=== PATIENT | female | born 1955 | race Caucasian/White ===

== ENCOUNTER 2021-09-28 10:48 | Outpatient (REF) | payer MEDICARE, MEDICAID, SELFPAY ==
--- NOTE | ~2021-09-28 | XR_ITS ---
EXAMINATION: XR ANKLE, RIGHT CLINICAL INFORMATION: Sprain COMPARISON: None TECHNIQUE: AP, lateral, and mortise views of the right ankle. FINDINGS: There is an acute oblique fracture of the distal fibular shaft. There is a mild 3 mm lateral displacement of the distal fibula with respect to the more proximal shaft. No other fracture is seen. The ankle mortise is normal. There is lateral soft tissue swelling. There are calcaneal spurs. XR/XR ankle RT min 3V IMPRESSION: Acute fracture of the distal fibular shaft
== END 2021-09-28 10:49 | disposition home or self-care (01) ==
LOC: HO.HMGCX 10:48
PROVIDERS: PCP Internal Medicine; Visit Provider Physician Assistant Medical
DX: S96.911A Strain of unspecified muscle and tendon at ankle and foot level, right foot, initial encounter (principal); S93.401A Sprain of unspecified ligament of right ankle, initial encounter
CPT/HCPCS: 73610

== ENCOUNTER → 2021-10-03 12:14 | Outpatient (BNVA) | payer MEDICARE, MEDICAID, SELFPAY | PROVIDERS: PCP Internal Medicine; Visit Provider Physician Assistant | DX: S82.831A Other fracture of upper and lower end of right fibula, initial encounter for closed fracture (principal) | CPT/HCPCS: 99202 ==

== ENCOUNTER 2021-10-16 07:50 | Outpatient (REF) | payer MEDICARE, MEDICAID, SELFPAY ==
--- NOTE | ~2021-10-16 | XR_ITS ---
EXAMINATION: XR TIBIA AND FIBULA, RIGHT CLINICAL INFORMATION: Fractures in upper and lower leg. COMPARISON: Right ankle 09/28/2021. TECHNIQUE: AP and lateral views of the right tibia and fibula were obtained. FINDINGS: There is a slowly healing right distal fibular fracture with mild callus formation. No new fractures seen. The ankle mortise and subtalar joints are normal. There is a small calcaneal heel spur. No additional fracture seen. XR/XR tibia fibula RT 2V IMPRESSION: Slowly healing distal fibular oblique fracture. No new acute fracture seen.
== END 2021-10-16 07:51 | disposition home or self-care (01) ==
LOC: HO.HOSX 07:50
PROVIDERS: Visit Provider Physician Assistant
DX: S82.831D Other fracture of upper and lower end of right fibula, subsequent encounter for closed fracture with routine healing (principal); W18.11XD Fall from or off toilet without subsequent striking against object, subsequent encounter
CPT/HCPCS: 73590; 99212

== ENCOUNTER 2021-11-30 08:00 | Outpatient (REF) | payer MEDICARE, MEDICAID, SELFPAY ==
--- NOTE | ~2021-11-30 | XR_ITS ---
EXAMINATION: XR ANKLE, RIGHT CLINICAL INFORMATION: Fracture COMPARISON: Previous x-ray September and October 2021 TECHNIQUE: AP, lateral, and mortise views of the right ankle. FINDINGS: There is a healing fracture of the distal fibular shaft. Alignment appears unchanged. No other fracture is seen. The ankle mortise is normal. There are calcaneal spurs. XR/XR ankle RT min 3V IMPRESSION: Healing fracture of the distal fibular shaft.
== END 2021-11-30 08:01 | disposition home or self-care (01) ==
LOC: HO.HOSX 08:00
PROVIDERS: Visit Provider Physician Assistant
DX: S82.831D Other fracture of upper and lower end of right fibula, subsequent encounter for closed fracture with routine healing (principal)
CPT/HCPCS: 73610; 99212

== ENCOUNTER 2022-05-07 23:35 | Emergency (ER) | payer MEDICARE, MEDICAID, SELFPAY ==
--- NOTE | ~2022-05-07 | XR_ITS ---
EXAMINATION: XR ANKLE, RIGHT CLINICAL INFORMATION: Ankle injury COMPARISON: Right ankle radiographs 11/30/2021 TECHNIQUE: AP, lateral, and mortise views of the right ankle. FINDINGS: Again seen a healed oblique fracture through the distal fibula. Bilateral soft tissue swelling is present. Marked degenerative changes are present at the ankle joint. There is also widening of the medial clear space to 6 mm which may be indicative of a deltoid ligamentous injury and ankle instability. XR/XR ankle RT min 3V IMPRESSION: 1. Degenerative changes at the ankle joint with widening of the medial clear space which may be indicative of a deltoid ligamentous injury. 2. Healed distal fibular fracture.
[2022-05-07 23:43] VITALS: BP 170/86; PULSE 120; O2SAT 97
[2022-05-07 23:45] VITALS: BP 129/61; PULSE 98; RESP 20; TEMP 36.4; O2SAT 94; BMI 56.7
--- NOTE | 2022-05-08 01:04 | ED.LOWEXIN ---
HPI - Extremity Injury (Lower) General Chief Complaint: Extremity Injury, Lower Stated Complaint: ANKLE PAIN FROM FALL Time Seen by Provider: 05/08/22 00:40 History of Present Illness HPI Narrative: Patient is a 58-year-old female presents today with having twisted her right ankle. Complaining pain to the lateral aspect. There is no systemic complaints. No dizziness no nausea no vomiting prior. Patient is from home. Long history of diabetes. Patient was trying to stand up from her recliner but rolled her ankle. Had a previous history of ankle fractures in the past. Related Data Home Medications Medication Instructions Recorded Confirmed albuterol sulfate 90 mcg/actuation 2 puff PO QID PRN 09/28/21 aerosol inhaler (Ventolin HFA) aripiprazole 20 mg tablet 20 mg PO BEDTIME PRN 09/28/21 furosemide 20 mg tablet See Rx Instructions .Route 09/28/21 DIRECTED gabapentin 300 mg capsule 300 mg PO TID 09/28/21 glipizide 5 mg tablet, extended 5 mg PO DAILY 09/28/21 release 24 hr lamotrigine 100 mg tablet 100 mg PO BID 09/28/21 lamotrigine 25 mg tablet 50 mg PO QPM 09/28/21 metformin 1,000 mg tablet 1,000 mg PO BID 09/28/21 pioglitazone 30 mg tablet 30 mg PO DAILY 09/28/21 potassium chloride 20 mEq 20 meq PO DAILY 09/28/21 tablet,extended release quetiapine 100 mg tablet mg PO 09/28/21 simvastatin 40 mg tablet 40 mg PO DAILY 09/28/21 spironolactone 25 mg tablet 25 mg PO DAILY 09/28/21 budesonide-formoterol HFA 160 inhalation 10/03/21 mcg-4.5 mcg/actuation aerosol inhaler (Symbicort) Previous Rx's Medication Instructions Recorded walker #1 ea 09/28/21 Allergies Allergy/AdvReac Type Severity Reaction Status Date / Time haloperidol [From Haldol] Allergy Mild UNKNOWN Verified 11/30/21 10:54 Review of Systems Review of Systems: No fever no chills no systemic complaints Yes all other systems are reviewed and are negative [facility] Past Medical History Attestation statement: The following information was validated with the patient. 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 Oriented X3. No acute distress. Eyes: Pupils equal, round and reactive to light. ENT: Pharynx normal. Neck: Normal inspection. Neck supple. No lymph nodes noted. No crepitus CVS: Normal heart rate and rhythm. Pulses normal. Normal S1 and S2 Respiratory: No respiratory distress. Breath sounds normal. No Wheezing. No rales Abdomen: Soft and nontender. No rigidity. No distention. good BS x4 Skin: Skin warm and dry. Normal skin color. Normal skin turgor. Extremities: No lower extremity edema. Examination of the right ankle there is no medial or lateral malleolar tenderness. There is no pain on the base of the 5th metatarsal. Neurovascular intact to all extremities. No Lacerations. No Rash Neuro: Oriented X 3. No motor deficit. No sensory deficit. Moving all extermities. No slurred speech Medical Decision Making Medical Decision Making MDM Narrative: Patient's x-ray showed no acute fracture. No dislocation. There is no gross deformities. Audible ankle rule followed. There is minimal tenderness at the lateral malleolus at the posterior aspect. There is no pain at base of the 5th metatarsal. No pain at the medial malleolus. Patient well-appearing there is minimal swelling to the ankle. Will discharge patient home. Bud bandage for comfort. In stable condition. Differential Diagnosis Differential Diagnoses: The differential diagnosis associated with the presentation includes Ankle fracture Discharge Plan Discharge Clinical Impression: Ankle sprain and strain Patient Disposition: Home, Self-Care Instructions: Ankle Sprain (ED), Sprain (ED) Additional Instructions: Tylenol as needed for pain Prescriptions: No Action glipizide 5 mg tablet extended release 24hr 5 mg PO DAILY pioglitazone 30 mg tablet 30 mg PO DAILY quetiapine 100 mg tablet PO metformin 1,000 mg tablet 1,000 mg PO BID potassium chloride 20 mEq tablet extended release 20 meq PO DAILY lamotrigine 100 mg tablet 100 mg PO BID lamotrigine 25 mg tablet 50 mg PO QPM aripiprazole 20 mg tablet 20 mg PO BEDTIME PRN simvastatin 40 mg tablet 40 mg PO DAILY furosemide 20 mg tablet See Rx Instructions .ROUTE DIRECTED Rx Instructions: 40 mg AM 20 mg PM as directed; gabapentin 300 mg capsule 300 mg PO TID spironolactone 25 mg tablet 25 mg PO DAILY albuterol sulfate [Ventolin HFA] 90 mcg/actuation HFA aerosol inhaler 2 puff PO QID PRN (YAQUELIN) petey [facility] See Rx Instructions .Route Qty: 1 0RF Rx Instructions: As directed budesonide-formoterol [Symbicort] 160-4.5 mcg/actuation HFA aerosol inhaler inhalation Referrals: Torey Guevara MD [Physician] - 05/10/22
--- NOTE | 2022-05-08 01:29 | PC.NURSE ---
R ankle wrapped with max bandage
--- NOTE | 2022-05-08 01:30 | PC.NURSE ---
patient provided with walker to take home per providers orders
--- NOTE | 2022-05-08 03:04 | PC.NURSE ---
pt daughter called back to check on her mom. daughter states she will be here at approx 0700 due to she lives far away. pt is comfortable no distress.
== END 2022-05-08 07:20 | disposition home or self-care (01) ==
PROVIDERS: Emergency Provider Emergency Medicine Emergency Medical Services
DX: S93.401A Sprain of unspecified ligament of right ankle, initial encounter (principal); X50.1XXA Overexertion from prolonged static or awkward postures, initial encounter; Y93.9 Activity, unspecified; Y92.9 Unspecified place or not applicable; Y99.9 Unspecified external cause status; Z79.899 Other long term (current) drug therapy
CPT/HCPCS: 73610; 99283

== ENCOUNTER 2022-05-24 14:02 | Outpatient (REF) | payer MEDICARE, MEDICAID, SELFPAY ==
--- NOTE | ~2022-05-24 | XR_ITS ---
EXAMINATION: XR ANKLE, RIGHT CLINICAL INFORMATION: Pain. COMPARISON: None TECHNIQUE: AP, lateral, and mortise views of the right ankle. FINDINGS: Bony alignment and mineralization are normal. The ankle mortise is intact. Previously noted widening of the medial clear space is less well appreciated than was noted previously. A healed oblique fracture is seen of the distal fibula. No acute fracture, dislocation or right ankle joint effusion is seen. 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 Boehler's angle is normal. There are small posterior and plantar calcaneal spurs. There is osteoarthritic change of the first metatarsophalangeal joint. There is generalized soft tissue swelling. XR/XR ankle RT min 3V IMPRESSION: 1. A healed fracture is redemonstrated of the distal right fibula. 2. There are small calcaneal spurs. 3. There are degenerative changes of the ankle and foot, as detailed. 4. There is generalized soft tissue swelling.
== END 2022-05-24 14:03 | disposition home or self-care (01) ==
LOC: HO.HOSX 14:02
PROVIDERS: Visit Provider Physician Assistant
DX: S93.401A Sprain of unspecified ligament of right ankle, initial encounter (principal)
CPT/HCPCS: 73610; 99212

== ENCOUNTER 2023-03-24 09:30 | Emergency (ER) | payer MEDICARE, MEDICAID, SELFPAY ==
--- NOTE | ~2023-03-24 | CT_ITS ---
EXAMINATION: CT HEAD WITHOUT IV CONTRAST CT CERVICAL SPINE WITHOUT IV CONTRAST CT MAXILLOFACIAL WITHOUT IV CONTRAST INDICATION: Fall COMPARISON: None available. TECHNIQUE: Multidetector CT acquisitions of the head and cervical spine were obtained without IV contrast. Multiplanar reformats were acquired and utilized for image interpretation. This CT examination was performed using dose optimization techniques as appropriate, variously including the following: *Automated exposure control *Adjustment of mA and/or kV according to patient size (this includes techniques or standardized protocols for targeted exams where dose is matched to indication/reason for exam; i.e. extremities or head) *Use of iterative reconstruction technique FINDINGS: HEAD: No acute intracranial hemorrhage or infarct. The britton-white matter differentiation is preserved. Diffuse widening of the sulci with associated mild ex vacuo dilation of the ventricles compatible with global cerebral atrophy. No midline shift or hydrocephalus. No acute extra-axial fluid collections. No acute osseous abnormality. Sequelae of bilateral lens replacement. There is suggestion of chronic fracture deformity of the left inferior orbital rim through the infraorbital foramen with herniation of the intraorbital fat. Otherwise, no orbital pathology. The paranasal sinuses and mastoid air cells are clear. Atherosclerotic calcifications of the bilateral carotid siphons and visualized intracranial vertebral arteries. CERVICAL SPINE: No acute fracture or listhesis. The craniocervical and atlantoaxial articulations are normal. Multilevel degenerative changes including disc space narrowing, endplate osteophytosis, uncovertebral hypertrophy, and facet arthrosis. There is no prevertebral soft tissue swelling. No significant soft tissue abnormality within the neck. The visualized lung apices are clear. Ill-defined hypoattenuating focus in the left thyroid lobe lesion of to 1.[address]/CT cervical spine wo IV con IMPRESSION: No acute intracranial abnormality. No acute fracture or listhesis within the cervical spine. Ill-defined 1.6 cm hypoattenuating left thyroid lobe nodule. Recommend further evaluation with dedicated thyroid ultrasound.
--- NOTE | ~2023-03-24 | XR_ITS ---
EXAMINATION: XR CHEST CLINICAL INFORMATION: Hypoxia. COMPARISON: 04/19/2019 TECHNIQUE: 2 views of the chest were obtained. FINDINGS: The lungs are well expanded. Possible airspace disease in the left lower lobe on the lateral projection. No pleural effusion. Cardiac silhouette is unchanged. XR/XR chest 2V IMPRESSION: Possible left lower lobe pneumonia. Advised clinical correlation.
--- NOTE | ~2023-03-24 | XR_ITS ---
EXAMINATION: XR ANKLE, RIGHT CLINICAL INFORMATION: Pain. Fall. COMPARISON: None available. TECHNIQUE: AP, lateral, and mortise views of the right ankle. FINDINGS: Chronic-appearing, predominantly healed oblique fracture through the distal fibular metaphysis. No acute, displaced fracture. No dislocation. Ankle mortise is maintained. Tibiotalar marginal osteophytes. Plantar and dorsal calcaneal spurs. Circumferential soft tissue swelling. XR/XR ankle RT 2V IMPRESSION: 1. Circumferential soft tissue swelling without acute fracture or dislocation. 2. Chronic appearing, predominantly healed distal fibular fracture. 3. Mild tibiotalar osteoarthritis. 4. Plantar and dorsal calcaneal spurs.
[2023-03-24 09:51] VITALS: BP 113/74; PULSE 100; PULSE 91; RESP 16; TEMP 37.2; O2SAT 87; O2SAT 90; BMI 60.1
--- NOTE | 2023-03-24 10:45 | ECG_ITS ---
Test Reason : DYSPNEA Blood Pressure : / mmHG Vent. Rate : 086 BPM Atrial Rate : 086 BPM P-R Int : 170 ms QRS Dur : 070 ms QT Int : 338 ms P-R-T Axes : 042 024 036 degrees QTc Int : 404 ms Normal sinus rhythm Low voltage QRS Septal infarct (cited on or before 04-OCT-2015) Abnormal ECG When compared with ECG of 19-APR-2019 13:01, No significant change was found Referred By: Clarice Palacios Electronically Signed By:ROSA LOPEZ MD
[2023-03-24 10:51] VITALS: BP 114/58; PULSE 88; RESP 22; TEMP 37.2; O2SAT 95
--- NOTE | 2023-03-24 11:17 | ED_ITS ---
HPI - General Adult General Chief complaint: General Medical Stated complaint: UNWIT FALL,R ANKLE PAIN PER EMS Time Seen by Provider: 03/24/23 10:30 Source: patient, EMS and RN notes reviewed Mode of arrival: EMS Limitations: no limitations History of Present Illness HPI narrative: Patient is a 67-year-old female with history of DM, HF presenting to the emergency department after a fall at home this morning. She states that as she got up out of her computer chair she became mildly dizzy and tripped, falling to the floor. Reports difficulty with getting up off the floor, visiting nurse was there at the time and encouraged patient to come to the emergency department for evaluation. Complains of right ankle pain with weight bearing but denies pain at rest. Patient reporting that she believes that she felt dizzy upon standing from computer chair because she had not yet eaten breakfast. Patient denies head strike or loss of consciousness. She states that she is not anticoagulated. Patient found to be hypoxic at 90% on room air upon EMS arrival. Patient states that she has home O2 that she is supposed to wear if her levels drop below 95%, but states that her levels never dropped that low so she rarely uses her oxygen. She denies any chest pain, shortness of breath, cough, fevers. She denies new lower extremity edema and states that her lower extremity edema has recently improved since increasing her Lasix. She denies any headache or vision changes. Denies any current dizziness or lightheadedness. MD complaint: ankle pain Onset (ago): hour(s) Location: right and lower extremity Radiation: non-radiation Severity: mild Quality: aching Pain Consistency: intermittent Relieving factors: rest Exacerbating factors: movement and other (weight bearing) Associated symptoms: denies other symptoms Treatments prior to arrival: none Related Data Home Medications Medication Instructions Recorded Confirmed albuterol sulfate 90 mcg/actuation 2 puff PO QID PRN Shortness Of 09/28/21 03/24/23 aerosol inhaler (Ventolin HFA) Breath aripiprazole 20 mg tablet 20 mg PO DAILY 09/28/21 03/24/23 furosemide 20 mg tablet 40 mg PO DAILY 09/28/21 03/24/23 gabapentin 300 mg capsule 300 mg PO TID 09/28/21 03/24/23 lamotrigine 100 mg tablet 100 mg PO BID 09/28/21 03/24/23 lamotrigine 25 mg tablet 50 mg PO BEDTIME 09/28/21 03/24/23 metformin 1,000 mg tablet 1,000 mg PO BID 09/28/21 03/24/23 pioglitazone 30 mg tablet 30 mg PO DAILY 09/28/21 03/24/23 potassium chloride 20 mEq 20 meq PO DAILY 09/28/21 03/24/23 tablet,extended release quetiapine 100 mg tablet 200 mg PO BEDTIME 09/28/21 03/24/23 simvastatin 40 mg tablet 40 mg PO DAILY 09/28/21 03/24/23 budesonide-formoterol HFA 160 2 puff inhalation BID 10/03/21 03/24/23 mcg-4.5 mcg/actuation aerosol inhaler (Symbicort) empagliflozin 10 mg tablet 10 mg PO DAILY 03/24/23 03/24/23 (Jardiance) furosemide 20 mg tablet 20 mg PO BEDTIME 03/24/23 03/24/23 spironolactone 50 mg tablet 50 mg PO DAILY 03/24/23 03/24/23 Previous Rx's Medication Instructions Recorded walker #1 ea 09/28/21 amoxicillin 875 mg-potassium 1 tab PO BID #14 tabs 03/24/23 clavulanate 125 mg tablet doxycycline hyclate 100 mg capsule 100 mg PO BID 5 days #10 caps 03/24/23 Allergies Allergy/AdvReac Type Severity Reaction Status Date / Time haloperidol [From Haldol] Allergy Mild UNKNOWN Verified 08/30/22 10:12 Review of Systems 2 Review of Systems: As per HPI. Yes all other systems are reviewed and are negative Constitutional: Constitutional: Reports as per HPI [facility] Social History Social History Patient Tobacco Use Status: Never used Tobacco Smoked in Last 30 Days: No Use of substances other than those prescribed or required for medical reasons: No Advance Directives: No Advance Directives Information Provided: No Current occupational status: retired 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 Physical Exam ED Vital Signs: Vital Signs - 24 hr 03/24/23 09:51 03/24/23 10:51 03/24/23 13:58 Temperature 98.9 F 98.9 F 98.4 F Pulse Rate 91 88 86 Respiratory Rate 16 22 H 18 Blood Pressure 114/58 L 108/50 L Pulse Oximetry 87 L 95 96 Oxygen Delivery Method Room Air Nasal Cannula Nasal Cannula Oxygen Flow Rate 2 2 03/24/23 16:08 Temperature Pulse Rate 82 Respiratory Rate 25 H Blood Pressure 109/43 L Pulse Oximetry 96 Oxygen Delivery Method Nasal Cannula Oxygen Flow Rate 2 BMI result Body Mass Index 60.1 Vital signs have been reviewed and appear to be correct. Blood pressure normal. Heart rate normal. Respiratory rate normal. Temperature normal. Oxygen saturation hypoxic on room air. Const General: cooperative and no acute distress Nutritional Appearance: obese Orientation/consciousness: oriented to person, oriented to place, oriented to time and patient oriented x3 Limitations: no limitations HENMT Head: Yes normocephalic and Yes atraumatic Ears: external ears normal General nose exam: Normal external nose present Face and sinus: Yes face symmetric Mouth: oropharynx normal and moist mucous membranes Throat: Yes uvula midline Eyes Pupils: Equal, round and reactive pupils present Neck Neck: Yes normal visual inspection and Yes supple Resp Effort & Inspection: normal respiratory effort and able to speak in complete sentences Auscultation: clear to auscultation bilaterally Cardio Rate: regular rate Rhythm: regular rhythm Heart sounds: S1 normal heart sound present and S2 normal heart sound present GI Palpation (GI): Soft to palpation and nontender Auscultation: normoactive bowel sounds General: Yes no CVA tenderness Back/Spine/Pelvis Back: no CVA tenderness Skin General skin exam: elasticity normal and turgor normal Neuro General: oriented to person, oriented to place, oriented to time, patient oriented x3, moves all extremities, no focal motor deficits and CN's II-XI intact bilaterally Cranial nerves: Yes Equal, round and reactive pupils present Cognition (Neuro): normal cognition Extrem General: Yes full ROM, Yes no calf tenderness and Yes edema (bilateral 2+ pitting edema) Psych Mental Status: mental status grossly normal Affect: normal affect Thought process: Normal thought process present Course Course Course Narrative: 03/24/23 16:26 Patient seen by DANIEL Stanton who feels patient does not meet admission criteria as she has home O2. Discussed with patient discharge home versus PT evaluation. Patient states that she feels comfortable with discharge home, has a visiting nurse that comes every other morning as well as a neighbor across the [place] who can assist her. Also states that her sister typically comes over to help her. Will discharge patient home on Augmentin and doxycycline given report of asthma and COPD history. Return precautions discussed at bedside. Patient verbalized understanding of and agreement with plan. Medications Administered Discontinued Medications Generic Name Dose Route Start Last Admin Trade Name Razia PRN Reason Stop Dose Admin Ceftriaxone Sodium 1 gm/ 50 mls @ 100 mls/hr 03/24/23 13:05 03/24/23 15:56 Sodium Chloride IV 03/24/23 13:34 100 mls/hr ONCE ONE Administration Sodium Chloride 500 mls @ 500 mls/hr 03/24/23 13:15 03/24/23 14:59 Ns IV 03/24/23 14:14 500 mls/hr .Q1H ADOLFO Administration Medical Decision Making Medical Decision Making [facility] Narrative: Patient is a 67-year-old female with history of DM, HF presenting to the emergency department after a fall at home this morning. Patient's family called the ED after patient's arrival and noted that patient recently completed a course of antibiotics for a UTI, but state that often patient's UTIs are resistant to initial treatment. On exam patient is awake, A+Ox3, hypoxic on room air, VS otherwise WNL, afebrile, normal neurological exam without focal deficits, physical exam findings as above. Given reported symptoms and physical exam findings, initial differential includes CHF exacerbation, UTI, pneumonia, cardic dysrhythmia, ankle fracture, ICH, skull or cervical vertebral fracture. Do not suspect sepsis. Labs notable for leukocytosis, no significant electrolyte abnormalities, no evidence of WILLIS, negative troponin, no elevation of BNP. X-ray chest notable for possible left lower lobe pneumonia. No evidence of fracture on ankle x-ray. No evidence of ICH, skull or cervical fracture on CT. My interpretation is in agreement with the radiologist's interpretation. Given leukocytosis and hypoxia, will treat for pneumonia at this time with IV ceftriaxone and azithroymcin. Spoke with Renetta hospitalist [employer] who accepted admisison. Differential Diagnosis Differential Diagnoses: The differential diagnosis associated with the presentation includes As per [facility] Admission/Observation Consideration of admission/observation: Escalation of care including admission/observation considered Consult Healthcare Provider Management of the patient was discussed with: Hospitalist Lab Data [facility] Lab Attestation statement: I reviewed the patient's lab results. As per [facility] 03/24/23 11:29 03/24/23 11:29 Labs: Lab Results 03/24/23 03/24/23 03/24/23 Range/Units 11:29 15:42 15:58 WBC 20.6 H (4.8-10.8) X10*3/uL RBC 5.12 (4.20-5.50) X10*6/uL Hgb 15.8 (12.0-16.0) g/dl Hct 49.1 H (37.0-47.0) % MCV 95.9 (80.0-98.0) fL MCH 30.9 (27.0-33.0) pg MCHC 32.2 (31.0-35.0) g/dl RDW 13.9 (11.0-16.0) % Plt Count 214 (160-400) X10*3/uL MPV Not Reportable Immature Gran % (Auto) 0.7 H (0.0-0.4) % Neut % (Auto) 89.7 H (45-73) % Lymph % (Auto) 3.9 L (20-40) % Emanuel % (Auto) 5.4 (2-11) % Eos % (Auto) 0.1 (0-4) % Baso % (Auto) 0.2 (0-2) % Lymph # (Auto) 0.8 L (1.2-4.9) X10*3/uL Emanuel # (Auto) 1.1 (0.1-1.2) X10*3/uL Eos # (Auto) 0.0 (0.0-0.4) X10*3/uL Baso # (Auto) 0.0 (0.0-0.2) X10*3/uL Abs Immat Gran (auto) 0.15 H (0.00-0.03) X10*3/uL Absolute Neuts (auto) 18.4 H (2.0-8.3) x10*3/uL Absolute Nucleated RBC 0.000 (0.0-0.012) X10*3/uL Nucleated RBC % (auto) 0.0 (0.0-0.2) /100WBC Smear Tech's Comments VERIFIED Sodium 140 (135-145) mmol/L Potassium 4.1 (3.3-5.1) mmol/L Chloride 104 (96-108) mmol/L Carbon Dioxide 22 (22-29) mmol/L Anion Gap 18 (12-20) BUN 10 (9-16) mg/dL Creatinine 0.92 (0.5-1.4) mg/dL Estim Creat Clear Calc 75.7 Estimated GFR > 60 Random Glucose 131 H (60-115) mg/dL Lactic Acid 1.7 (0.5-2.0) mmol/L Calcium 9.8 (8.4-10.2) mg/dL Total Bilirubin 0.8 (0.0-1.0) mg/dL AST 22 (5-31) U/L ALT 14 (0-31) U/L Alkaline Phosphatase 81 (39-117) U/L Troponin I High Sens < 2.7 (<3.5-17.0) ng/L B-Natriuretic Peptide 14 (<100) pg/mL Total Protein 8.0 (6.5-8.0) g/dL Albumin 4.7 (3.5-5.0) g/dL Urine Color Yellow Urine Appearance Clear Urine pH 5.5 (5.0-9.0) Ur Specific [place] 1.020 (1.005-1.025) Urine Protein Negative (Neg-Trace) mg/dL Urine Glucose (UA) >=1000 H (Negative) mg/dL Urine Ketones Trace (Negative) mg/dL Urine Blood Negative (Negative) Urine Nitrite Negative (Negative) Ur Leukocyte Esterase Negative (Negative) Urine RBC 0-2 (0-2) /HPF Urine WBC 0-5 (0-5) /HPF Ur Squamous Epith Cells 0-2 (0-2) /HPF Urine Bacteria None Seen (None Seen) Hyaline Casts 0-2 (0-2) /LPF Influenza Type A (PCR) NEGATIVE (Negative) Influenza Type B (PCR) NEGATIVE (Negative) RSV RNA Qual (PCR) NEGATIVE (Negative) SARS-CoV-2 RNA (RT-PCR) NEGATIVE (Negative) Independent Interpretation I performed an independent interpretation of an: Plain X-Ray Interpretation: Right ankle: no evidence of fracture, soft tissue swelling noted CXR: LLL pneumonia NO evidence of ICH, skull or cervical fx on CT Radiology Impression Discussion of test interpretation with radiology: I have reviewed the radiologist's reading. Radiologist Impression: CT/CT head/brain wo IV con IMPRESSION: No acute intracranial abnormality. No acute fracture or listhesis within the cervical spine. Ill-defined 1.6 cm hypoattenuating left thyroid lobe nodule. Recommend further evaluation with dedicated thyroid ultrasound. XR/XR chest 2V IMPRESSION: Possible left lower lobe pneumonia. Advised clinical correlation. External Record Review External record reviewed: Inpatient record, Office record and Outpatient record Prescription Management I considered prescription management with: Antibiotic Discharge Plan Discharge Clinical Impression: Left lower lobe pneumonia Patient Disposition: Home, Self-Care Instructions: Doxycycline (By mouth), Amoxicillin/Clavulanate Potassium (By mouth), Community Acquired Pneumonia (DC), Pneumonia (ED) Additional Instructions: You were evaluated in the emergency department today after a fall. Your evaluation shows evidence of left lower lobe pneumonia. Please continue to monitor your oxygen levels at home with your pulse oximeter and use your home oxygen as needed. You are being treated with 2 antibiotics, Augmentin and doxycycline. Please complete the full course of both antibiotics as prescribed. Please follow-up with your primary care provider as you will need a repeat chest x-ray to ensure resolution the pneumonia. Return to the emergency department if you develop shortness of breath, difficulty breathing, worsening cough, fever 100.4? F or greater, vomiting, weakness, or any other concerning symptoms. Prescriptions: New doxycycline hyclate 100 mg capsule 100 mg PO BID 5 Days Qty: 10 0RF amoxicillin-pot clavulanate 875-125 mg tablet 1 tab PO BID Qty: 14 0RF No Action furosemide 20 mg tablet 20 mg PO BEDTIME spironolactone 50 mg tablet 50 mg PO DAILY Jardiance 10 mg tablet 10 mg PO DAILY pioglitazone 30 mg tablet 30 mg PO DAILY quetiapine 100 mg tablet 200 mg PO BEDTIME metformin 1,000 mg tablet 1,000 mg PO BID potassium chloride 20 mEq tablet extended release 20 meq PO DAILY lamotrigine 100 mg tablet 100 mg PO BID lamotrigine 25 mg tablet 50 mg PO BEDTIME aripiprazole 20 mg tablet 20 mg PO DAILY simvastatin 40 mg tablet 40 mg PO DAILY furosemide 20 mg tablet 40 mg PO DAILY Rx Instructions: 40 mg AM 20 mg PM as directed; gabapentin 300 mg capsule 300 mg PO TID albuterol sulfate [Ventolin HFA] 90 mcg/actuation HFA aerosol inhaler 2 puff PO QID PRN (Reason: Shortness Of Breath) (HARDIK Mcclain See Rx Instructions .Route Qty: 1 0RF Rx Instructions: As directed budesonide-formoterol [Symbicort] 160-4.5 mcg/actuation HFA aerosol inhaler 2 puff inhalation BID
[2023-03-24 11:43] LABS: Basophils Percent Auto 0.2 % (0-2); Eosinophils Percent Auto 0.1 % (0-4); Hematocrit 49.1 % (37.0-47.0); Hemoglobin 15.8 g/dl (12.0-16.0); Imm Gran Abs Auto 0.15 X10*3/uL (0.00-0.03); Imm Gran Pct Auto 0.7 % (0.0-0.4); Lymphocytes Absolute Auto 0.8 X10*3/uL (1.2-4.9); Lymphocytes Percent Auto 3.9 % (20-40); MANUAL DIFF FLAG SCAN; Mean Corpuscular HGB Conc 32.2 g/dl (31.0-35.0); Mean Corpuscular Hemoglobin 30.9 pg (27.0-33.0); Mean Corpuscular Volume 95.9 fL (80.0-98.0); Monocytes Absolute Auto 1.1 X10*3/uL (0.1-1.2); Monocytes Percent Auto 5.4 % (2-11); Neutrophils Absolute Auto 18.4 x10*3/uL (2.0-8.3); Neutrophils Percent Auto 89.7 % (45-73); PLT CLUMP 1; Red Blood Count 5.12 X10*6/uL (4.20-5.50); Red Cell Distribution Width 13.9 % (11.0-16.0); SCAN SMEAR FLAG 1
[2023-03-24 11:53] LABS: Alanine Aminotransferase 14 U/L (0-31); Albumin Level 4.7 g/dL (3.5-5.0); Alkaline Phosphatase 81 U/L (39-117); Anion Gap 18 (12-20); Aspartate Amino Transferase 22 U/L (5-31); Bilirubin Total 0.8 mg/dL (0.0-1.0); Blood Urea Nitrogen 10 mg/dL (9-16); Calcium 9.8 mg/dL (8.4-10.2); Carbon Dioxide 22 mmol/L (22-29); Chloride 104 mmol/L (96-108); Creatinine Clr Calc Pharmacy 75.7; Estimated Glomerular Filt Rate > 60; Glucose Random 131 mg/dL (60-115); Potassium 4.1 mmol/L (3.3-5.1); Sodium 140 mmol/L (135-145)
[2023-03-24 11:58] LABS: B Type Natriuretic Peptide 14 pg/mL (<100)
[2023-03-24 12:05] LABS: Troponin-I High Sensitivity < 2.7 ng/L (<3.5-17.0)
[2023-03-24 12:22] LABS: Platelet Count 214 X10*3/uL (160-400); White Blood Count 20.6 X10*3/uL (4.8-10.8)
[2023-03-24 12:23] LABS: SLIDE REVIEW VERIFIED
[2023-03-24 12:40] LABS: Influenza A PCR NEGATIVE (Negative); Influenza B PCR NEGATIVE (Negative); Resp Syncy Virus RNA Qual PCR NEGATIVE (Negative); SARS COV2 PCR INHOUSE NEGATIVE (Negative)
--- NOTE | 2023-03-24 13:17 | PC.NURSE ---
LINDA ([facility], ) CALLED AND WAS UPDATED ON PT STATUS. LINDA STATES THAT WHEN PT IS BEING D/C'D TO CALL THIS PHONE AND THEY WILL PROVIDE TRANSPORTATION. [facility] OPENED UNTIL 1700.
[2023-03-24 13:58] VITALS: BP 108/50; PULSE 86; RESP 18; TEMP 36.9; O2SAT 96
[2023-03-24] MEDS: 0.9 % Sodium Chloride 500 ML IV (14:59)
--- NOTE | 2023-03-24 15:24 | PC.NURSE ---
PT'S SISTER STANLEY ([phone]) CALLED AND WAS UPDATED ON PT STATUS. PT STATES THAT ANY/ALL INFO CAN BE RELAYED TO HER SISTER STANLEY.
[2023-03-24] MEDS: cefTRIAXone sodium 1 GM in 0.9 % Sodium Chloride 50 ML IV (15:56)
[2023-03-24 16:00] LABS: Lactic Acid 1.7 mmol/L (0.5-2.0)
[2023-03-24 16:08] VITALS: BP 109/43; PULSE 82; RESP 25; O2SAT 96
[2023-03-24 16:10] LABS: Appearance Urine Clear; Color Urine Yellow; Glucose Urine UA >=1000 mg/dL (Negative); Leukocyte Esterase Urine Negative (Negative); Nitrite Urine Negative (Negative); PH 5.5 (5.0-9.0); UMIC TRIGGER UACC YES; Urine Blood Negative (Negative); Urine Ketones Trace mg/dL (Negative); Urine Protein Negative (Neg-Trace)
[2023-03-24 16:19] LABS: Bacteria Urine None Seen (None Seen); Hyaline Casts Urine 0-2 /LPF (0-2); RBC Urine 0-2 /HPF (0-2); Squamous Epithelial Cell Urine 0-2 /HPF (0-2); WBC Urine 0-5 /HPF (0-5)
--- NOTE | 2023-03-24 16:28 | P.EN_ITS ---
Event Note Date of Service: 03/24/23 Event Note: 67-year-old female with history type 2 diabetes, bipolar disorder, unspecified congestive heart failure, asthma/COPD overlap with chronic hypoxic respiratory failure using 2 L supplemental O2 p.r.n. for oximetry <95%. Pt reports productive cough x5 days. Has chronic yang, but no worsening sob over the last few days. No wheezing, cp, fevers, chills, congestion. No urinary symptoms. No sick contacts. On exam, lungs cta, heart rrr, abd soft, nttp, no guarding/rebo und. No ble edema. She has not needed to use her oxygen at home, but did not check levels today Has leukocytosis 20.8, no other SIRS criteria. She was 89% on RA on arrival, placed on baseline 2L. Now 95% on RA. UA negative. CXR shows possible LLL penumonia. At this time, pt does not require admission for CAP. No sepsis. Can you home O2 prn. Recommend outpt abx per ED provider. Pt feels her fall this morning was purely mechanical and denies any prodrome. Does not feel she needs PT eval. Will defer to ED provider. Time Spent With Patient Time: Total time managing care of this patient today ____ minutes.
[2023-03-24] MEDS: Azithromycin 500 MG in 0.9 % Sodium Chloride 250 ML 125 MG IV (16:43)
--- NOTE | 2023-03-24 17:14 | PHA.MEDREC ---
Pharmacy Consult ? Medication Reconciliation Pharmacy has completed the medication reconciliation. Patient reported medications. Michelle Hill, AnnaD
== END 2023-03-25 05:41 | disposition home or self-care (01) ==
PROVIDERS: Registered Nurse Emergency; Emergency Provider Emergency Medicine; PCP Internal Medicine
DX: S99.911A Unspecified injury of right ankle, initial encounter (principal); J18.9 Pneumonia, unspecified organism; R51.9 Headache, unspecified; R07.89 Other chest pain; R06.02 Shortness of breath; M25.571 Pain in right ankle and joints of right foot; W01.0XXA Fall on same level from slipping, tripping and stumbling without subsequent striking against object, initial encounter; Y93.9 Activity, unspecified; Y92.9 Unspecified place or not applicable; Y99.9 Unspecified external cause status; Z20.822 Contact with and (suspected) exposure to COVID-19; Z20.828 Contact with and (suspected) exposure to other viral communicable diseases; Z79.899 Other long term (current) drug therapy
CPT/HCPCS: 0241U; 36415; 51702; 70450; 71046; 72125; 73600; 80053; 81001; 83605; 83880; 84484; 85025; 87040; 93005; 96374; 96375; 99284; 99285; J0456; J0696

== ENCOUNTER → 2023-03-24 10:45 | Outpatient (BNV) | payer MEDICARE, MEDICAID, SELFPAY | PROVIDERS: Emergency Provider Emergency Medicine; PCP Internal Medicine; Visit Provider Internal Medicine Cardiovascular Disease | DX: R94.31 Abnormal electrocardiogram [ECG] [EKG] (principal) | CPT/HCPCS: 93010 ==

== ENCOUNTER 2023-04-14 22:18 | Emergency (ER) | payer MEDICARE, MEDICAID, SELFPAY ==
--- NOTE | ~2023-04-14 | CT_ITS ---
EXAMINATION: CT HEAD WITHOUT CONTRAST CLINICAL INFORMATION: Fall COMPARISON: CT head from 03/24/2023 TECHNIQUE: Contiguous axial imaging was performed from the skull base to vertex without intravenous administration of contrast. This CT examination was performed using dose optimization techniques as appropriate, variously including the following: *Automated exposure control *Adjustment of mA and/or kV according to patient size (this includes techniques or standardized protocols for targeted exams where dose is matched to indication/reason for exam; i.e. extremities or head) *Use of iterative reconstruction technique DLP: 866 mGy-cm FINDINGS: There is no evidence of acute intracranial hemorrhage or territorial infarction. Chronic white matter small vessel ischemic changes. No abnormal mass effect or midline shift is seen. Faith to white matter differentiation is well preserved. No extra-axial fluid collections are identified. The ventricles are normal in size. There is no abnormal attenuation within the brain parenchyma. Hyperostosis frontalis interna. 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 The osseous structures and soft tissues are normal. The mastoid air cells and visualized portions of the paranasal sinuses are well aerated. CT/CT head/brain wo IV con IMPRESSION: 1. No acute intracranial pathology. 2. Chronic white matter small vessel ischemic changes. 3. 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
[2023-04-14 22:32] VITALS: BP 137/59; BP 140/80; PULSE 84; PULSE 89; RESP 16; O2SAT 99; BMI 52.9
--- NOTE | 2023-04-14 22:41 | ED.FALL ---
HPI - Fall General Chief Complaint: Fall Stated Complaint: Pt tripped over 02 cord, fell and hit head on flr Time Seen by Provider: 04/14/23 22:28 Source: patient and EMS Mode of arrival: EMS Limitations: no limitations History of Present Illness HPI Narrative: Patient on home oxygen walks with cane or walker patient was standing turn around quick without using a cane or walker tripped on oxygen line fell backwards hitting her head to the pack of cans complaining of mild headache no loss of consciousness no seizure no nausea/vomiting patient otherwise in her usual health Related Data Home Medications Medication Instructions Recorded Confirmed albuterol sulfate 90 mcg/actuation 2 puff PO QID PRN Shortness Of 09/28/21 03/24/23 aerosol inhaler (Ventolin HFA) Breath aripiprazole 20 mg tablet 20 mg PO DAILY 09/28/21 03/24/23 furosemide 20 mg tablet 40 mg PO DAILY 09/28/21 03/24/23 gabapentin 300 mg capsule 300 mg PO TID 09/28/21 03/24/23 lamotrigine 100 mg tablet 100 mg PO BID 09/28/21 03/24/23 lamotrigine 25 mg tablet 50 mg PO BEDTIME 09/28/21 03/24/23 metformin 1,000 mg tablet 1,000 mg PO BID 09/28/21 03/24/23 pioglitazone 30 mg tablet 30 mg PO DAILY 09/28/21 03/24/23 potassium chloride 20 mEq 20 meq PO DAILY 09/28/21 03/24/23 tablet,extended release quetiapine 100 mg tablet 200 mg PO BEDTIME 09/28/21 03/24/23 simvastatin 40 mg tablet 40 mg PO DAILY 09/28/21 03/24/23 budesonide-formoterol HFA 160 2 puff inhalation BID 10/03/21 03/24/23 mcg-4.5 mcg/actuation aerosol inhaler (Symbicort) empagliflozin 10 mg tablet 10 mg PO DAILY 03/24/23 03/24/23 (Jardiance) furosemide 20 mg tablet 20 mg PO BEDTIME 03/24/23 03/24/23 spironolactone 50 mg tablet 50 mg PO DAILY 03/24/23 03/24/23 Previous Rx's Medication Instructions Recorded walker #1 ea 09/28/21 amoxicillin 875 mg-potassium 1 tab PO BID #14 tabs 03/24/23 clavulanate 125 mg tablet doxycycline hyclate 100 mg capsule 100 mg PO BID 5 days #10 caps 03/24/23 Allergies Allergy/AdvReac Type Severity Reaction Status Date / Time haloperidol [From Haldol] Allergy Mild UNKNOWN Verified 08/30/22 10:12 Review of Systems Review of Systems: Yes all other systems are reviewed and are negative [facility] Social History Social History Patient Tobacco Use Status: Never used Tobacco Advance Directives: No Advance Directives Information Provided: No Current occupational status: retired 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 Oriented X3. No acute distress. Eyes: PERRLA, No Nystagmus ENT: Pharynx normal. Oral Mucosa moist, AT NC Neck: Normal inspection. Neck supple. No midline tenderness CVS: Normal heart rate and rhythm. Pulses normal. Respiratory: No respiratory distress. Equal air entry bilateral, no wheezing/rales/rhonchi Abdomen: Soft and nontender. Bowel sounds are present, no mass palpable, no CVA tenderness Skin: Skin warm and dry. Normal skin color. Normal skin turgor. Extremities: No lower extremity edema. No calf tenderness Neuro: Oriented X 3. No motor deficit. No sensory deficit.No cerebellar signs , cranial nerves II-XII intact Medical Decision Making Medical Decision Making [facility] Narrative: Patient is status post mechanical fall head CT negative no signs of significant other injury discharge patient back home Differential Diagnosis Differential Diagnoses: The differential diagnosis associated with the presentation includes Closed head injury/subdural hematoma Lab Data [facility] Lab Attestation statement: I reviewed the patient's lab results. Labs: Lab Results 04/14/23 Range/Units 23:10 POC Glucose 106 (60-115) mg/dL Independent Interpretation I performed an independent interpretation of an: CT Scan Radiology Impression Discussion of test interpretation with radiology: I have reviewed the radiologist's reading. Discharge Plan Discharge Clinical Impression: Minor closed head injury, Fall Patient Disposition: Home, Self-Care Instructions: Fall Prevention for Older Adults (ED), Head Injury (ED) Additional Instructions: Care and cautions as advised Prescriptions: No Action furosemide 20 mg tablet 20 mg PO BEDTIME spironolactone 50 mg tablet 50 mg PO DAILY Jardiance 10 mg tablet 10 mg PO DAILY doxycycline hyclate 100 mg capsule 100 mg PO BID 5 Days Qty: 10 0RF amoxicillin-pot clavulanate 875-125 mg tablet 1 tab PO BID Qty: 14 0RF pioglitazone 30 mg tablet 30 mg PO DAILY quetiapine 100 mg tablet 200 mg PO BEDTIME metformin 1,000 mg tablet 1,000 mg PO BID potassium chloride 20 mEq tablet extended release 20 meq PO DAILY lamotrigine 100 mg tablet 100 mg PO BID lamotrigine 25 mg tablet 50 mg PO BEDTIME aripiprazole 20 mg tablet 20 mg PO DAILY simvastatin 40 mg tablet 40 mg PO DAILY furosemide 20 mg tablet 40 mg PO DAILY Rx Instructions: 40 mg AM 20 mg PM as directed; gabapentin 300 mg capsule 300 mg PO TID albuterol sulfate [Ventolin HFA] 90 mcg/actuation HFA aerosol inhaler 2 puff PO QID PRN (Reason: Shortness Of Breath) (YAQUELIN) petey Herrerac See Rx Instructions .Route Qty: 1 0RF Rx Instructions: As directed budesonide-formoterol [Symbicort] 160-4.5 mcg/actuation HFA aerosol inhaler 2 puff inhalation BID
[2023-04-14 23:04] VITALS: BP 154/72; PULSE 91; RESP 17; TEMP 36.2; O2SAT 98
[2023-04-14 23:18] LABS: Glucose, Whole Blood 106 mg/dL (60-115)
[2023-04-15 02:19] VITALS: BP 146/70; PULSE 91; RESP 17; TEMP 36.7; O2SAT 96
== END 2023-04-15 02:52 | disposition home or self-care (01) ==
PROVIDERS: Emergency Provider Internal Medicine
DX: S09.90XA Unspecified injury of head, initial encounter (principal); W01.10XA Fall on same level from slipping, tripping and stumbling with subsequent striking against unspecified object, initial encounter; Y93.9 Activity, unspecified; Y92.9 Unspecified place or not applicable; Y99.9 Unspecified external cause status
CPT/HCPCS: 70450; 82947; 99284

== ENCOUNTER 2023-04-15 03:49 | Inpatient (IN) | payer MEDICARE, MEDICAID, SELFPAY ==
[2023-04-15] VITALS (7 sets, daily range): BP systolic 104–152; BP diastolic 42–88; PULSE 74–94; RESP 14–24; TEMP 36.4–38.5; O2SAT 94–98; BMI 54.0
--- NOTE | ~2023-04-15 | XR_ITS ---
EXAMINATION: XR CHEST CLINICAL INFORMATION: Fever COMPARISON: Chest 03/24/2023 TECHNIQUE: AP upright portable view of the chest was obtained. A 50 9:00 AM FINDINGS: The lungs are well expanded. Question slight patchy opacity in the left lower lobe. The cardiomediastinal silhouette is stable. No right pleural effusion. The left costophrenic angle is not included on this radiograph. XR/XR chest 1V IMPRESSION: Possible left lower lobe pneumonia.
--- NOTE | 2023-04-15 04:20 | PC.NURSE ---
Pt was discharged from [facility] [place] tonight. EMS brought pt home and she was able to get up one flight of stairs. Part way through the second flight, pt could not hold her weight. Pt stated she cannot stand anymore and EMS loaded pt back up with help of Warnre CHOI, and brought pt back to [facility] [place]. Pt is A&Ox4, GCS 15, with warm, dry skin. Pt is on 3 LPM baseline, satting well at this time. Pt was put on the radiation monitor and callbell placed within reach. Dr Velasco aware.
--- NOTE | 2023-04-15 05:17 | ED.GENADULT ---
HPI - General Adult General Chief complaint: General Medical Stated complaint: failure to thrive@home-unable amb stairs-- d/c [facility] [place] Time Seen by Provider: 04/15/23 04:32 History of Present Illness HPI narrative: Patient is a 67-year-old female tripped over her own oxygen tubing earlier. Subsequently came to [facility]. Had a CT scan of the head done. CT head was grossly negative for any acute evidence of bleeding. Patient went home subsequently was unable to get up 4 steps of stairs. EMS was called again. Patient came back to the emergency department. She is chronically on oxygen. Patient denies any new coughing congestion upper respiratory symptoms. Positive generalized malaise. Patient is from home. The weakness is generalized there is no focal weakness. Related Data Home Medications Medication Instructions Recorded Confirmed albuterol sulfate 90 mcg/actuation 2 puff PO QID PRN Shortness Of 09/28/21 03/24/23 aerosol inhaler (Ventolin HFA) Breath aripiprazole 20 mg tablet 20 mg PO DAILY 09/28/21 03/24/23 furosemide 20 mg tablet 40 mg PO DAILY 09/28/21 03/24/23 gabapentin 300 mg capsule 300 mg PO TID 09/28/21 03/24/23 lamotrigine 100 mg tablet 100 mg PO BID 09/28/21 03/24/23 lamotrigine 25 mg tablet 50 mg PO BEDTIME 09/28/21 03/24/23 metformin 1,000 mg tablet 1,000 mg PO BID 09/28/21 03/24/23 pioglitazone 30 mg tablet 30 mg PO DAILY 09/28/21 03/24/23 potassium chloride 20 mEq 20 meq PO DAILY 09/28/21 03/24/23 tablet,extended release quetiapine 100 mg tablet 200 mg PO BEDTIME 09/28/21 03/24/23 simvastatin 40 mg tablet 40 mg PO DAILY 09/28/21 03/24/23 budesonide-formoterol HFA 160 2 puff inhalation BID 10/03/21 03/24/23 mcg-4.5 mcg/actuation aerosol inhaler (Symbicort) empagliflozin 10 mg tablet 10 mg PO DAILY 03/24/23 03/24/23 (Jardiance) furosemide 20 mg tablet 20 mg PO BEDTIME 03/24/23 03/24/23 spironolactone 50 mg tablet 50 mg PO DAILY 03/24/23 03/24/23 Previous Rx's Medication Instructions Recorded walker #1 ea 09/28/21 amoxicillin 875 mg-potassium 1 tab PO BID #14 tabs 03/24/23 clavulanate 125 mg tablet doxycycline hyclate 100 mg capsule 100 mg PO BID 5 days #10 caps 03/24/23 Allergies Allergy/AdvReac Type Severity Reaction Status Date / Time haloperidol [From Haldol] Allergy Mild UNKNOWN Verified 08/30/22 10:12 Review of Systems Review of Systems: No chest pain or diaphoresis PMFSH Past Medical History Attestation statement: The following information was validated with the patient. 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 Oriented X3. No acute distress. Eyes: Pupils equal, round and reactive to light. ENT: Pharynx normal. Neck: Normal inspection. Neck supple. No lymph nodes noted. No crepitus CVS: Normal heart rate and rhythm. Pulses normal. Normal S1 and S2 Respiratory: No respiratory distress diminished breath sounds bilaterally Abdomen: Soft and nontender. No rigidity. No distention. good BS x4 Skin: Skin warm and dry. Normal skin color. Normal skin turgor. Extremities: No lower extremity edema. Neurovascular intact to all extremities. No Lacerations. No Rash Neuro: Oriented X 3. No motor deficit. No sensory deficit. Moving all extermities. No slurred speech Medical Decision Making Medical Decision Making MDM Narrative: Patient feels generalized weakness. Will check baseline labs will check COVID status. Patient's CT was done earlier tonight it was grossly negative. Will get case management involved physical therapy eval for patient. Currently in stable condition. Patient's COVID flu RSV were all negative. Electrolytes are normal. Hemoglobin is baseline. Currently awaiting care team and physical therapy Differential Diagnosis Differential Diagnoses: The differential diagnosis associated with the presentation includes Generalized weakness, COVID, head injury, dehydration Admission/Observation Consideration of admission/observation: Escalation of care including admission/observation considered Nothing to admit patient for Consult Healthcare Provider Physical therapy and case management Lab Data [facility] Lab Attestation statement: I reviewed the patient's lab results. 04/15/23 05:38 04/15/23 05:38 Labs: Lab Results 04/15/23 Range/Units 05:38 WBC 8.3 (4.8-10.8) X10*3/uL RBC 4.37 (4.20-5.50) X10*6/uL Hgb 13.5 (12.0-16.0) g/dl Hct 42.1 (37.0-47.0) % MCV 96.3 (80.0-98.0) fL MCH 30.9 (27.0-33.0) pg MCHC 32.1 (31.0-35.0) g/dl RDW 14.0 (11.0-16.0) % Plt Count 207 (160-400) X10*3/uL MPV 9.5 (9.4-12.3) fL Immature Gran % (Auto) 0.7 H (0.0-0.4) % Neut % (Auto) 83.2 H (45-73) % Lymph % (Auto) 5.3 L (20-40) % [place] % (Auto) 9.7 (2-11) % Eos % (Auto) 0.5 (0-4) % Baso % (Auto) 0.6 (0-2) % Lymph # (Auto) 0.4 L (1.2-4.9) X10*3/uL [place] # (Auto) 0.8 (0.1-1.2) X10*3/uL Eos # (Auto) 0.0 (0.0-0.4) X10*3/uL Baso # (Auto) 0.1 (0.0-0.2) X10*3/uL Abs Immat Gran (auto) 0.06 H (0.00-0.03) X10*3/uL Absolute Neuts (auto) 6.9 (2.0-8.3) x10*3/uL Absolute Nucleated RBC 0.000 (0.0-0.012) X10*3/uL Nucleated RBC % (auto) 0.0 (0.0-0.2) /100WBC Sodium 141 (135-145) mmol/L Potassium 4.2 (3.3-5.1) mmol/L Chloride 102 (96-108) mmol/L Carbon Dioxide 27 (22-29) mmol/L Anion Gap 16 (12-20) BUN 9 (9-16) mg/dL Creatinine 0.85 (0.5-1.4) mg/dL Estim Creat Clear Calc 79.4 Estimated GFR > 60 Random Glucose 130 H (60-115) mg/dL Calcium 9.3 (8.4-10.2) mg/dL Influenza Type A (PCR) NEGATIVE (Negative) Influenza Type B (PCR) NEGATIVE (Negative) RSV RNA Qual (PCR) NEGATIVE (Negative) SARS-CoV-2 RNA (RT-PCR) NEGATIVE (Negative) Discharge Plan Discharge Clinical Impression: Fall Patient Disposition: Still a Patient Prescriptions: No Action furosemide 20 mg tablet 20 mg PO BEDTIME spironolactone 50 mg tablet 50 mg PO DAILY Jardiance 10 mg tablet 10 mg PO DAILY doxycycline hyclate 100 mg capsule 100 mg PO BID 5 Days Qty: 10 0RF amoxicillin-pot clavulanate 875-125 mg tablet 1 tab PO BID Qty: 14 0RF pioglitazone 30 mg tablet 30 mg PO DAILY quetiapine 100 mg tablet 200 mg PO BEDTIME metformin 1,000 mg tablet 1,000 mg PO BID potassium chloride 20 mEq tablet extended release 20 meq PO DAILY lamotrigine 100 mg tablet 100 mg PO BID lamotrigine 25 mg tablet 50 mg PO BEDTIME aripiprazole 20 mg tablet 20 mg PO DAILY simvastatin 40 mg tablet 40 mg PO DAILY furosemide 20 mg tablet 40 mg PO DAILY Rx Instructions: 40 mg AM 20 mg PM as directed; gabapentin 300 mg capsule 300 mg PO TID albuterol sulfate [Ventolin HFA] 90 mcg/actuation HFA aerosol inhaler 2 puff PO QID PRN (Reason: Shortness Of Breath) (YAQUELIN) petey Herrerac See Rx Instructions .Route Qty: 1 0RF Rx Instructions: As directed budesonide-formoterol [Symbicort] 160-4.5 mcg/actuation HFA aerosol inhaler 2 puff inhalation BID
[2023-04-15 05:43] LABS: MANUAL DIFF FLAG NO
[2023-04-15 05:44] LABS: Basophils Absolute Auto 0.1 X10*3/uL (0.0-0.2); Basophils Percent Auto 0.6 % (0-2); Eosinophils Percent Auto 0.5 % (0-4); Hematocrit 42.1 % (37.0-47.0); Hemoglobin 13.5 g/dl (12.0-16.0); Imm Gran Abs Auto 0.06 X10*3/uL (0.00-0.03); Imm Gran Pct Auto 0.7 % (0.0-0.4); Lymphocytes Absolute Auto 0.4 X10*3/uL (1.2-4.9); Lymphocytes Percent Auto 5.3 % (20-40); Mean Corpuscular HGB Conc 32.1 g/dl (31.0-35.0); Mean Corpuscular Hemoglobin 30.9 pg (27.0-33.0); Mean Corpuscular Volume 96.3 fL (80.0-98.0); Mean Platelet Volume 9.5 fL (9.4-12.3); Monocytes Absolute Auto 0.8 X10*3/uL (0.1-1.2); Monocytes Percent Auto 9.7 % (2-11); Neutrophils Absolute Auto 6.9 x10*3/uL (2.0-8.3); Neutrophils Percent Auto 83.2 % (45-73); Platelet Count 207 X10*3/uL (160-400); Red Blood Count 4.37 X10*6/uL (4.20-5.50); White Blood Count 8.3 X10*3/uL (4.8-10.8)
[2023-04-15 05:59] LABS: Anion Gap 16 (12-20); Blood Urea Nitrogen 9 mg/dL (9-16); Calcium 9.3 mg/dL (8.4-10.2); Carbon Dioxide 27 mmol/L (22-29); Chloride 102 mmol/L (96-108); Creatinine Clr Calc Pharmacy 79.4; Estimated Glomerular Filt Rate > 60; Glucose Random 130 mg/dL (60-115); Potassium 4.2 mmol/L (3.3-5.1); Sodium 141 mmol/L (135-145)
[2023-04-15 06:21] LABS: Influenza A PCR NEGATIVE (Negative); Influenza B PCR NEGATIVE (Negative); Resp Syncy Virus RNA Qual PCR NEGATIVE (Negative); SARS COV2 PCR INHOUSE NEGATIVE (Negative)
--- NOTE | 2023-04-15 08:18 | PC.NURSE ---
this RN resumed care of pt at this time. nsr on the manager monitoring. a&ox4. pt changed into hospital attire at this time. when changing pt - pt extremely hot to the touch. rectal temp obtained = 101.3. skin noted to be irritated/erythema on stomach underneath skin fold/in between thighs/in between buttocks. tender to touch. picture taken/sent to dr. fajardo. provider aware of findings at this time. no sob/wob noted. pt able to speak in full/clear sentences w/o difficultly. respirations even and unlabored. call montero placed within reach.
--- NOTE | 2023-04-15 08:59 | PC.NURSE ---
chest xray bedside. ED provider bedside speaking w/ pt.
[2023-04-15 09:25] LABS: Alanine Aminotransferase 11 U/L (0-31); Albumin Level 4.4 g/dL (3.5-5.0); Alkaline Phosphatase 70 U/L (39-117); Aspartate Amino Transferase 16 U/L (5-31); Bilirubin Direct 0.2 mg/dL (0.0-0.5); Bilirubin Total 0.6 mg/dL (0.0-1.0); Lipase 6 U/L (8-78); Total Protein 7.2 g/dL (6.5-8.0)
[2023-04-15 09:28] LABS: Appearance Urine Clear; Color Urine Yellow; Glucose Urine UA >=1000 mg/dL (Negative); Leukocyte Esterase Urine Negative (Negative); Nitrite Urine Negative (Negative); PH 5.5 (5.0-9.0); Specific Gravity - Urine 1.025 (1.005-1.025); UMIC TRIGGER UACC YES; Urine Blood Negative (Negative); Urine Ketones Trace mg/dL (Negative); Urine Protein Negative (Neg-Trace)
[2023-04-15 09:34] LABS: Bacteria Urine None Seen (None Seen); Hyaline Casts Urine 0-2 /LPF (0-2); RBC Urine 0-2 /HPF (0-2); Squamous Epithelial Cell Urine 0-2 /HPF (0-2); WBC Urine 0-5 /HPF (0-5)
[2023-04-15] MEDS: Nystatin Ointment 15 GM TUBE 1 APPL TOPICAL ×2 (09:34→22:51)
[2023-04-15 09:36] LABS: Lactic Acid 0.9 mmol/L (0.5-2.0)
[2023-04-15] MEDS: Lactated Ringers 1,000 ML 999 ML IV (09:38)
--- NOTE | 2023-04-15 09:50 | PC.NURSE ---
straight catherization performed. 900ml of dark jocelyn urine obtained immediately post catheterization. urine obtained/sent to lab. 22gIV placed in the left forearm - labs drawn and sent to lab. IVF administered per provider order. nystatin applied to affected areas. will administer abx when 2nd set of cultures is obtained.
--- NOTE | 2023-04-15 09:56 | PC.NURSE ---
Ellen BECKWITH from [facility] called for status update on pt a this time - ([phone]).
[2023-04-15] MEDS: Piperacillin Sodium/Tazobactam 4.5 GM in 0.9 % Sodium Chloride 100 ML IV (10:27)
--- NOTE | 2023-04-15 10:35 | PC.NURSE ---
abx administered per provider order. family bedside visiting pt at this time.
[2023-04-15 10:36] LABS: Lipase 6 U/L (8-78)
--- NOTE | 2023-04-15 11:50 | P.HPHOSP_ITS ---
History of Present Illness Date of Service: 04/15/23 Chief Complaint: weakness A 67-year-old woman with a history of COPD requiring home oxygen therapy, diabetes, and hyperlipidemia presented to the emergency department on April 14, 2023, following a mechanical fall and weakness. She was evaluated in the ED and found to have no acute issues, leading to her discharge home. However, upon returning home, she was unable to manage the stairs and was sent back to the ED for possible placement in a care facility. She continues to complain of feeling weak. She had a temp of 101 in the ED and CXR show pneumonia and started on Zosyn. Furthermore, she has extensive ntertriginous candidiasis of lower abdomen and perineal area and given Nystatin. She lives alone and has no children to help Review of Systems 2 Review of Systems: Gen: + fever, weakness Resp: no sob, no cough CV: no chest, no DÍAZ, no leg edema GI: No n/v, no abd pain Neuro: No confusion Yes all other systems are reviewed and are negative [facility] Medical History (Updated 04/15/23 @ 12:01 by Ganesh Rosado MD) Unspecified diastolic heart failure Diabetes HTN (hypertension) Social History Patient Tobacco Use Status: Never used Tobacco Smoked in Last 30 Days: No Use of substances other than those prescribed or required for medical reasons: No Advance Directives: No Advance Directives Information Provided: Yes Current occupational status: retired 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 Meds Allergies Allergy/AdvReac Type Severity Reaction Status Date / Time haloperidol [From Haldol] Allergy Mild UNKNOWN Verified 08/30/22 10:12 Active Medications: Current Medications Nystatin (Nystatin Ointment 15 Gm Tube) 1 appl TOPICAL BID ADOLFO; Protocol Stop: 04/29/23 08:59 Last Admin: 04/15/23 09:34 Dose: 1 appl Home Medications Medication Instructions Recorded Confirmed Last Taken Type albuterol sulfate 90 mcg/actuation 2 puff PO QID PRN Shortness Of 09/28/21 03/24/23 Unknown History aerosol inhaler (Ventolin HFA) Breath aripiprazole 20 mg tablet 20 mg PO DAILY 09/28/21 03/24/23 03/24/23 History furosemide 20 mg tablet 40 mg PO DAILY 09/28/21 03/24/23 03/24/23 History gabapentin 300 mg capsule 300 mg PO TID 09/28/21 03/24/23 03/24/23 History lamotrigine 100 mg tablet 100 mg PO BID 09/28/21 03/24/23 03/24/23 History lamotrigine 25 mg tablet 50 mg PO BEDTIME 09/28/21 03/24/23 03/23/23 History metformin 1,000 mg tablet 1,000 mg PO BID 09/28/21 03/24/23 03/24/23 History pioglitazone 30 mg tablet 30 mg PO DAILY@1200 09/28/21 03/24/23 03/24/23 History potassium chloride 20 mEq 20 meq PO DAILY 09/28/21 03/24/23 03/24/23 History tablet,extended release quetiapine 100 mg tablet 200 mg PO BEDTIME 09/28/21 03/24/23 03/23/23 History simvastatin 40 mg tablet 40 mg PO BEDTIME 09/28/21 03/24/23 03/24/23 History budesonide-formoterol HFA 160 2 puff inhalation BID 10/03/21 03/24/23 03/24/23 History mcg-4.5 mcg/actuation aerosol inhaler (Symbicort) empagliflozin 10 mg tablet 10 mg PO DAILY 03/24/23 03/24/23 03/24/23 History (Jardiance) furosemide 20 mg tablet 20 mg PO BEDTIME 03/24/23 03/24/23 03/23/23 History spironolactone 50 mg tablet 50 mg PO DAILY 03/24/23 03/24/23 03/24/23 History lamotrigine 25 mg tablet 25 mg PO DAILY 04/15/23 Unknown History Physical Exam 2 Vital Signs and Narrative: Vital Signs: Last Vital Signs Temp 101.3 F H 04/15/23 08:00 Pulse 92 04/15/23 08:00 Resp 20 04/15/23 08:00 BP 124/61 04/15/23 08:00 Pulse Ox 94 04/15/23 08:00 O2 Del Method Nasal Cannula 04/15/23 08:00 O2 Flow Rate 3 04/15/23 08:00 Oxygen Flow Rate 3 04/15/23 04:17 BMI result Body Mass Index 54.0 Results Labs 04/15/23 05:38 04/15/23 05:38 Labs: Laboratory Results - last 24 hr 04/15/23 04/15/23 04/15/23 05:38 09:21 09:22 MCV 96.3 MCH 30.9 MCHC 32.1 RDW 14.0 Plt Count 207 MPV 9.5 Immature Gran % (Auto) 0.7 H Neut % (Auto) 83.2 H Lymph % (Auto) 5.3 L [place] % (Auto) 9.7 Eos % (Auto) 0.5 Baso % (Auto) 0.6 Lymph # (Auto) 0.4 L [place] # (Auto) 0.8 Eos # (Auto) 0.0 Baso # (Auto) 0.1 Abs Immat Gran (auto) 0.06 H Absolute Neuts (auto) 6.9 Absolute Nucleated RBC 0.000 Nucleated RBC % (auto) 0.0 Anion Gap 16 Estim Creat Clear Calc 79.4 Estimated GFR > 60 Random Glucose 130 H Lactic Acid 0.9 Calcium 9.3 Total Bilirubin 0.6 Direct Bilirubin 0.2 AST 16 ALT 11 Alkaline Phosphatase 70 Total Protein 7.2 Albumin 4.4 Lipase 6 L Urine Color Yellow Urine Appearance Clear Urine pH 5.5 Ur Specific [place] 1.025 Urine Protein Negative Urine Glucose (UA) >=1000 H Urine Ketones Trace Urine Blood Negative Urine Nitrite Negative Ur Leukocyte Esterase Negative Urine RBC 0-2 Urine WBC 0-5 Ur Squamous Epith Cells 0-2 Urine Bacteria None Seen Hyaline Casts 0-2 Influenza Type A (PCR) NEGATIVE Influenza Type B (PCR) NEGATIVE RSV RNA Qual (PCR) NEGATIVE SARS-CoV-2 RNA (RT-PCR) NEGATIVE 04/15/23 10:05 MCV MCH MCHC RDW Plt Count MPV Immature Gran % (Auto) Neut % (Auto) Lymph % (Auto) [place] % (Auto) Eos % (Auto) Baso % (Auto) Lymph # (Auto) [place] # (Auto) Eos # (Auto) Baso # (Auto) Abs Immat Gran (auto) Absolute Neuts (auto) Absolute Nucleated RBC Nucleated RBC % (auto) Anion Gap Estim Creat Clear Calc Estimated GFR Random Glucose Lactic Acid Calcium Total Bilirubin Direct Bilirubin AST ALT Alkaline Phosphatase Total Protein Albumin Lipase 6 L Urine Color Urine Appearance Urine pH Ur Specific [place] Urine Protein Urine Glucose (UA) Urine Ketones Urine Blood Urine Nitrite Ur Leukocyte Esterase Urine RBC Urine WBC Ur Squamous Epith Cells Urine Bacteria Hyaline Casts Influenza Type A (PCR) Influenza Type B (PCR) RSV RNA Qual (PCR) SARS-CoV-2 RNA (RT-PCR) Imaging Radiologist's Impressions: Impressions Chest X-Ray 04/15/23 09:02 IMPRESSION: Possible left lower lobe pneumonia. Assessment and Plan (1) Diabetes: Status: Acute (2) HTN (hypertension): Status: Acute Plan 67-year-old female history of COPD on home O2, diabetes, HLD. She presented to the ED 04/14/23 following a mechanical fall and weakness and was assessed in the ED and had no acute issues and was discharged home but returned due to not been able to use steps. And now found to have penumonia. Pneumonia no sepsis -given Zosyn in the ED -Continue on Ceftriaxone + Azithro Diabetes--resume home meds + SSI and diabetic diet, check A1C HLD--statin Diabetic Peripheral Neuropathy--Gabapentin COPD, no exacerbation continue home inhalers Unspecified Heart failure--continue Lasix, Aldactone, Jardiance intertriginous candidiasis--Nystatin powder Mood disorders --Abilify, Seroquel Fall and weakness, PT eval DVT prophylaxis--lovenox Full code at least 2 minights admit for IV Abx for pneumonia in immunocompromised pt with diabetes at risk for sepsis and not able to manage herself at home Quality Stroke Does the patient have a stroke diagnosis?: No VTE Prior VTE?: No VTE Risk Level:: Medical - moderate - high VTE Device Contraindication: Treatment Not Indicated VTE Drug Contraindication: N/A - Med Ordered
--- NOTE | 2023-04-15 12:27 | PC.NURSE ---
vss and up to date. nsr on the threat monitoring analyst. pt denies pain. has no complaints. pt eating lunch at this time. productive cough noted at this time. slight wheezing noted throughout upon auscultation. slight wob noted. pt seems to get tired quickly after conversating. respirations even but slightly labored. family bedside. call montero placed within reach.
[2023-04-15 12:47] LABS: Estimated Average Glucose 126 mg/dL
[2023-04-15] MEDS: Enoxaparin Sodium 40 MG/0.4 ML SYRINGE SUBCUT (12:59)
--- NOTE | 2023-04-15 13:37 | PHA.MEDREC ---
Pharmacy Consult ? Medication Reconciliation Pharmacy has completed the medication reconciliation. Spoke to patient to confirm meds.
--- NOTE | 2023-04-15 14:00 | PC.NURSE ---
abx administered per provider order. pt repositioned to comfort. respirations even and unlabored at this time. call montero placed within reach.
[2023-04-15] MEDS: cefTRIAXone sodium 1 GM in 0.9 % Sodium Chloride 50 ML IV (14:14)
[2023-04-15] MEDS: 0.9 % Sodium Chloride Flush 3 ML SYRINGE IVFLUSH ×2 (16:18→22:58)
[2023-04-15 18:20] LABS: Glucose, Whole Blood 104 mg/dL (60-115)
[2023-04-15 21:40] LABS: Glucose, Whole Blood 141 mg/dL (60-115)
[2023-04-16 07:06] VITALS: BP 118/55; PULSE 70; RESP 18; TEMP 36.1; O2SAT 95
[2023-04-16 07:16] LABS: Glucose, Whole Blood 121 mg/dL (60-115)
[2023-04-16 08:50] LABS: Hematocrit 39.3 % (37.0-47.0); Mean Corpuscular HGB Conc 33.1 g/dl (31.0-35.0); Mean Corpuscular Hemoglobin 31.6 pg (27.0-33.0); Mean Corpuscular Volume 95.4 fL (80.0-98.0); Mean Platelet Volume 9.7 fL (9.4-12.3); Platelet Count 217 X10*3/uL (160-400); Red Blood Count 4.12 X10*6/uL (4.20-5.50); Red Cell Distribution Width 14.2 % (11.0-16.0); White Blood Count 5.1 X10*3/uL (4.8-10.8)
[2023-04-16 09:11] LABS: Anion Gap 15 (12-20); Blood Urea Nitrogen 8 mg/dL (9-16); Calcium 8.7 mg/dL (8.4-10.2); Carbon Dioxide 27 mmol/L (22-29); Chloride 103 mmol/L (96-108); Creatinine Clr Calc Pharmacy 97.8; Estimated Glomerular Filt Rate > 60; Glucose Random 120 mg/dL (60-115); Potassium 3.1 mmol/L (3.3-5.1); Sodium 142 mmol/L (135-145)
[2023-04-16] MEDS: Spironolactone 25 MG TABLET 50 MG PO (09:42)
[2023-04-16] MEDS: Gabapentin 300 MG CAPSULE PO ×3 (09:43→20:16)
[2023-04-16] MEDS: Potassium Chloride ER 20 MEQ TAB.ER.PRT PO (09:43)
[2023-04-16] MEDS: lamoTRIgine 25 MG TABLET PO (09:44)
[2023-04-16] MEDS: Furosemide 40 MG TABLET PO (09:45)
[2023-04-16] MEDS: Empagliflozin 10 MG TABLET PO (09:45)
[2023-04-16] MEDS: ARIPiprazole 20 MG TABLET PO (09:45)
[2023-04-16] MEDS: Doxycycline Hyclate 100 MG in 0.9 % Sodium Chloride 250 ML 166.67 MG IV (09:46)
[2023-04-16] MEDS: 0.9 % Sodium Chloride Flush 3 ML SYRINGE IVFLUSH (09:47)
--- NOTE | 2023-04-16 10:21 | P.PNIM_ITS ---
Subjective Subjective Date of Service: 04/16/23 Interval History: febrile to 101.3 yesterday @ 0800 cough improved Review of Systems Review of Systems: Yes all other systems are reviewed and are negative Physical Exam 2 Vital Signs: Vital Signs: Last Vital Signs Temp 96.9 F 04/16/23 07:06 Pulse 70 04/16/23 07:06 Resp 18 04/16/23 07:06 BP 118/55 L 04/16/23 07:06 Pulse Ox 95 04/16/23 07:06 O2 Del Method Nasal Cannula 04/16/23 07:06 O2 Flow Rate 2 04/16/23 07:06 Oxygen Flow Rate 3 04/15/23 04:17 BMI result Body Mass Index 54.0 Gen: in no acute distress HEENT: sclera anicteric, moist mucus membranes Neck: supple Lungs: diminished L base Heart: regular rate and rhythm, no murmurs Abd: soft, non-tender, non-distended. obese Ext: no edema Skin: warm/well-perfused Neuro: alert and oriented x3, no focal findings Psych: appropriate affect Objective Data Active Medications Acetaminophen (Acetaminophen 325 Mg Tablet) 650 mg PO Q6H PRN PRN Reason: Pain, Mild (Pain Scale 1-3) Al Hydroxide/Mg Hydroxide (Magnesium Hydrox/Alum Hydrox 30 Ml Oral.Susp) 30 ml PO Q4H PRN PRN Reason: Heartburn/Nausea Albuterol Sulfate (Albuterol Sulfate 90 Mcg 8 Gm Inhaler) 2 puff INHALE QID PRN PRN Reason: Shortness Of Breath Aripiprazole (Aripiprazole 20 Mg Tablet) 20 mg PO DAILY [facility] Last Admin: 04/16/23 09:45 Dose: 20 mg Documented By: JOSE Atorvastatin Calcium (Atorvastatin Calcium 20 Mg Tablet) 20 mg PO BEDTIME [facility] Dextrose (Dextrose 50 % 25 Gm/50 Ml Syringe) 25 gm IVPUSH Q15M PRN; Protocol PRN Reason: per Hypoglycemia Standing Ord. Empagliflozin (Empagliflozin 10 Mg Tablet) 10 mg PO DAILY [facility] Last Admin: 04/16/23 09:45 Dose: 10 mg Documented By: JOSE Enoxaparin Sodium (Enoxaparin Sodium 40 Mg/0.4 Ml Syringe) 40 mg SUBCUT Q24H [facility] Last Admin: 04/15/23 12:59 Dose: 40 mg Documented By: DAR Fluticasone/Vilanterol (Fluticasone/Vilanterol 200/25 Blst.W.Dev) 1 puff INHALE RDAILY [facility] Furosemide (Furosemide 20 Mg Tablet) 20 mg PO DAILY@1400 [facility]; Protocol Furosemide (Furosemide 40 Mg Tablet) 40 mg PO DAILY [facility]; Protocol Last Admin: 04/16/23 09:45 Dose: 40 mg Documented By: JOSE Gabapentin (Gabapentin 300 Mg Capsule) 300 mg PO TID [facility] Last Admin: 04/16/23 09:43 Dose: 300 mg Documented By: JOSE Glucose (Glucose Gel 15 Gm Gel..Gram.) 15 gm PO Q15M PRN; Protocol PRN Reason: per Hypoglycemia Standing Ord. Ceftriaxone Sodium 1 gm/ (Sodium Chloride) 50 mls @ 100 mls/hr IV Q24H [facility] Last Infusion: 04/15/23 14:45 Dose: Infused Documented By: DAR Doxycycline Hyclate 100 mg/ (Sodium Chloride) 250 mls @ 166.67 mls/hr IV BID [facility] Last Admin: 04/16/23 09:46 Dose: 166.67 mls/hr Documented By: JOSE Insulin Human Lispro (Insulin Lispro 100 Unit/Ml 3 Ml Vial) 0 unit SUBCUT QIDACHS [facility]; Protocol Last Admin: 04/16/23 07:49 Dose: Not Given Documented By: JOSE Non-Admin Reason: No Insulin Coverage Lamotrigine (Lamotrigine 25 Mg Tablet) 25 mg PO DAILY [facility] Last Admin: 04/16/23 09:44 Dose: 25 mg Documented By: JOSE Lamotrigine (Lamotrigine 25 Mg Tablet) 50 mg PO BEDTIME [facility] Melatonin (Melatonin 3 Mg Tablet) 3 mg PO BEDTIME PRN PRN Reason: Insomnia Nystatin (Nystatin Ointment 15 Gm Tube) 1 appl TOPICAL BID [facility]; Protocol Stop: 04/29/23 08:59 Last Admin: 04/15/23 22:51 Dose: 1 appl Documented By: ROSEANN Ondansetron HCl (Ondansetron Hcl 4 Mg/2 Ml Vial) 4 mg IVPUSH Q8H PRN PRN Reason: Nausea and Vomiting Potassium Chloride (Potassium Chloride Er 20 Meq Tab.Er.Prt) 20 meq PO DAILY [facility] Last Admin: 04/16/23 09:43 Dose: 20 meq Documented By: JOSE Quetiapine Fumarate (Quetiapine Fumarate 200 Mg Tablet) 200 mg PO BEDTIME [facility] Sodium Chloride (0.9 % Sodium Chloride Flush 3 Ml Syringe) 3 ml IVFLUSH QSHIFT [facility] Last Admin: 04/16/23 09:47 Dose: 3 ml Documented By: JOSE Spironolactone (Spironolactone 25 Mg Tablet) 50 mg PO DAILY [facility]; Protocol Last Admin: 04/16/23 09:42 Dose: 50 mg Documented By: JOSE Labs 04/16/23 08:25 04/16/23 08:25 Labs: Laboratory Results - last 24 hr 04/15/23 04/15/23 04/15/23 05:38 10:05 18:11 MCV MCH MCHC RDW Plt Count MPV Absolute Nucleated RBC Nucleated RBC % (auto) Anion Gap Estim Creat Clear Calc Estimated GFR POC Glucose 104 Random Glucose Estimat Average Glucose 126 Hemoglobin A1c % 6.0 Calcium Lipase 6 L Procalcitonin 04/15/23 04/16/23 04/16/23 21:32 07:11 08:25 MCV 95.4 MCH 31.6 MCHC 33.1 RDW 14.2 Plt Count 217 MPV 9.7 Absolute Nucleated RBC 0.000 Nucleated RBC % (auto) 0.0 Anion Gap 15 Estim Creat Clear Calc 97.8 Estimated GFR > 60 POC Glucose 141 H 121 H Random Glucose 120 H Estimat Average Glucose Hemoglobin A1c % Calcium 8.7 D Lipase Procalcitonin 0.10 Assessment and Plan (1) Pneumonia: Status: Acute Plan d2 67yo F with COPD on home O2, DM2, HLD seen in ED 04/14/23 after mechanical fall; discharged home returned 04/15/23 with weakness, found to be febrile due to pneumonia pneumonia - ceftriaxone 04/15-, doxy 04/16-, follow BCx acute COPD exac - prednisone 04/16-04/20, nebs, continue ICS/LABA chronic hypoxic resp failure - O2 via NC 2L candidal intertrigo - nystatin DM2, A1c 6 - correction dose lispro HLD - statin peripheral neuropathy - gabapentin HF unspecified EF - continue spironolactone, empagliflozin, furosemide mood disorder - continue aripiprazole, quetiapine, lamotrigine morbid obesity - diet/exercise counseling VTE ppx - LMWH dispo - anticipate STR In my clinical judgment, the patient requires continued inpatient hospitalization for the following reasons: IV ABX Total time managing care of this patient today: 35 minutes. Quality Stroke Does the patient have a stroke diagnosis?: No VTE Prior VTE?: No VTE Risk Level:: Medical - moderate - high VTE Device Contraindication: Treatment Not Indicated VTE Drug Contraindication: N/A - Med Ordered
[2023-04-16 11:16] LABS: Glucose, Whole Blood 120 mg/dL (60-115)
[2023-04-16] MEDS: Potassium Chloride ER 20 MEQ TAB.ER.PRT 40 MEQ PO (11:31)
[2023-04-16] MEDS: Fluticasone/Vilanterol 200/25 BLST.W.DEV 1 PUFF INHALE (11:31)
[2023-04-16] MEDS: Nystatin Ointment 15 GM TUBE 1 APPL TOPICAL ×2 (11:31→20:19)
[2023-04-16] MEDS: predniSONE 20 MG TABLET 40 MG PO (11:31)
[2023-04-16] MEDS: Enoxaparin Sodium 40 MG/0.4 ML SYRINGE SUBCUT (11:31)
--- NOTE | 2023-04-16 13:37 | MHC.CM.PN ---
PT REPORTS SHE LIVES ALONE AND HAS PURCHASING CLERK SERVICES TO ASSIST WITH HOUSEWORK, PERSONAL CARE AND SHOPPING PT IS ALSO ACTIVE WITH [facility] AND [facility] FOR OUTREACH SERVICES SHE REPORTS HER [facility]NA COMES EVERY OTHER DAY AND ASSISTS WITH MED MANAGEMENT PT HAS HOME OXYGEN AND A CANE AND WALKER. SHE SAYS SHE WAS NOT USING AN AD LABEL FUSER TENDER BUT PLANS TO USE HER WALKER PT WILL COMPLETE A HCP TODAY NAMING HER SISTER, SEPTEMBER, HER AGENT PCP: TALIA RANDALL [facility] DELIVERED DCP: [facility] OUTREACH, PURCHASING CLERK AND [facility] SERVICES SISTER TO TRANSPORT
[2023-04-16] MEDS: Furosemide 20 MG TABLET PO (14:37)
[2023-04-16 15:20] VITALS: BP 120/58; PULSE 70; RESP 20; TEMP 36.9; O2SAT 95
[2023-04-16 16:06] LABS: Glucose, Whole Blood 147 mg/dL (60-115)
[2023-04-16] MEDS: cefuroxime axetiL 500 MG TABLET PO (18:26)
[2023-04-16 19:17] VITALS: BP 123/58; PULSE 67; RESP 20; TEMP 36.6; O2SAT 96
[2023-04-16 20:04] LABS: Glucose, Whole Blood 155 mg/dL (60-115)
[2023-04-16] MEDS: Atorvastatin Calcium 20 MG TABLET PO (20:16)
[2023-04-16] MEDS: Insulin Lispro 100 UNIT/ML 3 ML VIAL SUBCUT (20:16)
[2023-04-16] MEDS: Doxycycline Monohydrate 100 MG CAPSULE PO (20:16)
[2023-04-16] MEDS: lamoTRIgine 25 MG TABLET 150 MG PO (20:16)
[2023-04-16] MEDS: QUEtiapine Fumarate 200 MG TABLET PO (20:16)
[2023-04-17 03:55] VITALS: BP 109/55; PULSE 60; RESP 17; O2SAT 95
[2023-04-17] MEDS: cefuroxime axetiL 500 MG TABLET PO ×2 (05:50→18:21)
[2023-04-17 07:23] VITALS: BP 109/55; PULSE 60; RESP 18; TEMP 36.4; O2SAT 96
[2023-04-17 07:36] LABS: Anion Gap 16 (12-20); Blood Urea Nitrogen 10 mg/dL (9-16); Calcium 8.9 mg/dL (8.4-10.2); Carbon Dioxide 26 mmol/L (22-29); Chloride 104 mmol/L (96-108); Creatinine Clr Calc Pharmacy 97.8; Estimated Glomerular Filt Rate > 60; Glucose Random 117 mg/dL (60-115); Potassium 3.6 mmol/L (3.3-5.1); Sodium 142 mmol/L (135-145)
[2023-04-17 07:40] LABS: Glucose, Whole Blood 113 mg/dL (60-115)
[2023-04-17] MEDS: Furosemide 40 MG TABLET PO (08:02)
[2023-04-17] MEDS: Spironolactone 25 MG TABLET 50 MG PO (08:02)
[2023-04-17] MEDS: Doxycycline Monohydrate 100 MG CAPSULE PO ×2 (08:02→20:28)
[2023-04-17] MEDS: Gabapentin 300 MG CAPSULE PO ×3 (08:02→20:28)
[2023-04-17] MEDS: predniSONE 20 MG TABLET 40 MG PO (08:02)
[2023-04-17] MEDS: Potassium Chloride ER 20 MEQ TAB.ER.PRT PO (08:02)
[2023-04-17] MEDS: ARIPiprazole 20 MG TABLET PO (08:02)
[2023-04-17] MEDS: Empagliflozin 10 MG TABLET PO (08:03)
[2023-04-17] MEDS: Nystatin Ointment 15 GM TUBE 1 APPL TOPICAL ×2 (08:04→20:31)
[2023-04-17] MEDS: Fluticasone/Vilanterol 200/25 BLST.W.DEV 1 PUFF INHALE (08:08)
[2023-04-17 08:11] VITALS: PULSE 64; RESP 20; O2SAT 95
--- NOTE | 2023-04-17 11:03 | MHC.CM.PN ---
Addendum entered by Ilene Davidson 04/17/23 15:22: CM MET WITH PT AND SISTER, PER DISCUSSION, PT WILL GO TO [facility] [place]. [facility] IS OFFERING A BED FOR TOMORROW PT WILL NEED A LESS THAN 30 DAY ORDER IN [facility] BLS TRANSPORT Original Note: PT IS AWARE STR IS BEING RECOMMENDED SHE REPORTS HER SISTER WILL BE HERE BETWEEN 1130 AND 1200 HOURS AND SHE WOULD LIKE TO DISCUSS POTENTIAL SNFS WITH HER PRESENT CM WILL RETURN
--- NOTE | 2023-04-17 11:08 | P.PNIM_ITS ---
Subjective Subjective Date of Service: 04/17/23 Interval History: cough improving on 3L O2 afebrile since 04/15 Review of Systems Review of Systems: Yes all other systems are reviewed and are negative Physical Exam 2 Vital Signs: Vital Signs: Last Vital Signs Temp 97.6 F 04/17/23 07:23 Pulse 64 04/17/23 08:11 Resp 20 04/17/23 08:11 BP 109/55 L 04/17/23 07:23 Pulse Ox 96 04/17/23 07:23 O2 Del Method Nasal Cannula 04/17/23 07:23 O2 Flow Rate 3.0 04/17/23 07:23 Oxygen Flow Rate 3 04/15/23 04:17 BMI result Body Mass Index 54.0 Gen: in no acute distress HEENT: sclera anicteric, moist mucus membranes Neck: supple Lungs: diminished L base Heart: regular rate and rhythm, no murmurs Abd: soft, non-tender, non-distended. obese Ext: no edema Skin: warm/well-perfused Neuro: alert and oriented x3, no focal findings Psych: appropriate affect Objective Data Active Medications Acetaminophen (Acetaminophen 325 Mg Tablet) 650 mg PO Q6H PRN PRN Reason: Pain, Mild (Pain Scale 1-3) Al Hydroxide/Mg Hydroxide (Magnesium Hydrox/Alum Hydrox 30 Ml Oral.Susp) 30 ml PO Q4H PRN PRN Reason: Heartburn/Nausea Albuterol Sulfate (Albuterol Sulfate 90 Mcg 8 Gm Inhaler) 2 puff INHALE QID PRN PRN Reason: Shortness Of Breath Albuterol/Ipratropium (Albuterol/Iprat 2.5/0.5mg 3 Ml Ampul.Neb) 3 ml INHALE RQ4H WHILE AWAKE PRN PRN Reason: shortness of breath or wheeze Aripiprazole (Aripiprazole 20 Mg Tablet) 20 mg PO DAILY [facility] Last Admin: 04/17/23 08:02 Dose: 20 mg Documented By: JALYN Atorvastatin Calcium (Atorvastatin Calcium 20 Mg Tablet) 20 mg PO BEDTIME [facility] Last Admin: 04/16/23 20:16 Dose: 20 mg Documented By: EFREM Cefuroxime Axetil (Cefuroxime Axetil 500 Mg Tablet) 500 mg PO Q12H [facility] Last Admin: 04/17/23 05:50 Dose: 500 mg Documented By: EFREM Dextrose (Dextrose 50 % 25 Gm/50 Ml Syringe) 25 gm IVPUSH Q15M PRN; Protocol PRN Reason: per Hypoglycemia Standing Ord. Doxycycline Monohydrate (Doxycycline Monohydrate 100 Mg Capsule) 100 mg PO Q12H [facility] Last Admin: 04/17/23 08:02 Dose: 100 mg Documented By: JALYN Empagliflozin (Empagliflozin 10 Mg Tablet) 10 mg PO DAILY [facility] Last Admin: 04/17/23 08:03 Dose: 10 mg Documented By: JALYN Enoxaparin Sodium (Enoxaparin Sodium 40 Mg/0.4 Ml Syringe) 40 mg SUBCUT Q24H [facility] Last Admin: 04/16/23 11:31 Dose: 40 mg Documented By: JOSE Fluticasone/Vilanterol (Fluticasone/Vilanterol 200/25 Blst.W.Dev) 1 puff INHALE RDAILY [facility] Last Admin: 04/17/23 08:08 Dose: 1 puff Documented By: DARIA Furosemide (Furosemide 20 Mg Tablet) 20 mg PO DAILY@1400 [facility]; Protocol Last Admin: 04/16/23 14:37 Dose: 20 mg Documented By: KRISTINE Furosemide (Furosemide 40 Mg Tablet) 40 mg PO DAILY [facility]; Protocol Last Admin: 04/17/23 08:02 Dose: 40 mg Documented By: JALYN Gabapentin (Gabapentin 300 Mg Capsule) 300 mg PO TID [facility] Last Admin: 04/17/23 08:02 Dose: 300 mg Documented By: JALYN Glucose (Glucose Gel 15 Gm Gel..Gram.) 15 gm PO Q15M PRN; Protocol PRN Reason: per Hypoglycemia Standing Ord. Insulin Human Lispro (Insulin Lispro 100 Unit/Ml 3 Ml Vial) 0 unit SUBCUT QIDACHS [facility]; Protocol Last Admin: 04/17/23 07:44 Dose: Not Given Documented By: JALYN Non-Admin Reason: No Insulin Coverage Lamotrigine (Lamotrigine 25 Mg Tablet) 150 mg PO BEDTIME [facility] Last Admin: 04/16/23 20:16 Dose: 150 mg Documented By: EFREM Lamotrigine 100 mg/ (Lamotrigine 25 mg) 125 mg PO DAILY [facility] Last Admin: 04/17/23 08:02 Dose: 125 mg Documented By: JALYN Melatonin (Melatonin 3 Mg Tablet) 3 mg PO BEDTIME PRN PRN Reason: Insomnia Nystatin (Nystatin Ointment 15 Gm Tube) 1 appl TOPICAL BID [facility]; Protocol Stop: 04/29/23 08:59 Last Admin: 04/17/23 08:04 Dose: 1 appl Documented By: JALYN Ondansetron HCl (Ondansetron Hcl 4 Mg/2 Ml Vial) 4 mg IVPUSH Q8H PRN PRN Reason: Nausea and Vomiting Potassium Chloride (Potassium Chloride Er 20 Meq Tab.Er.Prt) 20 meq PO DAILY [facility] Last Admin: 04/17/23 08:02 Dose: 20 meq Documented By: JALYN Prednisone (Prednisone 20 Mg Tablet) 40 mg PO DAILY [facility] Stop: 04/20/23 09:01 Last Admin: 04/17/23 08:02 Dose: 40 mg Documented By: JALYN Quetiapine Fumarate (Quetiapine Fumarate 200 Mg Tablet) 200 mg PO BEDTIME [facility] Last Admin: 04/16/23 20:16 Dose: 200 mg Documented By: EFREM Sodium Chloride (0.9 % Sodium Chloride Flush 3 Ml Syringe) 3 ml IVFLUSH QSHIFT [facility] Last Admin: 04/17/23 08:06 Dose: Not Given Documented By: JALYN Non-Admin Reason: No Access Spironolactone (Spironolactone 25 Mg Tablet) 50 mg PO DAILY [facility]; Protocol Last Admin: 04/17/23 08:02 Dose: 50 mg Documented By: JALYN Labs 04/16/23 08:25 04/17/23 06:01 Labs: Laboratory Results - last 24 hr 04/16/23 04/16/23 04/16/23 11:12 16:01 20:00 Hold Purple Top Anion Gap Estim Creat Clear Calc Estimated GFR POC Glucose 120 H 147 H 155 H Random Glucose Calcium 04/17/23 04/17/23 06:01 07:26 Hold Purple Top SEE NOTE Anion Gap 16 Estim Creat Clear Calc 97.8 Estimated GFR > 60 POC Glucose 113 Random Glucose 117 H Calcium 8.9 Microbiology Microbiology Results: Microbiology 04/15/23 10:05 Blood Culture - Preliminary Blood - Venous No growth after 24 hours. 04/15/23 09:21 Blood Culture - Preliminary Blood - Venous No growth after 24 hours. Assessment and Plan (1) Pneumonia: Status: Acute Plan d3 67yo F with COPD on home O2, DM2, HLD seen in ED 04/14/23 after mechanical fall; discharged home returned 04/15/23 with weakness, found to be febrile due to pneumonia pneumonia - ceftriaxone 04/15-, doxy 04/16-, follow BCx acute COPD exac - prednisone 04/16-04/20, nebs, continue ICS/LABA acute-chronic chronic hypoxic resp failure - wean O2 to 2L as toolerated candidal intertrigo - nystatin DM2, A1c 6 - correction dose lispro HLD - statin peripheral neuropathy - gabapentin HF unspecified EF - continue spironolactone, empagliflozin, furosemide mood disorder - continue aripiprazole, quetiapine, lamotrigine morbid obesity - diet/exercise counseling VTE ppx - LMWH dispo - anticipate STR In my clinical judgment, the patient requires continued inpatient hospitalization for the following reasons: IV ABX, hypoxia Total time managing care of this patient today: 35 minutes. Quality Stroke Does the patient have a stroke diagnosis?: No VTE Prior VTE?: No VTE Risk Level:: Medical - moderate - high VTE Device Contraindication: Treatment Not Indicated VTE Drug Contraindication: N/A - Med Ordered
[2023-04-17 11:38] LABS: Glucose, Whole Blood 169 mg/dL (60-115)
[2023-04-17] MEDS: Insulin Lispro 100 UNIT/ML 3 ML VIAL SUBCUT ×3 (11:44→20:28)
[2023-04-17] MEDS: Enoxaparin Sodium 40 MG/0.4 ML SYRINGE SUBCUT (11:44)
[2023-04-17] MEDS: Furosemide 20 MG TABLET PO (14:26)
[2023-04-17 15:17] VITALS: BP 106/59; PULSE 66; RESP 21; TEMP 36; O2SAT 95
[2023-04-17 16:20] LABS: Glucose, Whole Blood 223 mg/dL (60-115)
[2023-04-17 19:18] VITALS: BP 135/64; PULSE 67; RESP 14; TEMP 36.5; O2SAT 94
[2023-04-17 20:03] LABS: Glucose, Whole Blood 207 mg/dL (60-115)
[2023-04-17] MEDS: QUEtiapine Fumarate 200 MG TABLET PO (20:28)
[2023-04-17] MEDS: 0.9 % Sodium Chloride Flush 3 ML SYRINGE IVFLUSH (20:28)
[2023-04-17] MEDS: lamoTRIgine 25 MG TABLET 150 MG PO (20:28)
[2023-04-17] MEDS: Atorvastatin Calcium 20 MG TABLET PO (20:28)
[2023-04-18 02:32] VITALS: BP 108/54; PULSE 64; RESP 16; TEMP 36.4; O2SAT 97
[2023-04-18] MEDS: cefuroxime axetiL 500 MG TABLET PO (06:01)
[2023-04-18 07:27] VITALS: BP 117/60; PULSE 57; RESP 17; TEMP 36.4; O2SAT 96
[2023-04-18 07:28] LABS: Glucose, Whole Blood 123 mg/dL (60-115)
[2023-04-18 07:54] LABS: Hematocrit 39.6 % (37.0-47.0); Hemoglobin 12.8 g/dl (12.0-16.0); Mean Corpuscular HGB Conc 32.3 g/dl (31.0-35.0); Mean Corpuscular Hemoglobin 30.5 pg (27.0-33.0); Mean Corpuscular Volume 94.5 fL (80.0-98.0); Mean Platelet Volume 9.9 fL (9.4-12.3); Platelet Count 231 X10*3/uL (160-400); Red Blood Count 4.19 X10*6/uL (4.20-5.50); Red Cell Distribution Width 13.9 % (11.0-16.0); White Blood Count 5.3 X10*3/uL (4.8-10.8)
[2023-04-18 08:33] LABS: Anion Gap 12 (12-20); Blood Urea Nitrogen 13 mg/dL (9-16); Calcium 8.7 mg/dL (8.4-10.2); Carbon Dioxide 29 mmol/L (22-29); Chloride 105 mmol/L (96-108); Creatinine Clr Calc Pharmacy 107.1; Estimated Glomerular Filt Rate > 60; Glucose Random 136 mg/dL (60-115); Sodium 143 mmol/L (135-145)
[2023-04-18 08:38] LABS: Potassium 2.9 mmol/L (3.3-5.1)
[2023-04-18 08:41] LABS: Procalcitonin 0.05 ng/mL
[2023-04-18] MEDS: Furosemide 40 MG TABLET PO (08:41)
[2023-04-18] MEDS: predniSONE 20 MG TABLET 40 MG PO (08:41)
[2023-04-18] MEDS: Doxycycline Monohydrate 100 MG CAPSULE PO (08:41)
[2023-04-18] MEDS: Spironolactone 25 MG TABLET 50 MG PO (08:41)
[2023-04-18] MEDS: Empagliflozin 10 MG TABLET PO (08:42)
[2023-04-18] MEDS: Fluticasone/Vilanterol 200/25 BLST.W.DEV 1 PUFF INHALE (08:42)
[2023-04-18] MEDS: Gabapentin 300 MG CAPSULE PO ×2 (08:42→13:55)
[2023-04-18] MEDS: ARIPiprazole 20 MG TABLET PO (08:42)
[2023-04-18] MEDS: Potassium Chloride ER 20 MEQ TAB.ER.PRT PO (08:42)
[2023-04-18 08:46] VITALS: PULSE 71; RESP 18; O2SAT 96
[2023-04-18] MEDS: Nystatin Ointment 15 GM TUBE 1 APPL TOPICAL (08:47)
[2023-04-18] MEDS: Potassium Chloride ER 20 MEQ TAB.ER.PRT 40 MEQ PO (08:55)
[2023-04-18 09:17] LABS: Magnesium 2.3 mg/dL (1.6-2.6)
[2023-04-18 09:22] VITALS: PULSE 71
[2023-04-18 11:27] LABS: Glucose, Whole Blood 171 mg/dL (60-115)
--- NOTE | 2023-04-18 11:31 | PM.DS ---
DS: Providers Provider Date of Service: 04/18/23 Date of admission: 04/15/23 12:31 Date of discharge: 04/18/23 Primary care physician: Taryn Parker MD DS: Diagnosis Discharge Diagnosis (1) Pneumonia: Status: Acute (2) COPD exacerbation: Status: Acute (3) Hypokalemia: Status: Acute (4) Acute and chronic respiratory failure with hypoxia: Status: Acute DS: Summary Hospital Course Hospital Course: From the history and physical by the admitting hospitalist, [facility], 04/15/23: A 67-year-old woman with a history of COPD requiring home oxygen therapy, diabetes, and hyperlipidemia presented to the emergency department on April 14, 2023, following a mechanical fall and weakness. She was evaluated in the ED and found to have no acute issues, leading to her discharge home. However, upon returning home, she was unable to manage the stairs and was sent back to the ED for possible placement in a care facility. She continues to complain of feeling weak. She had a temp of 101 in the ED and CXR show pneumonia and started on Zosyn. Furthermore, she has extensive ntertriginous candidiasis of lower abdomen and perineal area and given Nystatin. She lives alone and has no children to help 67yo F with COPD on home O2, DM2, and HLD who was seen in ED 04/14/23 after mechanical fall; discharged home. She returned 04/15/23 with weakness and was found to be febrile due to pneumonia. She was admitted to the medical-surgical floor. Hospital course by problem: pneumonia - Testing for influenza/Covid-19/RSV negative. Treated with ceftriaxone/cefuroxime and doxycycline for 3 days. Blood cultures negative. Procalcitonin low. Discharged on 4 days of cefuroxime and doxycycline. Fever resolved and symptoms improved. acute COPD exac - Treated with prednisone and nebs; home inhalers continued. acute-chronic chronic hypoxic resp failure - On 3L O2. Wean O2 to 2L as tolerated. hypokalemia - Repleted orally. Maintenance dose increase from 20 to 40 mEq daily. Recheck BMP 04/19/23. She was discharged to [facility] for short-term rehabilitation. Time Attestation Discharge coordination time: Greater than 30 minutes Quality: Safe Use of Opioids Does Pt have an Active Cancer Diagnosis on the Problem List?: No Quality: Stroke Does the patient have a stroke diagnosis?: No Physical Exam Vital Signs: Vital Signs: Last Vital Signs Temp 97.5 F 04/18/23 07:27 Pulse 71 04/18/23 09:22 Resp 18 04/18/23 08:46 BP 117/60 04/18/23 07:27 Pulse Ox 96 04/18/23 07:27 O2 Del Method Nasal Cannula 04/18/23 07:27 O2 Flow Rate 3.0 04/18/23 07:27 Oxygen Flow Rate 3 04/15/23 04:17 BMI result Body Mass Index 54.0 Gen: in no acute distress HEENT: sclera anicteric, moist mucus membranes Neck: supple Lungs: clear to auscultation bilaterally Heart: regular rate and rhythm, no murmurs Abd: soft, non-tender, non-distended, obese Ext: no edema Skin: warm/well-perfused Neuro: alert and oriented x3, no focal findings Psych: appropriate affect DS: Data Data Completed and Pending Completed studies during hospitalization [Text1]: Laboratory Results WBC 5.3 X10*3/uL (4.8-10.8) 04/18/23 05:45 RBC 4.19 X10*6/uL (4.20-5.50) L 04/18/23 05:45 Hgb 12.8 g/dl (12.0-16.0) 04/18/23 05:45 Hct 39.6 % (37.0-47.0) 04/18/23 05:45 MCV 94.5 fL (80.0-98.0) 04/18/23 05:45 MCH 30.5 pg (27.0-33.0) 04/18/23 05:45 MCHC 32.3 g/dl (31.0-35.0) 04/18/23 05:45 RDW 13.9 % (11.0-16.0) 04/18/23 05:45 Plt Count 231 X10*3/uL (160-400) 04/18/23 05:45 MPV 9.9 fL (9.4-12.3) 04/18/23 05:45 Immature Gran % (Auto) 0.7 % (0.0-0.4) H 04/15/23 05:38 Neut % (Auto) 83.2 % (45-73) H 04/15/23 05:38 Lymph % (Auto) 5.3 % (20-40) L 04/15/23 05:38 [place] % (Auto) 9.7 % (2-11) 04/15/23 05:38 Eos % (Auto) 0.5 % (0-4) 04/15/23 05:38 Baso % (Auto) 0.6 % (0-2) 04/15/23 05:38 Lymph # (Auto) 0.4 X10*3/uL (1.2-4.9) L 04/15/23 05:38 [place]urry # (Auto) 0.8 X10*3/uL (0.1-1.2) 04/15/23 05:38 Eos # (Auto) 0.0 X10*3/uL (0.0-0.4) 04/15/23 05:38 Baso # (Auto) 0.1 X10*3/uL (0.0-0.2) 04/15/23 05:38 Abs Immat Gran (auto) 0.06 X10*3/uL (0.00-0.03) H 04/15/23 05:38 Absolute Neuts (auto) 6.9 x10*3/uL (2.0-8.3) 04/15/23 05:38 Absolute Nucleated RBC 0.000 X10*3/uL (0.0-0.012) 04/18/23 05:45 Nucleated RBC % (auto) 0.0 /100WBC (0.0-0.2) 04/18/23 05:45 Hold Purple Top SEE NOTE 04/17/23 06:01 Sodium 143 mmol/L (135-145) 04/18/23 05:45 Potassium 2.9 mmol/L (3.3-5.1) L* 04/18/23 05:45 Chloride 105 mmol/L (96-108) 04/18/23 05:45 Carbon Dioxide 29 mmol/L (22-29) 04/18/23 05:45 Anion Gap 12 (12-20) 04/18/23 05:45 BUN 13 mg/dL (9-16) 04/18/23 05:45 Creatinine 0.63 mg/dL (0.5-1.4) 04/18/23 05:45 Estim Creat Clear Calc 107.1 04/18/23 05:45 Estimated GFR > 60 04/18/23 05:45 POC Glucose 171 mg/dL (60-115) H 04/18/23 11:22 Random Glucose 136 mg/dL (60-115) H 04/18/23 05:45 Estimat Average Glucose 126 mg/dL 04/15/23 05:38 Hemoglobin A1c % 6.0 % (<6.0) 04/15/23 05:38 Lactic Acid 0.9 mmol/L (0.5-2.0) 04/15/23 09:22 Calcium 8.7 mg/dL (8.4-10.2) 04/18/23 05:45 Magnesium 2.3 mg/dL (1.6-2.6) 04/18/23 05:45 Total Bilirubin 0.6 mg/dL (0.0-1.0) 04/15/23 05:38 Direct Bilirubin 0.2 mg/dL (0.0-0.5) 04/15/23 05:38 AST 16 U/L (5-31) 04/15/23 05:38 ALT 11 U/L (0-31) 04/15/23 05:38 Alkaline Phosphatase 70 U/L (39-117) 04/15/23 05:38 Total Protein 7.2 g/dL (6.5-8.0) 04/15/23 05:38 Albumin 4.4 g/dL (3.5-5.0) 04/15/23 05:38 Lipase 6 U/L (8-78) L 04/15/23 10:05 Procalcitonin 0.05 ng/mL 04/18/23 05:45 Urine Color Yellow 04/15/23 09:21 Urine Appearance Clear 04/15/23 09:21 Urine pH 5.5 (5.0-9.0) 04/15/23 09:21 Ur Specific [place] 1.025 (1.005-1.025) 04/15/23 09:21 Urine Protein Negative mg/dL (Neg-Trace) 04/15/23 09:21 Urine Glucose (UA) >=1000 mg/dL (Negative) H 04/15/23 09:21 Urine Ketones Trace mg/dL (Negative) 04/15/23 09:21 Urine Blood Negative (Negative) 04/15/23 09:21 Urine Nitrite Negative (Negative) 04/15/23 09:21 Ur Leukocyte Esterase Negative (Negative) 04/15/23 09:21 Urine RBC 0-2 /HPF (0-2) 04/15/23 09:21 Urine WBC 0-5 /HPF (0-5) 04/15/23 09:21 Ur Squamous Epith Cells 0-2 /HPF (0-2) 04/15/23 09:21 Urine Bacteria None Seen (None Seen) 04/15/23 09:21 Hyaline Casts 0-2 /LPF (0-2) 04/15/23 09:21 Influenza Type A (PCR) NEGATIVE (Negative) 04/15/23 05:38 Influenza Type B (PCR) NEGATIVE (Negative) 04/15/23 05:38 RSV RNA Qual (PCR) NEGATIVE (Negative) 04/15/23 05:38 SARS-CoV-2 RNA (RT-PCR) NEGATIVE (Negative) 04/15/23 05:38 Impressions Chest X-Ray 04/15/23 09:02 IMPRESSION: Possible left lower lobe pneumonia. Discharge Plan Discharge Anticipated Discharge Date/Time: 04/18/23 14:27 Patient Disposition: er [facility] Discharge Diagnosis: pneumonia COPD exacerbation hypokalemia Referrals: Taryn Parker MD [Primary Care Provider] - 1 Week Discharge Medications: New prednisone 20 mg Tablet 40 mg PO DAILY Qty: 2 0RF potassium chloride 20 mEq Tablet,Er Particles/Crystals 40 meq PO DAILY Qty: 30 0RF doxycycline monohydrate 100 mg Capsule 100 mg PO Q12H Qty: 8 0RF cefuroxime axetil 500 mg Tablet 500 mg PO Q12H Qty: 8 0RF Continued furosemide 20 mg tablet 20 mg PO DAILY@1400 spironolactone 50 mg tablet 50 mg PO DAILY Jardiance 10 mg tablet 10 mg PO DAILY lamotrigine 25 mg tablet 25 mg PO DAILY pioglitazone 30 mg tablet 30 mg PO DAILY@1200 quetiapine 100 mg tablet 200 mg PO BEDTIME metformin 1,000 mg tablet 1,000 mg PO BID lamotrigine 100 mg tablet 100 mg PO BID lamotrigine 25 mg tablet 50 mg PO BEDTIME aripiprazole 20 mg tablet 20 mg PO DAILY simvastatin 40 mg tablet 40 mg PO BEDTIME furosemide 20 mg tablet 40 mg PO DAILY Rx Instructions: 40 mg AM 20 mg PM as directed; gabapentin 300 mg capsule 300 mg PO TID albuterol sulfate [Ventolin HFA] 90 mcg/actuation HFA aerosol inhaler 2 puff PO QID PRN (Reason: Shortness Of Breath) (YAQUELIN) [facility]ey [facility] [place] See Rx Instructions .Route Qty: 1 0RF Rx Instructions: As directed budesonide-formoterol [Symbicort] 160-4.5 mcg/actuation HFA aerosol inhaler 2 puff inhalation BID Discontinued potassium chloride 20 mEq tablet extended release 20 meq PO DAILY Discharge Orders: Discharge Order (Routine); Ordered 04/18/23 Ordered By: Samantha Clarke Diet: Diabetic diet Activity on Discharge: As tolerated Stand Alone Forms: Patient Portal Discharge page Other Ambulatory Orders: Basic Metabolic Panel (Routine) Timeframe: 1 Day Facility: [facility] - Location: Laboratory Ordered By: Samantha Clarke Care Plan Goals: recovery from pneumonia Health Concerns: pneumonia COPD exacerbation hypokalemia Plan of Treatment: take cefuroxime 500 mg twice daily PLUS doxycycline 100 mg twice daily for 4 days take prednisone 40 mg once daily for 2 days continue inhalers increase potassium chloride to 40 mEq daily; recheck BMP on 04/19/23 Please follow up with your primary care doctor within 1 week of discharge from rehab. Return to the hospital if you experience recurrent or worsening symptoms. Anticipated length of stay at short-term rehabilitation <30 days Assessment: See Discharge Summary.
[2023-04-18] MEDS: Insulin Lispro 100 UNIT/ML 3 ML VIAL SUBCUT (12:01)
[2023-04-18] MEDS: Enoxaparin Sodium 40 MG/0.4 ML SYRINGE SUBCUT (12:01)
[2023-04-18 13:47] LABS: Anion Gap 13 (12-20); Blood Urea Nitrogen 16 mg/dL (9-16); Carbon Dioxide 31 mmol/L (22-29); Chloride 102 mmol/L (96-108); Creatinine Clr Calc Pharmacy 93.7; Estimated Glomerular Filt Rate > 60; Glucose Random 210 mg/dL (60-115); Potassium 3.1 mmol/L (3.3-5.1); Sodium 143 mmol/L (135-145)
[2023-04-18] MEDS: Furosemide 20 MG TABLET PO (13:56)
--- NOTE | 2023-04-18 14:15 | MHC.CM.PN ---
PT WILL DC TO [facility] TODAY AT 1600 HOURS VIA [facility]CHINS
[2023-04-18 15:23] VITALS: BP 121/58; PULSE 64; RESP 20; TEMP 36; O2SAT 94
[2023-04-18 17:18] LABS: Glucose, Whole Blood 203 mg/dL (60-115)
== END 2023-04-18 16:35 | disposition skilled nursing facility (03) | DRG 193 ==
LOC: HO.ED 11:14 → HO.EDOVER 12:35 → HO.S3 19:12
PROVIDERS: Emergency Medicine Emergency Medical Services; Admitting Provider Internal Medicine; Emergency Provider Emergency Medicine Emergency Medical Services; PCP Internal Medicine; Visit Provider Family Medicine
DX: J18.9 Pneumonia, unspecified organism (principal); J96.21 Acute and chronic respiratory failure with hypoxia; J44.0 Chronic obstructive pulmonary disease with (acute) lower respiratory infection; J44.1 Chronic obstructive pulmonary disease with (acute) exacerbation; Z68.43 Body mass index [BMI] 50.0-59.9, adult; I11.0 Hypertensive heart disease with heart failure; E78.5 Hyperlipidemia, unspecified; E87.6 Hypokalemia; F39 Unspecified mood [affective] disorder; I50.9 Heart failure, unspecified; B37.2 Candidiasis of skin and nail; E11.42 Type 2 diabetes mellitus with diabetic polyneuropathy; E66.01 Morbid (severe) obesity due to excess calories; Z23 Encounter for immunization; Z20.822 Contact with and (suspected) exposure to COVID-19; Z99.81 Dependence on supplemental oxygen; Z79.84 Long term (current) use of oral hypoglycemic drugs; Z79.899 Other long term (current) drug therapy
CPT/HCPCS: 0241U; 36415; 70450; 71045; 80048; 80076; 81001; 82947; 83036; 83605; 83690; 83735; 84145; 85025; 85027; 87040; 90686; 97116; 97162; 99284; 99285; J0696; J1650; J2543; J7120

== ENCOUNTER → 2023-04-15 12:31 | Outpatient (BNV) | payer MEDICARE, MEDICAID, SELFPAY | PROVIDERS: Admitting Provider Internal Medicine; Emergency Provider Emergency Medicine Emergency Medical Services; Visit Provider Internal Medicine | DX: J44.1 Chronic obstructive pulmonary disease with (acute) exacerbation (principal); J96.21 Acute and chronic respiratory failure with hypoxia; J18.9 Pneumonia, unspecified organism; E87.6 Hypokalemia | CPT/HCPCS: 99223; 99232; 99239 ==

== ENCOUNTER 2023-09-17 13:18 | Emergency (ER) | payer MEDICARE, MEDICAID, SELFPAY ==
--- NOTE | ~2023-09-17 | XR_ITS ---
EXAMINATION: XR FOOT, RIGHT CLINICAL INFORMATION: Evaluate for fracture of the fourth and fifth digits, fall. COMPARISON: None available. TECHNIQUE: AP, lateral, and oblique views of the right foot. FINDINGS: Subtle age indeterminate focal cortical irregularity and lucency at the base of the fifth metacarpal. Chronic deformity of the distal fibula. No subluxation. Background of osteopenia and multifocal moderate to severe degenerative osteoarthritis. Diffuse soft tissue swelling. XR/XR foot RT min 3V IMPRESSION: 1. Subtle age-indeterminate cortical irregularity and lucency at the base of the fifth metacarpal that could potentially represent a fracture. Correlate for point tenderness. 2. Chronic deformity of the distal fibula. 3. Diffuse soft tissue swelling.
[2023-09-17 13:42] VITALS: BP 138/78; PULSE 80; O2SAT 93
[2023-09-17 13:45] VITALS: BP 137/56; PULSE 86; RESP 18; TEMP 36.6; O2SAT 93; BMI 53.6
[2023-09-17 14:33] VITALS: BP 120/59; PULSE 79; RESP 16; TEMP 36.3; O2SAT 94
--- NOTE | 2023-09-17 14:46 | ED.GENADULT ---
HPI - General Adult General Chief complaint: Fall Stated complaint: FALL,LACS ON FOOT PER EMS Time Seen by Provider: 09/17/23 14:46 History of Present Illness ED Provider: Dr. Briones HPI narrative: 67 y/o F patient; PMH COPD on home O2, T2DM, HLD; presents ia EMS with reported fall down approx 4 - 5 steps at home prior to arrival. Patient noted positive head trauma but denied LOC. She states she walks down the stairs sidewise holding the railing and her right hand slipped. She declined to attend the emergency room but was convinced by EMS due to significant trauma to her right 4th and 5th toes. Denies: headache, nausea/vomiting, diarrhea, SOB, cough/congestion. She states she was in a usual state of health prior to her fall. Denies anti-coagulation. Tetanus is not up to date. Related Data Home Medications ?Medication ?Instructions ?Recorded ?Confirmed albuterol sulfate 90 mcg/actuation 2 puff PO QID PRN Shortness Of 09/28/21 04/15/23 aerosol inhaler (Ventolin HFA) Breath aripiprazole 20 mg tablet 20 mg PO DAILY 09/28/21 04/15/23 furosemide 20 mg tablet 40 mg PO DAILY 09/28/21 04/15/23 gabapentin 300 mg capsule 300 mg PO TID 09/28/21 04/15/23 lamotrigine 100 mg tablet 100 mg PO BID 09/28/21 04/15/23 lamotrigine 25 mg tablet 50 mg PO BEDTIME 09/28/21 04/15/23 metformin 1,000 mg tablet 1,000 mg PO BID 09/28/21 04/15/23 pioglitazone 30 mg tablet 30 mg PO DAILY@1200 09/28/21 04/15/23 quetiapine 100 mg tablet 200 mg PO BEDTIME 09/28/21 04/15/23 simvastatin 40 mg tablet 40 mg PO BEDTIME 09/28/21 04/15/23 budesonide-formoterol HFA 160 2 puff inhalation BID 10/03/21 04/15/23 mcg-4.5 mcg/actuation aerosol inhaler (Symbicort) empagliflozin 10 mg tablet 10 mg PO DAILY 03/24/23 04/15/23 (Jardiance) furosemide 20 mg tablet 20 mg PO DAILY@1400 03/24/23 04/15/23 spironolactone 50 mg tablet 50 mg PO DAILY 03/24/23 04/15/23 lamotrigine 25 mg tablet 25 mg PO DAILY 04/15/23 04/15/23 Previous Rx's ?Medication ?Instructions ?Recorded walker #1 ea 09/28/21 cefuroxime axetil 500 mg tablet 500 mg PO Q12H #8 tabs 04/18/23 doxycycline monohydrate 100 mg 100 mg PO Q12H #8 caps 04/18/23 capsule potassium chloride 20 mEq 40 meq (2 x 20 mEq) PO DAILY #30 04/18/23 tablet,extended release(part/cryst) tabs prednisone 20 mg tablet 40 mg (2 x 20 mg) PO DAILY #2 tabs 04/18/23 Allergies Allergy/AdvReac Type Severity Reaction Status Date / Time haloperidol [From Haldol] Allergy Mild UNKNOWN Verified 09/17/23 13:58 Review of Systems Review of Systems: Yes all other systems are reviewed and are negative Neurologic: Denies Abnormal speech present and Denies Sensory deficit (Neuro) [facility] Past Medical History Attestation statement: The following information was validated with the patient. 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 Const General: cooperative Orientation/consciousness: patient oriented x3 HENMT Head: Yes normal to inspection and Yes atraumatic Eyes General: appearance normal, both eyes and all related structures Pupils: Equal, round and reactive pupils present EOM: EOMs intact bilaterally Neck Neck: Yes normal visual inspection, Yes full ROM, Yes supple and No tender Chest Chest palpation & inspection: normal inspection of the chest and normal palpation of entire chest wall Resp Effort & Inspection: normal respiratory effort, able to speak in complete sentences, no cough and no respiratory distress Auscultation: clear to auscultation bilaterally Cardio Rate: regular rate Rhythm: regular rhythm Peripheral pulses: Peripheral pulses 2+ throughout GI Inspection: Yes normal to inspection and Yes obesity Palpation (GI): Soft to palpation, not firm, nontender, no guarding and not rigid Auscultation: normal bowel sounds Back/Spine/Pelvis Back: No back tenderness Neuro General: patient oriented x3 and gait normal Cranial nerves: Yes Equal, round and reactive pupils present Cognition (Neuro): normal cognition Speech: No Abnormal speech present Gait exam (Neuro): Normal gait present Motor exam (neuro): 5/5 motor strength present throughout and no pronator drift noted Sensory Exam: No Sensory deficit (Neuro) Coordination: [id number] test normal and [id number] test normal Extrem Other: Small skin tear to posterior aspect of right hand Significant laceration to planar aspect of 4th and 5th toes. NVI. FROM. Course Course Course Narrative: Patient is afebrile and hemodynamically stable. Neurologically intact with atraumatic head exam. Discussed with patient in shared decision making benefits and risks of CT imaging - patient requests to defer CT imaging at this time. She verbally expresses understanding that she should return to the emergency department for headache, neck pain, passing out, numbness/weakness/tingling of her arms or legs. Please see procedure note for laceration repair of 4th and 5th toes. Toes cleaned and denise taped together to support laceration healing. XR right foot ordered. Tetanus updated. Patient will call PCP for wound re-check on Friday09/19/2023. She has home nursing which she hopes her PCP can establish to come assist with bandage changes. Plan: Discharge to home with PCP follow up in 48 hours Condition: Stable Medications Administered Discontinued Medications Generic Name Dose Route Start Last Admin Trade Name Freq PRN Reason Stop Dose Admin Diphtheria/Tetanus/Acell Pertussis 0.5 ml 09/17/23 14:54 09/17/23 15:33 Diphth,Pertus(Acell),Tet Adult 0.5 Ml Syringe IM 09/17/23 14:55 0.5 ml .ONCE ONE Administration Lidocaine/Epinephrine 20 ml 09/17/23 15:15 09/17/23 15:59 Lidocaine Hcl 1%/Epi 1:100,000 10 Ml Vial INFILTRATI 09/17/23 15:16 20 ml ONCE ONE Administration Procedures Laceration Laceration 1: Site: lower extremity (Right 5th toe plantar aspect ) Side (If applicable): right Size (cm): 5 Description: linear Depth: simple, single layer Local Anesthetic: lidocaine 2% and with epi Amount of anesthesia used (mL): 3 Pre-repair: irrigated extensively Skin layer closed with: nylon Size (cm): 5-0 Number of sutures: 5 Technique: simple, interrupted Laceration 2: Site: lower extremity (Right 4th toe plantar aspect) Side (If applicable): right Size (cm): 3 Description: linear Depth: simple, single layer Local Anesthetic: lidocaine 2% and with epi Amount of anesthesia used (mL): 3 Pre-repair: irrigated extensively Skin layer closed with: nylon Size (cm): 5-0 Number of sutures: 2 Discharge Plan Discharge Clinical Impression: Fall, Laceration of toe of right foot Patient Disposition: Home, Self-Care Instructions: Laceration (DC) Additional Instructions: As we discussed, you were seen after a fall with cuts to your right 4th and 5th toes along the bottom. You received 7 stitches that will need to be removed in 7 days. The strei-strips will fall off of your right hand on their own over the next 7 days. Follow up with your PCP on Friday (09/19/2023) for a wound check due to the risk of infection. Return to the emergency department for: Headache Further falls Fever Worsening foot pain Prescriptions: No Action furosemide 20 mg tablet 20 mg PO DAILY@1400 spironolactone 50 mg tablet 50 mg PO DAILY Jardiance 10 mg tablet 10 mg PO DAILY lamotrigine 25 mg tablet 25 mg PO DAILY prednisone 20 mg Tablet 40 mg PO DAILY Qty: 2 0RF potassium chloride 20 mEq Tablet,Er Particles/Crystals 40 meq PO DAILY Qty: 30 0RF doxycycline monohydrate 100 mg Capsule 100 mg PO Q12H Qty: 8 0RF cefuroxime axetil 500 mg Tablet 500 mg PO Q12H Qty: 8 0RF pioglitazone 30 mg tablet 30 mg PO DAILY@1200 quetiapine 100 mg tablet 200 mg PO BEDTIME metformin 1,000 mg tablet 1,000 mg PO BID lamotrigine 100 mg tablet 100 mg PO BID lamotrigine 25 mg tablet 50 mg PO BEDTIME aripiprazole 20 mg tablet 20 mg PO DAILY simvastatin 40 mg tablet 40 mg PO BEDTIME furosemide 20 mg tablet 40 mg PO DAILY Rx Instructions: 40 mg AM 20 mg PM as directed; gabapentin 300 mg capsule 300 mg PO TID albuterol sulfate [Ventolin HFA] 90 mcg/actuation HFA aerosol inhaler 2 puff PO QID PRN (Reason: Shortness Of Breath) (HARDIK Mcclain See Rx Instructions .Route Qty: 1 0RF Rx Instructions: As directed budesonide-formoterol [Symbicort] 160-4.5 mcg/actuation HFA aerosol inhaler 2 puff inhalation BID Print Language: [place]ijani
[2023-09-17] MEDS: Diphth,Pertus(ACell),Tet Adult 0.5 ML SYRINGE IM (15:33)
[2023-09-17] MEDS: Lidocaine HCl 1%/Epi 1:100,000 10 ML VIAL 20 ML INFILTRATI (15:59)
== END 2023-09-17 19:37 | disposition home or self-care (01) ==
PROVIDERS: Emergency Provider Emergency Medicine; PCP Internal Medicine
DX: S09.90XA Unspecified injury of head, initial encounter (principal); S91.114A Laceration without foreign body of right lesser toe(s) without damage to nail, initial encounter; W10.9XXA Fall (on) (from) unspecified stairs and steps, initial encounter; Y93.9 Activity, unspecified; Y92.9 Unspecified place or not applicable; Y99.9 Unspecified external cause status; Z23 Encounter for immunization
CPT/HCPCS: 12004; 73630; 90471; 90715; 99282; 99284

== ENCOUNTER 2024-07-18 06:45 | Emergency (ER) | payer MEDICARE, MEDICAID, SELFPAY ==
--- NOTE | 2024-07-18 | ECG_ITS ---
Test Reason : SOB Blood Pressure : */* mmHG Vent. Rate : 75 BPM Atrial Rate : 75 BPM P-R Int : 166 ms QRS Dur : 70 ms QT Int : 394 ms P-R-T Axes : 52 1 -16 degrees QTcB Int : 439 ms Normal sinus rhythm Low voltage QRS Septal infarct (cited on or before 04-Oct-2015) Abnormal ECG When compared with ECG of 24-Mar-2023 11:18, Inverted T waves have replaced nonspecific T wave abnormality in Inferior leads Referred By: Generic ED Physician Electronically Signed By: Vin Hugo
--- NOTE | ~2024-07-18 | XR_ITS ---
CLINICAL HISTORY: [id number] ; PT states shortness of breath. 1 view chest x-ray Comparison: CR/SR - XR CHEST 1V - 04/15/23 08:46 EST Findings: The lungs are clear. Heart size is normal. No acute fracture. IMPRESSION: 1. No acute findings. This document has been electronically signed by: Slick Sorensen MD on 07/18/2024 07:34:24
[2024-07-18 06:52] VITALS: BP 122/68; BP 95/31; PULSE 73; PULSE 76; RESP 18; TEMP 36.6; O2SAT 94; O2SAT 97; BMI 38.4
[2024-07-18 07:07] VITALS: O2SAT 95
--- NOTE | 2024-07-18 07:09 | ED_ITS ---
HPI - General Adult General Chief complaint: Dyspnea Stated complaint: SOB X3 DAYS/ COPD PT Time Seen by Provider: 07/18/24 07:09 History of Present Illness ED Provider: May PATTEN narrative: The patient is a 68-year-old woman with a history of COPD who lives on her own in her own apartment. She says that she normally is able to walk with a walker. She says that she has home oxygen but she only uses it on an as-needed basis. She says that she used her medical alert bracelet to summon an ambulance today because she got nervous. She says she was afraid she was going to . She is very vague about her symptoms. She says that she has a history of chronic psychiatric problems. She says that she sleeps in her recliner. She says this morning she had woken up early at around 03:30. She says that her cat was sitting on her lap and she started to feel very nervous. She may have had some chest discomfort. She is very vague about whether she had chest discomfort. She also says that she might has been more short of breath over the last week. She is also very vague about her symptoms of shortness of breath. She says that she experiences the sensation of shortness of breath mostly with exertion. She does not think she has had a fever. No significant coughing. The moment she is not having any chest pain or feeling short of breath at rest while on the hospital stretcher. She has chronic lower extremity edema that she says is typical of her usual edema. The patient is not on any anticoagulation. She does not believe she has ever had a stroke or heart attack. She was last hospitalized at this hospital over a year ago for COPD. Related Data Home Medications ?Medication ?Instructions ?Recorded ?Confirmed albuterol sulfate 90 mcg/actuation 2 puff PO DAILY Shortness Of Breath 09/28/21 07/18/24 aerosol inhaler (Ventolin HFA) aripiprazole 20 mg tablet 20 mg PO DAILY 09/28/21 07/18/24 furosemide 20 mg tablet 40 mg PO DAILY@0800 09/28/21 07/18/24 gabapentin 300 mg capsule 300 mg PO TID 09/28/21 07/18/24 lamotrigine 100 mg tablet 100 mg PO BID 09/28/21 07/18/24 lamotrigine 25 mg tablet 50 mg PO BEDTIME 09/28/21 07/18/24 metformin 1,000 mg tablet 1,000 mg PO BID 09/28/21 07/18/24 quetiapine 100 mg tablet 200 mg PO BEDTIME 09/28/21 07/18/24 simvastatin 40 mg tablet 40 mg PO BEDTIME 09/28/21 07/18/24 empagliflozin 10 mg tablet 10 mg PO DAILY 03/24/23 07/18/24 (Jardiance) furosemide 20 mg tablet 20 mg PO DAILY@1200 03/24/23 07/18/24 lamotrigine 25 mg tablet 25 mg PO DAILY 04/15/23 07/18/24 fluticasone propionate 230 2 puff inhalation DAILY 07/18/24 07/18/24 mcg-salmeterol 21 mcg/actuation HFA inhaler (Advair HFA) loperamide 2 mg capsule 2 mg PO QID PRN Loose Stool 07/18/24 07/18/24 potassium chloride 20 mEq 20 meq PO DAILY 07/18/24 07/18/24 tablet,extended release semaglutide 0.25 mg or 0.5 mg (2 0.5 mg subcut FR 07/18/24 07/18/24 mg/3 mL) subcutaneous pen injector (Ozempic) spironolactone 25 mg tablet 25 mg PO DAILY 07/18/24 07/18/24 Previous Rx's ?Medication ?Instructions ?Recorded walker #1 ea 09/28/21 azithromycin 250 mg tablet 250 mg PO DAILY 4 days #4 tabs 07/18/24 prednisone 20 mg tablet 40 mg (2 x 20 mg) PO DAILY 3 days 07/18/24 #6 tabs Allergies Allergy/AdvReac Type Severity Reaction Status Date / Time haloperidol [From Haldol] Allergy Mild UNKNOWN Verified 07/18/24 06:54 Review of Systems 2 Review of Systems: Yes all other systems are reviewed and are negative [facility] Past Medical History Medical History Weakness Fever Fall Unspecified diastolic heart failure Diabetes HTN (hypertension) Social History Social History Household Members: None Housing: Apartment Do you presently have visiting nurse or other home services: Yes (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[employer]) Patient Tobacco Use Status: Never used Tobacco Advance Directives Date on File: 04/21/23 service: No Current occupational status: retired 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 Physical Exam ED Vital Signs: Vital Signs - 24 hr 07/19/24 06:26 07/19/24 08:19 07/19/24 08:30 Temperature 97.8 F Pulse Rate 79 86 Respiratory Rate 15 18 Blood Pressure 119/60 119/60 Pulse Oximetry 98 Oxygen Delivery Method Room Air Oxygen Flow Rate 07/19/24 08:31 07/19/24 09:44 07/19/24 12:36 Temperature Pulse Rate 113 H 88 Respiratory Rate 20 Blood Pressure 119/60 124/60 Pulse Oximetry 86 L 89 L Oxygen Delivery Method Room Air Oxygen Flow Rate 07/19/24 14:23 07/19/24 14:28 Temperature Pulse Rate 90 Respiratory Rate 20 Blood Pressure 124/60 132/61 Pulse Oximetry 94 Oxygen Delivery Method Nasal Cannula Oxygen Flow Rate 2 BMI result Body Mass Index 38.4 Const Other: The patient is a morbidly obese 68-year-old woman who was awake and alert. She does not seem in obvious distress. She does not appear obviously ill. She looks quite chronically ill however. HENMT Other: Face is symmetrical. Mucous membranes moist. Eyes General: appearance normal, both eyes and all related structures Neck Other: The patient is neck is fairly thick and I can not appreciate the presence or absence of JVD. Neck: Yes full ROM Resp Other: Possibly some very slight wheezes bilaterally. No michael adventitious sounds. No increased work of breathing. Cardio Rate: regular rate Rhythm: regular rhythm Heart sounds: S1 normal heart sound present and S2 normal heart sound present GI Other: The abdomen is soft and nontender Skin Other: The skin is dry and unremarkable except in the lower legs where there are a lot of chronic venous stasis changes. Neuro Other: The patient is awake and alert. She is oriented and appropriate. She is a poor historian. Cranial nerves 2-12 are grossly intact. She moves her extremities symmetrically. She seems somewhat generally deconditioned. No obvious focal neurological deficit. Extrem Other: The patient has what seems to be chronic edema with venous stasis changes of both lower legs. No definite pitting edema. The feet are well-perfused. Course Course Course Narrative: 07/19/2024 Subha Shankar PA-C [id number] ---> Observation continues. Patient continues to be followed by case management. 07/19/2024 Subha Shankar PA-C [id number] ---> Case management states that the patient will be discharged to [facility] for short term rehab today at 1800. Medications Administered Discontinued Medications Generic Name Dose Route Start Last Admin Trade Name Razia PRN Reason Stop Dose Admin Albuterol Sulfate 2 puff 07/18/24 19:00 07/19/24 08:15 Albuterol Sulfate 90 Mcg 8 Gm Inhaler INHALE 2 puff RDAILY ADOLFO Administration Albuterol/Ipratropium 3 ml 07/18/24 07:58 07/18/24 08:04 Albuterol/Iprat 2.5/0.5mg 3 Ml Ampul.Neb INHALE 07/18/24 07:59 3 ml ONCE ONE Administration Albuterol/Ipratropium 3 ml 07/18/24 10:27 07/18/24 11:18 Albuterol/Iprat 2.5/0.5mg 3 Ml Ampul.Neb INHALE 07/18/24 10:28 3 ml ONCE ONE Administration Aripiprazole 20 mg 07/19/24 09:00 07/19/24 08:29 Aripiprazole 20 Mg Tablet PO 20 mg DAILY ADOLFO Administration Atorvastatin Calcium 20 mg 07/18/24 21:00 07/18/24 20:50 Atorvastatin Calcium 20 Mg Tablet PO 20 mg BEDTIME ADOLFO Administration Azithromycin 500 mg 07/18/24 12:04 07/18/24 12:50 Azithromycin 500 Mg Tablet PO 07/18/24 12:05 500 mg ONCE ONE Administration Azithromycin 250 mg 07/19/24 13:00 07/19/24 14:23 Azithromycin 250 Mg Tablet PO 250 mg DAILY@1300 ADOLFO Administration Empagliflozin 10 mg 07/19/24 09:00 07/19/24 08:31 Empagliflozin 10 Mg Tablet PO 10 mg DAILY ADOLFO Administration Fluticasone/Vilanterol 1 puff 07/19/24 08:00 07/19/24 08:15 Fluticasone/Vilanterol 200/25 Blst.W.Dev INHALE 1 puff RDAILY ADOLFO Administration Furosemide 20 mg 07/19/24 12:00 07/19/24 14:23 Furosemide 20 Mg Tablet PO 20 mg DAILY@1200 ADOLFO Administration Protocol Furosemide 40 mg 07/19/24 08:00 07/19/24 08:31 Furosemide 40 Mg Tablet PO 40 mg DAILY@0800 ADOLFO Administration Protocol Gabapentin 300 mg 07/18/24 21:00 07/19/24 14:23 Gabapentin 300 Mg Capsule PO 300 mg TID ADOLFO Administration Lamotrigine 25 mg 07/19/24 09:00 07/19/24 08:30 Lamotrigine 25 Mg Tablet PO 25 mg DAILY ADOLFO Administration Lamotrigine 50 mg 07/18/24 21:00 07/18/24 20:51 Lamotrigine 25 Mg Tablet PO 50 mg BEDTIME ADOLFO Administration Lamotrigine 100 mg 07/18/24 21:00 07/19/24 08:31 Lamotrigine 100 Mg Tablet PO 100 mg BID ADOLFO Administration Metformin HCl 1,000 mg 07/18/24 21:00 07/19/24 08:31 Metformin Hcl 1,000 Mg Tablet PO 1,000 mg BID ADOLFO Administration Potassium Chloride 20 meq 07/19/24 09:00 07/19/24 08:30 Potassium Chloride Er 20 Meq Tab.Er.Prt PO 20 meq DAILY ADOLFO Administration Prednisone 60 mg 07/18/24 10:27 07/18/24 10:41 Prednisone 20 Mg Tablet PO 07/18/24 10:28 60 mg ONCE ONE Administration Prednisone 40 mg 07/19/24 09:00 07/19/24 08:31 Prednisone 20 Mg Tablet PO 07/21/24 10:00 40 mg DAILY ADOLFO Administration Quetiapine Fumarate 200 mg 07/18/24 21:00 07/18/24 20:50 Quetiapine Fumarate 200 Mg Tablet PO 200 mg BEDTIME ADOLFO Administration Spironolactone 25 mg 07/19/24 09:00 07/19/24 08:30 Spironolactone 25 Mg Tablet PO 25 mg DAILY ADOLFO Administration Protocol Medical Decision Making Medical Decision Making MDM Narrative: The patient is a morbidly obese, chronically ill-appearing 68-year-old woman with a history of COPD who presents to the emergency room after feeling anxious this morning when she awoke early this morning in her recliner. She says that she felt short of breath. She says she has felt more short of breath than usual over the last week. She says that she has home oxygen but she does not normally wear it. Here the patient does not appear obviously acutely ill. She has had workup that is largely negative. She has a an unremarkable chest x-ray she has not had a fever. She has a normal white count and differential.. There is no evidence of heart failure. Her D-dimer is normal which would preclude pulmonary embolism. Her metabolic panel is unremarkable. Ultimately I did not feel that there was any clear infectious process or acute cardiovascular process. Maybe she has some degree of an exacerbation of COPD. She had diminished air entry on exam and may be some scattered wheezes but no gross respiratory distress. Since I thought the patient looked fairly stable I thought we would probably be able to discharge her. She was going to be discharged on a short course of prednisone and azithromycin and to continue albuterol at home. The patient's sister came to the emergency room. The sister was concerned that the patient's overall functional status is poor. The patient did not do very well with a trial of ambulation here in the emergency room and so ultimately we decided to keep the patient in the emergency room for evaluation by case management and physical therapy. Therefore the patient will be placed in physician observation as of 19:07 [facility]. The patient will be signed out to the oncoming team. Lab Data 07/18/24 07:07 07/18/24 07:07 Labs: Lab Results 07/18/24 07/18/24 07/18/24 Range/Units 07:07 07:08 09:35 WBC 6.9 (4.8-10.8) X10*3/uL RBC 5.17 D (4.20-5.50) X10*6/uL Hgb 15.9 D (12.0-16.0) g/dl Hct 47.3 H (37.0-47.0) % MCV 91.5 (80.0-98.0) fL MCH 30.8 (27.0-33.0) pg MCHC 33.6 (31.0-35.0) g/dl RDW 14.3 (11.0-16.0) % Plt Count 246 (160-400) X10*3/uL MPV 9.7 (9.4-12.3) fL Immature Gran % (Auto) 0.4 (0.0-0.4) % Neut % (Auto) 67.6 (45-73) % Lymph % (Auto) 18.8 L (20-40) % [place] % (Auto) 10.0 (2-11) % Eos % (Auto) 2.5 (0-4) % Baso % (Auto) 0.7 (0-2) % Lymph # (Auto) 1.3 (1.2-4.9) X10*3/uL [place] # (Auto) 0.7 (0.1-1.2) X10*3/uL Eos # (Auto) 0.2 (0.0-0.4) X10*3/uL Baso # (Auto) 0.1 (0.0-0.2) X10*3/uL Abs Immat Gran (auto) 0.03 (0.00-0.03) X10*3/uL Absolute Neuts (auto) 4.7 (2.0-8.3) x10*3/uL Absolute Nucleated RBC 0.000 (0.0-0.012) X10*3/uL Nucleated RBC % (auto) 0.0 (0.0-0.2) /100WBC D-Dimer High Sensitivty < 150 NG/ML Hold Blue Top SEE NOTE Sodium 141 (135-145) mmol/L Potassium 3.9 D (3.3-5.1) mmol/L Chloride 103 (96-108) mmol/L Carbon Dioxide 24 (22-29) mmol/L Anion Gap 18 (12-20) BUN 12 (9-16) mg/dL Creatinine 0.86 (0.5-1.4) mg/dL Estim Creat Clear Calc 80.8 Estimated GFR > 60 Random Glucose 126 H (60-115) mg/dL Calcium 9.4 (8.4-10.2) mg/dL Magnesium 2.0 (1.6-2.6) mg/dL Total Bilirubin 0.8 (0.0-1.0) mg/dL AST 37 H (5-31) U/L ALT 11 (0-31) U/L Alkaline Phosphatase 86 (39-117) U/L Troponin I High Sens < 2.7 < 2.7 (<3.5-17.0) ng/L C-Reactive Protein 1.45 H (< or = 0.50) mg/dL B-Natriuretic Peptide < 10 (<100) pg/mL Total Protein 7.9 (6.5-8.0) g/dL Albumin 4.6 (3.5-5.0) g/dL Respiratory Panel Ramos Adenovirus (Rapid PCR) (Not Detect.) B.pert (TEM-PCR) (Not Detect.) B.parapertussis DNA PCR (Not Detect.) C. pneumoniae DNA (PCR) (Not Detect.) Coronavirus OC43 (PCR) (Not Detect.) Coronavirus HKU1 (PCR) (Not Detect.) Coronavirus 229E (PCR) (Not Detect.) Coronavirus NL63 (PCR) (Not Detect.) Human Metapneumovir PCR (Not Detect.) Influenza A (RT-PCR) (Not Detect.) Influenza A (H1) PCR (Not Detect.) Influ A (H1/09) PCR (Not Detect.) Influenza A (H3) PCR (Not Detect.) Influenza Type A (PCR) NEGATIVE (Negative) Influenza B (RT-PCR) (Not Detect.) Influenza Type B (PCR) NEGATIVE (Negative) M. pneumoniae (PCR) (Not Detect.) Parainfluenza 1 (PCR) (Not Detect.) Parainfluenza 2 (PCR) (Not Detect.) Parainfluenza 3 (PCR) (Not Detect.) Parainfluenza 4 (PCR) (Not Detect.) RSV (PCR) (Not Detect.) RSV RNA Qual (PCR) NEGATIVE (Negative) Entero/Rhino (PCR) (Not Detect.) SARS-CoV-2 RNA (RT-PCR) NEGATIVE (Negative) 07/18/24 Range/Units 10:44 WBC (4.8-10.8) X10*3/uL RBC (4.20-5.50) X10*6/uL Hgb (12.0-16.0) g/dl Hct (37.0-47.0) % MCV (80.0-98.0) fL MCH (27.0-33.0) pg MCHC (31.0-35.0) g/dl RDW (11.0-16.0) % Plt Count (160-400) X10*3/uL MPV (9.4-12.3) fL Immature Gran % (Auto) (0.0-0.4) % Neut % (Auto) (45-73) % Lymph % (Auto) (20-40) % [place] % (Auto) (2-11) % Eos % (Auto) (0-4) % Baso % (Auto) (0-2) % Lymph # (Auto) (1.2-4.9) X10*3/uL [place] # (Auto) (0.1-1.2) X10*3/uL Eos # (Auto) (0.0-0.4) X10*3/uL Baso # (Auto) (0.0-0.2) X10*3/uL Abs Immat Gran (auto) (0.00-0.03) X10*3/uL Absolute Neuts (auto) (2.0-8.3) x10*3/uL Absolute Nucleated RBC (0.0-0.012) X10*3/uL Nucleated RBC % (auto) (0.0-0.2) /100WBC D-Dimer High Sensitivty NG/ML Hold Blue Top Sodium (135-145) mmol/L Potassium (3.3-5.1) mmol/L Chloride (96-108) mmol/L Carbon Dioxide (22-29) mmol/L Anion Gap (12-20) BUN (9-16) mg/dL Creatinine (0.5-1.4) mg/dL Estim Creat Clear Calc Estimated GFR Random Glucose (60-115) mg/dL Calcium (8.4-10.2) mg/dL Magnesium (1.6-2.6) mg/dL Total Bilirubin (0.0-1.0) mg/dL AST (5-31) U/L ALT (0-31) U/L Alkaline Phosphatase (39-117) U/L Troponin I High Sens (<3.5-17.0) ng/L C-Reactive Protein (< or = 0.50) mg/dL B-Natriuretic Peptide (<100) pg/mL Total Protein (6.5-8.0) g/dL Albumin (3.5-5.0) g/dL Respiratory Panel Ramos See Note Adenovirus (Rapid PCR) Not Detected (Not Detect.) B.pert (TEM-PCR) Not Detected (Not Detect.) B.parapertussis DNA PCR Not Detected (Not Detect.) C. pneumoniae DNA (PCR) Not Detected (Not Detect.) Coronavirus OC43 (PCR) Not Detected (Not Detect.) Coronavirus HKU1 (PCR) Not Detected (Not Detect.) Coronavirus 229E (PCR) Not Detected (Not Detect.) Coronavirus NL63 (PCR) Not Detected (Not Detect.) Human Metapneumovir PCR Not Detected (Not Detect.) Influenza A (RT-PCR) Not Detected (Not Detect.) Influenza A (H1) PCR Not Detected (Not Detect.) Influ A (H1/09) PCR Not Detected (Not Detect.) Influenza A (H3) PCR Not Detected (Not Detect.) Influenza Type A (PCR) (Negative) Influenza B (RT-PCR) Not Detected (Not Detect.) Influenza Type B (PCR) (Negative) M. pneumoniae (PCR) Not Detected (Not Detect.) Parainfluenza 1 (PCR) Not Detected (Not Detect.) Parainfluenza 2 (PCR) Not Detected (Not Detect.) Parainfluenza 3 (PCR) Not Detected (Not Detect.) Parainfluenza 4 (PCR) Not Detected (Not Detect.) RSV (PCR) Not Detected (Not Detect.) RSV RNA Qual (PCR) (Negative) Entero/Rhino (PCR) Not Detected (Not Detect.) SARS-CoV-2 RNA (RT-PCR) Not Detected (Negative) Independent Interpretation I performed an independent interpretation of an: EKG Interpretation: EKG at 07:20 shows normal sinus rhythm at 75 beats per minute. No definite acute ischemic changes. Discharge Plan Discharge Clinical Impression: Acute exacerbation of chronic bronchitis Patient Disposition: Xfer Other Transfer Details: [facility] Additional Instructions: Your testing in the emergency room today is very reassuring. There is no sign of a heart attack, no sign of heart failure, no sign of pneumonia, and no sign of a blood clot in your lungs. I think that your sense of shortness of breath is related to your COPD. You has been started on a short course of prednisone, a steroid medication, and azithromycin, an antibiotic. Please take these medications once a day as prescribed. You received doses today already. Take your next doses tomorrow. Please use your albuterol inhaler 2 puffs every 4 hours as needed. Please use your oxygen as needed. Please contact your regular doctor on Friday for a prompt follow up appointment. Return to the emergency room if significantly worse. Prescriptions: New azithromycin 250 mg tablet 250 mg PO DAILY 4 Days Qty: 4 0RF Rx Instructions: start on day 2 of therapy prednisone 20 mg tablet 40 mg PO DAILY 3 Days Qty: 6 0RF No Action furosemide 20 mg tablet 20 mg PO DAILY@1200 Jardiance 10 mg tablet 10 mg PO DAILY lamotrigine 25 mg tablet 25 mg PO DAILY spironolactone 25 mg tablet 25 mg PO DAILY fluticasone propion-salmeterol [Advair HFA] 230-21 mcg/actuation HFA aerosol inhaler 2 puff INHALATION DAILY Ozempic 0.25 mg or 0.5 mg (2 mg/3 mL) pen injector 0.5 mg subcut FR loperamide [Imodium] 2 mg Capsule 2 mg PO QID PRN (Reason: Loose Stool) potassium chloride 20 mEq tablet extended release 20 meq PO DAILY quetiapine 100 mg tablet 200 mg PO BEDTIME metformin 1,000 mg tablet 1,000 mg PO BID lamotrigine 100 mg tablet 100 mg PO BID lamotrigine 25 mg tablet 50 mg PO BEDTIME aripiprazole 20 mg tablet 20 mg PO DAILY simvastatin 40 mg tablet 40 mg PO BEDTIME furosemide 20 mg tablet 40 mg PO DAILY@0800 Rx Instructions: 40 mg AM 20 mg PM as directed; gabapentin 300 mg capsule 300 mg PO TID albuterol sulfate [Ventolin HFA] 90 mcg/actuation HFA aerosol inhaler 2 puff PO DAILY (DME) [place] [facility] [place] Instructions .Route Qty: 1 0RF Rx Instructions: As directed [facility] Taryn Parker MD [Primary Care Provider] - (Shortness of breath, COPD) Interventions: ED Discharge Assessment Last Done: 07/19/24 19:46 Discharge Date/Time: 07/19/24 19:49 Print Language: Vincentian
[2024-07-18 07:12] LABS: MANUAL DIFF FLAG NO
--- OUTSIDE RECORDS SUMMARY | 2024-07-18 07:21 | XMS_ITS | Patient Health Record ---
Author Organization [facility] Address [address] [place] [address] Care Team Providers Care Gunite Nozzle Operator Name Role Phone Keith FLANNERY, Taryn Primary Care Provider Jericho Espinoza Jr Unavailable Reason For Referral No Information Plan Of Treatment No Information Insurance Providers Payer Name Payer Address Payer Phone Subscriber Number Group Number Insured Name Patient Relationship to Insured Coverage Start Date Coverage End Date MEDICARE OF [place] [address] [place] [address] [phone] [id number] JOHN CASAS Self - patient is the insured MEDICAID OF [facility] [employer] [facility] [address] [place] [address] [id number] JOHN CASAS Self - patient is the insured
--- OUTSIDE RECORDS SUMMARY | 2024-07-18 07:21 | XMS_ITS | Continuity of Care Document ---
Author Organization [facility] Address [address] [place] [address] Phone Care Team Providers Care Angle Shear Operator Name Role Phone No Information Unavailable Unavailable Allergies, Adverse Reactions, Alerts Substance Reaction Status Criticality CEPHALEXIN MONOHYDRATE hives Active No In formation Medications Medication Instructions Dosage Effective Dates (start - stop) Status Comments Flaxseed Oil 1,000 mg Cap - Acti ve [place]-3 Fatty Acids-Fish Oil 300 mg-1,000 mg Cap - Active Quiikje-Zxsybqelbo-RKL-Ca ffeine 30 mg-50 mg-325 mg-40 mg Cap - Active Lisinopril 10 mg Tab - Active Atenolol 100 mg Tab - Active Advance Directives Directive Yes / No Effective Date File Name No Information Encounters Encounter Description Practice Location Reason(s) For Visit Diagnoses Date Provider Providers Copied on Encounter [facility], [address] [place], [id number], tel:[phone] No Information 0 No Information [facility], [address] [place], [id number], tel:[phone] No Information 0 No Information Family History Family Member Type Diagnosis Age At Onset Father Problem (finding) degenerative disorder o f macula Payers Payer name Insurance type Covered alliance party ID Authoriza tion(s) No Information Social History Type Description Quantity Date Captured Comments Sex Female Smoking Status No Information Chief Complaint And Reason For Visit No Information Reason For Referral Reason For Referral No Information History Of Present Illness Encounter Date Complaint History Of Prese nt Illness No Information Functional Status Date Functional Assessmen t No Information Instructions Date Instruction Additional Infor mation No Information Assessments Type Assessment Date No Information Patient Care Teams Name Effective Dates (start - stop) Status Members No Information
--- OUTSIDE RECORDS SUMMARY | 2024-07-18 07:22 | XMS_ITS | Clinical Summary ---
Author Organization [facility] Address [address] [place] [address] Care Team Providers Care Rn Supplemental Name Role Phone Unavailable Primary Care Provider Unavailabl e Social History Tobacco Use Types Packs/Day Years Used Date Smoking Tobacco: Never Assessed Comments Unknown Sex and Gender Information Value Date Recorded Sex Assigned at Not on file Legal Sex Female 11:55 PM EST Gender Identity Not on file Sexual Orientation Not on file Plan of Treatment Health Maintenance Due Date Last Done Comments DTaP,Tdap,and Td Vaccines (1 - Tdap) 1972 Pneumococcal Vaccine: 50+ Years (1 of 1 - PCV) 10/27/2003 Zoster Vaccines (1 of 2) 10/27/2003 Colorectal Cancer Screening: Colonoscopy 03/10/2022 Depression Screening 03/10/2022 Falls Risk Assessment 03/10/2022 Hepatitis C Screening 03/10/2022 Osteoporosis Screening (Bone Density Screening) 03/10/2022 Social Influencers of Health Screening 03/10/2022 COVID-19 Vaccine ( - 2023-2 5 season) 2023 Breast Cancer Screening 08/21/2024 08/22/19 23, 08/16/2020, 07/08/2018 Influenza Vaccine (Season Ended) 2024 RSV Immunization Adult Patients (1 - 1-dose 75+ series) 2028 HIB Vaccines Aged Out No longer eligi ble based on patient's age to complete this topic HPV Vaccines Aged Out No longer eligi ble based on patient's age to complete this topic Hepatitis A Vaccines Aged Out No long er eligible based on patient's age to complete this topic Hepatitis B Vaccines Aged Out No long er eligible based on patient's age to complete this topic IPV Vaccines Aged Out No longer eligi ble based on patient's age to complete this topic MMR Vaccines Aged Out No longer eligi ble based on patient's age to complete this topic Meningococcal ACWY Vaccine Aged Out N o longer eligible based on patient's age to complete this topic Meningococcal B Vaccine Aged Out No l onger eligible based on patient's age to complete this topic RSV Immunization Patients Under 20 months Aged Out No longer eligible b ased on patient's age to complete this topic Varicella Vaccines Aged Out No longer eligible based on patient's age to complete this topic Procedures Procedure Name Priority Date/Time Associated Diagnosis Comments [facility] SCREENING DIGITAL Routine 08/21/2022 4:49 PM EDT Encounter for screening mammogram for malignant neoplasm of breast from Last 3 Months or Most Recently Relevant to Health Maintenance Results * [facility] SCREENING DIGITAL (08/21/2022 4:49 PM EDT) Anatomical Region Laterality Modality Mammography 08/21/2022 10:2 9 AM EDT Narrative 08/21/2022 4:49 PM EDT [facility] Diagnostic Imaging Department [address] [place], [place] [id number] Patient: ??JOHN CASAS ?/Age/Sex: 1955 - 66 - F Unit#: ??[id number] ? Location/Status: ??SPDIMAM/REG CLI ? Mnemonic/Ordering Site: ??DIGSC/SPMAM Ordering Physician: ??TARYN PARKER MD [facility] Screening Digital - 08/21/221052 EXAM: [facility] Screening Digital EXAM DATE AND TIME: 08/21/2022 10:53 AM HISTORY: ??Screening. COMPARISON: ??08/16/20, 07/08/18, 06/04/17, 05/30/16 TECHNIQUE: CC and MLO views of both breasts were obtained using full field digital mammography. Bilateral digital breast tomosynthesis was performed in the MLO projection. Computer aided detection with [employer] 7.2-H and [employer] [place] 3D 3.1 was employed. TISSUE DENSITY: b. There are scattered areas of fibroglandular density. FINDINGS: No suspicious masses, grouped microcalcifications, or areas of architectural distortion are seen. Several benign calcifications are again seen in the anterior aspects of both breasts, without significant change. Normal vascular calcification is noted. The skin is unremarkable. IMPRESSION: Stable mammographic appearance of the breasts. ??No evidence of malignancy is seen. A negative mammogram in the presence of a clinically suspicious palpable abnormality does not preclude the possibility of malignancy or alter the indications for biopsy. BI-RADS: ??Category 2: Benign RECOMMENDATION(S): 1: Routine screening mammogram BILATERAL in 1 year. 45341, 36631 3342F, 7025F Dictating Physician: ??SHAUNA MAHARAJ MD Electronically Signed by: ??SHAUNA MAHARAJ MD Dic Date/Time: ??08/21/22 1648 Sign date/Time: ??08/21/22 1649 Procedure Note Shauna Maharaj MD - 05/09/2023 [facility] Diagnostic Imaging Department [address] [place] [address] Patient: JOHN CASAS Ana MaoB./Age/Sex: 1955 - 66 - F Unit#: [id number] Location/Status: [facility] CLI Mnemonic/Ordering Site: [facility] Ordering Physician: TARYN PARKER MD [facility] Screening Digital - 08/21/22 - 105 EXAM: [facility] Screening Digital EXAM DATE AND TIME: 08/21/2022 10:53 AM HISTORY: Screening. COMPARISON: 08/16/20, 07/08/18, 06/04/17, 05/30/16 TECHNIQUE: CC and MLO views of both breasts were obtained using fullfield digital mammography. Bilateral digital breast tomosynthesis was performedin the MLO projection. Computer aided detection with [employer] 7.2-H and[employer] [place] 3D 3.1 was employed. TISSUE DENSITY: b. There are scattered areas of fibroglandular density. FINDINGS: No suspicious masses, grouped microcalcifications, or areas ofarchitectural distortion are seen. Several benign calcifications are again seen in the anterior aspects of both breasts, without significant change. Normalvascular calcification is noted. The skin is unremarkable. IMPRESSION: Stable mammographic appearance of the breasts. No evidence of malignancyis seen. A negative mammogram in the presence of a clinically suspicious palpable abnormality does not preclude the possibility of malignancy or alter the indications for biopsy. BI-RADS: Category 2: Benign RECOMMENDATION(S): 1: Routine screening mammogram BILATERAL in 1 year. 53169, 86921 3342F, 7025F Dictating Physician: SHAUNA MAHARAJ MD Electronically Signed by: SHAUNA MAHARAJ MD Dic Date/Time: 08/21/221647 Sign date/Time: 08/21/221648 us Taryn Parker MD IMG BI PROCEDURES Final Result from Last 3 Months or Most Recently Relevant to Health Maintenance
--- OUTSIDE RECORDS SUMMARY | 2024-07-18 07:22 | XMS_ITS | Clinical Summary ---
Author Organization Unknown Care Team Providers Care Metallurgist Process Name Role Phone CAITLYN FLANNERY, FREDO Unavailable Unavailable SHAYNA BECKWITH, SHAHID Unavailable Unavailable RUDY BECKWITH, LAURA Unavailable Unavailable KERWIN BECKWITH, CURT Unavailable Unavailabl e Payers Payer Name Policy Type Policy Number Effective Date Expira tion Date [place] [id number] ON DEMAND MEDICARE - [facility] BILLING - ABN [id number] Problems Condition Name Condition Details Condition Category Status Onset Date Resolution Date Last Treatment Date Treating Clinician Comments OTHER BIPOLAR DISORDER Active - 00:00: 00 CHRONIC OBSTRUCTIVE PULMONARY DISEASE, UNSPECIFIED Active - 00:00: 00 ACUTE AND CHRONIC RESPIRATORY FAILURE WITH HYPOXIA Active 2- 00:00: 00 TYPE 2 DIABETES MELLITUS WITHOUT COMPLICATION S Active 2- 00:00: 00 UNSPECIFIED MOOD [AFFECTIVE] DISORDER Active 2- 00:00: 00 POLYNEUROPAT HY, UNSPECIFIED Active - 00:00: 00 Allergies, Adverse Reactions, Alerts Allergy Name Allergy Type Status Severity Reaction(s) Onset Date Inactive Date Treating Clinician Comments NKA Propensity to adverse reactions Active 2023-05 13:09:2 3 Medications Ordered Medication Name Filled Medication Name Start Date Stop Date Current Medication? Ordering Clinician Indication Dosage Frequency Signature (SIG) Comments Components aripiprazol e 20 mg tablet 06-05 00:00: 00 Yes [id number] 1 tablet QAM 1 tablet QAM (route: oral) Alternate Route: PO. Med Classific ation: Central Nervous System Agents gabapentin 300 mg capsule - 00:00: 00 Yes [id number] 1 capsule TID 1 capsule TID (route: oral) Alternate Route: PO. Med Classific ation: Central Nervous System Agents glimepiride 2 mg tablet 2017-04 00:00: 03-10 23:59 :00 No [id number] 1 tablet QD 1 tablet QD (route: oral) Alternate Route: PO. Med Classific ation: Endocrine lamotrigine 100 mg tablet 1 00:00: 00 Yes [id number] 1 tablet BID UTD 1 tablet BID UTD (route: oral) Alternate Route: PO. Med Classific ation: Central Nervous System Agents lamotrigine 25 mg tablet 05-12 00:00: 00 Yes [id number] 2 tablet DIRECTED 2 tablet DIRECTED (route: oral) Alternate Route: PO. Med Classific ation: Central Nervous System Agents Lasix 20 mg tablet 06-16 00:00: 00 07-09 23:59 :00 No [id number] 2 tablet EVERY AM 2 tablet EVERY AM (route: oral) Med Classific ation: Cardiovas cular Therapy Agents Lasix 20 mg tablet 06-16 00:00: 00 06-15 23:59 :00 No [id number] 1 tablet IN THE AFTERNOON 1 tablet IN THE AFTERNOON (route: oral) Med Classific ation: Cardiovas cular Therapy Agents metformin 1,000 mg tablet 2017-04 00:00: 00 Yes [id number] 1 tablet BID 1 tablet BID (route: oral) Alternate Route: PO. Med Classific ation: Endocrine O2 - OXYGEN 06-02 00:00: 00 Yes [id number] 2 Liter O2 - PRN 2 Liter O 2 - PRN (route: Oxygen) Med Classific ation: Medical Oxygen potassium chloride ER 20 mEq tablet,exte nded release 05-12 00:00: 00 07-16 23:59 :00 No [id number] 2 tablet DAILY 2 tablet DAILY (route: oral) Med Classific ation: Electroly te Balance-N utritiona l Products Seroquel 100 mg tablet 05-12 00:00: 00 02-06 23:59 :00 No [id number] 1 tablet Every day 1 tablet Every day (route: oral) Med Classific ation: Central Nervous System Agents simvastatin 40 mg tablet 1 00:00: 00 Yes [id number] 1 tablet QD 1 tablet QD (route: oral) Alternate Route: PO. Med Classific ation: Cardiovas cular Therapy Agents spironolact one 25 mg tablet 3- 00:00: 00 03-07 23:59 :00 No [id number] 1 tablet QD 1 tablet QD (route: oral) Alternate Route: PO. Med Classific ation: Cardiovas cular Therapy Agents Seroquel 100 mg tablet 2019-04 0-15 00:00: 00 06-01 23:59 :00 No [id number] 1.5 tablet BEDTIME 1.5 tablet BEDTIME (route: oral) Med Classific ation: Central Nervous System Agents glipizide ER 5 mg tablet, extended release 24 hr 2019-04 2-04 00:00: 00 02-25 23:59 :00 No [id number] 1 tablet DAILY 1 tablet DAILY (route: oral) Med Classific ation: Endocrine Seroquel 100 mg tablet 2- 00:00: 00 Yes [id number] 2 tablet BEDTIME 2 tablet BEDTIME (route: oral) Med Classific ation: Central Nervous System Agents pioglitazon e 30 mg tablet 6-17 00:00: 00 03-07 23:59 :00 No [id number] 1 tablet DAILY 1 tablet DAILY (route: oral) Med Classific ation: Endocrine Lasix 20 mg tablet 3-11 00:00: 00 07-09 23:59 :00 No [id number] 2 tablet DIRECTED 2 tablet DIRECTED (route: oral) Med Classific ation: Cardiovas cular Therapy Agents Lasix 20 mg tablet 2-05 00:00: 00 Yes [id number] 2 tablet DAILY 2 tablet DAILY (route: oral) Med Classific ation: Cardiovas cular Therapy Agents Lasix 20 mg tablet 4-04 00:00: 00 05-12 23:59 :00 No [id number] 2 tablet DAILY 2 tablet DAILY (route: oral) Med Classific ation: Cardiovas cular Therapy Agents doxycycline monohydrate 100 mg tablet 5-26 00:00: 00 09-07 23:59 :00 No [id number] 1 tablet 2 TIMES DAILY 1 tablet 2 TIMES DAILY (route: oral) Med Classific ation: Anti-Infe ctive Agents Jardiance 10 mg tablet 2022-04 2- 00:00: 00 02-01 23:59 :00 No 1 tablet DAILY 1 tablet DAILY (route: oral) Med Classific ation: Endocrine spironolact one 50 mg tablet 2022-04 2 00:00: 00 Yes 1 tablet DAILY 1 tablet DAILY (route: oral) Med Classific ation: Cardiovas cular Therapy Agents ciprofloxac in 250 mg tablet 2022-04 2- 00:00: 00 03-16 23:59 :00 No 1 tablet EVERY 12 HOURS 1 tablet EVERY 12 HOURS (route: oral) Med Classific ation: Anti-Infe ctive Agents prednisone 20 mg tablet 2 00:00: 00 05-14 23:59 :00 No 1 tablet DAILY 1 tablet DAILY (route: oral) Med Classific ation: Endocrine Lasix 20 mg tablet 2- 00:00: 00 Yes 1 tablet NOON 1 tablet NOON (route: oral) Med Classific ation: Cardiovas cular Therapy Agents potassium chloride ER 20 mEq tablet,exte nded release 4-11 00:00: 00 Yes 1 tablet DAILY 1 tablet DAILY (route: oral) Med Classific ation: Electroly te Balance-N utritiona l Products Advair HFA 230 mcg-21 mcg/actuati on aerosol inhaler 09-08 00:00: 00 Yes 2 puff 2 TIMES DAILY 2 puff 2 TIMES DAILY (route: inhalation ) Med Classific ation: Respirato ry Therapy Agents Airsupra 90 mcg-80 mcg/actuati on HFA aerosol inhaler 09-08 00:00: 00 Yes 2 puff NEEDED 2 puff NEEDED (route: inhalation ) Med Classific ation: Respirato ry Therapy Agents pioglitazon e 30 mg tablet 8-03 00:00: 00 02-01 23:59 :00 No 1 tablet DAILY 1 tablet DAILY (route: oral) Med Classific ation: Endocrine Jardiance 25 mg tablet 2023-04 028 00:00: 00 06-24 23:59 :00 No 1 tablet DAILY 1 tablet DAILY (route: oral) Med Classific ation: Endocrine Jardiance 10 mg tablet 06-24 00:00: 00 Yes 1 tablet EVERY AM 1 tablet EVERY AM (route: oral) Med Classific ation: Endocrine Vital Signs Vital Name Observation Time Observation Value Commen ts Temperature 2024-07-14 10:50:00.000 98.1 [degF] Temperature 2024-07-12 10:49:00.000 98.5 [degF] Temperature 2024-07-07 11:51:00.000 98.1 [degF] Temperature 2024-07-05 10:13:00.000 97.1 [degF] Pulse 2024-07-14 10:50:00.000 74 /min Pulse 2024-07-12 10:48:00.000 81 /min Pulse 2024-07-07 11:51:00.000 92 /min Pulse 2024-07-05 10:13:00.000 90 /min O2 Saturation (%) 2024-07-14 10:50:00.000 98 % O2 Saturation (%) 2024-07-12 10:29:00.000 92 % O2 Saturation (%) 2024-07-07 11:57:00.000 98 % O2 Saturation (%) 2024-07-05 10:03:00.000 97 % Respirations 2024-07-14 10:50:00.000 18 /min Respirations 2024-07-12 10:48:00.000 20 /min Respirations 2024-07-07 11:51:00.000 18 /min Respirations 2024-07-05 10:13:00.000 20 /min Systolic Blood Pressure 2024-07-14 10:50:00.000 102 mm [Hg] Systolic Blood Pressure 2024-07-12 10:52:00.000 100 mm [Hg] Systolic Blood Pressure 2024-07-07 11:51:00.000 102 mm [Hg] Systolic Blood Pressure 2024-07-05 10:16:00.000 120 mm [Hg] Diastolic Blood Pressure 2024-07-14 10:50:00.000 64 mm [Hg] Diastolic Blood Pressure 2024-07-12 10:52:00.000 64 mm [Hg] Diastolic Blood Pressure 2024-07-07 11:51:00.000 70 mm [Hg] Diastolic Blood Pressure 2024-07-05 10:16:00.000 60 mm [Hg] Plan of Treatment Planned Activity Planned Date Details Comments Future Scheduled Test SKILLED NU RSE TO EVALUATE PATIENT, IDENTIFY PRIMARY AND CO-MORBID CONDITIONS CODED PER CODING GUIDELINES, AND DEVELOP PATIENT SPECIFIC PLAN OF CARE THAT INCLUDES PATIENT GOAL FOR HOME HEALTH. [code = SKILLED NURSE TO EVALUATE PATIENT, IDENTIFY PRIMARY AND CO-MORBID CONDITIONS CODED PER CODING GUIDELINES, AND DEVELOP PATIENT SPECIFIC PLAN OF CARE THAT INCLUDES PATIENT GOAL FOR HOME HEALTH.] Future Scheduled Test SKILLED NU RSE TO PRE-POUR MEDICATION PER MEDICATION LIST 2-3 X WEEKLY [code = SKILLED NURSE TO PRE-POUR MEDICATION PER MEDICATION LIST 2-3 X WEEKLY] Future Scheduled Test SKILLED NU RSE TO O/A OF PATIENTS MENTAL/BEHAVIORAL STATUS, ASSESS VITAL SIGNS WEEKLY AND PRN ALLOW 2 PRNS FOR MEDICATION MANAGEMENT. [code = SKILLED NURSE TO O/A OF PATIENTS MENTAL/BEHAVIORAL STATUS, ASSESS VITAL SIGNS WEEKLY AND PRN ALLOW 2 PRNS FOR MEDICATION MANAGEMENT.] Future Scheduled Test SKILLED NU RSE FOR O/A OF ALTERED MOOD [code = SKILLED NURSE FOR O/A OF ALTERED MOOD] Future Scheduled Test MEDICATION S WILL BE HELD AND STORED IN LOCKBOX [code = MEDICATIONS WILL BE HELD AND STORED IN LOCKBOX] Future Scheduled Test SKILLED NU RSE FOR O/A OF GENERAL HEALTH STATUS OF PAIN, CARDIAC, RESPIRATORY, GASTROINTESTINAL, GENITOURINARY, SKIN, NEUROLOGIC, ENDOCRINE SYSTEMS TO IDENTIFY CHANGES ASSOCIATED WITH EXACERBATION FOR EARLY INTERVENTION OF COMPLICATIONS WEEKLY AND PRN [code = SKILLED NURSE FOR O/A OF GENERAL HEALTH STATUS OF PAIN, CARDIAC, RESPIRATORY, GASTROINTESTINAL, GENITOURINARY, SKIN, NEUROLOGIC, ENDOCRINE SYSTEMS TO IDENTIFY CHANGES ASSOCIATED WITH EXACERBATION FOR EARLY INTERVENTION OF COMPLICATIONS WEEKLY AND PRN ] Future Scheduled Test SKILLED NU RSE FOR O/A AND SKILLED TEACHING RELATED TO MANAGEMENT OF DEPRESSIVE SYMPTOMS AND/OR DEPRESSION. SN TO REPORT SIGNIFICANT CHANGE IN DEPRESSIVE SYMPTOMS TO CLINICAL PROVIDER FOR EARLY INTERVENTION. [code = SKILLED NURSE FOR O/A AND SKILLED TEACHING RELATED TO MANAGEMENT OF DEPRESSIVE SYMPTOMS AND/OR DEPRESSION. SN TO REPORT SIGNIFICANT CHANGE IN DEPRESSIVE SYMPTOMS TO CLINICAL PROVIDER FOR EARLY INTERVENTION.] Future Scheduled Test SKILLED NU RSE FOR O/A AND TEACHING OF DIABETIC MANAGEMENT INCLUDING BLOOD SUGAR MONITORING/USE OF GLUCOMETER, DIABETIC DIET, LOWER EXTREMITY SKIN INSPECTION, PROPER SKIN/FOOT CARE, AND SIGNS AND SYMPTOMS HYPO/HYPERGLYCEMIA TO REPORT. [code = SKILLED NURSE FOR O/A AND TEACHING OF DIABETIC MANAGEMENT INCLUDING BLOOD SUGAR MONITORING/USE OF GLUCOMETER, DIABETIC DIET, LOWER EXTREMITY SKIN INSPECTION, PROPER SKIN/FOOT CARE, AND SIGNS AND SYMPTOMS HYPO/HYPERGLYCEMIA TO REPORT.] Future Scheduled Test SKILLED NU RSE FOR O/A, TEACHING, AND MANAGEMENT OF CHF [code = SKILLED NURSE FOR O/A, TEACHING, AND MANAGEMENT OF CHF] Future Scheduled Test SKILLED NU RSE FOR O/A, TEACHING AND SELF-MANAGEMENT RELATED TO HEART FAILURE. INSTRUCT PATIENT/CAREGIVER ON SIGNS AND SYMPTOMS OF EXACERBATION TO REPORT. WEIGHT TO BE OBTAINED Q VISIT IF SCALE AVAILABLE ,AND WEIGHT GAIN OF 2 LBS OVERNIGHT OR 5 LBS IN 1 WEEK TO BE REPORTED TO PHYSICIAN. [code = SKILLED NURSE FOR O/A, TEACHING AND SELF-MANAGEMENT RELATED TO HEART FAILURE. INSTRUCT PATIENT/CAREGIVER ON SIGNS AND SYMPTOMS OF EXACERBATION TO REPORT. WEIGHT TO BE OBTAINED Q VISIT IF SCALE AVAILABLE ,AND WEIGHT GAIN OF 2 LBS OVERNIGHT OR 5 LBS IN 1 WEEK TO BE REPORTED TO PHYSICIAN. ] Future Scheduled Test SKILLED NU RSE TO INSTRUCT PATIENT/CAREGIVER ON COPD TO INCLUDE TEACHING AND SELF-MANAGEMENT RELATED TO COPD DISEASE PROCESS, SIGNS AND SYMPTOMS, AND COMPLICATIONS. [code = SKILLED NURSE TO INSTRUCT PATIENT/CAREGIVER ON COPD TO INCLUDE TEACHING AND SELF-MANAGEMENT RELATED TO COPD DISEASE PROCESS, SIGNS AND SYMPTOMS, AND COMPLICATIONS.] Future Scheduled Test SKILLED NU RSE TO REVIEW PATIENT MEDICATIONS. INSTRUCT PATIENT/CAREGIVER ON MONITORING OF EFFECTIVENESS, ADVERSE DRUG REACTIONS, SIDE EFFECTS OF ALL MEDICATIONS (PRESCRIPTION/-OTC), AND HOW AND WHEN TO REPORT PROBLEMS. [code = SKILLED NURSE TO REVIEW PATIENT MEDICATIONS. INSTRUCT PATIENT/CAREGIVER ON MONITORING OF EFFECTIVENESS, ADVERSE DRUG REACTIONS, SIDE EFFECTS OF ALL MEDICATIONS (PRESCRIPTION/-OTC), AND HOW AND WHEN TO REPORT PROBLEMS.] Future Scheduled Test SKILLED NU RSE TO ASSESS PATIENTS PSYCHOSOCIAL STATUS TO IDENTIFY POTENTIAL ISSUES THAT MAY COMPLICATE THE PROVISION OF THE PLAN OF CARE INCLUDING THE PATIENTS ABILITY TO ACCESS COMMUNITY RESOURCES AND PSYCHOSOCIAL SUPPORT SERVICES. [code = SKILLED NURSE TO ASSESS PATIENTS PSYCHOSOCIAL STATUS TO IDENTIFY POTENTIAL ISSUES THAT MAY COMPLICATE THE PROVISION OF THE PLAN OF CARE INCLUDING THE PATIENTS ABILITY TO ACCESS COMMUNITY RESOURCES AND PSYCHOSOCIAL SUPPORT SERVICES.] Future Scheduled Test SKILLED NU RSE WILL MAINTAIN SITUATIONAL AWARENESS FOR SAFETY AND WILL NOTIFY CLINICAL EXTRACTOR MACHINE OPERATOR AND PHYSICIAN/PROVIDER WITH ANY CHANGE IN CONDITION. [code = SKILLED NURSE WILL MAINTAIN SITUATIONAL AWARENESS FOR SAFETY AND WILL NOTIFY CLINICAL EXTRACTOR MACHINE OPERATOR AND PHYSICIAN/PROVIDER WITH ANY CHANGE IN CONDITION.] Future Scheduled Test OXYGEN VIA /NASAL CANNULA @ 2 LITERS PRN SKILLED NURSE FOR O/A AND SKILLED TEACHING OF SAFE OXYGEN USE IN THE HOME. [code = OXYGEN VIA /NASAL CANNULA @ 2 LITERS PRN SKILLED NURSE FOR O/A AND SKILLED TEACHING OF SAFE OXYGEN USE IN THE HOME.] Goal 2023-07-07 Patient Goal - GET BACK ON M Y FEET Goal 2023-09-04 Patient Goal - K EEP WALKING UP THE STAIRS, TAKE MY MEDICATIONS Goal 2023-11-05 Patient Goal - L OSE WEIGHT AVOID HOSPITALIZATION, DONT FALL Goal 2024-01-05 Patient Goal - C ONTINUE LOSE WEIGHT, AVOID HOSPITALIZATION, DONT FALL Goal 2024-03-03 Patient Goal - C ONTINUE LOSE WEIGHT, AVOID HOSPITALIZATION, DONT FALL Goal 2024-05-03 Patient Goal - C ONTINUE LOSE WEIGHT, AVOID HOSPITALIZATION, DONT FALL Goal 2024-07-01 Patient Goal - C ONTINUE LOSE WEIGHT, AVOID HOSPITALIZATION, DONT FALL Goal Patient Goal - C ONTINUE LOSE WEIGHT, AVOID HOSPITALIZATION, DONT FALL Goal Provider Goal - A PLAN OF CARE WILL BE ESTABLISHED THAT MEETS PATIENT'S ALF NEEDS AND INCLUDES PATIENT GOAL FOR HOME HEALTH. Goal Provider Goal - PATIENT WILL COMPLY WITH MEDICATION WHEN SKILLED NURSE PRE-POURS MEDICATION THROUGHOUT CERTIFICATION PERIOD. Goal Provider Goal - ALTERED MENTAL/BEHAVIORAL STATUS WILL BE IDENTIFIED PROMPTLY AND INTERVENTION INITIATED QUICKLY TO MINIMIZE ASSOCIATED RISKS THROUGHOUT CERTIFICATION PERIOD. Goal Provider Goal - PATIENT WILL BE ABLE TO PERFORM DAILY FUNCTIONS AND HAVE OPTIMAL IMPROVEMENT IN MOOD STABILITY THROUGHOUT CERTIFICATION PERIOD. Goal Provider Goal - MEDICATION WILL BE STORED IN LOCKBOX FOR SAFETY. Goal Provider Goal - CHANGE IN GENERAL HEALTH STATUS WILL BE IDENTIFIED AND REPORTED TO PHYSICIAN FOR PROMPT INTERVENTION TO MINIMIZE ASSOCIATED RISKS THROUGHOUT CERTIFICATION PERIOD. Goal Provider Goal - PATIENT WILL REMAIN SAFE WITHOUT DECOMPENSATION IN DEPRESSIVE CONDITION, WHILE MAINTAINING OPTIMAL LEVEL OF MENTAL HEALTH AND WELL BEING THROUGHOUT CERTIFICATION PERIOD. Goal Provider Goal - PATIENT/CAREGIVER WILL VERBALIZE/DEMONSTRATE KNOWLEDGE OF DIABETIC MANAGEMENT. CHANGES IN DIABETIC STATUS WILL BE IDENTIFIED AND REPORTED TO PHYSICIAN FOR PROMPT INTERVENTION THROUGHOUT THE CERTIFICATION PERIOD. Goal Provider Goal - PATIENT/CAREGIVER WILL VERBALIZE/DEMONSTRATE MANAGEMENT OF CHF CARDIAC DISEASE PROCESS AND EXACERBATIONS WILL BE IDENTIFIED AND PROMPTLY REPORTED THROUGHOUT THE CERTIFICATION PERIOD. Goal Provider Goal - PATIENT/CAREGIVER WILL VERBALIZE/DEMONSTRATE KNOWLEDGE AND MANAGEMENT OF HEART FAILURE DISEASE PROCESS BY END OF EPISODE. Goal Provider Goal - PATIENT/CAREGIVER WILL VERBALIZE/DEMONSTRATE KNOWLEDGE AND MANAGEMENT OF COPD BY END OF EPISODE. Goal Provider Goal - PATIENT/CAREGIVER WILL VERBALIZE UNDERSTANDING OF EDUCATION PROVIDED ON MEDICATIONS BY THE END OF THE CERTIFICATION PERIOD. Goal Provider Goal - PSYCHOSOCIAL NEEDS WILL BE IDENTIFIED AND PLAN IMPLEMENTED TO MINIMIZE RISK THROUGHOUT CERTIFICATION PERIOD. Goal Provider Goal - PATIENT WILL REMAIN SAFE IN THE COMMUNITY AND WILL BE FREE OF DANGER TO SELF AND OTHERS THROUGHOUT THE CERTIFICATION PERIOD. Goal Provider Goal - PATIENT/CAREGIVER WILL VERBALIZE/DEMONSTRATE UNDERSTANDING OF SAFE OXYGEN USE IN THE HOME THROUGHOUT THE EPISODE. Progress Notes Progress Notes <paragraph>[Visit Date: 2024 by CURT SURES[facility] RN]:</paragraph><paragraph>SNV NOTE 4 9 25: PATIENT STATED TO NURSE HAD FALL IN HOME USING BATHROOM IN THE WEE HOURS OF FRIDAY NIGHT AFTER MIDNIGHT. DID CALL EMS TO GET OFF FLOOR. FELL BACK AFTER LOSING FOOTING AND FELL ON HER BEHIND. AT THAT TIME SHE REFUSED TO GO TO ER. THE NEXT DAY PATIENT WENT TO URGENT CARE DUE TO COMPLAINING OF LEFT FOOT TOE PAIN WAS FOUND TO HAVE HAIRLINE FRACTURE OF LEFT GREAT TOE WAS GIVEN SOFT WALKING SHOE AT URGENT CARE PATIENT REFUSED TO TAKE PATIENT REPORTS NO PAIN AT PRESENT LEFT GREAT TOE IS SLIGHTLY SWOLLEN, DENIES PAIN. ADVISED PATIENT TO ICE AREA AND ELEVATE FREQUENTLY REFUSING TO USE TUBIGRIP COMPRESSION HOSE AT THIS TIME REVIEWED SAFETY IN HOME IMPORTANCE OF REMOVING CLUTTER HAVING ADEQUATE LIGHTING AT NIGHT WHEN TOILETING BEING AWARE OF SURROUNDINGS AND REMOVING ALL BLANKETS OR HANGING SHEETS BEFORE AMBULATING, . USE OF WALKER AND APPROPRIATE FOOTWEAR. PATIENT BELIEVES THAT SHE HAD GOTTEN HER FOOT CAUGHT ON CORNER OF BLANKET HANGING OVER RECLINER SHE STARTED AMBULATING WHICH RESULTED IN HER FALLING. ...</paragraph> Encounters Start Date/Time End Date/Time Encounter Type Admission Type Attending Clinicians Care Facility Care Department Encounter ID Discharge Date Discharge Status Discharge Condition Discharge Reason Percent Goals Met 2023-05-12 00:00:00 2024-09-02 00:00:00 [facility] [id number] [phone]
[2024-07-18 07:34] LABS: Basophils Absolute Auto 0.1 X10*3/uL (0.0-0.2); Basophils Percent Auto 0.7 % (0-2); Eosinophils Absolute Auto 0.2 X10*3/uL (0.0-0.4); Eosinophils Percent Auto 2.5 % (0-4); Hematocrit 47.3 % (37.0-47.0); Hemoglobin 15.9 g/dl (12.0-16.0); Imm Gran Abs Auto 0.03 X10*3/uL (0.00-0.03); Imm Gran Pct Auto 0.4 % (0.0-0.4); Lymphocytes Absolute Auto 1.3 X10*3/uL (1.2-4.9); Lymphocytes Percent Auto 18.8 % (20-40); Mean Corpuscular HGB Conc 33.6 g/dl (31.0-35.0); Mean Corpuscular Hemoglobin 30.8 pg (27.0-33.0); Mean Corpuscular Volume 91.5 fL (80.0-98.0); Mean Platelet Volume 9.7 fL (9.4-12.3); Monocytes Absolute Auto 0.7 X10*3/uL (0.1-1.2); Neutrophils Absolute Auto 4.7 x10*3/uL (2.0-8.3); Neutrophils Percent Auto 67.6 % (45-73); Platelet Count 246 X10*3/uL (160-400); Red Blood Count 5.17 X10*6/uL (4.20-5.50); Red Cell Distribution Width 14.3 % (11.0-16.0); White Blood Count 6.9 X10*3/uL (4.8-10.8)
[2024-07-18 07:43] LABS: Alanine Aminotransferase 11 U/L (0-31); Albumin Level 4.6 g/dL (3.5-5.0); Alkaline Phosphatase 86 U/L (39-117); Anion Gap 18 (12-20); Aspartate Amino Transferase 37 U/L (5-31); B Type Natriuretic Peptide < 10 pg/mL (<100); Bilirubin Total 0.8 mg/dL (0.0-1.0); Blood Urea Nitrogen 12 mg/dL (9-16); Calcium 9.4 mg/dL (8.4-10.2); Carbon Dioxide 24 mmol/L (22-29); Chloride 103 mmol/L (96-108); Creatinine Clr Calc Pharmacy 80.8; Estimated Glomerular Filt Rate > 60; Glucose Random 126 mg/dL (60-115); Potassium 3.9 mmol/L (3.3-5.1); Sodium 141 mmol/L (135-145); Total Protein 7.9 g/dL (6.5-8.0)
[2024-07-18 07:52] LABS: Troponin-I High Sensitivity < 2.7 ng/L (<3.5-17.0)
[2024-07-18 07:56] LABS: Influenza A PCR NEGATIVE (Negative); Influenza B PCR NEGATIVE (Negative); Resp Syncy Virus RNA Qual PCR NEGATIVE (Negative); SARS COV2 PCR INHOUSE NEGATIVE (Negative)
[2024-07-18] MEDS: Albuterol/Iprat 2.5/0.5MG 3 ML AMPUL.NEB INHALE ×2 (08:04→11:18)
--- NOTE | 2024-07-18 08:04 | PC.NURSE ---
pt receiving breathing tx via RT at this time. plan of care ongoing.
[2024-07-18 08:07] VITALS: PULSE 72; RESP 18; O2SAT 92
[2024-07-18 08:13] LABS: D Dimer High Sensitivity < 150 NG/ML
[2024-07-18 10:04] LABS: Troponin-I High Sensitivity < 2.7 ng/L (<3.5-17.0)
[2024-07-18 10:18] VITALS: BP 124/59; PULSE 84; RESP 16; TEMP 36.2; O2SAT 93
[2024-07-18] MEDS: predniSONE 20 MG TABLET 60 MG PO (10:41)
--- NOTE | 2024-07-18 10:42 | PC.NURSE ---
pt medicated per provider order. swabs obtained/sent to lab.
[2024-07-18 10:55] LABS: C Reactive Protein 1.45 mg/dL (< or = 0.50)
[2024-07-18 11:19] VITALS: PULSE 80; RESP 18; O2SAT 93
[2024-07-18 11:42] LABS: Adenovirus PCR Not Detected (Not Detect.); Bordetella parapertussis PCR Not Detected (Not Detect.); Bordetella pertussis PCR Not Detected (Not Detect.); Chlamydia pneumoniae PCR Not Detected (Not Detect.); Coronavirus 229E PCR Not Detected (Not Detect.); Coronavirus HKU1 PCR Not Detected (Not Detect.); Coronavirus NL63 PCR Not Detected (Not Detect.); Coronavirus OC43 PCR Not Detected (Not Detect.); Human metapneumovirus PCR Not Detected (Not Detect.); Influenza A PCR Not Detected (Not Detect.); Influenza B PCR Not Detected (Not Detect.); Mycoplasma pneumoniae PCR Not Detected (Not Detect.); Parainfluenza 1 PCR Not Detected (Not Detect.); Parainfluenza 2 PCR Not Detected (Not Detect.); Parainfluenza 3 PCR Not Detected (Not Detect.); Parainfluenza 4 PCR Not Detected (Not Detect.); RSV PCR Not Detected (Not Detect.); Rhino/Enterovirus PCR Not Detected (Not Detect.)
[2024-07-18 12:20] LABS: Influenza A H1 PCR Not Detected (Not Detect.); Influenza A H1-2009 PCR Not Detected (Not Detect.); Influenza A H3 PCR Not Detected (Not Detect.); SARS-CoV-2 PCR Not Detected (Not Detect.)
[2024-07-18] MEDS: Azithromycin 500 MG TABLET PO (12:50)
--- NOTE | 2024-07-18 12:55 | PC.NURSE ---
attempted to discharge patient when patient and family at bedside states patient has been increasingly weak, has been using a walker at home as of late. also reporting ?fluid retention in patient's abdomen.
[2024-07-18 12:59] VITALS: BP 133/59; PULSE 93; RESP 16; TEMP 36.6; O2SAT 93
--- NOTE | 2024-07-18 13:12 | PC.NURSE ---
attempted to ambulate patient with walker, patient able to get out of bed with assistance and up with walker however patient unable to ambulate d/t feeling dizzy. reports being diabetic and not having eaten today. sandwich and orange juice provided.
--- NOTE | 2024-07-18 14:48 | PC.NURSE ---
re-attempted to ambulate patient with walker, patient continues to state that she does not feel well enough to ambulate. reports that she does not feel safe going home tonight d/t the fact that she continues to feel somewhat dizzy ambulating and lives alone.
--- NOTE | 2024-07-18 18:39 | PHA.MEDREC ---
Addendum entered by Rashida Huerta RPh 07/18/24 18:51: MED REC REVIEWED BY [facility] Original Note: Pharmacy Consult ? Medication Reconciliation Pharmacy has completed the medication reconciliation. Spoke with patient to confirm. She took her first dose of Ozempic 0.5 mg on Friday. She takes 2 puffs of both advair and albuterol inhalers every morning. She takes 2 tabs of furosemide in the morning and 1 tab at noon. She is unsure of the directions for her lamotrigine, says her [facility] fills her pill box, she does not have her contact. She said there have been no chnages to her lamotrigine, used claims to verify. She uses imodium OTC prn. She is no longer taking pioglitazone. She took all of her medications yesterday.
--- NOTE | 2024-07-18 19:45 | PC.NURSE ---
assumed care of pt at 1900.
[2024-07-18] MEDS: metFORMIN HCl 1,000 MG TABLET 1000 MG PO (20:50)
[2024-07-18] MEDS: Albuterol Sulfate 90 MCG 8 GM INHALER 2 PUFF INHALE (20:50)
[2024-07-18] MEDS: Gabapentin 300 MG CAPSULE PO (20:50)
[2024-07-18] MEDS: QUEtiapine Fumarate 200 MG TABLET PO (20:50)
[2024-07-18] MEDS: lamoTRIgine 100 MG TABLET PO (20:50)
[2024-07-18] MEDS: Atorvastatin Calcium 20 MG TABLET PO (20:50)
[2024-07-18] MEDS: lamoTRIgine 25 MG TABLET 50 MG PO (20:51)
--- NOTE | 2024-07-18 20:53 | PC.NURSE ---
pt resting comfortably on stretcher in no apparent distress. given bedtime meds per mar. swallowed whole with water no issues. pt denies any current complaints or pain. all needs met. call montero within reach, plan of care continues.
[2024-07-19] VITALS (9 sets, daily range): BP systolic 119–132; BP diastolic 60–61; PULSE 79–113; RESP 15–20; TEMP 36.6–36.7; O2SAT 86–98
--- NOTE | 2024-07-19 07:27 | PC.NURSE ---
called pharmacy for missing meds
[2024-07-19] MEDS: Albuterol Sulfate 90 MCG 8 GM INHALER 2 PUFF INHALE (08:15)
[2024-07-19] MEDS: Fluticasone/Vilanterol 200/25 BLST.W.DEV 1 PUFF INHALE (08:15)
[2024-07-19] MEDS: ARIPiprazole 20 MG TABLET PO (08:29)
[2024-07-19] MEDS: Potassium Chloride ER 20 MEQ TAB.ER.PRT PO (08:30)
[2024-07-19] MEDS: lamoTRIgine 25 MG TABLET PO (08:30)
[2024-07-19] MEDS: Spironolactone 25 MG TABLET PO (08:30)
[2024-07-19] MEDS: Gabapentin 300 MG CAPSULE PO ×2 (08:31→14:23)
[2024-07-19] MEDS: predniSONE 20 MG TABLET 40 MG PO (08:31)
[2024-07-19] MEDS: Furosemide 40 MG TABLET PO (08:31)
[2024-07-19] MEDS: lamoTRIgine 100 MG TABLET PO (08:31)
[2024-07-19] MEDS: metFORMIN HCl 1,000 MG TABLET 1000 MG PO (08:31)
[2024-07-19] MEDS: Empagliflozin 10 MG TABLET PO (08:31)
--- NOTE | 2024-07-19 08:34 | PC.NURSE ---
Addendum entered by Elsie Yoo RN 07/19/24 08:35: nir patient/draining clear dark yellow urine Original Note: patient a&ox3, vss, pt oob ambulated short distance with PT- they are recommending STR. rr equal/non labored lungs diminished, 2+ BLE edema, currently denying pain/discomfort, vss, plan of care ongoing
--- NOTE | 2024-07-19 08:55 | MHC.CM.PN ---
Addendum entered by Clarice Fairchild 07/19/24 13:00: Pt and her sister present at bedside are in agreement with her going to STR, they accept bed offer at [facility]. MDS completed and faxed to [facility], awaiting approval. Addendum entered by Clarice Fairchild 07/19/24 10:29: Pt met with pt to discuss PT recommendations for STR. Pt states her sister will be here soon and she needs to discuss it with her. Original Note: This CM met with pt, she states she lives alone, has SPONSORSHIP COORDINATOR care daily 2 hours daily. Pt states she wants to go home but will go to rehab if she really needs to. PT eval pending.
--- NOTE | 2024-07-19 13:46 | PC.NURSE ---
called pharmacy for missing meds
[2024-07-19] MEDS: Furosemide 20 MG TABLET PO (14:23)
[2024-07-19] MEDS: Azithromycin 250 MG TABLET PO (14:23)
--- NOTE | 2024-07-19 14:26 | PC.NURSE ---
patient lastex operator intact, turned/positioned to comfort, pure wick intact, pt medicated per order, call montero within reach, plan of care ongoing
--- NOTE | 2024-07-19 18:44 | MHC.EDTECH ---
Patient inc therefore patient changed and repositioned
== END 2024-07-19 19:49 | disposition other institution (70) ==
PROVIDERS: Emergency Provider Emergency Medicine; PCP Internal Medicine
DX: J42 Unspecified chronic bronchitis (principal); R06.02 Shortness of breath; E11.9 Type 2 diabetes mellitus without complications; I10 Essential (primary) hypertension; Z03.818 Encounter for observation for suspected exposure to other biological agents ruled out
CPT/HCPCS: 0241U; 36415; 71045; 80053; 83735; 83880; 84484; 85025; 85379; 86140; 87633; 93005; 94640; 97162; 99285

== ENCOUNTER → 2024-07-18 07:08 | Outpatient (BNV) | payer MEDICARE, MEDICAID, SELFPAY | PROVIDERS: Emergency Provider Emergency Medicine; PCP Internal Medicine; Visit Provider Radiology Diagnostic Radiology | DX: R06.02 Shortness of breath (principal) | CPT/HCPCS: 71045 ==

== ENCOUNTER → 2024-07-18 07:20 | Outpatient (BNV) | payer MEDICARE, MEDICAID, SELFPAY | PROVIDERS: Emergency Provider Emergency Medicine; PCP Internal Medicine; Visit Provider Internal Medicine Cardiovascular Disease | DX: I25.2 Old myocardial infarction (principal) | CPT/HCPCS: 93010 ==

== ENCOUNTER 2024-09-15 11:35 | Outpatient (AMB) | payer MEDICARE, MEDICAID, SELFPAY ==
--- NOTE | 2024-09-15 11:41 | MHC.OFFVIS ---
Vital Signs 09/15/24 11:42 Height 5 ft 8 in Weight 260 lb 2.327 oz BMI 39.6 BP 120/62 Blood Pressure Location Lt brachial Position Sitting Pulse 85 Pulse Source Pulse Oximeter Pulse Oximetry (%) 96 Oxygen Delivery Method Room Air Intake Visit Reasons: hypoxemia Intake Note: pt is here as a new patient for low oxygen at night, she has oxygen at home, and prn nightime use Business Continuity Manager Required: No Allergies haloperidol [From Haldol] Allergy (Mild, Verified 09/15/24 11:50) UNKNOWN Medication List - Last Reconciled 09/15/24 by Jean Haider MD albuterol sulfate 90 mcg/actuation (Ventolin HFA) 2 puffs PO DAILY aripiprazole 20 mg PO DAILY empagliflozin (Jardiance) 10 mg PO DAILY fluticasone propion-salmeterol 230-21 mcg/actuation (Advair HFA) 2 puffs inhalation DAILY furosemide 20 mg PO DAILY@1200 furosemide 40 mg PO DAILY@0800 gabapentin 300 mg PO TID lamotrigine 25 mg PO DAILY lamotrigine 100 mg PO BID lamotrigine 50 mg PO BEDTIME loperamide 2 mg PO QID PRN metformin 1,000 mg PO BID potassium chloride ER 20 mEq PO DAILY quetiapine 200 mg PO BEDTIME semaglutide (Ozempic) 0.5 mg subcut FR simvastatin 40 mg PO BEDTIME spironolactone 25 mg PO DAILY walker As directed Do you need a note to return to daycare/school/sports/work: No HPI HPI hypoxemia: Details: This patient is 68 years old grossly obese, who comes for pulmonary evaluation and ongoing treatment. She lives alone. Stays mostly in the house, she gives history of being diagnosed to have COPD about 6 years ago when she was 1st hospitalized. And since then she has been on Symbicort 160-4.52 puffs b.i.d.. And albuterol 2 puffs Q 6 hours p.r.n.. She has also been using oxygen for the locks 6 years, mostly uses at night and only p.r.n. during the daytime. Last admission was in [facility] in April 2023 after a fall and injury, but not for any. Lung problems Prior to that she was treated for pneumonia left lower lobe in 2022. Again she was also noted to have chronic obstructive and restrictive pulmonary disorder. She did have nocturnal hypoxemia and she was advised to use O2 2 L/minute at night and PRN during the daytime. I notice that this patient is grossly obese, current BMI 39.6. And I questioned her about obstructive sleep apnea. She is not aware of this diagnosis, has had no sleep study. But use of O2 2 L/minute for the last 6 years may have helped her To sleep well She claims that she sleeps good and does not have history of frequent awakenings. Her current pulmonary regimen is Advair HFA 230-212 puffs b.i.d., which she uses only once a day most of the times. And albuterol 2 puffs Q 4-6 hours p.r.n., which she uses only rarely. She does have lot of comorbidities which are listed in [facility] . She is a former smoker of 1 pack a day but quit 6 years ago. 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) Patient Tobacco Use Status: Former Tobacco user Advance Directives Date on File: 04/21/23 service: No Current occupational status: retired 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 Review of Systems Const All systems reviewed & are unremarkable except as noted in HPI and below Eyes Reports no additional complaints ENT Reports no additional complaints Card Denies chest pain, Denies irregular heart rhythm, Reports leg edema and Reports dyspnea on exertion Resp Reports as per HPI and Reports dyspnea on exertion GI Reports no additional complaints Reports no additional complaints Musc Reports no additional complaints Skin/Breast Reports system reviewed and no additional complaints, except as documented Neuro Reports no additional complaints Endo Reports other (Diabetes mellitus patient is on Ozempic injections Q 1 week ) Kailash/Lymph Reports no additional complaints Aller/Immun Reports no additional complaints Physical Exam Vital Signs: Last Vital Signs Pulse 85 09/15/24 11:42 BP 120/62 09/15/24 11:42 Pulse Ox 96 09/15/24 11:42 Oxygen Delivery Method Room Air 09/15/24 11:42 BMI result Body Mass Index 39.6 Const Other: She appears grossly obese but is comfortable General: comfortable, no acute distress, alert and awake Orientation/consciousness: patient oriented x3 HEENT Head: Yes normal to inspection General nose exam: No nasal polyps present and No nasal discharge present Face and sinus: Yes sinuses nontender Mouth: oropharynx normal Throat: Yes posterior oropharynx normal Eyes General: appearance normal, both eyes and all related structures Neck Neck: Yes normal visual inspection, Yes no lymphadenopathy, Yes trachea midline and Yes no JVD Thyroid: Thyroid normal Chest Chest palpation & inspection: normal inspection of the chest, normal palpation of entire chest wall and tenderness Resp Other: Percussion note is not perceptible over the lower lobes because of thick chest wall. Breath sounds are distant with slight prolongation. Of the expiratory phase No wheezes crepitations or. Rhonchi are heard Cardio Palpation: PMI not normal (Not palpable) Rate: regular rate Rhythm: regular rhythm Heart sounds: no gallops and no murmurs GI Palpation (GI): Soft to palpation, nontender, No hepatosplenomegaly present and no masses Auscultation: normal bowel sounds Back/Spine/Pelvis Thoracic/Lumbar Spine: thoracic and lumbar spine normal to inspection and thoraco-lumbar ROM limited Skin General skin exam: no rashes or lesions noted Neuro General: patient oriented x3, No gait normal (Has slight gait impairment uses a cane) and no focal motor deficits Cranial nerves: Yes CN's II-XII intact bilaterally Extrem General: Yes normal to inspection, Yes no clubbing, cyanosis or edema, Yes no calf tenderness and Yes venous stasis dermatitis (As chronic stasis dermatitis around the ankles and lower parts of both legs) Psych Appearance: grossly normal and well kempt Speech and movement: Normal speech and movement present (Slightly slow in answering questions) Assessment & Plan Assessment & Plan (1) Obesity (BMI 35.0-39.9 without comorbidity): Comment: Patient is grossly obese. It has been unchanged in the last 5-6 years. She is trying to control her diet, not able to do much exercise Code(s): E66.9 - Obesity, unspecified Category: Medical Plan: Just discuss this issue with her. Questioned about possible sleep apnea but she denies the symptoms. Advised to cut down the calories as much as she can, and even in the apartment she she is encouraged to walk around more. (2) Nocturnal hypoxemia: Comment: She is known to have nocturnal hypoxemia since about 6 years ago. This may actually be part of obstructive sleep apnea. Anyway the use of oxygen 2 L/minute at night has helped her. Code(s): G47.34 - Idiopathic sleep related nonobstructive alveolar hypoventilation Category: Medical Plan: Explained that she may have obstructive sleep apnea apnea. It is beneficial for her to keep on using oxygen 2 L/minute at night when sleeping. (3) COPD (chronic obstructive pulmonary disease): Comment: Patient has been treated for chronic obstructive pulmonary disease for past 6 years. She does have previous history of smoking . Currently on Advair HFA 230-212 puffs b.i.d. and albuterol only p.r.n. Code(s): J44.9 - Chronic obstructive pulmonary disease, unspecified Category: Medical Plan: Advise that she should continue to use the above regimen regularly. (4) Restrictive lung disease: Comment: Because because of gross obesity she is a good candidate for restrictive lung disease. Clinically on auscultation she does have decreased breath sounds over the lower. Lobes No pulmonary function test has been done to confirm that. Code(s): J98.4 - Other disorders of lung Category: Medical Plan: She has advise that she should do deep breathing exercises about 3 times a day Coding Level of Care Code New Pt Level 3 (75603) Diagnoses Obesity (BMI 35.0-39.9 without comorbidity) E66.9 Nocturnal hypoxemia G47.34 COPD (chronic obstructive pulmonary disease) J44.9 Restrictive lung disease J98.4
[2024-09-15 11:42] VITALS: BP 120/62; PULSE 85; O2SAT 96; BMI 39.6
--- OUTSIDE RECORDS SUMMARY | 2024-09-15 13:19 | XMS_ITS | Encounter Summary ---
Author Organization [facility] Address [id number] [place] [id number] Care Team Providers Care Wire Rope Sling Maker Name Role Phone Braeden Hudson MD Primary Care Provider [phone] Encounter Details Date Type Department Care Team (Late st Contact Info) Description 07/22/2024 Lab Requisition [facility] [address] [place] [address] Braeden Hudson MD [address] [place] [address] [address] [facility] [phone] Essential (primary) hypertension; Anemia, unspecified Social History Tobacco Use Types Packs/Day Years Used Date Smoking Tobacco: Never Assessed Comments Unknown Sex and Gender Information Value Date Recorded Sex Assigned at Not on file Legal Sex Female 11:55 PM EST Gender Identity Not on file Sexual Orientation Not on file documented as of this encounter Plan of Treatment Not on file documented as of this encounter Procedures Procedure Name Priority Date/Time Associated Diagnosis Comments BASIC METABOLIC PANEL Routine 07/23/2024 7:04 AM EDT Essential (primary) hypertension Anemia, unspecified documented in this encounter Results * (ABNORMAL) Basic metabolic panel (07/23/2024 7:04 AM EDT) Sodium 141 133 - 145 mmol/L LAB CHEMISTRY METHOD 07/23/2024 10:48 AM EDT [facility] Potassium 3.2(L) 3.5 - 5.5 mmol/L LAB CHEMISTRY METHOD 07/23/2024 10:48 AM EDT [facility] Chloride 101 96 - 110 mmol/L LAB CHEMISTRY METHOD 07/23/2024 10:48 AM [facility] CO2 29 21 - 32 mmol/L LAB CHEMISTRY METHOD 07/23/2024 10:48 AM [facility] Anion Gap 11 3 - 11 LAB CHEMISTRY METHOD 07/23/2024 10:48 AM [facility] Glucose 128(H) 70 - 100 mg/dL LAB CHEMISTRY METHOD 07/23/2024 10:48 AM [facility] BUN 18 5 - 25 mg/dL LAB CHEMISTRY METHOD 07/23/2024 10:48 AM [facility] Creatinine 0.71 0.50 - 1.10 mg/dL LAB CHEMISTRY METHOD 07/23/2024 10:48 AM [facility] eGFR 92 >=60 mL/min/1. 73m2 LAB CHEMISTRY METHOD 07/23/2024 10:48 AM [facility] Comment:Calculation based on the??Chronic Kidney Disease Epidemiology Collaboration (CKD-EPI) equation refit??without adjustment for race. BUN/Creatinine Ratio 25.4 LAB CHEMISTRY METHOD 07/23/2024 10:48 AM [facility] Calcium 9.1 8.5 - 10.5 mg/dL LAB CHEMISTRY METHOD 07/23/2024 10:48 AM [facility] Blood Venous blood specimen / Unknown Venipuncture / Unknown 07/23/2024 7:04 AM EDT 07/23/2024 9:05 AM EDT us Braeden Hudson MD LAB BLOOD ORDERABLES Final Resul t [facility] [address] [place] [address], documented in this encounter Visit Diagnoses Diagnosis Essential (primary) hypertension Unspecified essential hypertension Anemia, unspecified documented in this encounter Care Teams Wire Rope Sling Maker Relationship Specialty Start Date End Date Braeden Hudson MD [address], [phone] PCP - General Family Medicine 07/20/24 documented as of this encounter
== END 2024-09-15 12:01 | disposition home or self-care (01) ==
LOC: HO.HPS 11:36
PROVIDERS: PCP Internal Medicine; Visit Provider Internal Medicine
DX: E66.9 Obesity, unspecified (principal); G47.34 Idiopathic sleep related nonobstructive alveolar hypoventilation; J44.9 Chronic obstructive pulmonary disease, unspecified; J98.4 Other disorders of lung
CPT/HCPCS: 99203

== ENCOUNTER → 2024-09-15 11:35 | Outpatient (BNVA) | payer MEDICARE, MEDICAID, SELFPAY | PROVIDERS: PCP Internal Medicine; Visit Provider Internal Medicine | DX: J44.9 Chronic obstructive pulmonary disease, unspecified (principal); J98.4 Other disorders of lung; G47.34 Idiopathic sleep related nonobstructive alveolar hypoventilation; E66.9 Obesity, unspecified; Z68.39 Body mass index [BMI] 39.0-39.9, adult | CPT/HCPCS: 99202 ==

== ENCOUNTER 2024-10-22 10:57 | Inpatient (IN) | payer MEDICARE, MEDICAID, SELFPAY ==
[2024-10-22] VITALS (14 sets, daily range): BP systolic 91–128; BP diastolic 45–76; PULSE 110–135; RESP 14–20; TEMP 36.1–36.8; O2SAT 90–94; BMI 47.8; BMI 47.5
--- NOTE | ~2024-10-22 | XR_ITS ---
EXAMINATION: XR CHEST CLINICAL INFORMATION: copd, dyspnea COMPARISON: None available. TECHNIQUE: Frontal view of the chest was obtained. FINDINGS: Left hemidiaphragm is slightly less distinct than on the prior examination. The lungs are clear otherwise. Heart size is within normal limits. There are moderate degenerative changes in the shoulder joints. XR/XR chest 1V IMPRESSION: Minimal left basilar atelectasis. Electronically signed by: Giovanny Chatterjee MD 10/22/2024 12:07 PM EDT
--- NOTE | 2024-10-22 11:04 | ECG_ITS ---
Test Reason : ARRRYTHMIA Blood Pressure : */* mmHG Vent. Rate : 130 BPM Atrial Rate : * BPM P-R Int : * ms QRS Dur : 72 ms QT Int : 298 ms P-R-T Axes : * 8 152 degrees QTcB Int : 438 ms Atrial fibrillation with rapid ventricular response Low voltage QRS Septal infarct (cited on or before 04-Oct-2015) Abnormal ECG When compared with ECG of 18-Jul-2024 07:20, Atrial fibrillation has replaced Sinus rhythm Vent. rate has increased by 55 bpm Referred By: Lucas Mcdaniel Electronically Signed By: WARREN GARCIA
--- NOTE | 2024-10-22 11:35 | ED.ARRPALP ---
HPI - Arrhythmia/Palpitations General Chief Complaint: Arrhythmia/Palpitations Stated Complaint: NEW ONSET AFIB Time Seen by Provider: 10/22/24 10:59 History of Present Illness ED Provider: Lucas Mcdaniel MD HPI narrative: 68-year-old female with history of diabetes COPD prescribed continuous O2 baseline 2 L nasal cannula. Comes in from home, visiting nurse found the patient with increased work of breathing and tachycardia this a.m.. Patient herself asymptomatic. EMS gave IV fluid and a DuoNeb for presumed audible wheezing. Related Data Home Medications ?Medication ?Instructions ?Recorded ?Confirmed albuterol sulfate 90 mcg/actuation 2 puff PO DAILY Shortness Of Breath 09/28/21 10/22/24 aerosol inhaler (Ventolin HFA) aripiprazole 20 mg tablet 20 mg PO DAILY 09/28/21 10/22/24 furosemide 20 mg tablet 40 mg PO DAILY@0800 09/28/21 10/22/24 gabapentin 300 mg capsule 300 mg PO TID 09/28/21 10/22/24 lamotrigine 100 mg tablet 100 mg PO BID 09/28/21 10/22/24 lamotrigine 25 mg tablet 50 mg PO BEDTIME 09/28/21 10/22/24 metformin 1,000 mg tablet 1,000 mg PO BID 09/28/21 10/22/24 quetiapine 100 mg tablet 200 mg PO BEDTIME 09/28/21 10/22/24 simvastatin 40 mg tablet 40 mg PO BEDTIME 09/28/21 10/22/24 empagliflozin 10 mg tablet 10 mg PO DAILY 03/24/23 10/22/24 (Jardiance) lamotrigine 25 mg tablet 25 mg PO DAILY 04/15/23 10/22/24 fluticasone propionate 230 2 puff inhalation DAILY 07/18/24 10/22/24 mcg-salmeterol 21 mcg/actuation HFA inhaler (Advair HFA) potassium chloride 20 mEq 20 meq PO DAILY 07/18/24 10/22/24 tablet,extended release spironolactone 25 mg tablet 25 mg PO DAILY 07/18/24 10/22/24 fluticasone propionate 50 2 spray intranasal DAILY PRN 10/22/24 10/22/24 mcg/actuation nasal Allergy Symptoms spray,suspension mirtazapine 7.5 mg tablet 7.5 mg PO BEDTIME 10/22/24 10/22/24 semaglutide 1 mg/dose (4 mg/3 mL) 1 mg subcut TU 10/22/24 10/22/24 subcutaneous pen injector (Ozempic) Previous Rx's ?Medication ?Instructions ?Recorded walker #1 ea 09/28/21 apixaban 5 mg tablet (Eliquis) 5 mg PO BID 30 days #60 tabs 10/23/24 diltiazem HCl 120 mg 120 mg PO DAILY #30 caps 10/23/24 capsule,extended release 24 hr (Cartia XT) prednisone 20 mg tablet 40 mg (2 x 20 mg) PO DAILY 4 days 10/23/24 #8 tabs Allergies Allergy/AdvReac Type Severity Reaction Status Date / Time haloperidol (From Haldol) Allergy Mild UNKNOWN Verified 10/22/24 11:27 [facility] Past Medical History Medical History Restrictive lung disease COPD (chronic obstructive pulmonary disease) Nocturnal hypoxemia Obesity (BMI 35.0-39.9 without comorbidity) Weakness Fever Fall Unspecified diastolic heart failure Diabetes HTN (hypertension) Family History Family History (Updated 10/23/24 @ 09:22 by Vishal Landers MD) Brother Heart disease Social History Social History Household Members: None Housing: Apartment Do you presently have visiting nurse or other home services: Yes Patient Tobacco Use Status: Former Tobacco user Advance Directives Date on File: 04/21/23 service: No Current occupational status: retired 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 Obese, nasal cannula in place at 2 L saturating PD 9%. Head: Atraumatic Eyes: Anicteric, Normal conjunctiva. ENT: Moist mucosa, no pallor. ? Neck: Supple. No JVD Skin: ?No observable rash or bruising on exposed or examined skin Respiratory: Breathing comfortably, No distress.Clear to auscultation bilaterally, symmetric chest expansion, bilateral mild rhonchi versus course wheezing heard posteriorly no rales Cardiovascular: Rapid and irregularly irregular. No murmurs or rub. Well perfused periphery, warm extremities. Chronic appearing nonpitting edema skin , hyper pigmentation consistent with venous insufficiency Abdominal: No focal tenderness. Soft, no objective distension. No palpable masses or obvious organomegaly. ?No guarding, no rebound tenderness or other peritoneal findings. : No flank tenderness. Neuro: Alert. Gross movement of all extremities intact. ? Psych: Calm. Cooperative. MSK: No grossly visible deformity. Vital signs: See flowsheet Vital Signs: Vital Signs: Last Vital Signs Temp 97.4 F 10/23/24 07:49 Pulse 71 10/23/24 11:04 Resp 18 10/23/24 11:04 BP 125/63 10/23/24 07:49 Pulse Ox 96 10/23/24 07:49 O2 Del Method Room Air 10/23/24 07:49 O2 Flow Rate 1 10/23/24 03:05 Oxygen Flow Rate 2 10/22/24 11:24 BMI result Body Mass Index 47.8 Medications Administered Discontinued Medications Generic Name Dose Route Start Last Admin Trade Name Freq PRN Reason Stop Dose Admin Albuterol/Ipratropium 3 ml 10/23/24 10:51 10/23/24 11:04 Albuterol/Iprat 2.5/0.5mg 3 Ml Ampul.Neb INHALE 10/23/24 10:52 3 ml ONCE ONE Administration Apixaban 5 mg 10/22/24 21:00 10/23/24 08:54 Apixaban 5 Mg Tablet PO 5 mg BID ADOLFO Administration Digoxin 0.4 mg 10/22/24 17:11 10/22/24 17:34 Digoxin 0.5 Mg/2 Ml Ampul IVPUSH 10/22/24 17:12 0.4 mg ONCE ONE Administration Protocol Diltiazem HCl 15 mg 10/22/24 11:45 10/22/24 11:56 Diltiazem Hcl 50 Mg/10 Ml Vial IVPUSH 10/22/24 11:46 15 mg ONCE ONE Administration Protocol Diltiazem HCl 30 mg 10/22/24 11:43 10/22/24 11:55 Diltiazem Hcl 30 Mg Tablet PO 10/22/24 11:44 30 mg ONCE ONE Administration Protocol Gabapentin 300 mg 10/23/24 09:00 10/23/24 08:54 Gabapentin 300 Mg Capsule PO 300 mg TID ADOLFO Administration Metoprolol Tartrate 5 mg/ 55 mls @ 230 mls/hr 10/22/24 13:42 10/22/24 14:31 Sodium Chloride IV 10/22/24 13:56 Infused ONCE ONE Infusion Protocol Insulin Human Lispro 0 unit 10/22/24 21:00 10/23/24 12:20 Insulin Lispro 100 Unit/Ml 3 Ml Vial SUBCUT Not Given QIDACHS [facility] Protocol Lamotrigine 25 mg 10/23/24 09:00 10/23/24 08:54 Lamotrigine 25 Mg Tablet PO 25 mg DAILY ADOLFO Administration Lamotrigine 50 mg 10/22/24 22:15 10/22/24 22:42 Lamotrigine 25 Mg Tablet PO 50 mg BEDTIME ADOLFO Administration Methylprednisolone Sodium Succinate 60 mg 10/22/24 11:43 10/22/24 11:55 Methylprednisolone Sod Succ 125 Mg/2 Ml Vial IVPUSH 10/22/24 11:44 60 mg ONCE ONE Administration Metoprolol Tartrate 25 mg 10/22/24 13:42 10/22/24 14:08 Metoprolol Tartrate 25 Mg Tablet PO 10/22/24 13:43 25 mg ONCE ONE Administration Protocol Metoprolol Tartrate 2.5 mg 10/22/24 14:50 10/22/24 15:18 Metoprolol Tartrate 5 Mg/5 Ml Vial IVPUSH 10/22/24 14:51 2.5 mg ONCE ONE Administration Protocol Metoprolol Tartrate 12.5 mg 10/22/24 14:50 10/22/24 15:52 Metoprolol Tartrate 12.5 Mg Halftab PO 10/22/24 14:51 12.5 mg ONCE ONE Administration Protocol Metoprolol Tartrate 5 mg 10/22/24 22:56 10/23/24 04:31 Metoprolol Tartrate 5 Mg/5 Ml Vial IVPUSH 5 mg Q6H PRN Administration Heart Rate >100 Protocol Mirtazapine 7.5 mg 10/22/24 22:15 10/22/24 22:42 Mirtazapine 7.5 Mg Tablet PO 7.5 mg BEDTIME ADOLFO Administration Prednisone 40 mg 10/23/24 11:00 10/23/24 12:21 Prednisone 20 Mg Tablet PO 40 mg DAILY ADOLFO Administration Quetiapine Fumarate 200 mg 10/22/24 22:15 10/22/24 22:42 Quetiapine Fumarate 200 Mg Tablet PO 200 mg BEDTIME ADOLFO Administration Sodium Chloride 3 ml 10/23/24 00:00 10/23/24 08:54 0.9 % Sodium Chloride Flush 3 Ml Syringe IVFLUSH 3 ml QSHIFT ADOLFO Administration Medical Decision Making Medical Decision Making MDM Narrative: Medical Decision Makin-year-old female with tachycardia this morning increased work of breathing per visiting nurse. Brought from home. Underlying COPD with moderate to severe exacerbation new hypoxemia despite baseline O2, 88% lowest Apparently new onset irregular narrow complex tachycardia consistent with AFib. Rate 130 on arrival. Asymptomatic arrhythmia. CHADS-VASc score is 4 we will start anticoagulation. Patient not interested in hospital admission despite the fact that she has comorbid medical conditions, acute on chronic hypoxia in the setting of COPD exacerbation discuss this with her and family member. She after shared decision-making discussion prefers an attempt at rate control and initiation of anticoagulation here in the ED. Preliminary Favored Differential Diagnosis: Exacerbation of COPD with hypoxemia, new onset atrial fibrillation, electrolyte derangement, thyroid disorder among additional considered etiologies Testing Interpreted Independently: ECG irregularly the irregular, narrow complex, no acute ischemic changes, poor R-wave progression. Rate 130 QTC 430. Low voltage. Comparison with all prior documented ECGs in our system this AFib appears new and she has no documented AFib and are history. X-ray cardiomegaly though this is portable. No wide mediastinum. No infiltrate. Radiology or Lab testing Results Reviewed: Normal coags. Consults: Cardiology: Dr. Dent, we have asked for recommendations for rate control given the patient's borderline low blood pressure. He recommends digoxin. Independent Historians/External Chart Reviews: Discussed the case also with with the patient's sister who was at the bedside. Social Determinants of Health Impacting MDM/Planning: Not Applicable __ BETTE?DS?-VASc Score for Atrial Fibrillation Stroke Risk from [email or web address] on 10/22/2024 All calculations should be rechecked by clinician prior to use RESULT SUMMARY: 4 points Stroke risk was 4.8% per year in >90,000 patients (the [place] Atrial Fibrillation Cohort Study) and 6.7% risk of stroke/TIA/systemic embolism. INPUTS: Age ?> 1 = 65-74 Sex ?> 1 = Female CHF history ?> 0 = No Hypertension history ?> 1 = Yes Stroke/TIA/thromboembolism history ?> 0 = No Vascular disease history (prior [place], peripheral artery disease, or aortic plaque) ?> 0 = No Diabetes history ?> 1 = Yes RESULT SUMMARY: 5 Estimated Level of Service Problems: Moderate (4) Risk: High (5) Data: Extensive (5) NARRATIVE MDM: This patient's problem complexity is Moderate as patient: has a new undiagnosed problem with uncertain prognosis but that could be serious. This patient's risk is High due to: overall presentation requiring evaluation for a potentially High-risk process. This patient's data complexity is Extensive due to: -multiple tests ordered/reviewed -independent interpretation of imaging or EKG INPUTS: Number and Complexity ?> 5 = 4: undiagnosed new problem, uncertain outcome (e) Risk level ?> 4 = High Tests ordered ?> 3 = >= Tests results reviewed (excluding labs) ?> 3 = >= Prior external notes reviewed ?> 0 = 0 Assessment requiring and independent historian ?> 0 = No Independent interpretation of tests ?> 1 = Yes Discussed management/test interpretation w/external professional ?> 0 = No Lab Data 10/23/24 07:04 10/23/24 07:04 Labs: Lab Results 10/22/24 Range/Units 12:08 WBC 7.6 (4.8-10.8) X10*3/uL RBC 4.75 (4.20-5.50) X10*6/uL Hgb 14.8 (12.0-16.0) g/dl Hct 43.6 (37.0-47.0) % MCV 91.8 (80.0-98.0) fL MCH 31.2 (27.0-33.0) pg MCHC 33.9 (31.0-35.0) g/dl RDW 14.1 (11.0-16.0) % Plt Count 241 (160-400) X10*3/uL MPV 9.3 L (9.4-12.3) fL Immature Gran % (Auto) 0.4 (0.0-0.4) % Neut % (Auto) 66.6 (45-73) % Lymph % (Auto) 23.3 (20-40) % Hood % (Auto) 7.5 (2-11) % Eos % (Auto) 1.5 (0-4) % Baso % (Auto) 0.7 (0-2) % Lymph # (Auto) 1.8 (1.2-4.9) X10*3/uL [place] # (Auto) 0.6 (0.1-1.2) X10*3/uL Eos # (Auto) 0.1 (0.0-0.4) X10*3/uL Baso # (Auto) 0.1 (0.0-0.2) X10*3/uL Abs Immat Gran (auto) 0.03 (0.00-0.03) X10*3/uL Absolute Neuts (auto) 5.0 (2.0-8.3) x10*3/uL Absolute Nucleated RBC 0.000 (0.0-0.012) X10*3/uL Nucleated RBC % (auto) 0.0 (0.0-0.2) /100WBC PT 11.5 (10.9-12.4) SEC INR 1.0 (0.9-1.1) APTT 29.2 (26.0-36.8) SEC Sodium 142 (135-145) mmol/L Potassium 3.6 (3.3-5.1) mmol/L Chloride 104 (96-108) mmol/L Carbon Dioxide 26 (22-29) mmol/L Anion Gap 16 (12-20) BUN 12 (9-16) mg/dL Creatinine 0.82 (0.5-1.4) mg/dL Estim Creat Clear Calc 75.1 Estimated GFR > 60 Random Glucose 109 (60-115) mg/dL Calcium 9.3 (8.4-10.2) mg/dL Troponin I High Sens < 2.7 (<3.5-17.0) ng/L B-Natriuretic Peptide 134 H (<100) pg/mL TSH 0.81 (0.32-4.0) uIU/mL Critical Care Time Critical Care Time Critical Care Time: Yes Total Critical Care Time: 60 Attestation: ED Critical Care: Authorized and Performed by: Lucas Mcdaniel MD Total critical care time: Approximately 60 Due to a high probability of clinically significant, life threatening deterioration, the patient required my highest level of preparedness to intervene emergently and I personally spent this critical care time directly and personally managing the patient. This critical care time included obtaining a history; examining the patient; pulse oximetry; ordering and review of studies; arranging urgent treatment with development of a management plan; evaluation of patient's response to treatment; frequent reassessment; and, discussions with other providers. This critical care time was performed to assess and manage the high probability of imminent, life-threatening deterioration that could result in multi-organ failure. It was exclusive of separately billable procedures and treating other patients and teaching time. Discharge Plan Discharge Clinical Impression: COPD exacerbation Atrial fibrillation Qualifiers: Atrial fibrillation type: unspecified Qualified Code(s): I48.91 - Unspecified atrial fibrillation Patient Disposition: Home, Self-Care Interventions: Admission Worksheet (ED) Last Done: 10/22/24 19:39 Discharge Date/Time: 10/22/24 20:49
--- OUTSIDE RECORDS SUMMARY | 2024-10-22 11:52 | XMS_ITS | Patient Health Record ---
Author Organization [facility] Address [address] [place] [address] Care Team Providers Care Road Train Driver Name Role Phone Keith FLANNERY, Taryn Primary Care Provider Jericho Espinoza Jr Unavailable [phone] Reason For Referral No Information Plan Of Treatment No Information Insurance Providers Payer Name Payer Address Payer Phone Subscriber Number Group Number Insured Name Patient Relationship to Insured Coverage Start Date Coverage End Date MEDICARE OF [place] [address] [place] [id number] JOHN CASAS Self - patient is the insured MEDICAID OF [facility] [address] [place] [address] [id number] JOHN CASAS Self - patient is the insured
--- OUTSIDE RECORDS SUMMARY | 2024-10-22 11:52 | XMS_ITS | Encounter Summary ---
Author Organization [facility] Address [id number] [place] [id number] Care Team Providers Care Stem Roller Operator Name Role Phone Braeden Hudson MD Primary Care Provider [phone] Encounter Details Date Type Department Care Team (Late st Contact Info) Description 07/22/2024 Lab Requisition [facility] - Main Lab [address] [place] [address] Braeden Hudson MD [address] [place] [address] [address] [facility] [phone] Essential (primary) hypertension; Anemia, unspecified [...] LAB CHEMISTRY METHOD 07/23/2024 10:48 AM EDT [facility] Potassium 3.2(L) 3.5 - 5.5 mmol/L LAB CHEMISTRY METHOD 07/23/2024 10:48 AM EDT [facility] Chloride 101 96 - 110 mmol/L LAB CHEMISTRY METHOD 07/23/2024 10:48 AM [facility] CO2 29 21 - 32 mmol/L LAB CHEMISTRY METHOD 07/23/2024 10:48 AM [facility] Anion Gap 11 3 - 11 LAB CHEMISTRY METHOD 07/23/2024 10:48 AM [facility] Glucose 128(H) 70 - 100 mg/dL LAB CHEMISTRY METHOD 07/23/2024 10:48 AM [facility] BUN 18 5 - 25 mg/dL LAB CHEMISTRY METHOD 07/23/2024 10:48 AM [facility] Creatinine 0.71 0.50 - 1.10 mg/dL LAB CHEMISTRY METHOD 07/23/2024 10:48 AM [facility] eGFR 92 >=60 mL/min/1. 73m2 LAB CHEMISTRY METHOD 07/23/2024 10:48 AM [facility] Comment:Calculation based on the Chronic Kidney Disease Epidemiology Collaboration (CKD-EPI) equation refit without adjustment for race. BUN/Creatinine Ratio 25.4 LAB CHEMISTRY METHOD 07/23/2024 10:48 AM [facility] Calcium 9.1 8.5 - 10.5 mg/dL LAB CHEMISTRY METHOD 07/23/2024 10:48 AM [facility] Blood Venous blood specimen / Unknown Venipuncture / Unknown 07/23/2024 7:04 AM EDT 07/23/2024 9:05 AM EDT us Braeden Hudson MD LAB BLOOD ORDERABLES Final Resul t [facility] [address] [place] [address], documented in this encounter Visit Diagnoses Diagnosis Essential (primary) hypertension Unspecified essential hypertension Anemia, unspecified documented in this encounter Care Teams Stem Roller Operator Relationship Specialty Start Date End Date Braeden Hudson MD [address], [phone] PCP - General Family Medicine 07/20/24 documented as of this encounter
[2024-10-22 12:15] LABS: MANUAL DIFF FLAG NO
[2024-10-22 12:18] LABS: Hematocrit 43.6 % (37.0-47.0); Hemoglobin 14.8 g/dl (12.0-16.0); Imm Gran Abs Auto 0.03 X10*3/uL (0.00-0.03); Imm Gran Pct Auto 0.4 % (0.0-0.4); Lymphocytes Absolute Auto 1.8 X10*3/uL (1.2-4.9); Mean Corpuscular HGB Conc 33.9 g/dl (31.0-35.0); Mean Corpuscular Hemoglobin 31.2 pg (27.0-33.0); Mean Corpuscular Volume 91.8 fL (80.0-98.0); NRBC Abs Auto 0.000 X10*3/uL (0.0-0.012); NRBC Pct Auto 0.0 /100WBC (0.0-0.2); Platelet Count 241 X10*3/uL (160-400); Red Blood Count 4.75 X10*6/uL (4.20-5.50); White Blood Count 7.6 X10*3/uL (4.8-10.8)
[2024-10-22 12:27] LABS: INTERNATIONAL NORM RATIO 1.0 (0.9-1.1); Prothrombin Time 11.5 SEC (10.9-12.4)
[2024-10-22 12:30] LABS: Partial Thromboplastin Time 29.2 SEC (26.0-36.8)
[2024-10-22 12:44] LABS: Anion Gap 16 (12-20); B Type Natriuretic Peptide 134 pg/mL (<100); Blood Urea Nitrogen 12 mg/dL (9-16); Calcium 9.3 mg/dL (8.4-10.2); Carbon Dioxide 26 mmol/L (22-29); Chloride 104 mmol/L (96-108); Creatinine Clr Calc Pharmacy 75.1; Estimated Glomerular Filt Rate > 60; Potassium 3.6 mmol/L (3.3-5.1); Sodium 142 mmol/L (135-145)
[2024-10-22 12:47] LABS: Troponin-I High Sensitivity < 2.7 ng/L (<3.5-17.0)
[2024-10-22 13:00] LABS: Thyroid Stimulating Hormone 0.81 uIU/mL (0.32-4.0)
[2024-10-22] MEDS: Metoprolol Tartrate 5 MG in 0.9 % Sodium Chloride 50 ML 230 MG IV (14:09)
[2024-10-22] MEDS: Metoprolol Tartrate 12.5 MG HALFTAB PO (15:52)
--- NOTE | 2024-10-22 16:55 | PM.IMHP ---
History of Present Illness Date of Service: 10/22/24 Chief Complaint: elevated heart rate This is a 68-year-old female with pertinent history of hypertension, mixed hyperlipidemia, cnk-usopzpr-ltlmibkuz diabetes mellitus, chronic pedal edema, mood disorder, chronic hypoxemic respiratory failure due to COPD on baseline 2 L supplemental oxygen who presents to the emergency department for evaluation of elevated heart rate. Patient states she does not have any symptoms or complaints at this time. Visiting nurse at home found that patient's heart rate was elevated and asked the patient to go to the ER. She denies chest pain or palpitations. No dyspnea. No orthopnea or PND. Does have chronic lower extremity leg swelling. No fever, chills, abdominal pain, changes in urinary or bowel habits. In the emergency department, patient was found to be in AFib with RVR Review of Systems Constitutional: Constitutional: Reports no additional constitutional complaints Cardiovascular: Cardiovascular: Reports irregular heart rhythm Respiratory: Respiratory: Reports no additional respiratory complaints Gastrointestinal: Gastrointestinal: Reports no additional gastrointestinal complaints Genitourinary: Genitourinary: Reports no additional female genitourinary complaints [facility] Medical History Restrictive lung disease COPD (chronic obstructive pulmonary disease) Nocturnal hypoxemia Obesity (BMI 35.0-39.9 without comorbidity) Weakness Fever Fall Unspecified diastolic heart failure Diabetes HTN (hypertension) Social History Household Members: None Housing: Apartment Do you presently have visiting nurse or other home services: 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[employer]) Patient Tobacco Use Status: Former Tobacco user Smoked in Last 30 Days: No Use of substances other than those prescribed or required for medical reasons: No Advance Directives: Yes Advance Directives on File: Yes Advance Directives Date on File: 04/21/23 Do you have a plan to hurt others: No Plan service: No Current occupational status: retired 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 Meds Allergies Allergy/AdvReac Type Severity Reaction Status Date / Time haloperidol (From Haldol) Allergy Mild UNKNOWN Verified 10/22/24 11:27 Home Medications ?Medication ?Instructions ?Recorded ?Confirmed ?Last Taken ?Type albuterol sulfate 90 mcg/actuation 2 puff PO DAILY Shortness Of Breath 09/28/21 09/15/24 Unknown History aerosol inhaler (Ventolin HFA) aripiprazole 20 mg tablet 20 mg PO DAILY 09/28/21 09/15/24 04/14/23 History furosemide 20 mg tablet 40 mg PO DAILY@0800 09/28/21 09/15/24 04/14/23 History gabapentin 300 mg capsule 300 mg PO TID 09/28/21 09/15/24 04/14/23 History lamotrigine 100 mg tablet 100 mg PO BID 09/28/21 09/15/24 04/14/23 History lamotrigine 25 mg tablet 50 mg PO BEDTIME 09/28/21 09/15/24 04/14/23 History metformin 1,000 mg tablet 1,000 mg PO BID 09/28/21 07/18/24 04/14/23 History quetiapine 100 mg tablet 200 mg PO BEDTIME 09/28/21 09/15/24 04/14/23 History simvastatin 40 mg tablet 40 mg PO BEDTIME 09/28/21 09/15/24 04/14/23 History empagliflozin 10 mg tablet 10 mg PO DAILY 03/24/23 09/15/24 04/14/23 History (Jardiance) furosemide 20 mg tablet 20 mg PO DAILY@1200 03/24/23 09/15/24 04/14/23 History lamotrigine 25 mg tablet 25 mg PO DAILY 04/15/23 09/15/24 04/14/23 History fluticasone propionate 230 2 puff inhalation DAILY 07/18/24 09/15/24 Unknown History mcg-salmeterol 21 mcg/actuation HFA inhaler (Advair HFA) loperamide 2 mg capsule 2 mg PO QID PRN Loose Stool 07/18/24 07/18/24 Unknown History potassium chloride 20 mEq 20 meq PO DAILY 07/18/24 09/15/24 Unknown History tablet,extended release spironolactone 25 mg tablet 25 mg PO DAILY 07/18/24 09/15/24 Unknown History fluticasone propionate 50 2 spray intranasal DAILY PRN 10/22/24 10/22/24 Unknown History mcg/actuation nasal Allergy Symptoms spray,suspension mirtazapine 7.5 mg tablet 7.5 mg PO BEDTIME 10/22/24 Unknown History semaglutide 1 mg/dose (4 mg/3 mL) 1 mg subcut QWEEK 10/22/24 Unknown History subcutaneous pen injector (Ozempic) Physical Exam Vital Signs and Narrative: Vital Signs: Last Vital Signs Temp 98.2 F 10/22/24 16:26 Pulse 112 H 10/22/24 16:26 Resp 14 10/22/24 16:26 BP 95/56 L 10/22/24 16:26 Pulse Ox 92 10/22/24 16:26 O2 Del Method Nasal Cannula 10/22/24 16:26 O2 Flow Rate 2 10/22/24 15:52 Oxygen Flow Rate 2 10/22/24 11:24 BMI result Body Mass Index 47.8 Middle-aged female lying in bed in no distress Neck supple, no JVD Irregularly irregular, S1-S2 heard Reduced breath sounds at bases Abdomen soft nontender, no guarding, no rigidity Patient is awake, alert and oriented to self, place, time and person ; no focal motor deficit Psych: Normal mood Pedal edema + Results Labs 10/22/24 12:08 10/22/24 12:08 Labs: Laboratory Results - last 24 hr 10/22/24 12:08 MCV 91.8 MCH 31.2 MCHC 33.9 RDW 14.1 Plt Count 241 MPV 9.3 L Immature Gran % (Auto) 0.4 Neut % (Auto) 66.6 Lymph % (Auto) 23.3 [place] % (Auto) 7.5 Eos % (Auto) 1.5 Baso % (Auto) 0.7 Lymph # (Auto) 1.8 [place] # (Auto) 0.6 Eos # (Auto) 0.1 Baso # (Auto) 0.1 Abs Immat Gran (auto) 0.03 Absolute Neuts (auto) 5.0 Absolute Nucleated RBC 0.000 Nucleated RBC % (auto) 0.0 PT 11.5 INR 1.0 APTT 29.2 Anion Gap 16 Estim Creat Clear Calc 75.1 Estimated GFR > 60 Random Glucose 109 Calcium 9.3 B-Natriuretic Peptide 134 H TSH 0.81 Imaging Radiologist's Impressions: Impressions Chest X-Ray 10/22/24 10:54 IMPRESSION: Minimal left basilar atelectasis. Electronically signed by: Giovanny Chatterjee MD 10/22/2024 12:07 PM EDT Assessment and Plan (1) Atrial fibrillation: Qualifiers: Atrial fibrillation type: unspecified Qualified Code(s): I48.91 - Unspecified atrial fibrillation Status: Acute Plan This is a 68-year-old female with pertinent history of hypertension, mixed hyperlipidemia, wbt-zmgfssa-orlvuvrwf diabetes mellitus, chronic pedal edema, mood disorder, chronic hypoxemic respiratory failure due to COPD on baseline 2 L supplemental oxygen who presents to the emergency department for evaluation of elevated heart rate. #. AFib with RVR, new diagnosis: Will admit patient with cardiac monitoring. Patient given IV and p.o. diltiazem and metoprolol in the ER. Blood pressure soft. Will give IV digoxin. Consulted Cardiology. TSH okay. Obtaining transthoracic echocardiogram. Chads Vasc score 3. Initiating Eliquis #. Hypertension/pedal edema: Continue home antihypertensives and diuretics #. Chronic hypoxemic respiratory failure due to COPD: On 2 L supplemental oxygen at baseline. In no exacerbation during admission. Continue home inhalers #. Cfw-ohuodds-vkbuhgdxx type 2 diabetes mellitus: Initiating Accu-Cheks with sliding scale insulin #. Mood disorder: Continue home mood stabilizers Med rec pending DVT prophylaxis: Eliquis Full code. Discussed with patient at bedside Admit as inpatient and will require two night minimum hospital stay for close monitoring of heart rate (as above), which is not possible in a lesser acute setting. Specialist consult pending Quality Stroke Does the patient have a stroke diagnosis?: No VTE Prior VTE?: No VTE Risk Level:: Medical - moderate - high VTE Device Contraindication: Treatment Not Indicated VTE Drug Contraindication: N/A - Med Ordered
--- NOTE | 2024-10-22 19:09 | PHA.MEDREC ---
Addendum entered by Adriana Moffett RPh 10/22/24 19:30: Reviewed by [facility] Original Note: Pharmacy Consult ? Medication Reconciliation Pharmacy has completed the medication reconciliation. Spoke to patient to confirm med list Patient didn't know what medications she takes, however did have a list with her. Patient states she has a visiting nurse Madiha [phone]. Called madiha and she new all of patient medications. Madiha confirmed Furosemide 40 mg ( 2x 20mg) daily ( *patient doesn't like taking it at bedtime, so she takes daily instead of 20 mg BID*), Lamotrigine 100 mg BID and Lamotragine 25 mg QAM and 50 mg QPM for a total dose = 125 mg QAM and 150 mg QPM, Ozempic 1 mg every Friday, last dose 10/19/24. Patient had all her morning medications today. Eliquis 5 mg, Metoprolol tart 37.5 mg were started to day in the ER.
[2024-10-22 21:05] LABS: Glucose, Whole Blood 143 mg/dL (60-115)
[2024-10-22] MEDS: 0.9 % Sodium Chloride Flush 3 ML SYRINGE IVFLUSH (23:06)
[2024-10-23] VITALS: BP 103/62; PULSE 109; RESP 18; TEMP 36; O2SAT 95
[2024-10-23 03:05] VITALS: BP 125/56; PULSE 104; RESP 18; TEMP 35.9; O2SAT 93
--- NOTE | 2024-10-23 04:35 | PC.NURSE ---
Provider notified that patient heart rate sustaining 120-130's. Patient not due for PRN metoprolol for another 30 minutes. PRN administered early per provider. Patient continues to be asymptomatic.
--- NOTE | 2024-10-23 05:12 | ECG_ITS ---
Test Reason : Y Blood Pressure : */* mmHG Vent. Rate : 80 BPM Atrial Rate : 80 BPM P-R Int : 172 ms QRS Dur : 80 ms QT Int : 364 ms P-R-T Axes : 55 -1 46 degrees QTcB Int : 419 ms Normal sinus rhythm Low voltage QRS Septal infarct (cited on or before 04-Oct-2015) Abnormal ECG When compared with ECG of 22-Oct-2024 11:08, Sinus rhythm has replaced Atrial fibrillation Vent. rate has decreased by 50 bpm Serial changes of Septal infarct Present Referred By: Darci Luu Electronically Signed By: WARREN GARCIA
--- NOTE | 2024-10-23 05:36 | PC.NURSE ---
At approx 0515, patient noted to have converted to sinus rhythm. EKG obtained and placed in patient chart, provider notified.
[2024-10-23 07:27] LABS: Hematocrit 44.6 % (37.0-47.0); Hemoglobin 15.1 g/dl (12.0-16.0); Mean Corpuscular HGB Conc 33.9 g/dl (31.0-35.0); Mean Corpuscular Hemoglobin 31.3 pg (27.0-33.0); Mean Corpuscular Volume 92.3 fL (80.0-98.0); NRBC Abs Auto 0.000 X10*3/uL (0.0-0.012); NRBC Pct Auto 0.0 /100WBC (0.0-0.2); Platelet Count 261 X10*3/uL (160-400); Red Blood Count 4.83 X10*6/uL (4.20-5.50); White Blood Count 8.7 X10*3/uL (4.8-10.8)
[2024-10-23 07:33] LABS: Glucose, Whole Blood 123 mg/dL (60-115)
[2024-10-23 07:43] LABS: Anion Gap 17 (12-20); Blood Urea Nitrogen 15 mg/dL (9-16); Calcium 9.2 mg/dL (8.4-10.2); Carbon Dioxide 23 mmol/L (22-29); Chloride 106 mmol/L (96-108); Creatinine Clr Calc Pharmacy 85.3; Estimated Glomerular Filt Rate > 60; Potassium 3.9 mmol/L (3.3-5.1); Sodium 142 mmol/L (135-145)
[2024-10-23 07:49] VITALS: BP 125/63; PULSE 68; RESP 20; TEMP 36.3; O2SAT 96
[2024-10-23] MEDS: 0.9 % Sodium Chloride Flush 3 ML SYRINGE IVFLUSH (08:54)
--- NOTE | 2024-10-23 09:21 | PM.CNCAR ---
History of Present Illness History of Present Illness Date of Service: 10/23/24 Chief complaint: abd pain Narrative: This is a cardiology consultation regarding atrial fibrillation. Patient has a history of COPD on home oxygen and apparently her visiting nurse told her that her heart rate was high and that is why patient came to the ER. She denies any clear-cut symptoms like palpitations or shortness of breath or chest pains or in fact anything cardiac sounding. She also denies any previous cardiac history. Currently, she states she feels well. Per notes, she has received diltiazem, metoprolol and digoxin in the ER. Earlier this morning, she has converted back to normal sinus rhythm. She states she feels well otherwise. Review of Systems Review of Systems: Yes all other systems are reviewed and are negative Constitutional: Constitutional: Reports as per HPI and Reports no additional constitutional complaints Eyes: Eyes: Reports as per HPI and Denies no additional eye complaints ENT: Denies system reviewed and no additional complaints, except as documented and Reports as per HPI Cardiovascular: Cardiovascular: Reports as per HPI, Reports no additional cardiovascular complaints, Denies acrocyanosis, Denies cool extremities, Denies chest pain, Denies leg edema, Denies lightheadedness, Denies palpitations and Denies dyspnea Respiratory: Respiratory: Reports as per HPI, Denies no additional respiratory complaints and Denies dyspnea Gastrointestinal: Gastrointestinal: Reports as per HPI and Denies no additional gastrointestinal complaints Genitourinary: Genitourinary: Reports as per HPI Musculoskeletal: Musculoskeletal: Reports no additional musculoskeletal complaints and Reports as per HPI Integumentary/Breasts: Skin/Breast: Reports system reviewed and no additional complaints, except as docu Neurologic: Reports system reviewed and no additional complaints, except as documented and Reports as per HPI Psychiatric: Psychiatric: Reports no additional psychiatric complaints and Reports as per HPI Endocrine: Endocrine: Reports no additional endocrine complaints, Reports as per HPI and Denies palpitations Hematologic/Lymphatic: Hematologic/Lymphatic: Reports no additional hematologic/lymphatic complaints and Reports as per HPI Allergic/Immunologic: Allergic/Immunologic: Reports no additional allergic/immunologic complaints and Reports as per HPI [facility] Past Medical History Medical History Restrictive lung disease COPD (chronic obstructive pulmonary disease) Nocturnal hypoxemia Obesity (BMI 35.0-39.9 without comorbidity) Weakness Fever Fall Unspecified diastolic heart failure Diabetes HTN (hypertension) Family History Family History (Updated 10/23/24 @ 09:22 by Vishal Landers MD) Brother Heart disease Social History Social History Household Members: None Housing: Apartment Do you presently have visiting nurse or other home services: Yes Patient Tobacco Use Status: Former Tobacco user Advance Directives Date on File: 04/21/23 service: No Current occupational status: retired 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 Meds Allergies Allergy/AdvReac Type Severity Reaction Status Date / Time haloperidol (From Haldol) Allergy Mild UNKNOWN Verified 10/22/24 11:27 Active Medications: Current Medications Acetaminophen (Acetaminophen 325 Mg Tablet) 650 mg PO Q6H PRN PRN Reason: Pain, Mild 1-3,fever,headache Apixaban (Apixaban 5 Mg Tablet) 5 mg PO BID [facility] Last Admin: 10/23/24 08:54 Dose: 5 mg Calcium Carbonate (Calcium Carbonate 750 Mg Tab.Chew) 750 mg PO Q4H PRN PRN Reason: Heartburn Dextrose (Dextrose 50 % 25 Gm/50 Ml Syringe) 25 gm IVPUSH Q15M PRN; Protocol PRN Reason: per Hypoglycemia Standing Ord. Gabapentin (Gabapentin 300 Mg Capsule) 300 mg PO TID [facility] Last Admin: 10/23/24 08:54 Dose: 300 mg Glucose (Glucose Gel 15 Gm Gel..Gram.) 15 gm PO Q15M PRN; Protocol PRN Reason: per Hypoglycemia Standing Ord. Insulin Human Lispro (Insulin Lispro 100 Unit/Ml 3 Ml Vial) 0 unit SUBCUT QIDACHS [facility]; Protocol Last Admin: 10/23/24 07:36 Dose: Not Given Lamotrigine (Lamotrigine 25 Mg Tablet) 25 mg PO DAILY [facility] Last Admin: 10/23/24 08:54 Dose: 25 mg Lamotrigine (Lamotrigine 25 Mg Tablet) 50 mg PO BEDTIME [facility] Last Admin: 10/22/24 22:42 Dose: 50 mg Magnesium Hydroxide (Milk Of Magnesia 30 Ml Oral.Susp) 30 ml PO DAILY PRN PRN Reason: Constipation Melatonin (Melatonin 3 Mg Tablet) 6 mg PO BEDTIME PRN PRN Reason: Insomnia Metoprolol Tartrate (Metoprolol Tartrate 5 Mg/5 Ml Vial) 5 mg IVPUSH Q6H PRN; Protocol PRN Reason: Heart Rate >100 Last Admin: 10/23/24 04:31 Dose: 5 mg Mirtazapine (Mirtazapine 7.5 Mg Tablet) 7.5 mg PO BEDTIME [facility] Last Admin: 10/22/24 22:42 Dose: 7.5 mg Ondansetron HCl (Ondansetron Hcl 4 Mg/2 Ml Vial) 4 mg IVPUSH Q8H PRN PRN Reason: Nausea and Vomiting Quetiapine Fumarate (Quetiapine Fumarate 200 Mg Tablet) 200 mg PO BEDTIME [facility] Last Admin: 10/22/24 22:42 Dose: 200 mg Sodium Chloride (0.9 % Sodium Chloride Flush 3 Ml Syringe) 3 ml IVFLUSH QSHIFT [facility] Last Admin: 10/23/24 08:54 Dose: 3 ml Home Medications ?Medication ?Instructions ?Recorded ?Confirmed ?Last Taken ?Type albuterol sulfate 90 mcg/actuation 2 puff PO DAILY Shortness Of Breath 09/28/21 10/22/24 10/22/24 History aerosol inhaler (Ventolin HFA) aripiprazole 20 mg tablet 20 mg PO DAILY 09/28/21 10/22/24 10/22/24 History furosemide 20 mg tablet 40 mg PO DAILY@0800 09/28/21 10/22/24 10/22/24 History gabapentin 300 mg capsule 300 mg PO TID 09/28/21 10/22/24 10/22/24 History lamotrigine 100 mg tablet 100 mg PO BID 09/28/21 10/22/24 10/22/24 History lamotrigine 25 mg tablet 50 mg PO BEDTIME 09/28/21 10/22/24 10/21/24 History metformin 1,000 mg tablet 1,000 mg PO BID 09/28/21 10/22/24 10/22/24 History quetiapine 100 mg tablet 200 mg PO BEDTIME 09/28/21 10/22/24 10/21/24 History simvastatin 40 mg tablet 40 mg PO BEDTIME 09/28/21 10/22/24 10/21/24 History empagliflozin 10 mg tablet 10 mg PO DAILY 03/24/23 10/22/24 10/22/24 History (Jardiance) lamotrigine 25 mg tablet 25 mg PO DAILY 04/15/23 10/22/24 10/22/24 History fluticasone propionate 230 2 puff inhalation DAILY 07/18/24 10/22/24 10/22/24 History mcg-salmeterol 21 mcg/actuation HFA inhaler (Advair HFA) potassium chloride 20 mEq 20 meq PO DAILY 07/18/24 10/22/24 10/22/24 History tablet,extended release spironolactone 25 mg tablet 25 mg PO DAILY 07/18/24 10/22/24 10/22/24 History fluticasone propionate 50 2 spray intranasal DAILY PRN 10/22/24 10/22/24 Unknown History mcg/actuation nasal Allergy Symptoms spray,suspension mirtazapine 7.5 mg tablet 7.5 mg PO BEDTIME 10/22/24 10/22/24 10/21/24 History semaglutide 1 mg/dose (4 mg/3 mL) 1 mg subcut TU 10/22/24 10/22/24 10/19/24 History subcutaneous pen injector (Ozempic) Physical Exam Vital Signs: Vital Signs: Last Vital Signs Temp 97.4 F 10/23/24 07:49 Pulse 68 10/23/24 07:49 Resp 20 10/23/24 07:49 BP 125/63 10/23/24 07:49 Pulse Ox 96 10/23/24 07:49 O2 Del Method Room Air 10/23/24 07:49 O2 Flow Rate 1 10/23/24 03:05 Oxygen Flow Rate 2 10/22/24 11:24 BMI result Body Mass Index 47.5 Const: General: comfortable and no acute distress Orientation/consciousness: patient oriented x3 HEENT: Other: Unremarkable Head: Yes normal to inspection Neck: Neck: Yes normal visual inspection Chest: Chest palpation & inspection: normal inspection of the chest Resp: Auscultation: wheezes and diminished lung sounds Cardio: Palpation: normal PMI Heart sounds: S1 normal heart sound present, S2 normal heart sound present, no gallops, no murmurs and no rubs GI: Palpation (GI): Soft to palpation Back/Spine/Pelvis: Other: unremarkable Skin: General skin exam: no rashes or lesions noted Neuro: General: patient oriented x3 Extrem: General: Yes normal to inspection Psych: Mental Status: mental status grossly normal Objective Labs and Meds 10/23/24 07:04 10/23/24 07:04 Lab results: Laboratory Results - last 24 hr 10/22/24 10/22/24 10/23/24 12:08 20:57 07:04 WBC 7.6 8.7 RBC 4.75 4.83 Hgb 14.8 15.1 Hct 43.6 44.6 MCV 91.8 92.3 MCH 31.2 31.3 MCHC 33.9 33.9 RDW 14.1 13.9 Plt Count 241 261 MPV 9.3 L 9.6 Immature Gran % (Auto) 0.4 Neut % (Auto) 66.6 Lymph % (Auto) 23.3 [place] % (Auto) 7.5 Eos % (Auto) 1.5 Baso % (Auto) 0.7 Lymph # (Auto) 1.8 [place] # (Auto) 0.6 Eos # (Auto) 0.1 Baso # (Auto) 0.1 Abs Immat Gran (auto) 0.03 Absolute Neuts (auto) 5.0 Absolute Nucleated RBC 0.000 0.000 Nucleated RBC % (auto) 0.0 0.0 PT 11.5 INR 1.0 APTT 29.2 Sodium 142 142 Potassium 3.6 3.9 Chloride 104 106 Carbon Dioxide 26 23 Anion Gap 16 17 BUN 12 15 Creatinine 0.82 0.72 Estim Creat Clear Calc 75.1 85.3 Estimated GFR > 60 > 60 POC Glucose 143 H Random Glucose 109 116 H Calcium 9.3 9.2 Troponin I High Sens < 2.7 B-Natriuretic Peptide 134 H TSH 0.81 10/23/24 07:27 WBC RBC Hgb Hct MCV MCH MCHC RDW Plt Count MPV Immature Gran % (Auto) Neut % (Auto) Lymph % (Auto) [place] % (Auto) Eos % (Auto) Baso % (Auto) Lymph # (Auto) [place] # (Auto) Eos # (Auto) Baso # (Auto) Abs Immat Gran (auto) Absolute Neuts (auto) Absolute Nucleated RBC Nucleated RBC % (auto) PT INR APTT Sodium Potassium Chloride Carbon Dioxide Anion Gap BUN Creatinine Estim Creat Clear Calc Estimated GFR POC Glucose 123 H Random Glucose Calcium Troponin I High Sens B-Natriuretic Peptide TSH ECG Interpretation: Initial EKG showed atrial fibrillation with rapid ventricular response at 130/Min. Cannot exclude old septal infarct but more likely from body habitus and COPD. Repeat EKGs shows sinus rhythm. Imaging Radiologist's impression: Impressions Chest X-Ray 10/22/24 10:54 IMPRESSION: Minimal left basilar atelectasis. Electronically signed by: Giovanny Chatterjee MD 10/22/2024 12:07 PM EDT RP Assessment and Plan (1) Atrial fibrillation with rapid ventricular response: Status: Acute Plan Atrial fibrillation with rapid ventricular response. Unclear if she has any concurrent COPD exacerbation as she does sound wheezy. Any case, currently she is back to normal sinus rhythm. We can do diltiazem CD 120 mg daily. Eliquis for anticoagulation. She can be discharged from cardiac standpoint and outpatient echocardiogram can be completed. Follow-up will be arranged. Procedures Date of Service Date of Service: 10/23/24
[2024-10-23 11:04] VITALS: PULSE 71; RESP 18; O2SAT 95
[2024-10-23] MEDS: Albuterol/Iprat 2.5/0.5MG 3 ML AMPUL.NEB INHALE (11:04)
[2024-10-23 11:12] LABS: Glucose, Whole Blood 183 mg/dL (60-115)
--- NOTE | 2024-10-23 11:15 | PM.DS ---
DS: Providers Provider Date of Service: 10/23/24 Date of admission: 10/22/24 16:53 Date of discharge: 10/23/24 Primary care physician: Taryn Parker MD Consults: 10/22/24 16:55 Consult to Cardiology Routine Consulting Provider: [facility] Reason for consultation: afib with rvr DS: Diagnosis Discharge Diagnosis (1) Atrial fibrillation with rapid ventricular response: Status: Acute DS: Summary Hospital Course Hospital Course: HPI: This is a 68-year-old female with pertinent history of hypertension, mixed hyperlipidemia, [id number] diabetes mellitus, chronic pedal edema, mood disorder, chronic hypoxemic respiratory failure due to COPD on baseline 2 L supplemental oxygen who presents to the emergency department for evaluation of elevated heart rate. Patient states she does not have any symptoms or complaints at this time. Visiting nurse at home found that patient's heart rate was elevated and asked the patient to go to the ER. She denies chest pain or palpitations. No dyspnea. No orthopnea or PND. Does have chronic lower extremity leg swelling. No fever, chills, abdominal pain, changes in urinary or bowel habits. In the emergency department, patient was found to be in AFib with RVR Hospital course: Patient was admitted with cardiac monitoring. Given IV and p.o. SA bryan blocking agents. Was also given IV digoxin during hospitalization. TSH normal. Chads Vasc score 3 and patient initiated on Eliquis. Patient back to normal sinus rhythm on the day of discharge. Cardiology was consulted. Patient hemodynamically stable to be discharged on diltiazem 120 mg daily and Eliquis. Outpatient follow-up for echocardiogram. Initially on the day of admit, patient without dyspnea or wheezing. On the day of discharge, patient reported mild dyspnea and was wheezing. Will discharge patient with 5 day course of oral prednisone for mild exacerbation of COPD. She is at baseline oxygen requirement prior to discharge. Status at Discharge Functional status at discharge: uses cane/walker Overall status at discharge: patient is back to baseline Time Attestation Discharge Coordination Time (in mins): 35min Quality: Safe Use of Opioids Does Pt have an Active Cancer Diagnosis on the Problem List?: No Quality: Stroke Does the patient have a stroke diagnosis?: No Physical Exam Exam: Exam: Middle-aged female lying in bed in no distress Neck supple, no JVD Regular rate and rhythm, S1-S2 heard Bilateral wheezing present Abdomen soft nontender, no guarding, no rigidity Patient is awake, alert and oriented to self, place, time and person ; no focal motor deficit Psych: Normal mood Pedal edema + Vital Signs: Vital Signs: Last Vital Signs Temp 97.4 F 10/23/24 07:49 Pulse 71 10/23/24 11:04 Resp 18 10/23/24 11:04 BP 125/63 10/23/24 07:49 Pulse Ox 96 10/23/24 07:49 O2 Del Method Room Air 10/23/24 07:49 O2 Flow Rate 1 10/23/24 03:05 Oxygen Flow Rate 2 10/22/24 11:24 BMI result Body Mass Index 47.5 DS: Data Data Completed and Pending Labs on day of discharge: Laboratory Results - last 24 hr 10/22/24 10/22/24 10/23/24 12:08 20:57 07:04 WBC 7.6 8.7 RBC 4.75 4.83 Hgb 14.8 15.1 Hct 43.6 44.6 MCV 91.8 92.3 MCH 31.2 31.3 MCHC 33.9 33.9 RDW 14.1 13.9 Plt Count 241 261 MPV 9.3 L 9.6 Immature Gran % (Auto) 0.4 Neut % (Auto) 66.6 Lymph % (Auto) 23.3 [place] % (Auto) 7.5 Eos % (Auto) 1.5 Baso % (Auto) 0.7 Lymph # (Auto) 1.8 [place] # (Auto) 0.6 Eos # (Auto) 0.1 Baso # (Auto) 0.1 Abs Immat Gran (auto) 0.03 Absolute Neuts (auto) 5.0 Absolute Nucleated RBC 0.000 0.000 Nucleated RBC % (auto) 0.0 0.0 PT 11.5 INR 1.0 APTT 29.2 Sodium 142 142 Potassium 3.6 3.9 Chloride 104 106 Carbon Dioxide 26 23 Anion Gap 16 17 BUN 12 15 Creatinine 0.82 0.72 Estim Creat Clear Calc 75.1 85.3 Estimated GFR > 60 > 60 POC Glucose 143 H Random Glucose 109 116 H Calcium 9.3 9.2 Troponin I High Sens < 2.7 B-Natriuretic Peptide 134 H TSH 0.81 10/23/24 10/23/24 07:27 10:56 WBC RBC Hgb Hct MCV MCH MCHC RDW Plt Count MPV Immature Gran % (Auto) Neut % (Auto) Lymph % (Auto) [place] % (Auto) Eos % (Auto) Baso % (Auto) Lymph # (Auto) [place] # (Auto) Eos # (Auto) Baso # (Auto) Abs Immat Gran (auto) Absolute Neuts (auto) Absolute Nucleated RBC Nucleated RBC % (auto) PT INR APTT Sodium Potassium Chloride Carbon Dioxide Anion Gap BUN Creatinine Estim Creat Clear Calc Estimated GFR POC Glucose 123 H 183 H Random Glucose Calcium Troponin I High Sens B-Natriuretic Peptide TSH Imaging Chest x-ray: Radiologist's impression: ITS Impressions Chest X-Ray 10/22/24 10:54 IMPRESSION: Minimal left basilar atelectasis. Electronically signed by: Giovanny Chtaterjee MD 10/22/2024 12:07 PM EDT RP Discharge Plan Discharge Anticipated Discharge Date/Time: 10/23/24 11:18 Patient Disposition: Home, Self-Care Discharge Diagnosis: AFib with RVR Mild exacerbation of COPD Referrals: Taryn Parker MD [Primary Care Provider, Internal Medicine] - 1 Week Vishal Landers MD [Physician, Cardiology] - 2 Weeks Discharge Medications: New Eliquis 5 mg Tablet 5 mg PO BID 30 Days Qty: 60 0RF prednisone 20 mg Tablet 40 mg PO DAILY 4 Days Qty: 8 0RF diltiazem HCl [Cartia XT] 120 mg capsule,extended release 24hr 120 mg PO DAILY Qty: 30 0RF Continued Jardiance 10 mg tablet 10 mg PO DAILY lamotrigine 25 mg tablet 25 mg PO DAILY spironolactone 25 mg tablet 25 mg PO DAILY fluticasone propion-salmeterol [Advair HFA] 230-21 mcg/actuation HFA aerosol inhaler 2 puff INHALATION DAILY potassium chloride 20 mEq tablet extended release 20 meq PO DAILY fluticasone propionate 50 mcg/actuation spray,suspension 2 spray intranasal DAILY PRN (Reason: Allergy Symptoms) mirtazapine 7.5 mg tablet 7.5 mg PO BEDTIME Ozempic 1 mg/dose (4 mg/3 mL) pen injector 1 mg subcut TU quetiapine 100 mg tablet 200 mg PO BEDTIME metformin 1,000 mg tablet 1,000 mg PO BID lamotrigine 100 mg tablet 100 mg PO BID lamotrigine 25 mg tablet 50 mg PO BEDTIME aripiprazole 20 mg tablet 20 mg PO DAILY simvastatin 40 mg tablet 40 mg PO BEDTIME furosemide 20 mg tablet 40 mg PO DAILY@0800 Rx Instructions: 40 mg AM 20 mg PM as directed; gabapentin 300 mg capsule 300 mg PO TID albuterol sulfate [Ventolin HFA] 90 mcg/actuation HFA aerosol inhaler 2 puff PO DAILY (DME) walker Misc See Rx Instructions .Route Qty: 1 0RF Rx Instructions: As directed Discharge Orders: Discharge Order (Routine); Ordered 10/23/24 Ordered By: Darci Luu Diet: Low salt diet Activity on Discharge: As tolerated Stand Alone Forms: Patient Portal Discharge page Print Language: Monegasque Activity Restrictions/Additional Instructions: DISCHARGE DIAGNOSES: Exacerbation of COPD possible wheezing New onset of atrial fibrillation and irregular rapid arrhythmia. HISTORY OF PRESENTATION: ?Asymptomatic rapid irregular heart rate found to be atrial fibrillation. No other symptoms EMERGENCY DEPARTMENT COURSE,TESTS, TREATMENTS: While in the ED today you were evaluated you were kept on 2 L nasal cannula and your oxygen fluctuated from 80% to 95% you were able to ambulate without difficulty. Your x-ray was clear of any pneumonia or fluid in the lungs. You were treated with diltiazem which is a medication that lowers the heart rate in the setting of atrial fibrillation and effectively got your rate down. We have prescribed an initiated blood thinner as we discussed this prevents stroke in the setting of atrial fibrillation. DISCHARGE MEDICATIONS: ?[We have made no changes to your regular medication regimen] we have however added on metoprolol and apixaban FOLLOW-UP: ?Call your primary or general physician soon as possible to discuss your symptoms, your ED visit and to discuss follow up plans Continue with your follow up on Friday with your PCP INSTRUCTIONS ?& RETURN PRECAUTIONS: If any symptoms change first call your primary physician, if it is after-hours your primary doctors office should have a provider [address] you can speak with. If the symptoms are severe or very concerning to you then call 911 or return to the ED. Return for severe shortness of breath, chest pain, rapid heart rate persistently over 110 for more than 3 or 4 hours associated with symptoms Lucas Mcdaniel MD Emergency Physician [facility] Care Plan Goals: Follow-up with PCP within 1 week Follow-up with Cardiology for outpatient echocardiogram Health Concerns: Chronic hypoxemic respiratory failure due to COPD AFib, new diagnosis Plan of Treatment: Eliquis 5 mg b.i.d. Diltiazem CD 120 mg daily Prednisone 40 mg daily x4 days Assessment: As above Patient Instructions: A-fib (Atrial Fibrillation) (ED), COPD (Chronic Obstructive Pulmonary Disease) (DC)
--- NOTE | 2024-10-23 11:59 | MHC.CM.PN ---
IMM given 10/23. Pt lives at home alone, she receives daily [employer] services, and has VNA services through [facility]. Pts has home O2 through [facility], and uses a cane and a walker. Pts sister/HCP will transport her home at discharge. PCP: Dr. Taryn Parker Pt is medically cleared for discharge home with resumption of previous [employer] and [facility] services, her sister will transport her home today.
== END 2024-10-23 13:30 | disposition home or self-care (01) | DRG 309 ==
LOC: HO.ED 13:12 → HO.EDOVER 17:01 → HO.IMC 19:19
PROVIDERS: Admitting Provider Student in an Organized Health Care Education/Training Program; Emergency Provider Emergency Medicine; PCP Internal Medicine; Visit Provider Student in an Organized Health Care Education/Training Program
DX: I48.91 Unspecified atrial fibrillation (principal); J44.1 Chronic obstructive pulmonary disease with (acute) exacerbation; J96.11 Chronic respiratory failure with hypoxia; E78.2 Mixed hyperlipidemia; E11.9 Type 2 diabetes mellitus without complications; F39 Unspecified mood [affective] disorder; Z99.81 Dependence on supplemental oxygen; Z87.891 Personal history of nicotine dependence; Z79.84 Long term (current) use of oral hypoglycemic drugs; Z79.899 Other long term (current) drug therapy
CPT/HCPCS: 36415; 71045; 80048; 82947; 83880; 84443; 84484; 85025; 85027; 85610; 85730; 93005; 94640; 99285; J0616; J1160; J1163; J2919

== ENCOUNTER → 2024-10-22 11:43 | Outpatient (BNV) | payer MEDICARE, MEDICAID, SELFPAY | PROVIDERS: Emergency Provider Emergency Medicine; PCP Internal Medicine; Visit Provider Radiology Diagnostic Radiology | DX: J44.9 Chronic obstructive pulmonary disease, unspecified (principal); R06.00 Dyspnea, unspecified | CPT/HCPCS: 71045 ==

== ENCOUNTER 2024-10-22 16:53 | Outpatient (BNV) | payer MEDICARE, MEDICAID, SELFPAY | END 2024-10-23 05:12 | PROVIDERS: Admitting Provider Student in an Organized Health Care Education/Training Program; Emergency Provider Emergency Medicine; PCP Internal Medicine; Visit Provider Internal Medicine | DX: I25.2 Old myocardial infarction (principal) | CPT/HCPCS: 93010 ==

== ENCOUNTER → 2024-10-22 16:53 | Outpatient (BNV) | payer MEDICARE, MEDICAID, SELFPAY | PROVIDERS: Admitting Provider Student in an Organized Health Care Education/Training Program; Emergency Provider Emergency Medicine; PCP Internal Medicine; Visit Provider Student in an Organized Health Care Education/Training Program | DX: I48.91 Unspecified atrial fibrillation (principal) | CPT/HCPCS: 99222; 99239 ==

== ENCOUNTER → 2024-10-22 16:53 | Outpatient (BNV) | payer MEDICARE, MEDICAID, SELFPAY | PROVIDERS: Admitting Provider Student in an Organized Health Care Education/Training Program; Emergency Provider Emergency Medicine; PCP Internal Medicine; Visit Provider Internal Medicine | DX: I48.91 Unspecified atrial fibrillation (principal) | CPT/HCPCS: 93010; 99223 ==

== ENCOUNTER 2024-11-03 14:18 | Outpatient (AMB) | payer MEDICARE, MEDICAID, SELFPAY ==
[2024-11-03 14:35] VITALS: BP 128/62; PULSE 79; O2SAT 92; BMI 46.0
--- NOTE | 2024-11-03 14:35 | A.OFFVIS_ITS ---
Vital Signs 11/03/24 14:35 Height 5 ft 1 in Weight 243 lb 9.773 oz BMI 46.0 BP 128/62 Blood Pressure Location Lt brachial Position Sitting Pulse 79 Pulse Source Pulse Oximeter Pulse Oximetry (%) 92 Oxygen Delivery Method Room Air Intake Visit Reasons: COPD exacerbation Intake Note: pt is here for follow up from copd ex, and states she is at her baseline, using oxygen at night and prn daytime Analytical Research Program Manager Required: No Allergies haloperidol (From Haldol) Allergy (Mild, Verified 11/03/24 15:16) UNKNOWN Medication List - Last Reconciled 11/03/24 by Jean Haider MD albuterol sulfate 90 mcg/actuation (Ventolin HFA) 2 puffs PO DAILY apixaban (Eliquis) 5 mg PO BID 30 days aripiprazole 20 mg PO DAILY diltiazem HCl CD (Cartia XT) 120 mg PO DAILY empagliflozin (Jardiance) 10 mg PO DAILY fluticasone propion-salmeterol 230-21 mcg/actuation (Advair HFA) 2 puffs inhalation DAILY fluticasone propionate 50 mcg/actuation 2 sprays intranasal DAILY PRN furosemide 40 mg PO DAILY@0800 gabapentin 300 mg PO TID lamotrigine 25 mg PO DAILY lamotrigine 100 mg PO BID lamotrigine 50 mg PO BEDTIME metformin 1,000 mg PO BID mirtazapine 7.5 mg PO BEDTIME potassium chloride ER 20 mEq PO DAILY quetiapine 200 mg PO BEDTIME semaglutide (Ozempic) 1 mg subcut TU simvastatin 40 mg PO BEDTIME spironolactone 25 mg PO DAILY walker As directed Do you need a note to return to daycare/school/sports/work: No HPI HPI COPD exacerbation: Details: THIS 69 YEARS OLD FEMALE WITH MORBID OBESITY , COPD. AND MULTIPLE COMORBIDITIES INCLUDING DIABETES MELLITUS, NOCTURNAL HYPOXEMIA CHRONIC PSYCHOTIC PROBLEM, CARDIAC ARRHYTHMIAS AND ON ANTICOAGULATION. COMES FOR FOLLOW-UP TODAY SHE LIVES AT HOME, SHE IS ATTENDED BY THE VISITING NURSE AND ALSO CAME ALONG WITH THE PROPERTY MAN. SHE IS SUPPOSED TO USE 0 TO 2 L/MINUTE, AND SAY IS THAT SHE USES ONLY ONCE IN A WHILE. SHE IS ALSO SUPPOSED TO USE O2 P.R.N. DURING THE DAYTIME IF SHE FEELS SHORT OF BREATH. DENIES ANY SPECIFIC COMPLAINTS, BUT HAS SOME CONFUSION ABOUT THE INHALERS. SHE TELLS ME THAT SHE IS USING VENTOLIN 2 PUFFS TWICE A DAY AND ADVAIR HFA A RESCUE INHALER. HOWEVER SHE MAY BE CONFUSED ABOUT THIS. LAST WEEK SHE WAS HOSPITALIZED FOR 2 DAYS BUT THIS WAS MAINLY FOR ATRIAL FIBRILLATION. 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 Review of Systems Const All systems reviewed & are unremarkable except as noted in HPI and below Eyes Reports no additional complaints ENT Reports no additional complaints Card Denies chest pain, Denies irregular heart rhythm, Reports leg edema and Reports dyspnea on exertion Resp Reports as per HPI and Reports dyspnea on exertion GI Reports no additional complaints Reports no additional complaints Musc Reports no additional complaints Skin/Breast Reports system reviewed and no additional complaints, except as documented Neuro Reports no additional complaints Endo Reports other (Diabetes mellitus patient is on Ozempic injections Q 1 week ) Kailash/Lymph Reports no additional complaints Aller/Immun Reports no additional complaints Physical Exam Vital Signs: Last Vital Signs Pulse 79 11/03/24 14:35 BP 128/62 11/03/24 14:35 Pulse Ox 92 11/03/24 14:35 Oxygen Delivery Method Room Air 11/03/24 14:35 BMI result Body Mass Index 46.0 Const Other: She appears grossly obese but is comfortable General: comfortable, no acute distress, alert and awake Orientation/consciousness: patient oriented x3 HEENT Head: Yes normal to inspection General nose exam: No nasal polyps present and No nasal discharge present Face and sinus: Yes sinuses nontender Mouth: oropharynx normal Throat: Yes posterior oropharynx normal Eyes General: appearance normal, both eyes and all related structures Neck Neck: Yes normal visual inspection, Yes no lymphadenopathy, Yes trachea midline and Yes no JVD Thyroid: Thyroid normal Chest Chest palpation & inspection: normal inspection of the chest, normal palpation of entire chest wall and tenderness Resp Other: Percussion note is not perceptible over the lower lobes because of thick chest wall. Breath sounds are distant with slight prolongation. Of the expiratory phase No wheezes crepitations or. Rhonchi are heard Cardio Palpation: PMI not normal (Not palpable) Rate: regular rate Rhythm: regular rhythm Heart sounds: no gallops and no murmurs GI Palpation (GI): Soft to palpation, nontender, No hepatosplenomegaly present and no masses Auscultation: normal bowel sounds Back/Spine/Pelvis Thoracic/Lumbar Spine: thoracic and lumbar spine normal to inspection and thoraco-lumbar ROM limited Skin General skin exam: no rashes or lesions noted Neuro General: patient oriented x3, No gait normal (Has slight gait impairment uses a cane) and no focal motor deficits Cranial nerves: Yes CN's II-XII intact bilaterally Extrem General: Yes normal to inspection, Yes no clubbing, cyanosis or edema, Yes no calf tenderness and Yes venous stasis dermatitis (As chronic stasis dermatitis around the ankles and lower parts of both legs) Psych Appearance: grossly normal and well kempt Speech and movement: Normal speech and movement present (Slightly slow in answering questions) Assessment & Plan Assessment & Plan (1) Obesity (BMI 35.0-39.9 without comorbidity): Comment: Patient is grossly obese. It has been unchanged in the last 5-6 years. She is trying to control her diet, not able to do much exercise Code(s): E66.9 - Obesity, unspecified Category: Medical Plan: BECAUSE OF HER MENTAL DISORDER AND COGNITIVE IMPAIRMENT. IT IS NOT EXPECTED THAT SHE WOULD LOSE. MUCH WEIGHT (2) Restrictive lung disease: Comment: Because because of gross obesity she is a good candidate for restrictive lung disease. Clinically on auscultation she does have decreased breath sounds over the lower. Lobes No pulmonary function test has been done to confirm that. Code(s): J98.4 - Other disorders of lung Category: Medical Plan: WEIGHT REDUCTION IS DESIRABLE BUT THAT IS DIFFICULT TO ACHIEVE IN HER CASE. SHE IS ADVISED TO DO DEEP BREATHING EXERCISES 3 TIMES A DAY, AND AGAIN THIS MAY BE DIFFICULT TO IMPLEMENT. (3) COPD (chronic obstructive pulmonary disease): Comment: Patient has been treated for chronic obstructive pulmonary disease for past 6 years. She does have previous history of smoking . Currently on Advair HFA 230-21 2 puffs b.i.d. and albuterol only p.r.n. Code(s): J44.9 - Chronic obstructive pulmonary disease, unspecified Category: Medical Plan: SHE IS ADVISED TO CONTINUE USING THE ADVAIR HFA 230-21 2 PUFFS B.I.D. THE MAINTENANCE REGIMEN. ALSO EXPLAINED THAT ALBUTEROL HFA IS A RESCUE INHALER, AND SHOULD BE USED 2 PUFFS Q 4-6 HOURS ONLY P.R.N.. (4) Chronic hypoxic respiratory failure: Comment: PATIENT IS KNOWN TO HAVE NOCTURNAL HYPOXEMIA, Code(s): J96.11 - Chronic respiratory failure with hypoxia Category: Medical Plan: SHE IS ADVISED TO USE OXYGEN 2 L/MINUTE AT NIGHT.. AND DURING THE DAYTIME SHE CAN USE 2 L/MINUTE P.R.N. IF SHE IS MORE SHORT OF BREATH Coding Level of Care Code Est Pt Level 3 (07475) Diagnoses Obesity (BMI 35.0-39.9 without comorbidity) E66.9 Restrictive lung disease J98.4 COPD (chronic obstructive pulmonary disease) J44.9 Chronic hypoxic respiratory failure J96.11
--- OUTSIDE RECORDS SUMMARY | 2024-11-03 15:01 | XMS_ITS | Encounter Summary ---
Author Organization [facility] Address [address] [place] [phone] Care Team Providers Care Academic Affairs Coordinator Name Role Phone Braeden Hudson MD Primary Care Provider [phone] Encounter Details Date Type Department Care Team (Late st Contact Info) Description 07/22/2024 Lab Requisition [facility] - Main Lab [address] [place] [address] Braeden Hudson MD [address] [place] [address] [address] [facility] [phone] Essential (primary) hypertension; Anemia, unspecified Social [...] LAB CHEMISTRY METHOD 07/23/2024 10:48 AM EDT [facility] Potassium 3.2(L) 3.5 - 5.5 mmol/L LAB CHEMISTRY METHOD 07/23/2024 10:48 AM EDT [facility] Chloride 101 96 - 110 mmol/L LAB CHEMISTRY METHOD 07/23/2024 10:48 AM [facility] CO2 29 21 - 32 mmol/L LAB CHEMISTRY METHOD 07/23/2024 10:48 AM [facility] Anion Gap 11 3 - 11 LAB CHEMISTRY METHOD 07/23/2024 10:48 AM [facility] Glucose 128(H) 70 - 100 mg/dL LAB CHEMISTRY METHOD 07/23/2024 10:48 AM [facility] BUN 18 5 - 25 mg/dL LAB CHEMISTRY METHOD 07/23/2024 10:48 AM [facility] Creatinine 0.71 0.50 - 1.10 mg/dL LAB CHEMISTRY METHOD 07/23/2024 10:48 AM [facility] eGFR 92 >=60 mL/min/1. 73m2 LAB CHEMISTRY METHOD 07/23/2024 10:48 AM [facility] Comment:Calculation based on the Chronic Kidney Disease Epidemiology Collaboration (CKD-EPI) equation refit without adjustment for race. BUN/Creatinine Ratio 25.4 LAB CHEMISTRY METHOD 07/23/2024 10:48 AM [facility] Calcium 9.1 8.5 - 10.5 mg/dL LAB CHEMISTRY METHOD 07/23/2024 10:48 AM [facility] Blood Venous blood specimen / Unknown Venipuncture / Unknown 07/23/2024 7:04 AM EDT 07/23/2024 9:05 AM EDT us Braeden Hudson MD LAB BLOOD ORDERABLES Final Resul t [facility] [address] [place] [address], documented in this encounter Visit Diagnoses Diagnosis Essential (primary) hypertension Unspecified essential hypertension Anemia, unspecified documented in this encounter Care Teams Academic Affairs Coordinator Relationship Specialty Start Date End Date Braeden Hudson MD [address], [phone] PCP - General Family Medicine 07/20/24 documented as of this encounter
--- OUTSIDE RECORDS SUMMARY | 2024-11-03 15:01 | XMS_ITS | Patient Health Record ---
Author Organization [facility] Address [address] [place] [address] Care Team Providers Care Neurosurgical Nurse Practitioner Name Role Phone Keith FLANNERY, Taryn Primary Care Provider Jericho Espinoza Jr Unavailable [phone] Reason For Referral No Information Plan Of Treatment No Information Insurance Providers Payer Name Payer Address Payer Phone Subscriber Number Group Number Insured Name Patient Relationship to Insured Coverage Start Date Coverage End Date MED[place] [address] [place] [address] [id number] JOHN CASAS Self - patient is the insured MEDICAID OF [facility] [address] [place] [address] [id number] JOHN CASAS Self - patient is the insured
== END 2024-11-03 15:18 | disposition home or self-care (01) ==
LOC: HO.HPS 14:18
PROVIDERS: PCP Internal Medicine; Visit Provider Internal Medicine
DX: E66.9 Obesity, unspecified (principal); J98.4 Other disorders of lung; J44.9 Chronic obstructive pulmonary disease, unspecified; J96.11 Chronic respiratory failure with hypoxia
CPT/HCPCS: 99213

== ENCOUNTER → 2024-11-03 14:18 | Outpatient (BNVA) | payer MEDICARE, MEDICAID, SELFPAY | PROVIDERS: PCP Internal Medicine; Visit Provider Internal Medicine | DX: J96.11 Chronic respiratory failure with hypoxia (principal); J44.9 Chronic obstructive pulmonary disease, unspecified; E66.01 Morbid (severe) obesity due to excess calories; Z68.42 Body mass index [BMI] 45.0-49.9, adult; Z79.899 Other long term (current) drug therapy | CPT/HCPCS: 99212 ==

== ENCOUNTER → 2024-11-25 13:11 | Outpatient (REF) | payer MEDICARE, MEDICAID, SELFPAY ==
--- NOTE | 2024-11-25 13:16 | CA_ITS ---
Transthoracic Echocardiogram Patient (Last, First, Middle): Elizabeth Ann A Gender: F Date of : 1955 Age: 69 Procedure Date: 11/25/2024 Procedure Type: Transthoracic Echocardiogram Location: OP Height: 154.94 cm Weight: 107.96 kg BSA: 2.03 m2 Heart Rate: 52 bpm BP: 102 / 60 mmHg Refrigerating Technician: JAYLON/JAGDISH Referring MD: Vishal Landers MD Licensing Specialist: Ran Mccracken MD Symptoms: I48.91 Unspecified atrial fibrillation Study Quality: Technically Difficult w/Contrast ECG Rhythm: Frequent ventricular premature beats Conclusions: - 1. Normal LV ejection fraction 55-60% with impaired relaxation filling pattern 2. Normal cardiac valvular Dopplers 3. Normal calculated RV systolic pressure 4. Mildly dilated ascending aorta at 3.9 cm 5. Small pericardial effusion noted near the left ventricle Findings Procedure Information Contrast agent, definity, is being given per protocol without apparent complications. Left Ventricle Normal left ventricular size, thickness, and systolic function. The visually estimated ejection fraction is between 55-60%. Spectral Doppler is indicative of an impaired relaxation filling pattern. E/E prime ratio is between 8 and 15 consistent with indeterminate filling pressures. Atria The left atrium is normal in size. Interatrial shunt cannot be excluded. The right atrium was not well visualized. Aortic Valve The aortic valve structure and function is likely normal. There is no aortic valve stenosis. There is no aortic valve regurgitation. Mitral Valve Likely normal mitral valve structure and function. There is trace mitral valve regurgitation. There is no mitral valve stenosis. Pulmonic Valve The pulmonic valve was not well visualized. Tricuspid Valve Likely normal tricuspid valve structure and function. There is trace tricuspid valve regurgitation. The right ventricular systolic pressure is normal. The right ventricular systolic pressure is 28 mmHg. Normal right atrial pressure. There is no evidence of pulmonary hypertension. Great Vessels The pulmonary artery was not well visualized. There is mild dilatation of the ascending aorta measuring 3.90 cm. Venous The inferior vena cava is normal in size and collapses greater than 50% with inspiration. Pericardium/Pleural There is a small loculated pericardial effusion overlying the left ventricle. Prior Study Comparison No prior study available for comparison. Measurements 2D Linear Measurements IVSd: 0.58 0.6-0.9/0.6-1.0 cm LVIDd: 5.08 3.9-5.3/4.2-5.9 cm LVIDd Index: 2.50 2.4-3.2/2.2-3.1 cm/m2 LVIDs: 2.76 2.0-3.6 cm LVPWd: 0.83 0.7-1.1 cm LA Diam: 3.60 2.7-3.8/3.0-4.0 cm LAIDs Index: 1.77 1.5-2.3 cm/m2 LV Mass: 148.48 67-162/88-224 g LV Mass Index: 73.14 43-95/49-115 g/m2 LVOT Diam: 1.90 3.0+(-)1.3 cm 2D Systolic Function EF 4C: 56.70 >55% EF 2C: 62.00 >55% EF BiP: 58.10 >55% Mitral Valve MV Pk E: 1.01 MV PK A: 1.07 MV Decel Time: 160.00 E/A: 0.90 E'Lateral: 8.58 E/E' Lat: 11.80 PHT: 47.00 MVA PHT: 4.68 Decel [place]: 6.42 Aortic Valve AoV Pk Tariq: 1.56 AoV Mn Tariq: 1.10 AoV VTI: 0.36 AoV Pk Grad: 10.00 Aov Mn Grad: 6.00 CHASE Cont.VTI: 1.89 LVOT LVOT Pk Tariq: 1.06 LVOT Mn Tariq: 0.68 LVOT VTI: 0.24 LVOT Pk Grad: 4.00 LVOT Mn Grad: 2.00 LVOT Diam: 1.90 LVOT Area: 2.84 Diastolic Function MV Pk E: 1.01 MV Pk A: 1.07 E/A: 0.90 E' Laterial: 8.58 E/E' Lat: 11.80 Right Ventricle TAPSE (mm): 23.10 TVS' Tariq: 15.40 Tricuspid Valve TR Pk Tariq: 2.51 TR Pk Grad: 25.00 RA Press: 3.00 RVSP: 28.00 Great Vessels Aorta Sinus of Valsalva: 3.20 2.0-3.5 cm Ao Asc: 3.90 2.1-3.4 cm Pulmonary Veins Pulm Vein S/D 1.40 Pulmonary Valve PV Pk Tariq: 1.17 Peak PV Grad: 5.00 Updated in Other Vendor System with Status of Final Ran Mccracken MD electronically signed on 11/26/2024 5:04:56 PM with status of Final
--- OUTSIDE RECORDS SUMMARY | 2024-11-25 13:24 | XMS_ITS | Encounter Summary ---
Author Organization [facility] Address [address] [place] [phone] Care Team Providers Care New Client Banking Services Clerk Name Role Phone Braeden Hudson MD Primary Care Provider [phone] Encounter Details Date Type Department Care Team (Late st Contact Info) Description 07/22/2024 Lab Requisition [facility] - Main Lab [address] [place] [address] Braeden Hudson MD [address] [place] [address] [address] [facility] [phone] Essential (primary) hypertension; Anemia, [...] LAB CHEMISTRY METHOD 07/23/2024 10:48 AM EDT [facility] Potassium 3.2(L) 3.5 - 5.5 mmol/L LAB CHEMISTRY METHOD 07/23/2024 10:48 AM EDT [facility] Chloride 101 96 - 110 mmol/L LAB CHEMISTRY METHOD 07/23/2024 10:48 AM [facility] CO2 29 21 - 32 mmol/L LAB CHEMISTRY METHOD 07/23/2024 10:48 AM [facility] Anion Gap 11 3 - 11 LAB CHEMISTRY METHOD 07/23/2024 10:48 AM [facility] Glucose 128(H) 70 - 100 mg/dL LAB CHEMISTRY METHOD 07/23/2024 10:48 AM [facility] BUN 18 5 - 25 mg/dL LAB CHEMISTRY METHOD 07/23/2024 10:48 AM [facility] Creatinine 0.71 0.50 - 1.10 mg/dL LAB CHEMISTRY METHOD 07/23/2024 10:48 AM [facility] eGFR 92 >=60 mL/min/1. 73m2 LAB CHEMISTRY METHOD 07/23/2024 10:48 AM [facility] Comment:Calculation based on the Chronic Kidney Disease Epidemiology Collaboration (CKD-EPI) equation refit without adjustment for race. BUN/Creatinine Ratio 25.4 LAB CHEMISTRY METHOD 07/23/2024 10:48 AM [facility] Calcium 9.1 8.5 - 10.5 mg/dL LAB CHEMISTRY METHOD 07/23/2024 10:48 AM [facility] Blood Venous blood specimen / Unknown Venipuncture / Unknown 07/23/2024 7:04 AM EDT 07/23/2024 9:05 AM EDT us Braeden Hudson MD LAB BLOOD ORDERABLES Final Resul t [facility] [address] [place] [address], documented in this encounter Visit Diagnoses Diagnosis Essential (primary) hypertension Unspecified essential hypertension Anemia, unspecified documented in this encounter Care Teams New Client Banking Services Clerk Relationship Specialty Start Date End Date Braeden Hudson MD [address], [phone] PCP - General Family Medicine 07/20/24 documented as of this encounter
== END ==
LOC: HO.CARD 13:11
PROVIDERS: PCP Internal Medicine; Visit Provider Internal Medicine
DX: I48.91 Unspecified atrial fibrillation (principal)
CPT/HCPCS: 93242; 93306; Q9957

== ENCOUNTER → 2024-11-25 13:16 | Outpatient (BNV) | payer MEDICARE, MEDICAID, SELFPAY | PROVIDERS: PCP Internal Medicine; Visit Provider Internal Medicine Cardiovascular Disease | DX: I31.39 Other pericardial effusion (noninflammatory) (principal); I77.810 Thoracic aortic ectasia | CPT/HCPCS: 93306 ==

== ENCOUNTER → 2024-11-30 10:56 | Outpatient (REF) | payer MEDICARE, MEDICAID, SELFPAY ==
--- NOTE | 2024-11-30 10:59 | HM_ITS ---
* Total monitoring time 3 days. * Underlying rhythm is sinus with an average rate of 79/Min. * Rare supraventricular ectopy. * Ventricular ectopy noted with a burden of 1.4%. Rare couplets. No significant runs. * No significant pauses or high-grade AV blocks. * No patient markers or diary events. MTDD
--- OUTSIDE RECORDS SUMMARY | 2024-11-30 11:49 | XMS_ITS | Encounter Summary ---
Author Organization [facility] Address [address] [place] [phone] Care Team Providers Care Cloth Carrier Name Role Phone Braeden Hudson MD Primary Care Provider [phone] Encounter Details Date Type Department Care Team (Late st Contact Info) Description 07/20/2024 Lab Requisition [facility] - Main Lab [address] [place] [address] Braeden Hudson MD [address] [place] [address] 204 [facility] [phone] Anemia, unspecified Social History Tobacco Use Types [...] Procedure Name Priority Date/Time Associated Diagnosis Comments CBC WITH AUTO DIFFERENTIAL Routine 07/20/2024 6:04 AM EDT Anemia, unspecified CBC AND DIFFERENTIAL Routine 07/20/2024 6:04 AM EDT Anemia, unspecified COMPREHENSIVE METABOLIC PANEL Routine 07/20/2024 6:04 AM EDT Anemia, unspecified documented in this encounter Results * (ABNORMAL) CBC auto differential (07/20/2024 6:04 AM EDT) WBC 11.2(H) 4.8 - 10.8 K/[facility] LAB HEMETOLOGY METHOD 07/20/2024 10:04 AM [facility] RBC 5.20(H) 3.80 - 4.80 M/mcL LAB HEMETOLOGY METHOD 07/20/2024 10:04 AM [facility] Hemoglobin 15.8 11.5 - 16.0 g/dL LAB HEMETOLOGY METHOD 07/20/2024 10:04 AM [facility] Hematocrit 49.2(H) 35.0 - 47.0 % LAB HEMETOLOGY METHOD 07/20/2024 10:04 AM [facility] MCV 95.5 79.0 - 98.0 FL LAB HEMETOLOGY METHOD 07/20/2024 10:04 AM [facility] MCH 30.7 27.0 - 32.0 pcg LAB HEMETOLOGY METHOD 07/20/2024 10:04 AM [facility] MCHC 32.1 32.0 - 37.0 g/dL LAB HEMETOLOGY METHOD 07/20/2024 10:04 AM [facility] RDW 14.3 11.0 - 15.0 % LAB HEMETOLOGY METHOD 07/20/2024 10:04 AM [facility] Platelets 285 130 - 400 K/mcL LAB HEMETOLOGY METHOD 07/20/2024 10:04 AM [facility] MPV 10.4 7.0 - 11.0 FL LAB HEMETOLOGY METHOD 07/20/2024 10:04 AM [facility] NRBC 0.0 <1.0 % LAB HEMETOLOGY METHOD 07/20/2024 10:04 AM [facility] NRBC Absolute 0.00 <0.10 K/mcL LAB HEMETOLOGY METHOD 07/20/2024 10:04 AM [facility] Neutrophils Relative 77.7 % LAB HEMETOLOGY METHOD 07/20/2024 10:04 AM [facility] Lymphocytes Relative 12.0 % LAB HEMETOLOGY METHOD 07/20/2024 10:04 AM [facility] Monocytes Relative 9.4 % LAB HEMETOLOGY METHOD 07/20/2024 10:04 AM [facility] Eosinophils Relative 0.2 % LAB HEMETOLOGY METHOD 07/20/2024 10:04 AM [facility] Basophils Relative 0.4 % LAB HEMETOLOGY METHOD 07/20/2024 10:04 AM [facility] Immature Granulocytes Relative 0.3 % LAB HEMETOLOGY METHOD 07/20/2024 10:04 AM [facility] Neutrophils Absolute 8.73(H) 1.50 - 7.00 K/mcL LAB HEMETOLOGY METHOD 07/20/2024 10:04 AM [facility] Lymphocytes Absolute 1.34 1.00 - 5.00 K/mcL LAB HEMETOLOGY METHOD 07/20/2024 10:04 AM [facility] Monocytes Absolute 1.05(H) 0.20 - 1.00 K/mcL LAB HEMETOLOGY METHOD 07/20/2024 10:04 AM [facility] Eosinophils Absolute 0.02 0.00 - 0.50 K/mcL LAB HEMETOLOGY METHOD 07/20/2024 10:04 AM [facility] Basophils Absolute 0.04 0.00 - 0.20 K/mcL LAB HEMETOLOGY METHOD 07/20/2024 10:04 AM [facility] Immature Granulocytes Absolute 0.03 0.00 - 0.03 K/mcL LAB HEMETOLOGY METHOD 07/20/2024 10:04 AM [facility] Blood Venous blood specimen / Unknown Venipuncture / Unknown 07/20/2024 6:04 AM EDT 07/20/2024 9:29 AM EDT us Braeden Hudson MD LAB BLOOD ORDERABLES Final Resul t [facility] [address] [place] [address], [place] [phone] * (ABNORMAL) Comprehensive metabolic panel (07/20/2024 6:04 AM EDT) Sodium 139 133 - 145 mmol/L LAB CHEMISTRY METHOD 07/20/2024 10:27 AM [facility] Potassium 3.2(L) 3.5 - 5.5 mmol/L LAB CHEMISTRY METHOD 07/20/2024 10:27 AM [facility] Chloride 103 96 - 110 mmol/L LAB CHEMISTRY METHOD 07/20/2024 10:27 AM [facility] CO2 26 21 - 32 mmol/L LAB CHEMISTRY METHOD 07/20/2024 10:27 AM [facility] Anion Gap 10 3 - 11 LAB CHEMISTRY METHOD 07/20/2024 10:27 AM [facility] Glucose 119(H) 70 - 100 mg/dL LAB CHEMISTRY METHOD 07/20/2024 10:27 AM [facility] BUN 23 5 - 25 mg/dL LAB CHEMISTRY METHOD 07/20/2024 10:27 AM [facility] Creatinine 0.87 0.50 - 1.10 mg/dL LAB CHEMISTRY METHOD 07/20/2024 10:27 AM [facility] eGFR 72 >=60 mL/min/1. 73m2 LAB CHEMISTRY METHOD 07/20/2024 10:27 AM [facility] Comment:Calculation based on the Chronic Kidney Disease Epidemiology Collaboration (CKD-EPI) equation refit without adjustment for race. BUN/Creatinine Ratio 26.4 LAB CHEMISTRY METHOD 07/20/2024 10:27 AM [facility] Calcium 9.6 8.5 - 10.5 mg/dL LAB CHEMISTRY METHOD 07/20/2024 10:27 AM [facility] AST (SGOT) 148(H) 10 - 42 unit/L LAB CHEMISTRY METHOD 07/20/2024 10:27 AM [facility] ALT (SGPT) 37 10 - 60 unit/L LAB CHEMISTRY METHOD 07/20/2024 10:27 AM [facility] Alkaline Phosphatase 97 42 - 121 unit/L LAB CHEMISTRY METHOD 07/20/2024 10:27 AM [facility] Total Protein 7.4 6.0 - 8.0 g/dL LAB CHEMISTRY METHOD 07/20/2024 10:27 AM [facility] Albumin 4.3 3.2 - 5.0 g/dL LAB CHEMISTRY METHOD 07/20/2024 10:27 AM [facility] Total Bilirubin 1.0 0.0 - 1.4 mg/dL LAB CHEMISTRY METHOD 07/20/2024 10:27 AM [facility] Blood Venous blood specimen / Unknown Venipuncture / Unknown 07/20/2024 6:04 AM EDT 07/20/2024 9:29 AM EDT us Braeden Hudson MD LAB BLOOD ORDERABLES Final Resul t [facility] [address] [place] [address], documented in this encounter Visit Diagnoses Diagnosis Anemia, unspecified documented in this encounter Care Teams Cloth Carrier Relationship Specialty Start Date End Date Braeden Hudson MD [address] [place] [address] [address] [place], [phone] PCP - General Family Medicine 07/20/24 documented as of this encounter
--- OUTSIDE RECORDS SUMMARY | 2024-11-30 11:49 | XMS_ITS | Encounter Summary ---
Author Organization [facility] Address [address] [place] [phone] Care Team Providers Care Contaminated Land Consultant Name Role Phone Braeden Hudson MD Primary Care Provider [phone] Encounter Details Date Type Department Care Team (Late st Contact Info) Description 07/30/2024 Lab Requisition [facility] - Main Lab [address] [place] [address] Braeden Hudson MD [address] [place] [address] 204 [facility] [phone] Chronic obstructive pulmonary disease, unspecified (CMS/HCC V24, CMS/HCC V28) Social History Tobacco Use Types Packs/Day Years [...] Procedure Name Priority Date/Time Associated Diagnosis Comments COMPREHENSIVE METABOLIC PANEL Routine 07/30/2024 7:20 AM EDT Chronic obstructive pulmonary disease, unspecified (CMS/HCC V24, CMS/HCC V28) documented in this encounter Results * (ABNORMAL) Comprehensive metabolic panel (07/30/2024 7:20 AM EDT) Sodium 141 133 - 145 mmol/L LAB CHEMISTRY METHOD 07/30/2024 10:25 AM EDT [facility] Potassium 3.9 3.5 - 5.5 mmol/L LAB CHEMISTRY METHOD 07/30/2024 10:25 AM [facility] Chloride 104 96 - 110 mmol/L LAB CHEMISTRY METHOD 07/30/2024 10:25 AM [facility] CO2 30 21 - 32 mmol/L LAB CHEMISTRY METHOD 07/30/2024 10:25 AM [facility] Anion Gap 7 3 - 11 LAB CHEMISTRY METHOD 07/30/2024 10:25 AM [facility] Glucose 111(H) 70 - 100 mg/dL LAB CHEMISTRY METHOD 07/30/2024 10:25 AM [facility] BUN 8 5 - 25 mg/dL LAB CHEMISTRY METHOD 07/30/2024 10:25 AM [facility] Creatinine 0.65 0.50 - 1.10 mg/dL LAB CHEMISTRY METHOD 07/30/2024 10:25 AM [facility] LAB eGFR 95 >=60 mL/min/1. 73m2 LAB CHEMISTRY METHOD 07/30/2024 10:25 AM [facility] LAB Comment:Calculation based on the Chronic Kidney Disease Epidemiology Collaboration (CKD-EPI) equation refit without adjustment for race. BUN/Creatinine Ratio 12.3 LAB CHEMISTRY METHOD 07/30/2024 10:25 AM [facility] Calcium 8.8 8.5 - 10.5 mg/dL LAB CHEMISTRY METHOD 07/30/2024 10:25 AM [facility] AST (SGOT) 14 10 - 42 unit/L LAB CHEMISTRY METHOD 07/30/2024 10:25 AM [facility] ALT (SGPT) 16 10 - 60 unit/L LAB CHEMISTRY METHOD 07/30/2024 10:25 AM [facility] Alkaline Phosphatase 77 42 - 121 unit/L LAB CHEMISTRY METHOD 07/30/2024 10:25 AM [facility] Total Protein 6.1 6.0 - 8.0 g/dL LAB CHEMISTRY METHOD 07/30/2024 10:25 AM EDT [facility] Albumin 3.4 3.2 - 5.0 g/dL LAB CHEMISTRY METHOD 07/30/2024 10:25 AM EDT [facility] Total Bilirubin 0.7 0.0 - 1.4 mg/dL LAB CHEMISTRY METHOD 07/30/2024 10:25 AM EDT [facility] Blood Venous blood specimen / Unknown Venipuncture / Unknown 07/30/2024 7:20 AM EDT 07/30/2024 9:06 AM EDT us Braeden Hudson MD LAB BLOOD ORDERABLES Final Resul t [facility] [address] [place] [address], documented in this encounter Visit Diagnoses Diagnosis Chronic obstructive pulmonary disease, unspecified (CMS/HCC V24, CMS/HCC V28) documented in this encounter Care Teams Contaminated Land Consultant Relationship Specialty Start Date End Date Braeden Hudson MD [address] [place] [address], [phone] PCP - General Family Medicine 07/20/24 documented as of this encounter
--- OUTSIDE RECORDS SUMMARY | 2024-11-30 11:49 | XMS_ITS | Encounter Summary ---
Author Organization [facility] Address [address] [place] [phone] Care Team Providers Care Ornamental Metal Worker Helper Name Role Phone Braeden Hudson MD Primary Care Provider [phone] Encounter Details Date Type Department Care Team (Late st Contact Info) Description 08/03/2024 Lab Requisition [facility] - Main Lab 299 [facility] [place] [address] Braeden Hudson MD [address] [facility] [address], [phone] Anemia, unspecified; Essential (primary) hypertension Social History Tobacco Use Types Packs/Day Years Used Date Smoking Tobacco: Never Assessed Comments Unknown Sex and Gender Information Value Date Recorded Sex Assigned at Not on file Legal Sex Female 11:55 PM EST Gender Identity Not on file Sexual Orientation Not on file documented as of this encounter Plan of Treatment Not on file documented as of this encounter Visit Diagnoses Diagnosis Anemia, unspecified Essential (primary) hypertension Unspecified essential hypertension documented in this encounter Care Teams Ornamental Metal Worker Helper Relationship Specialty Start Date End Date Braeden Hudson MD [address] [facility] [address], [phone] PCP - General Family Medicine 07/20/24 documented as of this encounter
--- OUTSIDE RECORDS SUMMARY | 2024-11-30 11:49 | XMS_ITS | Encounter Summary ---
Author Organization [facility] Address [address] [place] [phone] Care Team Providers Care Hard Rock Drill Operator Name Role Phone Braeden Hudson MD Primary Care Provider Encounter Details Date Type Department Care Team (Late st Contact Info) Description 07/22/2024 Lab Requisition [facility] - Main Lab [address] [place] [address] Braeden Hudson MD [address] [place] [address] 204 [facility] [phone] Essential (primary) hypertension; Anemia, unspecified Social [...] LAB CHEMISTRY METHOD 07/23/2024 10:48 AM EDT [facility] Potassium 3.2(L) 3.5 - 5.5 mmol/L LAB CHEMISTRY METHOD 07/23/2024 10:48 AM EDT [facility] Chloride 101 96 - 110 mmol/L LAB CHEMISTRY METHOD 07/23/2024 10:48 AM [facility] CO2 29 21 - 32 mmol/L LAB CHEMISTRY METHOD 07/23/2024 10:48 AM [facility] LAB Anion Gap 11 3 - 11 LAB CHEMISTRY METHOD 07/23/2024 10:48 AM [facility] Glucose 128(H) 70 - 100 mg/dL LAB CHEMISTRY METHOD 07/23/2024 10:48 AM [facility] BUN 18 5 - 25 mg/dL LAB CHEMISTRY METHOD 07/23/2024 10:48 AM [facility] Creatinine 0.71 0.50 - 1.10 mg/dL LAB CHEMISTRY METHOD 07/23/2024 10:48 AM [facility] LAB eGFR 92 >=60 mL/min/1. 73m2 LAB CHEMISTRY METHOD 07/23/2024 10:48 AM [facility] LAB Comment:Calculation based on the Chronic Kidney Disease Epidemiology Collaboration (CKD-EPI) equation refit without adjustment for race. BUN/Creatinine Ratio 25.4 LAB CHEMISTRY METHOD 07/23/2024 10:48 AM [facility] Calcium 9.1 8.5 - 10.5 mg/dL LAB CHEMISTRY METHOD 07/23/2024 10:48 AM [facility] Blood Venous blood specimen / Unknown Venipuncture / Unknown 07/23/2024 7:04 AM EDT 07/23/2024 9:05 AM EDT us Braeden Hudson MD LAB BLOOD ORDERABLES Final Resul t [facility] [address] [place] [address], documented in this encounter Visit Diagnoses Diagnosis Essential (primary) hypertension Unspecified essential hypertension Anemia, unspecified documented in this encounter Care Teams Hard Rock Drill Operator Relationship Specialty Start Date End Date Braeden Hudson MD [address], [phone] PCP - General Family Medicine 07/20/24 documented as of this encounter
--- OUTSIDE RECORDS SUMMARY | 2024-11-30 11:49 | XMS_ITS | Patient Health Record ---
Author Organization [facility] Address [address] [place] [address] Care Team Providers Care Antique Jewelry Repairer Name Role Phone Keith FLANNERY, Taryn Primary Care Provider Jericho Espinoza Jr Unavailable [phone] Reason For Referral No Information Plan Of Treatment No Information Insurance Providers Payer Name Payer Address Payer Phone Subscriber Number Group Number Insured Name Patient Relationship to Insured Coverage Start Date Coverage End Date MEDICARE [place] [address] [place] [address] [phone] [id number] JOHN CASAS Self - patient is the insured MEDICAID OF [facility] [address] [place] [address] [id number] JOHN CASAS Self - patient is the insured
--- OUTSIDE RECORDS SUMMARY | 2024-11-30 11:49 | XMS_ITS | Encounter Summary ---
Author Organization [facility] Address [address] [place] [phone] Care Team Providers Care Aquatic Physiotherapist Name Role Phone Braeden Hudson MD Primary Care Provider [phone] Encounter Details Date Type Department Care Team (Late st Contact Info) Description 07/27/2024 Lab Requisition [facility] - Main Lab [address] [place] [address] Braeden Hudson MD [address] [place] [address] 204 [facility] [phone] Essential (primary) hypertension; Anemia, unspecified Social [...] Procedure Name Priority Date/Time Associated Diagnosis Comments COMPLETE BLOOD COUNT Routine 07/28/2024 7:04 AM EDT Essential (primary) hypertension Anemia, unspecified COMPREHENSIVE METABOLIC PANEL Routine 07/28/2024 7:04 AM EDT Essential (primary) hypertension Anemia, unspecified documented in this encounter Results * Complete blood count (07/28/2024 7:04 AM EDT) WBC 7.8 4.8 - 10.8 [facility] LAB HEMETOLOGY METHOD 07/28/2024 12:11 PM EDT [facility] RBC 4.40 3.80 - 4.80 M/mcL LAB HEMETOLOGY METHOD 07/28/2024 12:11 PM [facility] Hemoglobin 13.5 11.5 - 16.0 g/dL LAB HEMETOLOGY METHOD 07/28/2024 12:11 PM [facility] Hematocrit 41.8 35.0 - 47.0 % LAB HEMETOLOGY METHOD 07/28/2024 12:11 PM [facility] MCV 95.2 79.0 - 98.0 FL LAB HEMETOLOGY METHOD 07/28/2024 12:11 PM [facility] MCH 30.8 27.0 - 32.0 pcg LAB HEMETOLOGY METHOD 07/28/2024 12:11 PM [facility] MCHC 32.3 32.0 - 37.0 g/dL LAB HEMETOLOGY METHOD 07/28/2024 12:11 PM [facility] RDW 13.8 11.0 - 15.0 % LAB HEMETOLOGY METHOD 07/28/2024 12:11 PM [facility] Platelets 236 130 - 400 K/mcL LAB HEMETOLOGY METHOD 07/28/2024 12:11 PM [facility] MPV 10.4 7.0 - 11.0 FL LAB HEMETOLOGY METHOD 07/28/2024 12:11 PM [facility] NRBC 0.0 <1.0 % LAB HEMETOLOGY METHOD 07/28/2024 12:11 PM [facility] NRBC Absolute 0.00 <0.10 K/mcL LAB HEMETOLOGY METHOD 07/28/2024 12:11 PM [facility] Blood Venous blood specimen / Unknown Venipuncture / Unknown 07/28/2024 7:04 AM EDT 07/28/2024 11:23 AM EDT us Braeden Hudson MD LAB BLOOD ORDERABLES Final Resul t [facility] [address] [place] [address], * (ABNORMAL) Comprehensive metabolic panel (07/28/2024 7:04 AM EDT) Sodium 137 133 - 145 mmol/L LAB CHEMISTRY METHOD 07/28/2024 1:27 PM T [facility] Potassium 2.9(LL) 3.5 - 5.5 mmol/L LAB CHEMISTRY METHOD 07/28/2024 1:27 PM [facility] Chloride 100 96 - 110 mmol/L LAB CHEMISTRY METHOD 07/28/2024 1:27 PM [facility] CO2 30 21 - 32 mmol/L LAB CHEMISTRY METHOD 07/28/2024 1:27 PM [facility] Anion Gap 7 3 - 11 LAB CHEMISTRY METHOD 07/28/2024 1:27 PM [facility] Glucose 112(H) 70 - 100 mg/dL LAB CHEMISTRY METHOD 07/28/2024 1:27 PM [facility] BUN 9 5 - 25 mg/dL LAB CHEMISTRY METHOD 07/28/2024 1:27 PM [facility] Creatinine 0.64 0.50 - 1.10 mg/dL LAB CHEMISTRY METHOD 07/28/2024 1:27 PM [facility] eGFR 95 >=60 mL/min/1. 73m2 LAB CHEMISTRY METHOD 07/28/2024 1:27 PM [facility] Comment:Calculation based on the Chronic Kidney Disease Epidemiology Collaboration (CKD-EPI) equation refit without adjustment for race. BUN/Creatinine Ratio 14.1 LAB CHEMISTRY METHOD 07/28/2024 1:27 PM [facility] Calcium 8.6 8.5 - 10.5 mg/dL LAB CHEMISTRY METHOD 07/28/2024 1:27 PM EDT [facility] AST (SGOT) 15 10 - 42 unit/L LAB CHEMISTRY METHOD 07/28/2024 1:27 PM T [facility] ALT (SGPT) 17 10 - 60 unit/L LAB CHEMISTRY METHOD 07/28/2024 1:27 PM EDT [facility] Alkaline Phosphatase 80 42 - 121 unit/L LAB CHEMISTRY METHOD 07/28/2024 1:27 PM EDT [facility] Total Protein 6.0 6.0 - 8.0 g/dL LAB CHEMISTRY METHOD 07/28/2024 1:27 PM EDT [facility] Albumin 3.6 3.2 - 5.0 g/dL LAB CHEMISTRY METHOD 07/28/2024 1:27 PM EDT [facility] Total Bilirubin 1.0 0.0 - 1.4 mg/dL LAB CHEMISTRY METHOD 07/28/2024 1:27 PM EDT [facility] Blood Venous blood specimen / Unknown Venipuncture / Unknown 07/28/2024 7:04 AM EDT 07/28/2024 11:23 AM EDT us Braeden Hudson MD LAB BLOOD ORDERABLES Final Resul t [facility] [address] [place] [address], documented in this encounter Visit Diagnoses Diagnosis Essential (primary) hypertension Unspecified essential hypertension Anemia, unspecified documented in this encounter Care Teams Aquatic Physiotherapist Relationship Specialty Start Date End Date Braeden Hudson MD [address] [place] [address], [phone] PCP - General Family Medicine 07/20/24 documented as of this encounter
--- OUTSIDE RECORDS SUMMARY | 2024-11-30 11:49 | XMS_ITS | Encounter Summary ---
Author Organization Address [address] [place] [phone] Care Team Providers Care Manager Of Applications Development Name Role Phone Braeden Hudson MD Primary Care Provider [phone] Encounter Details Date Type Department Care Team (Late st Contact Info) Description 07/21/2024 Lab Requisition [facility] - Main Lab [address] [place] [address] Braeden Hudson MD [address] [place] [address] 204 [facility] [phone] Essential (primary) hypertension; Anemia, [...] Associated Diagnosis Comments COMPREHENSIVE METABOLIC PANEL Routine 07/21/2024 6:04 AM EDT Essential (primary) hypertension Anemia, unspecified documented in this encounter Results * (ABNORMAL) Comprehensive metabolic panel (07/21/2024 6:04 AM EDT) Sodium 138 133 - 145 mmol/L LAB CHEMISTRY METHOD 07/21/2024 1:55 PM EDT [facility] Potassium 3.5 3.5 - 5.5 mmol/L LAB CHEMISTRY METHOD 07/21/2024 1:55 PM EDT [facility] Comment:Hemolysis present Chloride 101 96 - 110 mmol/L LAB CHEMISTRY METHOD 07/21/2024 1:55 PM [facility] CO2 27 21 - 32 mmol/L LAB CHEMISTRY METHOD 07/21/2024 1:55 PM [facility] Anion Gap 10 3 - 11 LAB CHEMISTRY METHOD 07/21/2024 1:55 PM [facility] Glucose 113(H) 70 - 100 mg/dL LAB CHEMISTRY METHOD 07/21/2024 1:55 PM [facility] BUN 25 5 - 25 mg/dL LAB CHEMISTRY METHOD 07/21/2024 1:55 PM [facility] Creatinine 0.81 0.50 - 1.10 mg/dL LAB CHEMISTRY METHOD 07/21/2024 1:55 PM [facility] LAB eGFR 78 >=60 mL/min/1. 73m2 LAB CHEMISTRY METHOD 07/21/2024 1:55 PM [facility] Comment:Calculation based on the Chronic Kidney Disease Epidemiology Collaboration (CKD-EPI) equation refit without adjustment for race. BUN/Creatinine Ratio 30.9 LAB CHEMISTRY METHOD 07/21/2024 1:55 PM [facility] Calcium 9.2 8.5 - 10.5 mg/dL LAB CHEMISTRY METHOD 07/21/2024 1:55 PM [facility] AST (SGOT) 92(H) 10 - 42 unit/L LAB CHEMISTRY METHOD 07/21/2024 1:55 PM [facility] Comment:Hemolysis present ALT (SGPT) 31 10 - 60 unit/L LAB CHEMISTRY METHOD 07/21/2024 1:55 PM [facility] Alkaline Phosphatase 88 42 - 121 unit/L LAB CHEMISTRY METHOD 07/21/2024 1:55 PM [facility] Total Protein 6.9 6.0 - 8.0 g/dL LAB CHEMISTRY METHOD 07/21/2024 1:55 PM EDT [facility] Albumin 4.0 3.2 - 5.0 g/dL LAB CHEMISTRY METHOD 07/21/2024 1:55 PM EDT [facility] Total Bilirubin 0.9 0.0 - 1.4 mg/dL LAB CHEMISTRY METHOD 07/21/2024 1:55 PM EDT [facility] Blood Venous blood specimen / Unknown Venipuncture / Unknown 07/21/2024 6:04 AM EDT 07/21/2024 11:24 AM EDT us Braeden Hudson MD LAB BLOOD ORDERABLES Final Resul t [facility] [address] [place] [address], [place] [phone] documented in this encounter Visit Diagnoses Diagnosis Essential (primary) hypertension Unspecified essential hypertension Anemia, unspecified documented in this encounter Care Teams Manager Of Applications Development Relationship Specialty Start Date End Date Braeden Hudson MD [address] [place] [address] [address] [place], [phone] PCP - General Family Medicine 07/20/24 documented as of this encounter
--- OUTSIDE RECORDS SUMMARY | 2024-11-30 11:50 | XMS_ITS | Clinical Summary ---
Author Organization [address] Address [address] [place] [phone] Phone Care Team Providers Care Patient Accounts Manager Name Role Phone Braeden Hudson MD Primary Care Provider Allergies No known active allergies Medical History Medical History Date Comments COPD (chronic obstructive pulmonary disease) (CM S/HCC V24, CMS/HCC V28) Bipolar 1 disorder (CMS/HCC V24, CMS/HCC V28) Social History Tobacco Use Types Packs/Day Years Used Date Smoking Tobacco: Never Assessed Comments Unknown Sex and Gender Information Value Date Recorded Sex Assigned at Not on file Legal Sex Female 11:55 PM EST Gender Identity Not on file Sexual Orientation Not on file Obstetrics History Last Filed Vital Signs Vital Sign Reading Time Taken Comments Blood Pressure 101/52 08/02/2024 12:57 AM EDT Pulse 82 08/02/2024 12:57 AM EDT Temperature 37 C (98.6 F) 08/02/2024 12:57 AM EDT Respiratory Rate 18 08/02/2024 12:57 AM EDT Oxygen Saturation 95% 08/02/2024 12:57 AM EDT Inhaled Oxygen Concentration - - Weight 124 kg (274 lb) 08/01/2024 11:19 PM EDT Height 154.9 cm (5' 1 ) 08/01/2024 11:19 PM EDT Body Mass Index 51.77 08/01/2024 11:19 PM EDT Plan of Treatment Health Maintenance Due Date Last Done Comments Diabetes: Annual Foot Exam 10/27/1963 Diabetes: Annual Retina Eye Exam 10/27/1963 Zoster Vaccines (1 of 2) 10/27/2003 RSV Immunization Adult Patients (1 - Risk 60-74 years 1-dose series) 2013 Pneumococcal Vaccine: 50+ Years (2 of 2 - PCV) 04/20/2020 04/20/2019, 05/15/2016 Cholesterol Screening (Lipid Panel) 03/10/2022 Colorectal Cancer Screening: Colonoscopy 03/10/2022 Falls Risk Assessment 03/10/2022 Hepatitis C Screening 03/10/2022 Medicare Annual Wellness Visit 03/10/2022 Osteoporosis Screening (Bone Density Screening) 03/10/2022 Social Influencers of Health Screening 03/10/2022 COVID-19 Vaccine ( season) 2023 01/31/2021, 07/13/2020, 06/22/2020 Depression Screening 04/07/2024 Diabetes: Annual Urine Albumin-Creatinine Ratio (uACR) 08/02/2024 Diabetes: Blood Sugar Control Test (HGBA1C) 08/02/2024 Breast Cancer Screening 08/21/2024 08/22/19, 08/16/2020, 07/08/2018 Influenza Vaccine (#1) 2024 , 01/24/2021, 01/14/2020, Additional history exists Diabetes: Annual GFR (Glomerular Filtration Rate) 08/01/2025 08/01/2024, 07/30/2024, 07/28/2024, Additional history exists Hypertension/CHF/CAD Annual BMP Blood Test 08/01/2025 08/01/2024, 07/30/2024, 07/28/2024, Additional history exists DTaP,Tdap,and Td Vaccines (2 - Td or Tdap) 09/16/2033 09/17/2023 HIB Vaccines Aged Out No longer eligi [...] 20 months Aged Out No longer eligible based on patient's age to complete this topic Varicella Vaccines Aged Out No longer eligible based on patient's age to complete this topic Procedures Procedure Name Priority Date/Time Associated Diagnosis Comments BASIC METABOLIC PANEL STAT 08/01/2024 11:36 PM EDT GISELE SCREENING DIGITAL Routine 08/21/2022 4:49 PM EDT Encounter for screening mammogram for malignant neoplasm of breast from Last 3 Months or Most Recently Relevant to Health Maintenance Results * (ABNORMAL) Basic metabolic panel (08/01/2024 11:36 PM EDT) Sodium 136 133 - 145 mmol/L LAB CHEMISTRY METHOD 08/02/2024 12:12 AM [facility] Potassium 3.7 3.5 - 5.5 mmol/L LAB CHEMISTRY METHOD 08/02/2024 12:12 AM [facility] Chloride 101 96 - 110 mmol/L LAB CHEMISTRY METHOD 08/02/2024 12:12 AM [facility] CO2 27 21 - 32 mmol/L LAB CHEMISTRY METHOD 08/02/2024 12:12 AM [facility] Anion Gap 8 3 - 11 LAB CHEMISTRY METHOD 08/02/2024 12:12 AM [facility] Glucose 136(H) 70 - 100 mg/dL LAB CHEMISTRY METHOD 08/02/2024 12:12 AM [facility] BUN 8 5 - 25 mg/dL LAB CHEMISTRY METHOD 08/02/2024 12:12 AM [facility] Creatinine 0.75 0.50 - 1.10 mg/dL LAB CHEMISTRY METHOD 08/02/2024 12:12 AM [facility] eGFR 86 >=60 mL/min/1. 73m2 LAB CHEMISTRY METHOD 08/02/2024 12:12 AM [facility] Comment:Calculation based on the Chronic Kidney Disease Epidemiology Collaboration (CKD-EPI) equation refit without adjustment for race. BUN/Creatinine Ratio 10.7 LAB CHEMISTRY METHOD 08/02/2024 12:12 AM EDT [facility] Calcium 8.6 8.5 - 10.5 mg/dL LAB CHEMISTRY METHOD 08/02/2024 12:12 AM EDT [facility] Blood Venous blood specimen / Unknown Venipuncture / Unknown 08/01/2024 11:36 PM EDT 08/01/2024 11:43 PM EDT us Faye SANCHEZ LAB BLOOD ORDERABLES Final Result [facility] [address] [place] [address], * GISLEE SCREENING DIGITAL (08/21/2022 4:49 PM EDT) Anatomical Region Laterality Modality Mammography 08/21/2022 10:2 9 AM EDT Narrative 08/21/2022 4:[address] [facility] Diagnostic Imaging Department [address] [place] [address] Patient: AUGUSTOJOHN /Age/Sex: 1955 - 66 - F Unit#: [id number] Location/Status: SPDIMAM/REG CLI Mnemonic/Ordering Site: [facility] Ordering Physician: TARYN PARKER MD Gisele Screening Digital - 08/21/22 - 1053 EXAM: [facility] Screening Digital EXAM DATE AND TIME: 08/21/2022 10:53 AM HISTORY: Screening. COMPARISON: 08/16/20, 07/08/18, 06/04/17, 05/30/16 TECHNIQUE: CC and MLO views of both breasts were obtained using full field digital mammography. Bilateral digital breast tomosynthesis was performed in the MLO projection. Computer aided detection with CastingDB 7.2-H and [employer] 3D 3.1 was employed. TISSUE DENSITY: b. There are scattered areas of fibroglandular density. FINDINGS: No suspicious masses, grouped microcalcifications, or areas of architectural distortion are seen. Several benign calcifications are again seen in the anterior aspects of both breasts, without significant change. Normal vascular calcification is noted. The skin is unremarkable. IMPRESSION: Stable mammographic appearance of the breasts. No evidence of malignancy is seen. A negative mammogram in the presence of a clinically suspicious palpable abnormality does not preclude the possibility of malignancy or alter the indications for biopsy. BI-RADS: Category 2: Benign RECOMMENDATION(S): 1: Routine screening mammogram BILATERAL in 1 year. 54512, 06198 3342F, 7025F Dictating Physician: SHAUNA MAHARAJ MD Electronically Signed by: SHAUNA MAHARAJ MD Dic Date/Time: 08/21/221647 Sign date/Time: 08/21/221648 Procedure Note Shauna Maharaj MD - 05/09/2023 [facility] Diagnostic Imaging Department [address] [place] [address] Patient: JOHN CASAS D.O.B./Age/Sex: 1955 - 66 - F Unit#: [id number] Location/Status: SPDIMAM/REG CLI Mnemonic/Ordering Site: [facility] Ordering Physician: TARYN PARKER MD [facility] Screening Digital - 08/21/22 - 1052 EXAM: Gisele Screening Digital EXAM DATE AND TIME: 08/21/2022 10:53 AM HISTORY: Screening. COMPARISON: 08/16/20, 07/08/18, 06/04/17, 05/30/16 TECHNIQUE: CC and MLO views of both breasts were obtained using fullfield digital mammography. Bilateral digital breast tomosynthesis was performedin the MLO projection. Computer aided detection with CastingDB 7.2-H and[employer] 3D 3.1 was employed. TISSUE DENSITY: b. [...] Routine screening mammogram BILATERAL in 1 year. 19879, 92513 3342F, 7025F Dictating Physician: SHAUNA MAHARAJ MD Electronically Signed by: SHAUNA MAHARAJ MD Dic Date/Time: 08/21/221647 Sign date/Time: 08/21/221648 Taryn Parker MD IMG BI PROCEDURES Final Result from Last 3 Months or Most Recently Relevant to Health Maintenance Insurance MEDICARE MEDICAID - [place] Care Teams Patient Accounts Manager Relationship Specialty Start Date End Date Braeden Hudson MD [address], [address] PCP - General Family Medicine 07/20/24
--- OUTSIDE RECORDS SUMMARY | 2024-12-30 20:00 | XMS_ITS | Clinical Summary ---
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 Name Role Phone CAITLYN FLANNERY, FREDO Unavailable Unavailable SHAYNA BECKWITH, SHAHID Unavailable Unavailable RUDY BECKWITH, LAURA Unavailable Unavailable KERWIN BECKWITH, CURT Unavailable Unavailabl e Payers Payer Name Policy Type Policy Number Effective Date Expira tion Date [place] [id number] ON DEMAND MEDICARE - [facility] BILLING - ABN [id number] Problems Condition Name Condition Details Condition Category Status Onset Date Resolution Date Last Treatment Date Treating Clinician Comments OTHER BIPOLAR DISORDER Active 1- 00:00: 00 CHRONIC OBSTRUCTIVE PULMONARY DISEASE, UNSPECIFIED Active 4-17 00:00: 00 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 Ordering Clinician Indication Dosage Frequency Signature (SIG) Comments Components aripiprazol e 20 mg tablet 06-05 00:00: 00 Yes [id number] 1 tablet QAM 1 tablet QAM (route: oral) Alternate Route: PO. Med Classific ation: Central Nervous System Agents gabapentin 300 mg capsule 1- 00:00: 00 Yes [id number] 1 capsule TID 1 capsule TID (route: oral) Alternate Route: PO. Med Classific ation: Central Nervous System Agents glimepiride 2 mg tablet 2017-04 00:00: 00 03-10 23:59 :00 No [id number] 1 tablet QD 1 tablet QD (route: oral) Alternate Route: PO. Med Classific ation: Endocrine lamotrigine 100 mg tablet 1 00:00: 00 Yes [id number] 1 tablet BID UTD 1 tablet BID UTD (route: oral) Alternate Route: PO. Med Classific ation: Central Nervous System Agents lamotrigine 25 mg tablet 05-12 00:00: 00 Yes [id number] 2 tablet DIRECTED 2 tablet DIRECTED (route: oral) Alternate Route: PO. Med Classific ation: Central Nervous System Agents Lasix 20 mg tablet 06-16 00:00: 00 07-09 23:59 :00 No [id number] 2 tablet EVERY AM 2 tablet EVERY AM (route: oral) Med Classific ation: Cardiovas cular Therapy Agents Lasix 20 mg tablet 06-16 00:00: 00 06-15 23:59 :00 No [id number] 1 tablet IN THE AFTERNOON 1 tablet IN THE AFTERNOON (route: oral) Med Classific ation: Cardiovas cular Therapy Agents metformin 1,000 mg tablet 2017-04 00:00: 00 Yes [id number] 1 tablet BID 1 tablet BID (route: oral) Alternate Route: PO. Med Classific ation: Endocrine O2 - OXYGEN 06-02 00:00: 00 Yes [id number] 2 Liter O2 - PRN 2 Liter O 2 - PRN (route: Oxygen) Med Classific ation: Medical Oxygen potassium chloride ER 20 mEq tablet,exte nded release 05-12 00:00: 00 07-16 23:59 :00 No [id number] 2 tablet DAILY 2 tablet DAILY (route: oral) Med Classific ation: Electroly te Balance-N utritiona l Products Seroquel 100 mg tablet 2 00:00: 00 02-06 23:59 :00 No [id number] 1 tablet Every day 1 tablet Every day (route: oral) Med Classific ation: Central Nervous System Agents simvastatin 40 mg tablet 2019-0 1-20 00:00: 00 Yes [id number] 1 tablet QD 1 tablet QD (route: oral) Alternate Route: PO. Med Classific ation: Cardiovas cular Therapy Agents spironolact one 25 mg tablet - 00:00: 00 03-07 23:59 :00 No [id number] 1 tablet QD 1 tablet QD (route: oral) Alternate Route: PO. Med Classific ation: Cardiovas cular Therapy Agents Seroquel 100 mg tablet 2019-04 0-15 00:00: 00 06-01 23:59 :00 No [id number] 1.5 tablet BEDTIME 1.5 tablet BEDTIME (route: oral) Med Classific ation: Central Nervous System Agents glipizide ER 5 mg tablet, extended release 24 hr 2019-04 2-04 00:00: 00 02-25 23:59 :00 No [id number] 1 tablet DAILY 1 tablet DAILY (route: oral) Med Classific ation: Endocrine Seroquel 100 mg tablet 2- 00:00: 00 Yes [id number] 2 tablet BEDTIME 2 tablet BEDTIME (route: oral) Med Classific ation: Central Nervous System Agents pioglitazon e 30 mg tablet 6-17 00:00: 00 03-07 23:59 :00 No [id number] 1 tablet DAILY 1 tablet DAILY (route: oral) Med Classific ation: Endocrine Lasix 20 mg tablet 3- 00:00: 00 07-09 23:59 :00 No [id number] 2 tablet DIRECTED 2 tablet DIRECTED (route: oral) Med Classific ation: Cardiovas cular Therapy Agents Lasix 20 mg tablet 2-05 00:00: 00 Yes [id number] 2 tablet DAILY 2 tablet DAILY (route: oral) Med Classific ation: Cardiovas cular Therapy Agents Lasix 20 mg tablet 4-04 00:00: 00 05-12 23:59 :00 No [id number] 2 tablet DAILY 2 tablet DAILY (route: oral) Med Classific ation: Cardiovas cular Therapy Agents doxycycline monohydrate 100 mg tablet 5-26 00:00: 00 09-07 23:59 :00 No [id number] 1 tablet 2 TIMES DAILY 1 tablet [...] Agents ciprofloxac in 250 mg tablet 2022-04 2 00:00: 00 03-16 23:59 :00 No 1 tablet EVERY 12 HOURS 1 tablet EVERY 12 HOURS (route: oral) Med Classific ation: Anti-Infe ctive Agents prednisone 20 mg tablet 2-05 00:00: 00 05-14 23:59 :00 No 1 tablet DAILY 1 tablet DAILY (route: oral) Med Classific ation: Endocrine Lasix 20 mg tablet 2-22 00:00: 00 07-30 23:59 :00 No 1 tablet NOON 1 tablet NOON (route: oral) Med Classific ation: Cardiovas cular Therapy Agents potassium chloride ER 20 mEq tablet,exte nded release 4-11 00:00: 00 07-30 23:59 :00 No 1 tablet DAILY 1 [...] ation: Endocrine Jardiance 25 mg tablet 2023-04 0- 00:00: 00 06-24 23:59 :00 No 1 tablet DAILY 1 tablet DAILY (route: oral) Med Classific ation: Endocrine Jardiance 10 mg tablet 3-20 00:00: 00 Yes 1 tablet EVERY AM 1 tablet EVERY AM (route: oral) Med Classific ation: Endocrine Ozempic 0.25 mg or 0.5 mg (2 mg/3 mL) subcutaneou s pen injector 4-11 00:00: 00 09-21 23:59 :00 No 0.5 mg WEEKLY 0.5 mg WEEKLY (route: subcutaneo us) Med Classific ation: Endocrine potassium chloride ER 20 mEq tablet,exte nded release 07-30 00:00: 00 08-05 23:59 :00 No 1 tablet 2 TIMES DAILY 1 tablet 2 TIMES DAILY (route: oral) Med Classific ation: Electroly te Balance-N utritiona l Products fluticasone propionate 50 mcg/actuati on nasal spray,suspe nsion 08-05 00:00: 00 Yes 2 spray DAILY 2 spray DAILY (route: nasal) Med Classific ation: Respirato ry Therapy Agents loratadine 10 mg tablet - 00:00: 00 Yes 1 tablet DAILY 1 tablet DAILY (route: oral) Med Classific ation: Respirato ry Therapy Agents potassium chloride ER 20 mEq tablet,exte nded release 08-05 00:00: 00 Yes 1 tablet EVERY AM 1 tablet EVERY AM (route: oral) Med Classific ation: Electroly te Balance-N utritiona l Products mirtazapine 7.5 mg tablet -14 00:00: 00 Yes 1 tablet BEDTIME 1 tablet BEDTIME (route: oral) Med Classific ation: Central Nervous System Agents Ozempic 1 mg/dose (4 mg/3 mL) subcutaneou s pen injector 6-13 00:00: 00 Yes 1 mg WEEKLY 1 mg WEEKLY (route: subcutaneo us) Med Classific ation: Endocrine Cartia XT 120 mg capsule,ext ended release 10-31 00:00: 00 Yes 1 capsule EVERY AM 1 capsule EVERY AM (route: oral) Med Classific ation: Cardiovas cular Therapy Agents Eliquis 5 mg tablet 10-24 00:00: 00 Yes 1 tablet 2 TIMES DAILY 1 tablet 2 TIMES DAILY (route: oral) Med Classific ation: Hematolog ical Agents prednisone 20 mg tablet 10-24 00:00: 00 10-27 23:59 :00 No 2 tablet DAILY 2 tablet DAILY (route: oral) Med Classific ation: Endocrine Vital Signs Vital Name Observation Time Observation Value Commen ts Temperature 2024-11-29 09:02:00.000 97.3 [degF] Temperature 2024-11-26 10:07:00.000 97.8 [degF] Temperature 2024-11-25 09:39:00.000 96 [degF] Temperature 2024-11-24 12:48:00.000 98.4 [degF] Temperature 2024-11-23 10:29:00.000 97.6 [degF] Temperature 2024-11-22 10:10:00.000 98.7 [degF] Temperature 2024-11-18 14:51:00.000 98 [degF] Temperature 2024-11-17 13:13:00.000 97.6 [degF] Temperature 2024-11-16 10:01:00.000 98.7 [degF] Temperature 2024-11-15 09:37:00.000 97.7 [degF] Temperature 2024-11-12 09:51:00.000 98.8 [degF] Temperature 2024-11-11 10:26:00.000 98.7 [degF] Temperature 2024-11-10 11:07:00.000 97.5 [degF] Temperature 2024-11-09 11:20:00.000 98.7 [degF] Temperature 2024-11-08 13:14:00.000 97.6 [degF] Temperature 2024-11-05 08:59:00.000 97.3 [degF] Temperature 2024-11-04 09:31:00.000 97.9 [degF] Temperature 2024-11-03 08:15:00.000 97.3 [degF] Temperature 2024-11-02 11:21:00.000 97.5 [degF] Pulse 2024-11-29 09:02:00.000 51 /min Pulse 2024-11-26 10:03:00.000 48 /min Pulse 2024-11-25 09:39:00.000 85 /min Pulse 2024-11-24 12:48:00.000 76 /min Pulse 2024-11-23 10:28:00.000 80 /min Pulse 2024-11-22 10:10:00.000 78 /min Pulse 2024-11-18 14:51:00.000 83 /min Pulse 2024-11-17 13:13:00.000 76 /min Pulse 2024-11-16 10:01:00.000 86 /min Pulse 2024-11-15 09:37:00.000 85 /min Pulse 2024-11-12 09:51:00.000 88 /min Pulse 2024-11-11 10:25:00.000 80 /min Pulse 2024-11-10 11:07:00.000 78 /min Pulse 2024-11-09 11:16:00.000 77 /min Pulse 2024-11-08 13:06:00.000 73 /min Pulse 2024-11-05 08:59:00.000 95 /min Pulse 2024-11-04 09:31:00.000 79 /min Pulse 2024-11-03 08:11:00.000 88 /min Pulse 2024-11-02 11:21:00.000 77 /min O2 Saturation (%) 2024-11-29 09:07:00.000 96 % O2 Saturation (%) 2024-11-26 09:54:00.000 96 % O2 Saturation (%) 2024-11-25 09:39:00.000 96 % O2 Saturation (%) 2024-11-24 12:48:00.000 98 % O2 Saturation (%) 2024-11-23 10:29:00.000 96 % O2 Saturation (%) 2024-11-22 10:20:00.000 93 % O2 Saturation (%) 2024-11-18 14:56:00.000 93 % O2 Saturation (%) 2024-11-17 13:13:00.000 96 % O2 Saturation (%) 2024-11-16 10:12:00.000 95 % O2 Saturation (%) 2024-11-15 09:27:00.000 94 % O2 Saturation (%) 2024-11-12 09:51:00.000 95 % O2 Saturation (%) 2024-11-11 10:26:00.000 95 % O2 Saturation (%) 2024-11-10 11:08:00.000 99 % O2 Saturation (%) 2024-11-09 11:16:00.000 95 % O2 Saturation (%) 2024-11-08 13:14:00.000 95 % O2 Saturation (%) 2024-11-05 08:59:00.000 95 % O2 Saturation (%) 2024-11-04 09:32:00.000 91 % O2 Saturation (%) 2024-11-03 08:11:00.000 96 % O2 Saturation (%) 2024-11-02 11:21:00.000 96 % Respirations 2024-11-29 09:02:00.000 20 /min Respirations 2024-11-26 09:54:00.000 20 /min Respirations 2024-11-25 09:39:00.000 20 /min Respirations 2024-11-24 12:48:00.000 22 /min Respirations 2024-11-23 10:28:00.000 20 /min Respirations 2024-11-22 10:10:00.000 20 /min Respirations 2024-11-18 14:51:00.000 20 /min Respirations 2024-11-17 13:13:00.000 20 /min Respirations 2024-11-16 10:01:00.000 20 /min Respirations 2024-11-15 09:37:00.000 18 /min Respirations 2024-11-12 09:51:00.000 18 /min Respirations 2024-11-11 10:25:00.000 20 /min Respirations 2024-11-10 11:07:00.000 18 /min Respirations 2024-11-09 11:16:00.000 20 /min Respirations 2024-11-08 13:06:00.000 20 /min Respirations 2024-11-05 08:59:00.000 22 /min Respirations 2024-11-04 09:31:00.000 22 /min Respirations 2024-11-03 08:11:00.000 20 /min Respirations 2024-11-02 11:21:00.000 20 /min Weight (lbs) 2024-11-26 10:07:00.000 246 [lb_av] Weight (lbs) 2024-11-12 09:52:00.000 238 [lb_av] Systolic Blood Pressure 2024-11-29 09:02:00.000 110 mm [Hg] Systolic Blood Pressure 2024-11-26 10:03:00.000 100 mm [Hg] Systolic Blood Pressure 2024-11-25 09:39:00.000 102 mm [Hg] Systolic Blood Pressure 2024-11-24 12:48:00.000 112 mm [Hg] Systolic Blood Pressure 2024-11-23 10:28:00.000 110 mm [Hg] Systolic Blood Pressure 2024-11-22 10:10:00.000 120 mm [Hg] Systolic Blood Pressure 2024-11-18 14:51:00.000 102 mm [Hg] Systolic Blood Pressure 2024-11-17 13:13:00.000 104 mm [Hg] Systolic Blood Pressure 2024-11-16 10:01:00.000 98 mm[ Hg] Systolic Blood Pressure 2024-11-15 09:37:00.000 102 mm [Hg] Systolic Blood Pressure 2024-11-12 09:51:00.000 110 mm [Hg] Systolic Blood Pressure 2024-11-11 10:25:00.000 110 mm [Hg] Systolic Blood Pressure 2024-11-10 11:08:00.000 120 mm [Hg] Systolic Blood Pressure 2024-11-09 11:20:00.000 104 mm [Hg] Systolic Blood Pressure 2024-11-08 13:08:00.000 102 mm [Hg] Systolic Blood Pressure 2024-11-05 09:06:00.000 120 mm [Hg] Systolic Blood Pressure 2024-11-04 09:31:00.000 100 mm [Hg] Systolic Blood Pressure 2024-11-03 08:11:00.000 118 mm [Hg] Systolic Blood Pressure 2024-11-02 11:24:00.000 102 mm [Hg] Diastolic Blood Pressure 2024-11-29 09:02:00.000 60 mm [Hg] Diastolic Blood Pressure 2024-11-26 10:03:00.000 60 mm [Hg] Diastolic Blood Pressure 2024-11-25 09:39:00.000 60 mm [Hg] Diastolic Blood Pressure 2024-11-24 12:48:00.000 82 mm [Hg] Diastolic Blood Pressure 2024-11-23 10:28:00.000 70 mm [Hg] Diastolic Blood Pressure 2024-11-22 10:10:00.000 70 mm [Hg] Diastolic Blood Pressure 2024-11-18 14:51:00.000 60 mm [Hg] Diastolic Blood Pressure 2024-11-17 13:13:00.000 70 mm [Hg] Diastolic Blood Pressure 2024-11-16 10:01:00.000 60 mm [Hg] Diastolic Blood Pressure 2024-11-15 09:37:00.000 60 mm [Hg] Diastolic Blood Pressure 2024-11-12 09:51:00.000 62 mm [Hg] Diastolic Blood Pressure 2024-11-11 10:25:00.000 60 mm [Hg] Diastolic Blood Pressure 2024-11-10 11:08:00.000 60 mm [Hg] Diastolic Blood Pressure 2024-11-09 11:20:00.000 60 mm [Hg] Diastolic Blood Pressure 2024-11-08 13:08:00.000 64 mm [Hg] Diastolic Blood Pressure 2024-11-05 09:06:00.000 66 mm [Hg] Diastolic Blood Pressure 2024-11-04 09:31:00.000 60 mm [Hg] Diastolic Blood Pressure 2024-11-03 08:11:00.000 70 mm [Hg] Diastolic Blood Pressure 2024-11-02 11:24:00.000 60 mm [Hg] Plan of Treatment Planned [...] HEALTH.] Future Scheduled Test SKILLED NU RSE WILL MAINTAIN SITUATIONAL AWARENESS FOR SAFETY AND WILL NOTIFY CLINICAL BUILDING ASSOCIATE AND PHYSICIAN/PROVIDER WITH ANY CHANGE IN CONDITION. [code = SKILLED NURSE WILL MAINTAIN SITUATIONAL AWARENESS FOR SAFETY AND WILL NOTIFY CLINICAL BUILDING ASSOCIATE AND PHYSICIAN/PROVIDER WITH ANY CHANGE IN CONDITION.] Future Scheduled Test SKILLED NU RSE TO O/A OF PATIENTS MENTAL/BEHAVIORAL STATUS, ASSESS VITAL SIGNS Q VISIT ALLOW 2 PRNS FOR MEDICATION MANAGEMENT. [code = SKILLED NURSE TO O/A OF PATIENTS MENTAL/BEHAVIORAL STATUS, ASSESS VITAL SIGNS Q VISIT ALLOW 2 PRNS FOR MEDICATION MANAGEMENT.] Future Scheduled Test SKILLED NU RSE FOR O/A OF GENERAL HEALTH STATUS OF PAIN, CARDIAC, RESPIRATORY, GASTROINTESTINAL, GENITOURINARY, SKIN, NEUROLOGIC, ENDOCRINE SYSTEMS TO IDENTIFY CHANGES ASSOCIATED WITH EXACERBATION FOR EARLY INTERVENTION OF COMPLICATIONS Q VISIT [code = SKILLED NURSE FOR O/A OF GENERAL HEALTH STATUS OF PAIN, CARDIAC, RESPIRATORY, GASTROINTESTINAL, GENITOURINARY, SKIN, NEUROLOGIC, ENDOCRINE SYSTEMS TO IDENTIFY CHANGES ASSOCIATED WITH EXACERBATION FOR EARLY INTERVENTION OF COMPLICATIONS Q VISIT] Future Scheduled Test SKILLED NU RSE TO PRE-POUR MEDICATION PER MEDICATION LIST M-F AND PP MEDS ON WEEKEND [code = SKILLED NURSE TO PRE-POUR MEDICATION PER MEDICATION LIST M-F AND PP MEDS ON WEEKEND] Future Scheduled Test SKILLED NU RSE FOR O/A OF ALTERED MOOD [code = SKILLED NURSE FOR O/A OF ALTERED MOOD] Future Scheduled Test SKILLED NU RSE TO [...] AND PSYCHOSOCIAL SUPPORT SERVICES.] Future Scheduled Test MEDICATION S WILL BE HELD AND STORED IN LOCKBOX [code = MEDICATIONS WILL BE HELD AND STORED IN LOCKBOX] Future Scheduled Test SKILLED NU RSE MAY PICKUP AND TRANSPORT MEDICATIONS [code = SKILLED NURSE MAY PICKUP AND TRANSPORT MEDICATIONS] Future Scheduled Test SKILLED NU RSE TO INSTRUCT PATIENT/CAREGIVER ON COPD TO INCLUDE TEACHING AND SELF-MANAGEMENT RELATED TO COPD DISEASE PROCESS, SIGNS AND SYMPTOMS, AND COMPLICATIONS. [code = SKILLED NURSE TO INSTRUCT PATIENT/CAREGIVER ON COPD TO INCLUDE TEACHING AND SELF-MANAGEMENT RELATED TO COPD DISEASE PROCESS, SIGNS AND SYMPTOMS, AND COMPLICATIONS.] Future Scheduled Test OXYGEN VIA NC AT 2L PRN. SKILLED NURSE FOR O/A AND SKILLED TEACHING OF SAFE OXYGEN USE IN THE HOME. [code = OXYGEN VIA NC AT 2L PRN. SKILLED NURSE FOR O/A AND SKILLED TEACHING OF SAFE OXYGEN USE IN THE HOME.] Future Scheduled Test SKILLED NU RSE FOR O/A, TEACHING AND SELF-MANAGEMENT RELATED TO HEART FAILURE. INSTRUCT PATIENT/CAREGIVER ON SIGNS AND SYMPTOMS OF EXACERBATION TO REPORT. WEIGHT TO BE OBTAINED WEEKLY PER PT REQUEST, AND WEIGHT GAIN OF 2 LBS OVERNIGHT OR 5 LBS IN 1 WEEK TO BE REPORTED TO PHYSICIAN. IF UNABLE TO WEIGH PATIENT, SKILLED NURSE TO OBTAIN MEASUREMENT OF ABDOMEN IN CM AT EACH VISIT AND REPORT AN INCREASE OF 1 CM TO PHYSICIAN. [code = SKILLED NURSE FOR O/A, TEACHING AND SELF-MANAGEMENT RELATED TO HEART FAILURE. INSTRUCT PATIENT/CAREGIVER ON SIGNS AND SYMPTOMS OF EXACERBATION TO REPORT. WEIGHT TO BE OBTAINED WEEKLY PER PT REQUEST, AND WEIGHT GAIN OF 2 LBS OVERNIGHT OR 5 LBS IN 1 WEEK TO BE REPORTED TO PHYSICIAN. IF UNABLE TO WEIGH PATIENT, SKILLED NURSE TO OBTAIN MEASUREMENT OF ABDOMEN IN CM AT EACH VISIT AND REPORT AN INCREASE OF 1 CM TO PHYSICIAN.] Future Scheduled Test INSTRUCTED PATIENT/CAREGIVER ON SIGNS AND SYMPTOMS, RISK FACTORS, COMPLICATIONS, AND MANAGEMENT OF ATRIAL FIBRILLATION. [code = INSTRUCTED PATIENT/CAREGIVER ON SIGNS AND SYMPTOMS, RISK FACTORS, COMPLICATIONS, AND MANAGEMENT OF ATRIAL FIBRILLATION.] Future Scheduled Test SKILLED NU RSE FOR [...] REPORT.] Future Scheduled Test SKILLED NU RSE TO PERFORM AND RECORD BLOOD SUGAR READING Q VISIT AND PRN FOR SIGNS AND SYMPTOMS OF HYPO/HYPERGLYCEMIA. [code = SKILLED NURSE TO PERFORM AND RECORD BLOOD SUGAR READING Q VISIT AND PRN FOR SIGNS AND SYMPTOMS OF HYPO/HYPERGLYCEMIA.] Goal 2023-07-07 Patient Goal - GET BACK ON M Y FEET Goal 2023-09-04 Patient Goal - K EEP WALKING UP THE STAIRS, TAKE MY MEDICATIONS Goal 2023-11-05 Patient Goal - L OSE WEIGHT AVOID HOSPITALIZATION, DONT FALL Goal 2024-05-03 Patient Goal - C ONTINUE LOSE WEIGHT, AVOID HOSPITALIZATION, DONT FALL Goal 2024-03-03 Patient Goal - C ONTINUE LOSE WEIGHT, AVOID HOSPITALIZATION, DONT FALL Goal 2024-01-05 Patient Goal - C ONTINUE LOSE WEIGHT, AVOID HOSPITALIZATION, DONT FALL Goal Patient Goal - C ONTINUE LOSE WEIGHT, AVOID HOSPITALIZATION, DONT FALL Goal 2024-10-28 Patient Goal - C ONTINUE LOSE WEIGHT, AVOID HOSPITALIZATION, DONT FALL Goal 2024-08-29 Patient Goal - C ONTINUE LOSE WEIGHT, AVOID HOSPITALIZATION, DONT FALL Goal 2024-07-01 Patient Goal - C ONTINUE LOSE WEIGHT, AVOID HOSPITALIZATION, DONT FALL Goal Provider Goal - A PLAN OF CARE WILL BE ESTABLISHED THAT MEETS PATIENT'S DETENTION NEEDS AND INCLUDES PATIENT GOAL FOR HOME HEALTH. Goal Provider Goal - PATIENT WILL REMAIN SAFE IN THE COMMUNITY AND WILL BE FREE OF DANGER TO SELF AND OTHERS THROUGHOUT THE CERTIFICATION PERIOD. Goal Provider Goal - ALTERED MENTAL/BEHAVIORAL STATUS WILL BE IDENTIFIED PROMPTLY AND INTERVENTION INITIATED QUICKLY TO MINIMIZE ASSOCIATED RISKS THROUGHOUT CERTIFICATION PERIOD. Goal Provider Goal - CHANGE IN GENERAL HEALTH STATUS WILL BE IDENTIFIED AND REPORTED TO PHYSICIAN FOR PROMPT INTERVENTION TO MINIMIZE ASSOCIATED RISKS THROUGHOUT CERTIFICATION PERIOD. Goal Provider Goal - PATIENT WILL COMPLY WITH MEDICATION WHEN SKILLED NURSE PRE-POURS MEDICATION THROUGHOUT CERTIFICATION PERIOD. Goal Provider Goal - PATIENT WILL BE ABLE TO PERFORM DAILY FUNCTIONS AND HAVE OPTIMAL IMPROVEMENT IN MOOD STABILITY THROUGHOUT CERTIFICATION PERIOD. Goal Provider Goal - PSYCHOSOCIAL NEEDS WILL BE IDENTIFIED AND PLAN IMPLEMENTED TO MINIMIZE RISK THROUGHOUT CERTIFICATION PERIOD. Goal Provider Goal - MEDICATION WILL BE STORED IN LOCKBOX FOR SAFETY. Goal Provider Goal - SKILLED NURSE PICKED UP AND TRANSPORTED MEDICATIONS FOR SAFETY. Goal Provider Goal - PATIENT/CAREGIVER WILL VERBALIZE/DEMONSTRATE KNOWLEDGE AND MANAGEMENT OF COPD BY END OF EPISODE. Goal Provider Goal - PATIENT/CAREGIVER WILL VERBALIZE/DEMONSTRATE UNDERSTANDING OF SAFE OXYGEN USE IN THE HOME THROUGHOUT THE EPISODE. Goal Provider Goal - PATIENT/CAREGIVER WILL VERBALIZE/DEMONSTRATE KNOWLEDGE AND MANAGEMENT OF HEART FAILURE DISEASE PROCESS BY END OF EPISODE. Goal Provider Goal - PATIENT/CAREGIVER WILL VERBALIZE UNDERSTANDING OF SIGNS AND SYMPTOMS, COMPLICATIONS, AND MANAGEMENT OF ATRIAL FIBRILLATION THROUGHOUT THE CERTIFICATION PERIOD. Goal Provider Goal - PATIENT/CAREGIVER WILL VERBALIZE/DEMONSTRATE KNOWLEDGE OF DIABETIC MANAGEMENT. CHANGES IN DIABETIC STATUS WILL BE IDENTIFIED AND REPORTED TO PHYSICIAN FOR PROMPT INTERVENTION THROUGHOUT THE CERTIFICATION PERIOD. Goal Provider Goal - BLOOD SUGAR READING WILL BE OBTAINED ORDERED THROUGHOUT CERTIFICATION PERIOD. Encounters Start Date/Time End Date/Time Encounter Type Admission Type Attending [facility] Care Facility Care Department Encounter ID Discharge Date Discharge Status Discharge Condition Discharge Reason Percent Goals Met 2024-11-02 00:00:00 2024-12-31 00:00:00 Outpatient RECERTIFIC [facility] GONSALEZ [facility] [id number]
--- OUTSIDE RECORDS SUMMARY | 2024-12-30 20:00 | XMS_ITS | Clinical Summary ---
Author Organization Unknown Care Team Providers Care Tour Actor Name Role Phone CAITLYN FLANNERY, FREDO Unavailable Unavailable SHAYNA BECKWITH, SHAHID Unavailable Unavailable RUDY BECKWITH, LAURA Unavailable Unavailable KERWIN BECKWITH, CURT Unavailable Unavailabl e Payers Payer Name Policy Type Policy Number Effective Date Expira tion Date [place] [id number] ON DEMAND MEDICARE - [facility] BILLING - ABN [id number] Problems Condition Name Condition Details Condition Category [...] 20 mg tablet 06-05 00:00: 00 Yes [id number] 1 tablet QAM 1 tablet QAM (route: oral) Alternate Route: PO. Med Classific ation: Central Nervous System Agents gabapentin 300 mg capsule 1- 00:00: 00 Yes [id number] 1 capsule TID 1 capsule TID (route: oral) Alternate Route: PO. Med Classific ation: Central Nervous System Agents glimepiride 2 mg tablet 2017-04 00:00: 00 03-10 23:59 :00 No [id number] 1 tablet QD 1 tablet QD (route: oral) Alternate Route: PO. Med Classific ation: Endocrine lamotrigine 100 mg tablet 1 00:00: 00 Yes [id number] 1 tablet BID UTD 1 tablet BID UTD (route: oral) Alternate Route: PO. Med Classific ation: Central Nervous System Agents lamotrigine 25 mg tablet 05-12 00:00: 00 Yes [id number] 2 tablet DIRECTED 2 tablet DIRECTED (route: oral) Alternate Route: PO. Med Classific ation: Central Nervous System Agents Lasix 20 mg tablet 06-16 00:00: 00 07-09 23:59 :00 No [id number] 2 tablet EVERY AM 2 tablet EVERY AM (route: oral) Med Classific ation: Cardiovas cular Therapy Agents Lasix 20 mg tablet 06-16 00:00: 00 06-15 23:59 :00 No [id number] 1 tablet IN THE AFTERNOON 1 tablet IN THE AFTERNOON (route: oral) Med Classific ation: Cardiovas cular Therapy Agents metformin 1,000 mg tablet 2017-04 00:00: 00 Yes [id number] 1 tablet BID 1 tablet BID (route: oral) Alternate Route: PO. Med Classific ation: Endocrine O2 - OXYGEN 06-02 00:00: 00 Yes [id number] 2 Liter O2 - PRN 2 Liter O 2 - PRN (route: Oxygen) Med Classific ation: Medical Oxygen potassium chloride ER 20 mEq tablet,exte nded release 05-12 00:00: 00 07-16 23:59 :00 No [id number] 2 tablet DAILY 2 tablet DAILY (route: oral) Med Classific ation: Electroly te Balance-N utritiona l Products Seroquel 100 mg tablet 2 00:00: 00 02-06 23:59 :00 No [id number] 1 tablet Every day 1 tablet Every day (route: oral) Med Classific ation: Central Nervous System Agents simvastatin 40 mg tablet 2019-0 1-20 00:00: 00 Yes [id number] 1 tablet QD 1 tablet QD (route: oral) Alternate Route: PO. Med Classific ation: Cardiovas cular Therapy Agents spironolact one 25 mg tablet - 00:00: 00 03-07 23:59 :00 No [id number] 1 tablet QD 1 tablet QD (route: oral) Alternate Route: PO. Med Classific ation: Cardiovas cular Therapy Agents Seroquel 100 mg tablet 2019-04 0-15 00:00: 00 06-01 23:59 :00 No [id number] 1.5 tablet BEDTIME 1.5 tablet BEDTIME (route: oral) Med Classific ation: Central Nervous System Agents glipizide ER 5 mg tablet, extended release 24 hr 2019-04 2-04 00:00: 00 02-25 23:59 :00 No [id number] 1 tablet DAILY 1 tablet DAILY (route: oral) Med Classific ation: Endocrine Seroquel 100 mg tablet 2- 00:00: 00 Yes [id number] 2 tablet BEDTIME 2 tablet BEDTIME (route: oral) Med Classific ation: Central Nervous System Agents pioglitazon e 30 mg tablet 6-17 00:00: 00 03-07 23:59 :00 No [id number] 1 tablet DAILY 1 tablet DAILY (route: oral) Med Classific ation: Endocrine Lasix 20 mg tablet 3- 00:00: 00 07-09 23:59 :00 No [id number] 2 tablet DIRECTED 2 tablet DIRECTED (route: oral) Med Classific ation: Cardiovas cular Therapy Agents Lasix 20 mg tablet 2-05 00:00: 00 Yes [id number] 2 tablet DAILY 2 tablet DAILY (route: oral) Med Classific ation: Cardiovas cular Therapy Agents Lasix 20 mg tablet 4-04 00:00: 00 05-12 23:59 :00 No [id number] 2 tablet DAILY 2 tablet DAILY (route: oral) Med Classific ation: Cardiovas cular Therapy Agents doxycycline monohydrate 100 mg tablet 5-26 00:00: 00 09-07 23:59 :00 No [id number] 1 tablet 2 TIMES DAILY 1 tablet [...] AWARENESS FOR SAFETY AND WILL NOTIFY CLINICAL ELEMENTARY SCHOOL TUTOR AND PHYSICIAN/PROVIDER WITH ANY CHANGE IN CONDITION. [code = SKILLED NURSE WILL MAINTAIN SITUATIONAL AWARENESS FOR SAFETY AND WILL NOTIFY CLINICAL ELEMENTARY SCHOOL TUTOR AND PHYSICIAN/PROVIDER WITH ANY CHANGE IN CONDITION.] [...] CARE WILL BE ESTABLISHED THAT MEETS PATIENT'S RESIDENTIAL NEEDS AND INCLUDES PATIENT GOAL FOR HOME [...] End Date/Time Encounter Type Admission Type Attending [facility] Facility Care Department Encounter ID Discharge Date Discharge Status Discharge Condition Discharge Reason Percent Goals Met 2024-11-02 00:00:00 2024-12-31 00:00:00 Outpatient [facility] GONSALEZ [facility] [id number] 63.33
== END ==
LOC: HO.CARD 10:56
PROVIDERS: Visit Provider Internal Medicine
DX: I48.91 Unspecified atrial fibrillation (principal)
CPT/HCPCS: 93242

== ENCOUNTER → 2024-11-30 10:59 | Outpatient (BNV) | payer MEDICARE, MEDICAID, SELFPAY | PROVIDERS: Visit Provider Internal Medicine | DX: I47.10 Supraventricular tachycardia, unspecified (principal); I49.3 Ventricular premature depolarization | CPT/HCPCS: 93244 ==

== ENCOUNTER 2024-12-20 13:02 | Outpatient (AMB) | payer MEDICARE, MEDICAID, SELFPAY ==
--- NOTE | 2024-12-20 13:10 | MHC.OFFVIS ---
Vital Signs 12/20/24 13:11 Height 5 ft 1 in Weight 255 lb 11.779 oz BMI 48.3 BP 116/68 Blood Pressure Location Lt brachial Position Sitting Pulse 78 Pulse Source Pulse Oximeter Intake Visit Reasons: 3 month f/up holter Allergies haloperidol (From Haldol) Allergy (Mild, Verified 11/03/24 15:16) UNKNOWN Medication List - Last Reconciled 12/20/24 by Vishal Landers MD albuterol sulfate 90 mcg/actuation (Ventolin HFA) 2 puffs PO DAILY apixaban (Eliquis) 5 mg PO BID aripiprazole 20 mg PO DAILY diltiazem HCl CD (Cartia XT) 120 mg PO DAILY empagliflozin (Jardiance) 10 mg PO DAILY fluticasone propion-salmeterol 230-21 mcg/actuation (Advair HFA) 2 puffs inhalation DAILY fluticasone propionate 50 mcg/actuation 2 sprays intranasal DAILY PRN furosemide 40 mg PO DAILY@0800 gabapentin 300 mg PO TID lamotrigine 25 mg PO DAILY lamotrigine 100 mg PO BID lamotrigine 50 mg PO BEDTIME metformin 1,000 mg PO BID mirtazapine 7.5 mg PO BEDTIME potassium chloride ER 20 mEq PO DAILY quetiapine 200 mg PO BEDTIME semaglutide (Ozempic) 1 mg subcut TU simvastatin 40 mg PO BEDTIME spironolactone 25 mg PO DAILY walker As directed HPI Comments Details: Elizabeth returns for follow-up after recent hospitalization. She has a history of COPD on home oxygen. Visiting nurse had noted a high heart rate and that led to ER visit. She was found to be in atrial fibrillation rapid rate. She had received various medications including diltiazem, metoprolol, digoxin and then she converted back to normal sinus rhythm. Today, she states she feels well. No new concerns from cardiac. No specific symptoms. She is on diltiazem and Eliquis. 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 Review of Systems Const Denies weakness ENT Denies dizziness Card Denies chest pain, Denies chest pain with activity, Denies syncope, Denies rapid heart rate, Denies pedal edema, Denies edema, Denies leg edema, Denies lightheadedness, Denies palpitations, Denies dyspnea, Denies dyspnea on exertion and Denies orthopnea Resp Denies cough, Denies dyspnea and Denies dyspnea on exertion GI Denies hematochezia and Denies change in stool character Musc Denies abnormal gait, Denies muscle cramps, Denies muscle weakness, Denies numbness, Denies radiating pain into limb and Denies tingling Neuro Denies abnormal gait, Denies dizziness, Denies syncope, Denies numbness, Denies tingling and Denies weakness Endo Denies palpitations Physical Exam Vital Signs: Last Vital Signs Pulse 78 12/20/24 13:11 BP 116/68 12/20/24 13:11 BMI result Body Mass Index 48.3 Const General: comfortable and no acute distress Orientation/consciousness: patient oriented x3 HEENT Other: Unremarkable Head: Yes normal to inspection Neck Neck: Yes normal visual inspection Chest Chest palpation & inspection: normal inspection of the chest Resp Auscultation: clear to auscultation bilaterally Cardio Palpation: normal PMI Heart sounds: S1 normal heart sound present, S2 normal heart sound present, no gallops, no murmurs and no rubs GI Palpation (GI): Soft to palpation Back/Spine/Pelvis Other: unremarkable Skin General skin exam: no rashes or lesions noted Neuro General: patient oriented x3 Extrem General: Yes normal to inspection Psych Mental Status: mental status grossly normal Office Procedures EKG Details: EKG with atrial fibrillation at a rate of 77/Min; rightward axis; low-voltage QRS complexes. [id number]-[id number], Complete Assessment & Plan Assessment & Plan (1) PAF (paroxysmal atrial fibrillation): Code(s): I48.0 - Paroxysmal atrial fibrillation Category: Medical (2) Atrial arrhythmia: Code(s): I49.8 - Other specified cardiac arrhythmias Category: Medical Plan Recent EKGs from emergency room showed atrial fibrillation versus flutter at a rate of 130/Min. In the repeat EKG, underlying rhythm is sinus rhythm at 80/Min. In today's EKG, underlying rhythm is sinus at 93/Min frequent supraventricular ectopy. Aberrant conduction versus PVC also noted. Echocardiogram with LVEF of 55-60%. No significant valvular findings. Small pericardial effusion near the left ventricle. In the Holter monitor, underlying rhythm is sinus at 79/Min. Rare supraventricular ectopy. Ventricular ectopy with a burden of 1.4%. Overall, stable paroxysmal atrial fibrillation but there is increased likelihood of going back into atrial fibrillation in the future because of frequent supraventricular ectopy. She may continue diltiazem. If any symptoms like palpitations, she needs to contact us immediately. Continue anticoagulation. There are no bleeding concerns. We will plan on follow up in 6 months' time. In the interim, call with concerns. Discussion Notes During the visit, we discussed the patient's irregular heart rhythm and tachycardia. I explained that her current medications, diltiazem and apixaban, are suitable for her condition and emphasized the importance of monitoring her heart rhythm. We also reviewed her previous hospital visit and the results from her echocardiogram and heart monitor. Patient was informed and verbally consented to the use of an ambient scribe for clinic note documentation during this visit. Total time spent including review of data, counseling, documentation, coordination of care-32 minutes. Also discussed with the immigration case worker who came for appointment. Patient Instructions: - Continue taking diltiazem and apixaban as prescribed. - Monitor for any new or worsening symptoms, such as chest pain or palpitations. - Follow up with your healthcare provider as scheduled. Coding Level of Care Code Est Pt Level 4 (22899) Complex EM visit Add On G2211 Diagnoses PAF (paroxysmal atrial fibrillation) I48.0 Atrial arrhythmia I49.8 CPT Codes EKG - CPT: 93006-[id number], Complete ([id number])
[2024-12-20 13:11] VITALS: BP 116/68; PULSE 78; BMI 48.3
--- OUTSIDE RECORDS SUMMARY | 2024-12-20 18:06 | XMS_ITS | Encounter Summary ---
Author Organization Address [address] [place] [phone] Care Team Providers Care Water Resource Consultant Name Role Phone Braeden Hudson MD Primary Care Provider [phone] Encounter Details Date Type Department Care Team (Late st Contact Info) Description 07/30/2024 Lab Requisition [facility] - Main Lab [address] [place] [address] Braeden Hudson MD [address] [place] [address] 204 [facility] [phone] Chronic obstructive pulmonary disease, unspecified (CMS/HCC [...] LAB CHEMISTRY METHOD 07/30/2024 10:25 AM EDT [facility] Potassium 3.9 3.5 - 5.5 mmol/L LAB CHEMISTRY METHOD 07/30/2024 10:25 AM [facility] Chloride 104 96 - 110 mmol/L LAB CHEMISTRY METHOD 07/30/2024 10:25 AM [facility] CO2 30 21 - 32 mmol/L LAB CHEMISTRY METHOD 07/30/2024 10:25 AM [facility] Anion Gap 7 3 - 11 LAB CHEMISTRY METHOD 07/30/2024 10:25 AM [facility] Glucose 111(H) 70 - 100 mg/dL LAB CHEMISTRY METHOD 07/30/2024 10:25 AM [facility] BUN 8 5 - 25 mg/dL LAB CHEMISTRY METHOD 07/30/2024 10:25 AM [facility] Creatinine 0.65 0.50 - 1.10 mg/dL LAB CHEMISTRY METHOD 07/30/2024 10:25 AM [facility] eGFR 95 >=60 mL/min/1. 73m2 LAB CHEMISTRY METHOD 07/30/2024 10:25 AM [facility] Comment:Calculation based on the Chronic Kidney Disease Epidemiology Collaboration (CKD-EPI) equation refit without adjustment for race. BUN/Creatinine Ratio 12.3 LAB CHEMISTRY METHOD 07/30/2024 10:25 AM [facility] Calcium 8.8 8.5 - 10.5 mg/dL LAB CHEMISTRY METHOD 07/30/2024 10:25 AM [facility] AST (SGOT) 14 10 - 42 unit/L LAB CHEMISTRY METHOD 07/30/2024 10:25 AM [facility] ALT (SGPT) 16 10 - 60 unit/L LAB CHEMISTRY METHOD 07/30/2024 10:25 AM [facility] Alkaline Phosphatase 77 42 - 121 unit/L LAB CHEMISTRY METHOD 07/30/2024 10:25 AM [facility] Total Protein 6.1 6.0 - 8.0 g/dL LAB CHEMISTRY METHOD 07/30/2024 10:25 AM EDT [facility] Albumin 3.4 3.2 - 5.0 g/dL LAB CHEMISTRY METHOD 07/30/2024 10:25 AM EDT [facility] Total Bilirubin 0.7 0.0 - 1.4 mg/dL LAB CHEMISTRY METHOD 07/30/2024 10:25 AM EDT [facility] Blood Venous blood specimen / Unknown Venipuncture / Unknown 07/30/2024 7:20 AM EDT 07/30/2024 9:06 AM EDT us Braeden Hudson MD LAB BLOOD ORDERABLES Final Resul t [facility] [address] [place] [address], documented in this encounter Visit Diagnoses Diagnosis Chronic obstructive pulmonary disease, unspecified (CMS/HCC V24, CMS/HCC V28) documented in this encounter Care Teams Water Resource Consultant Relationship Specialty Start Date End Date Braeden Hudson MD [address] [place] [address], [phone] PCP - General Family Medicine 07/20/24 documented as of this encounter
--- OUTSIDE RECORDS SUMMARY | 2024-12-20 18:06 | XMS_ITS | Patient Health Record ---
Author Organization [facility] Address [address] [place] [address] Care Team Providers Care Pool Installer Name Role Phone Keith FLANNERY, Taryn Primary Care Provider Jericho Espinoza Jr Unavailable [phone] Reason For Referral No Information Plan Of Treatment No Information Insurance Providers Payer Name Payer Address Payer Phone Subscriber Number Group Number Insured Name Patient Relationship to Insured Coverage Start Date Coverage End Date MEDICARE OF [place] [address] [place] [address] [id number] JOHN CASAS Self - patient is the insured MEDICAID OF [facility] [address] [place] [address] [id number] JOHN CASAS Self - patient is the insured
--- OUTSIDE RECORDS SUMMARY | 2024-12-20 18:06 | XMS_ITS | Encounter Summary ---
Author Organization [facility] Address [address] [place] [phone] Care Team Providers Care Air Pollution Inspector Name Role Phone Braeden Hudson MD Primary Care Provider [phone] Encounter Details Date Type Department Care Team (Late st Contact Info) Description 07/27/2024 Lab Requisition [facility] - Main Lab [address] [place] [address] Braeden Hudson MD [address] [place] [address] 204 [facility] [phone] Essential (primary) hypertension; Anemia, unspecified Social [...] AM EDT) WBC 7.8 4.8 - 10.8 K/[facility] LAB HEMETOLOGY METHOD 07/28/2024 12:11 PM EDT [facility] RBC 4.40 3.80 - 4.80 M/mcL LAB HEMETOLOGY METHOD 07/28/2024 12:11 PM [facility] Hemoglobin 13.5 11.5 - 16.0 g/dL LAB HEMETOLOGY METHOD 07/28/2024 12:11 PM [facility] Hematocrit 41.8 35.0 - 47.0 % LAB HEMETOLOGY METHOD 07/28/2024 12:11 PM [facility] MCV 95.2 79.0 - 98.0 FL LAB HEMETOLOGY METHOD 07/28/2024 12:11 PM [facility] MCH 30.8 27.0 - 32.0 pcg LAB HEMETOLOGY METHOD 07/28/2024 12:11 PM [facility] MCHC 32.3 32.0 - 37.0 g/dL LAB HEMETOLOGY METHOD 07/28/2024 12:11 PM [facility] RDW 13.8 11.0 - 15.0 % LAB HEMETOLOGY METHOD 07/28/2024 12:11 PM [facility] Platelets 236 130 - 400 K/mcL LAB HEMETOLOGY METHOD 07/28/2024 12:11 PM [facility] MPV 10.4 7.0 - 11.0 FL LAB HEMETOLOGY METHOD 07/28/2024 12:11 PM [facility] NRBC 0.0 <1.0 % LAB HEMETOLOGY METHOD 07/28/2024 12:11 PM [facility] NRBC Absolute 0.00 <0.10 K/mcL LAB HEMETOLOGY METHOD 07/28/2024 12:11 PM [facility] Blood Venous blood specimen / Unknown Venipuncture / Unknown 07/28/2024 7:04 AM EDT 07/28/2024 11:23 AM EDT us Braeden Hudson MD LAB BLOOD ORDERABLES Final Resul t [facility] [address] [place] [address], * (ABNORMAL) Comprehensive metabolic panel (07/28/2024 7:04 AM EDT) Sodium 137 133 - 145 mmol/L LAB CHEMISTRY METHOD 07/28/2024 1:27 PM T [facility] Potassium 2.9(LL) 3.5 - 5.5 mmol/L LAB CHEMISTRY METHOD 07/28/2024 1:27 PM [facility] Chloride 100 96 - 110 mmol/L LAB CHEMISTRY METHOD 07/28/2024 1:27 PM [facility] CO2 30 21 - 32 mmol/L LAB CHEMISTRY METHOD 07/28/2024 1:27 PM [facility] Anion Gap 7 3 - 11 LAB CHEMISTRY METHOD 07/28/2024 1:27 PM [facility] Glucose 112(H) 70 - 100 mg/dL LAB CHEMISTRY METHOD 07/28/2024 1:27 PM [facility] BUN 9 5 - 25 mg/dL LAB CHEMISTRY METHOD 07/28/2024 1:27 PM [facility] Creatinine 0.64 0.50 - 1.10 mg/dL LAB CHEMISTRY METHOD 07/28/2024 1:27 PM [facility] eGFR 95 >=60 mL/min/1. 73m2 LAB CHEMISTRY METHOD 07/28/2024 1:27 PM [facility] Comment:Calculation based on the Chronic Kidney Disease Epidemiology Collaboration (CKD-EPI) equation refit without adjustment for race. BUN/Creatinine Ratio 14.1 LAB CHEMISTRY METHOD 07/28/2024 1:27 PM [facility] Calcium 8.6 8.5 - 10.5 mg/dL LAB CHEMISTRY METHOD 07/28/2024 1:27 PM EDT [facility] AST (SGOT) 15 10 - 42 unit/L LAB CHEMISTRY METHOD 07/28/2024 1:27 PM T [facility] ALT (SGPT) 17 10 - 60 unit/L LAB CHEMISTRY METHOD 07/28/2024 1:27 PM EDT [facility] Alkaline Phosphatase 80 42 - 121 unit/L LAB CHEMISTRY METHOD 07/28/2024 1:27 PM EDT [facility] Total Protein 6.0 6.0 - 8.0 g/dL LAB CHEMISTRY METHOD 07/28/2024 1:27 PM EDT [facility] Albumin 3.6 3.2 - 5.0 g/dL LAB CHEMISTRY METHOD 07/28/2024 1:27 PM EDT [facility] Total Bilirubin 1.0 0.0 - 1.4 mg/dL LAB CHEMISTRY METHOD 07/28/2024 1:27 PM EDT [facility] Blood Venous blood specimen / Unknown Venipuncture / Unknown 07/28/2024 7:04 AM EDT 07/28/2024 11:23 AM EDT us Braeden Hudson MD LAB BLOOD ORDERABLES Final Resul t [facility] [address] [place] [address], documented in this encounter Visit Diagnoses Diagnosis Essential (primary) hypertension Unspecified essential hypertension Anemia, unspecified documented in this encounter Care Teams Air Pollution Inspector Relationship Specialty Start Date End Date Braeden Hudson MD [address] [place] [address], [phone] PCP - General Family Medicine 07/20/24 documented as of this encounter
--- OUTSIDE RECORDS SUMMARY | 2024-12-20 18:06 | XMS_ITS | Encounter Summary ---
Author Organization [facility] Address [address] [place] [phone] Care Team Providers Care Diet Attendant Name Role Phone Braeden Hudson MD Primary Care Provider [phone] Encounter Details Date Type Department Care Team (Late st Contact Info) Description 08/03/[address] [facility] - Main Lab [address] [facility] [place] [address] Braeden Hudson MD [address] [facility] [address] [place], [phone] Anemia, unspecified; Essential (primary) hypertension Social History [...] hypertension documented in this encounter Care Teams Diet Attendant Relationship Specialty Start Date End Date Braeden Hudson MD [address] [facility] [address] [place], [phone] PCP - General Family Medicine 07/20/24 documented as of this encounter
--- OUTSIDE RECORDS SUMMARY | 2024-12-20 18:06 | XMS_ITS | Encounter Summary ---
Author Organization [facility] [address] Address [address] [place] [phone] Care Team Providers Care Quality Control Supervisor Name Role Phone Braeden Hudson MD Primary Care Provider [phone] Encounter Details Date Type Department Care Team (Late st Contact Info) Description 07/21/2024 Lab Requisition [facility] - Main Lab [address] [place] [address] Braeden Hudson MD [address] [place] [address] 204 [facility] [phone] Essential (primary) hypertension; Anemia, [...] LAB CHEMISTRY METHOD 07/21/2024 1:55 PM EDT [facility] Potassium 3.5 3.5 - 5.5 mmol/L LAB CHEMISTRY METHOD 07/21/2024 1:55 PM EDT [facility] Comment:Hemolysis present Chloride 101 96 - 110 mmol/L LAB CHEMISTRY METHOD 07/21/2024 1:55 PM [facility] CO2 27 21 - 32 mmol/L LAB CHEMISTRY METHOD 07/21/2024 1:55 PM [facility] Anion Gap 10 3 - 11 LAB CHEMISTRY METHOD 07/21/2024 1:55 PM [facility] Glucose 113(H) 70 - 100 mg/dL LAB CHEMISTRY METHOD 07/21/2024 1:55 PM [facility] BUN 25 5 - 25 mg/dL LAB CHEMISTRY METHOD 07/21/2024 1:55 PM [facility] Creatinine 0.81 0.50 - 1.10 mg/dL LAB CHEMISTRY METHOD 07/21/2024 1:55 PM [facility] eGFR 78 >=60 mL/min/1. 73m2 LAB CHEMISTRY METHOD 07/21/2024 1:55 PM [facility] Comment:Calculation based on the Chronic Kidney Disease Epidemiology Collaboration (CKD-EPI) equation refit without adjustment for race. BUN/Creatinine Ratio 30.9 LAB CHEMISTRY METHOD 07/21/2024 1:55 PM [facility] Calcium 9.2 8.5 - 10.5 mg/dL LAB CHEMISTRY METHOD 07/21/2024 1:55 PM [facility] AST (SGOT) 92(H) 10 - 42 unit/L LAB CHEMISTRY METHOD 07/21/2024 1:55 PM [facility] Comment:Hemolysis present ALT (SGPT) 31 10 - 60 unit/L LAB CHEMISTRY METHOD 07/21/2024 1:55 PM [facility] Alkaline Phosphatase 88 42 - 121 unit/L LAB CHEMISTRY METHOD 07/21/2024 1:55 PM [facility] Total Protein 6.9 6.0 - 8.0 g/dL LAB CHEMISTRY METHOD 07/21/2024 1:55 PM EDT [facility] Albumin 4.0 3.2 - 5.0 g/dL LAB CHEMISTRY METHOD 07/21/2024 1:55 PM EDT [facility] Total Bilirubin 0.9 0.0 - 1.4 mg/dL LAB CHEMISTRY METHOD 07/21/2024 1:55 PM EDT [facility] Blood Venous blood specimen / Unknown Venipuncture / Unknown 07/21/2024 6:04 AM EDT 07/21/2024 11:24 AM EDT us Braeden Hudson MD LAB BLOOD ORDERABLES Final Resul t [facility] [address] [place] [address], [place] [phone] documented in this encounter Visit Diagnoses Diagnosis Essential (primary) hypertension Unspecified essential hypertension Anemia, unspecified documented in this encounter Care Teams Quality Control Supervisor Relationship Specialty Start Date End Date Braeden Hudson MD [address] [place] [address] 204 [place], [phone] PCP - General Family Medicine 07/20/24 documented as of this encounter
--- OUTSIDE RECORDS SUMMARY | 2024-12-20 18:06 | XMS_ITS | Encounter Summary ---
Author Organization [facility] Address [id number] [place] [phone] Care Team Providers Care Forwarder Operator Name Role Phone Braeden Hudson MD Primary Care Provider [phone] Encounter Details Date Type Department Care Team (Late st Contact Info) Description 07/22/2024 Lab Requisition [facility] - Main Lab [address] [place] [address] Braeden Hudson MD [address] [place] [address] 204 [facility] [phone] Essential (primary) hypertension; Anemia, unspecified [...] LAB CHEMISTRY METHOD 07/23/2024 10:48 AM EDT [facility] Potassium 3.2(L) 3.5 - 5.5 mmol/L LAB CHEMISTRY METHOD 07/23/2024 10:48 AM EDT [facility] Chloride 101 96 - 110 mmol/L LAB CHEMISTRY METHOD 07/23/2024 10:48 AM [facility] CO2 29 21 - 32 mmol/L LAB CHEMISTRY METHOD 07/23/2024 10:48 AM [facility] Anion Gap 11 3 - 11 LAB CHEMISTRY METHOD 07/23/2024 10:48 AM [facility] Glucose 128(H) 70 - 100 mg/dL LAB CHEMISTRY METHOD 07/23/2024 10:48 AM [facility] BUN 18 5 - 25 mg/dL LAB CHEMISTRY METHOD 07/23/2024 10:48 AM [facility] Creatinine 0.71 0.50 - 1.10 mg/dL LAB CHEMISTRY METHOD 07/23/2024 10:48 AM [facility] eGFR 92 >=60 mL/min/1. 73m2 LAB CHEMISTRY METHOD 07/23/2024 10:48 AM [facility] Comment:Calculation based on the Chronic Kidney Disease Epidemiology Collaboration (CKD-EPI) equation refit without adjustment for race. BUN/Creatinine Ratio 25.4 LAB CHEMISTRY METHOD 07/23/2024 10:48 AM [facility] Calcium 9.1 8.5 - 10.5 mg/dL LAB CHEMISTRY METHOD 07/23/2024 10:48 AM [facility] Blood Venous blood specimen / Unknown Venipuncture / Unknown 07/23/2024 7:04 AM EDT 07/23/2024 9:05 AM EDT us Braeden Hudson MD LAB BLOOD ORDERABLES Final Resul t [facility] [address] [place] [address], documented in this encounter Visit Diagnoses Diagnosis Essential (primary) hypertension Unspecified essential hypertension Anemia, unspecified documented in this encounter Care Teams Forwarder Operator Relationship Specialty Start Date End Date Braeden Hudson MD [address], [phone] PCP - General Family Medicine 07/20/24 documented as of this encounter
--- OUTSIDE RECORDS SUMMARY | 2024-12-20 18:06 | XMS_ITS | Clinical Summary ---
Author Organization [address] Address [address] [place] [phone] Phone Care Team Providers Care Metals Sales Representative Name Role Phone Braeden Hudson MD Primary Care Provider [phone] Allergies No known active allergies Medical History [...] 03/10/2022 Social Influencers of Health Screening 03/10/2022 Depression Screening 04/07/2024 Diabetes: Annual Urine Albumin-Creatinine Ratio (uACR) 08/02/2024 Diabetes: Blood Sugar Control Test (HGBA1C) 08/02/2024 Breast Cancer Screening 08/21/2024 08/22/19, 08/16/2020, 07/08/2018 COVID-19 Vaccine ( season) 2024 01/31/2021, 07/13/2020, 06/22/2020 Influenza Vaccine (#1) 2024 , 01/24/2021, 01/14/2020, [...] mmol/L LAB CHEMISTRY METHOD 08/02/2024 12:12 AM [facility] Potassium 3.7 3.5 - 5.5 mmol/L LAB CHEMISTRY METHOD 08/02/2024 12:12 AM [facility] Chloride 101 96 - 110 mmol/L LAB CHEMISTRY METHOD 08/02/2024 12:12 AM [facility] CO2 27 21 - 32 mmol/L LAB CHEMISTRY METHOD 08/02/2024 12:12 AM [facility] Anion Gap 8 3 - 11 LAB CHEMISTRY METHOD 08/02/2024 12:12 AM [facility] Glucose 136(H) 70 - 100 mg/dL LAB CHEMISTRY METHOD 08/02/2024 12:12 AM [facility] BUN 8 5 - 25 mg/dL LAB CHEMISTRY METHOD 08/02/2024 12:12 AM [facility] Creatinine 0.75 0.50 - 1.10 mg/dL LAB CHEMISTRY METHOD 08/02/2024 12:12 AM [facility] eGFR 86 >=60 mL/min/1. 73m2 LAB CHEMISTRY METHOD 08/02/2024 12:12 AM [facility] Comment:Calculation based on the Chronic Kidney Disease Epidemiology Collaboration (CKD-EPI) equation refit without adjustment for race. BUN/Creatinine Ratio 10.7 LAB CHEMISTRY METHOD 08/02/2024 12:[address] [facility] Calcium 8.6 8.5 - 10.5 mg/dL LAB CHEMISTRY METHOD 08/02/2024 12:[address] [facility] Blood Venous blood specimen / Unknown Venipuncture / Unknown 08/01/2024 11:36 PM EDT 08/01/2024 11:43 PM EDT us Faye SANCHEZ LAB BLOOD ORDERABLES Final Result [facility] [address] [place] [address], * GISELE SCREENING DIGITAL (08/21/2022 4:49 PM EDT) Anatomical Region Laterality Modality Mammography 08/21/2022 10:2 9 AM EDT Narrative 08/21/2022 4:49 PM EDT [facility] Diagnostic Imaging Department [address] [place] [address] Patient: AUGUSTOJOHN /Age/Sex: 1955 - 66 - F Unit#: [id number] Location/Status: SPDIMAM/REG CLI Mnemonic/Ordering Site: [facility] Ordering Physician: TARYN PARKER MD Gisele Screening Digital - 08/21/22 - 1053 EXAM: [facility] Screening Digital EXAM DATE AND TIME: 08/21/2022 10:53 AM HISTORY: Screening. COMPARISON: 08/16/20, 07/08/18, 06/04/17, 05/30/16 TECHNIQUE: CC and MLO views of both breasts were obtained using full field digital mammography. Bilateral digital breast tomosynthesis was performed in the MLO projection. Computer aided detection with [employer]20select 7.2-H and [employer] 3D 3.1 was employed. TISSUE DENSITY: b. [...] Routine screening mammogram BILATERAL in 1 year. [address], [address]99 3342F, 7025F Dictating Physician: SHAUNA MAHARAJ MD Electronically Signed by: SHAUNA MAHARAJ MD Dic Date/Time: 08/21/221647 Sign date/Time: 08/21/221648 Procedure Note Shauna Maharaj MD - 05/09/2023 [facility] Diagnostic Imaging Department [address] [place] [address] Patient: JOHN CASAS D.O.B./Age/Sex: 1955 - 66 - F Unit#: [id number] Location/Status: SPDIMAM/REG CLI Mnemonic/Ordering Site: [facility] Ordering Physician: TARYN APRKER MD [facility] Screening Digital - 08/21/22 - 1052 EXAM: Gisele Screening Digital EXAM DATE AND TIME: 08/21/2022 10:53 AM HISTORY: Screening. COMPARISON: 08/16/20, 07/08/18, 06/04/17, 05/30/16 TECHNIQUE: CC and MLO views of both breasts were obtained using fullfield digital mammography. Bilateral digital breast tomosynthesis was performedin the MLO projection. Computer aided detection with 8020select 7.2-H [employer] 3D 3.1 was employed. TISSUE DENSITY: b. [...] Routine screening mammogram BILATERAL in 1 year. [address], [address]71 3342F, 7025F Dictating Physician: SHAUNA MAHARAJ MD Electronically Signed by: SHAUNA MAHARAJ MD Dic Date/Time: 08/21/221647 Sign date/Time: 08/21/221648 Taryn Parker MD IMG BI PROCEDURES Final Result from Last 3 Months or Most Recently Relevant to Health Maintenance Insurance MEDICARE MEDICAID - [place] Care Teams Metals Sales Representative Relationship Specialty Start Date End Date Braeden Hudson MD [address], [phone] PCP - General Family Medicine 07/20/24
--- OUTSIDE RECORDS SUMMARY | 2024-12-20 18:06 | XMS_ITS | Encounter Summary ---
Author Organization [facility] Address [address] [place] [phone] Care Team Providers Care High Worker Name Role Phone Braeden Hudson MD Primary Care Provider [phone] Encounter Details Date Type Department Care Team (Late st Contact Info) Description 07/20/2024 Lab Requisition [facility] - Main Lab [address] [place] [address] Braeden Hudson MD [address] [place] [address] 204 [facility] [phone] Anemia, unspecified Social History Tobacco Use [...] AM EDT) WBC 11.2(H) 4.8 - 10.8 K/[facility] LAB HEMETOLOGY METHOD 07/20/2024 10:04 AM [facility] RBC 5.20(H) 3.80 - 4.80 M/mcL LAB HEMETOLOGY METHOD 07/20/2024 10:04 AM [facility] Hemoglobin 15.8 11.5 - 16.0 g/dL LAB HEMETOLOGY METHOD 07/20/2024 10:04 AM [facility] Hematocrit 49.2(H) 35.0 - 47.0 % LAB HEMETOLOGY METHOD 07/20/2024 10:04 AM [facility] MCV 95.5 79.0 - 98.0 FL LAB HEMETOLOGY METHOD 07/20/2024 10:04 AM [facility] MCH 30.7 27.0 - 32.0 pcg LAB HEMETOLOGY METHOD 07/20/2024 10:04 AM [facility] MCHC 32.1 32.0 - 37.0 g/dL LAB HEMETOLOGY METHOD 07/20/2024 10:04 AM [facility] RDW 14.3 11.0 - 15.0 % LAB HEMETOLOGY METHOD 07/20/2024 10:04 AM [facility] Platelets 285 130 - 400 K/mcL LAB HEMETOLOGY METHOD 07/20/2024 10:04 AM [facility] MPV 10.4 7.0 - 11.0 FL LAB HEMETOLOGY METHOD 07/20/2024 10:04 AM [facility] NRBC 0.0 <1.0 % LAB HEMETOLOGY METHOD 07/20/2024 10:04 AM [facility] NRBC Absolute 0.00 <0.10 K/mcL LAB HEMETOLOGY METHOD 07/20/2024 10:04 AM [facility] Neutrophils Relative 77.7 % LAB HEMETOLOGY METHOD 07/20/2024 10:04 AM [facility] Lymphocytes Relative 12.0 % LAB HEMETOLOGY METHOD 07/20/2024 10:04 AM [facility] Monocytes Relative 9.4 % LAB HEMETOLOGY METHOD 07/20/2024 10:04 AM [facility] Eosinophils Relative 0.2 % LAB HEMETOLOGY METHOD 07/20/2024 10:04 AM [facility] Basophils Relative 0.4 % LAB HEMETOLOGY METHOD 07/20/2024 10:04 AM [facility] Immature Granulocytes Relative 0.3 % LAB HEMETOLOGY METHOD 07/20/2024 10:04 AM [facility] Neutrophils Absolute 8.73(H) 1.50 - 7.00 K/mcL LAB HEMETOLOGY METHOD 07/20/2024 10:04 AM [facility] Lymphocytes Absolute 1.34 1.00 - 5.00 K/mcL LAB HEMETOLOGY METHOD 07/20/2024 10:04 AM [facility] Monocytes Absolute 1.05(H) 0.20 - 1.00 K/mcL LAB HEMETOLOGY METHOD 07/20/2024 10:04 AM [facility] Eosinophils Absolute 0.02 0.00 - 0.50 K/mcL LAB HEMETOLOGY METHOD 07/20/2024 10:04 AM [facility] Basophils Absolute 0.04 0.00 - 0.20 K/mcL LAB HEMETOLOGY METHOD 07/20/2024 10:04 AM [facility] Immature Granulocytes Absolute 0.03 0.00 - 0.03 K/mcL LAB HEMETOLOGY METHOD 07/20/2024 10:04 AM [facility] Blood Venous blood specimen / Unknown Venipuncture / Unknown 07/20/2024 6:04 AM EDT 07/20/2024 9:29 AM EDT us Braeden Hudson MD LAB BLOOD ORDERABLES Final Resul t [facility] [address] [place] [address], [place] [phone] * (ABNORMAL) Comprehensive metabolic panel (07/20/2024 6:04 AM EDT) Sodium 139 133 - 145 mmol/L LAB CHEMISTRY METHOD 07/20/2024 10:27 AM [facility] Potassium 3.2(L) 3.5 - 5.5 mmol/L LAB CHEMISTRY METHOD 07/20/2024 10:27 AM [facility] Chloride 103 96 - 110 mmol/L LAB CHEMISTRY METHOD 07/20/2024 10:27 AM [facility] CO2 26 21 - 32 mmol/L LAB CHEMISTRY METHOD 07/20/2024 10:27 AM [facility] Anion Gap 10 3 - 11 LAB CHEMISTRY METHOD 07/20/2024 10:27 AM [facility] Glucose 119(H) 70 - 100 mg/dL LAB CHEMISTRY METHOD 07/20/2024 10:27 AM [facility] BUN 23 5 - 25 mg/dL LAB CHEMISTRY METHOD 07/20/2024 10:27 AM [facility] Creatinine 0.87 0.50 - 1.10 mg/dL LAB CHEMISTRY METHOD 07/20/2024 10:27 AM [facility] eGFR 72 >=60 mL/min/1. 73m2 LAB CHEMISTRY METHOD 07/20/2024 10:27 AM [facility] Comment:Calculation based on the Chronic Kidney Disease Epidemiology Collaboration (CKD-EPI) equation refit without adjustment for race. BUN/Creatinine Ratio 26.4 LAB CHEMISTRY METHOD 07/20/2024 10:27 AM [facility] Calcium 9.6 8.5 - 10.5 mg/dL LAB CHEMISTRY METHOD 07/20/2024 10:27 AM [facility] AST (SGOT) 148(H) 10 - 42 unit/L LAB CHEMISTRY METHOD 07/20/2024 10:27 AM [facility] ALT (SGPT) 37 10 - 60 unit/L LAB CHEMISTRY METHOD 07/20/2024 10:27 AM [facility] Alkaline Phosphatase 97 42 - 121 unit/L LAB CHEMISTRY METHOD 07/20/2024 10:27 AM [facility] Total Protein 7.4 6.0 - 8.0 g/dL LAB CHEMISTRY METHOD 07/20/2024 10:27 AM [facility] Albumin 4.3 3.2 - 5.0 g/dL LAB CHEMISTRY METHOD 07/20/2024 10:27 AM [facility] Total Bilirubin 1.0 0.0 - 1.4 mg/dL LAB CHEMISTRY METHOD 07/20/2024 10:27 AM [facility] Blood Venous blood specimen / Unknown Venipuncture / Unknown 07/20/2024 6:04 AM EDT 07/20/2024 9:29 AM EDT us Braeden Hudson MD LAB BLOOD ORDERABLES Final Resul t [facility] [address] [place] [address], documented in this encounter Visit Diagnoses Diagnosis Anemia, unspecified documented in this encounter Care Teams High Worker Relationship Specialty Start Date End Date Braeden Hudson MD [address] [place] [address] 204 [place], [phone] PCP - General Family Medicine 07/20/24 documented as of this encounter
--- OUTSIDE RECORDS SUMMARY | 2024-12-30 20:00 | XMS_ITS | Clinical Summary ---
Author Organization Unknown Care Team Providers Care Senior Asset Manager Name Role Phone CAITLYN FLANNERY, FREDO Unavailable Unavailable SHAYNA BECKWITH, SHAHID Unavailable Unavailable RUDY BECKWITH, LAURA Unavailable Unavailable KERWIN BECKWITH, CURT Unavailable Unavailabl e Payers Payer Name Policy Type Policy Number Effective Date Expira tion Date [place] [id number] ON DEMAND MEDICARE - [facility] BILLING - ABN [id number] Problems Condition Name Condition Details Condition Category [...] 20 mg tablet 06-05 00:00: 00 Yes [id number] 1 tablet QAM 1 tablet QAM (route: oral) Alternate Route: PO. Med Classific ation: Central Nervous System Agents gabapentin 300 mg capsule 1- 00:00: 00 Yes [id number] 1 capsule TID 1 capsule TID (route: oral) Alternate Route: PO. Med Classific ation: Central Nervous System Agents glimepiride 2 mg tablet 2017-04 00:00: 00 03-10 23:59 :00 No [id number] 1 tablet QD 1 tablet QD (route: oral) Alternate Route: PO. Med Classific ation: Endocrine lamotrigine 100 mg tablet 1- 00:00: 00 Yes [id number] 1 tablet BID UTD 1 tablet BID UTD (route: oral) Alternate Route: PO. Med Classific ation: Central Nervous System Agents lamotrigine 25 mg tablet 05-12 00:00: 00 Yes [id number] 2 tablet DIRECTED 2 tablet DIRECTED (route: oral) Alternate Route: PO. Med Classific ation: Central Nervous System Agents Lasix 20 mg tablet 06-16 00:00: 00 07-09 23:59 :00 No [id number] 2 tablet EVERY AM 2 tablet EVERY AM (route: oral) Med Classific ation: Cardiovas cular Therapy Agents Lasix 20 mg tablet 06-16 00:00: 00 06-15 23:59 :00 No [id number] 1 tablet IN THE AFTERNOON 1 tablet IN THE AFTERNOON (route: oral) Med Classific ation: Cardiovas cular Therapy Agents metformin 1,000 mg tablet 2017-04 00:00: 00 Yes [id number] 1 tablet BID 1 tablet BID (route: oral) Alternate Route: PO. Med Classific ation: Endocrine O2 - OXYGEN 06-02 00:00: 00 Yes [id number] 2 Liter O2 - PRN 2 Liter O 2 - PRN (route: Oxygen) Med Classific ation: Medical Oxygen potassium chloride ER 20 mEq tablet,exte nded release 05-12 00:00: 00 07-16 23:59 :00 No [id number] 2 tablet DAILY 2 tablet DAILY (route: oral) Med Classific ation: Electroly te Balance-N utritiona l Products Seroquel 100 mg tablet 2 00:00: 00 02-06 23:59 :00 No [id number] 1 tablet Every day 1 tablet Every day (route: oral) Med Classific ation: Central Nervous System Agents simvastatin 40 mg tablet 2019-0 1-20 00:00: 00 Yes [id number] 1 tablet QD 1 tablet QD (route: oral) Alternate Route: PO. Med Classific ation: Cardiovas cular Therapy Agents spironolact one 25 mg tablet 06-05 00:00: 00 03-07 23:59 :00 No [id number] 1 tablet QD 1 tablet QD (route: oral) Alternate Route: PO. Med Classific ation: Cardiovas cular Therapy Agents Seroquel 100 mg tablet 2019-04 0-15 00:00: 00 06-01 23:59 :00 No [id number] 1.5 tablet BEDTIME 1.5 tablet BEDTIME (route: oral) Med Classific ation: Central Nervous System Agents glipizide ER 5 mg tablet, extended release 24 hr 2019-04 2-04 00:00: 00 02-25 23:59 :00 No [id number] 1 tablet DAILY 1 tablet DAILY (route: oral) Med Classific ation: Endocrine Seroquel 100 mg tablet 2- 00:00: 00 Yes [id number] 2 tablet BEDTIME 2 tablet BEDTIME (route: oral) Med Classific ation: Central Nervous System Agents pioglitazon e 30 mg tablet 6-17 00:00: 00 03-07 23:59 :00 No [id number] 1 tablet DAILY 1 tablet DAILY (route: oral) Med Classific ation: Endocrine Lasix 20 mg tablet 3- 00:00: 00 07-09 23:59 :00 No [id number] 2 tablet DIRECTED 2 tablet DIRECTED (route: oral) Med Classific ation: Cardiovas cular Therapy Agents Lasix 20 mg tablet 2-05 00:00: 00 Yes [id number] 2 tablet DAILY 2 tablet DAILY (route: oral) Med Classific ation: Cardiovas cular Therapy Agents Lasix 20 mg tablet 4-04 00:00: 00 05-12 23:59 :00 No [id number] 2 tablet DAILY 2 tablet DAILY (route: oral) Med Classific ation: Cardiovas cular Therapy Agents doxycycline monohydrate 100 mg tablet 5-26 00:00: 00 09-07 23:59 :00 No [id number] 1 tablet 2 TIMES DAILY 1 tablet 2 TIMES DAILY (route: oral) Med Classific ation: Anti-Infe ctive Agents Jardiance 10 mg tablet 2022-04 2- 00:00: 00 02-01 23:59 :00 No [id number] 1 tablet DAILY 1 tablet DAILY (route: oral) Med Classific ation: Endocrine spironolact one 50 mg tablet 2022-04 2- 00:00: 00 Yes [id number] 1 tablet DAILY 1 tablet DAILY (route: oral) Med Classific ation: Cardiovas cular Therapy Agents ciprofloxac in 250 mg tablet 2022-04 2 00:00: 00 03-16 23:59 :00 No [id number] 1 tablet EVERY 12 HOURS 1 tablet EVERY 12 HOURS (route: oral) Med Classific ation: Anti-Infe ctive Agents prednisone 20 mg tablet 2 00:00: 00 05-14 23:59 :00 No [id number] 1 tablet DAILY 1 tablet DAILY (route: oral) Med Classific ation: Endocrine Lasix 20 mg tablet 2- 00:00: 00 07-30 23:59 :00 No [id number] 1 tablet NOON 1 tablet NOON (route: oral) Med Classific ation: Cardiovas cular Therapy Agents potassium chloride ER 20 mEq tablet,exte nded release 4-11 00:00: 00 07-30 23:59 :00 No [id number] 1 tablet DAILY 1 tablet DAILY (route: oral) Med Classific ation: Electroly te Balance-N utritiona l Products Advair HFA 230 mcg-21 mcg/actuati on aerosol inhaler 09-08 00:00: 00 Yes [id number] 2 puff 2 TIMES DAILY 2 puff 2 TIMES DAILY (route: inhalation ) Med Classific ation: Respirato ry Therapy Agents Airsupra 90 mcg-80 mcg/actuati on HFA aerosol inhaler 09-08 00:00: 00 Yes [id number] 2 puff NEEDED 2 puff NEEDED (route: inhalation ) Med Classific ation: Respirato ry Therapy Agents pioglitazon e 30 mg tablet 8-03 00:00: 00 02-01 23:59 :00 No [id number] 1 tablet DAILY 1 tablet DAILY (route: oral) Med Classific ation: Endocrine Jardiance 25 mg tablet 2023-04 0- 00:00: 00 06-24 23:59 :00 No [id number] 1 tablet DAILY 1 tablet DAILY (route: oral) Med Classific ation: Endocrine Jardiance 10 mg tablet 3-20 00:00: 00 Yes [id number] 1 tablet EVERY AM 1 tablet EVERY AM (route: oral) Med Classific ation: Endocrine Ozempic 0.25 mg or 0.5 mg (2 mg/3 mL) subcutaneou s pen injector 4-11 00:00: 00 09-21 23:59 :00 No [id number] 0.5 mg WEEKLY 0.5 mg WEEKLY (route: subcutaneo us) Med Classific ation: Endocrine potassium chloride ER 20 mEq tablet,exte nded release - 00:00: 00 08-05 23:59 :00 No [id number] 1 tablet 2 TIMES DAILY 1 tablet 2 TIMES DAILY (route: oral) Med Classific ation: Electroly te Balance-N utritiona l Products fluticasone propionate 50 mcg/actuati on nasal spray,suspe nsion 08-05 00:00: 00 Yes [id number] 2 spray DAILY 2 spray DAILY (route: nasal) Med Classific ation: Respirato ry Therapy Agents loratadine 10 mg tablet - 00:00: 00 Yes [id number] 1 tablet DAILY 1 tablet DAILY (route: oral) Med Classific ation: Respirato ry Therapy Agents potassium chloride ER 20 mEq tablet,exte nded release - 00:00: 00 Yes [id number] 1 tablet EVERY AM 1 tablet EVERY AM (route: oral) Med Classific ation: Electroly te Balance-N utritiona l Products mirtazapine 7.5 mg tablet 5-14 00:00: 00 Yes [id number] 1 tablet BEDTIME 1 tablet BEDTIME (route: oral) Med Classific ation: Central Nervous System Agents Ozempic 1 mg/dose (4 mg/3 mL) subcutaneou s pen injector 6-13 00:00: 00 Yes [id number] 1 mg WEEKLY 1 mg WEEKLY (route: subcutaneo us) Med Classific ation: Endocrine Cartia XT 120 mg capsule,ext ended release 10-31 00:00: 00 Yes [id number] 1 capsule EVERY AM 1 capsule EVERY AM (route: oral) Med Classific ation: Cardiovas cular Therapy Agents Eliquis 5 mg tablet 10-24 00:00: 00 Yes [id number] 1 tablet 2 TIMES DAILY 1 tablet 2 TIMES DAILY (route: oral) Med Classific ation: Hematolog ical Agents prednisone 20 mg tablet 10-24 00:00: 00 10-27 23:59 :00 No [id number] 2 tablet DAILY 2 tablet DAILY (route: oral) Med Classific ation: Endocrine Vital Signs Vital Name Observation Time Observation Value Commen ts Temperature 2024-12-17 10:16:00.000 97.9 [degF] Temperature 2024-12-16 09:41:00.000 97.5 [degF] Temperature 2024-12-15 11:39:00.000 98.5 [degF] Temperature 2024-12-14 11:32:00.000 97.3 [degF] Temperature 2024-12-13 11:28:00.000 97.5 [degF] Temperature 2024-12-10 09:48:00.000 98 [degF] Temperature 2024-12-09 10:29:00.000 97.4 [degF] Temperature 2024-12-08 12:01:00.000 97.7 [degF] Temperature 2024-12-07 09:56:00.000 98.6 [degF] Temperature 2024-12-02 10:20:00.000 97.5 [degF] Temperature 2024-12-01 09:32:00.000 97.6 [degF] Temperature 2024-11-30 09:32:00.000 96.9 [degF] Temperature 2024-11-29 09:02:00.000 97.3 [degF] Temperature 2024-11-26 [...] [degF] Temperature 2024-11-02 11:21:00.000 97.5 [degF] Pulse 2024-12-17 10:16:00.000 89 /min Pulse 2024-12-16 09:41:00.000 81 /min Pulse 2024-12-15 11:39:00.000 89 /min Pulse 2024-12-14 11:32:00.000 83 /min Pulse 2024-12-13 11:28:00.000 84 /min Pulse 2024-12-10 09:48:00.000 83 /min Pulse 2024-12-09 10:29:00.000 83 /min Pulse 2024-12-08 12:01:00.000 89 /min Pulse 2024-12-07 09:56:00.000 86 /min Pulse 2024-12-02 10:20:00.000 85 /min Pulse 2024-12-01 09:26:00.000 88 /min Pulse 2024-11-30 09:32:00.000 85 /min Pulse 2024-11-29 09:02:00.000 51 /min Pulse 2024-11-26 [...] 2024-11-02 11:21:00.000 77 /min O2 Saturation (%) 2024-12-17 10:16:00.000 97 % O2 Saturation (%) 2024-12-16 09:41:00.000 96 % O2 Saturation (%) 2024-12-15 11:39:00.000 96 % O2 Saturation (%) 2024-12-14 11:32:00.000 93 % O2 Saturation (%) 2024-12-13 11:22:00.000 93 % O2 Saturation (%) 2024-12-10 09:48:00.000 93 % O2 Saturation (%) 2024-12-09 10:29:00.000 93 % O2 Saturation (%) 2024-12-08 12:04:00.000 99 % O2 Saturation (%) 2024-12-07 09:57:00.000 96 % O2 Saturation (%) 2024-12-02 10:21:00.000 93 % O2 Saturation (%) 2024-12-01 09:27:00.000 95 % O2 Saturation (%) 2024-11-30 09:33:00.000 96 % O2 Saturation (%) 2024-11-29 09:07:00.000 96 % [...] Saturation (%) 2024-11-02 11:21:00.000 96 % Respirations 2024-12-17 10:16:00.000 20 /min Respirations 2024-12-16 09:41:00.000 20 /min Respirations 2024-12-14 11:32:00.000 20 /min Respirations 2024-12-13 11:28:00.000 22 /min Respirations 2024-12-10 09:48:00.000 22 /min Respirations 2024-12-09 10:29:00.000 22 /min Respirations 2024-12-08 12:01:00.000 22 /min Respirations 2024-12-07 09:56:00.000 20 /min Respirations 2024-12-02 10:20:00.000 22 /min Respirations 2024-12-01 09:26:00.000 20 /min Respirations 2024-11-30 09:32:00.000 20 /min Respirations 2024-11-29 09:02:00.000 20 /min Respirations 2024-11-26 [...] Respirations 2024-11-02 11:21:00.000 20 /min Weight (lbs) 2024-12-15 11:39:00.000 243 [lb_av] Weight (lbs) 2024-12-10 09:51:00.000 249 [lb_av] Weight (lbs) 2024-12-02 10:26:00.000 249 [lb_av] Weight (lbs) 2024-11-26 10:07:00.000 246 [lb_av] Weight (lbs) 2024-11-12 09:52:00.000 238 [lb_av] Systolic Blood Pressure 2024-12-17 10:16:00.000 140 mm [Hg] Systolic Blood Pressure 2024-12-14 11:32:00.000 140 mm [Hg] Systolic Blood Pressure 2024-12-13 11:28:00.000 120 mm [Hg] Systolic Blood Pressure 2024-12-10 09:48:00.000 110 mm [Hg] Systolic Blood Pressure 2024-12-09 10:29:00.000 122 mm [Hg] Systolic Blood Pressure 2024-12-08 12:01:00.000 130 mm [Hg] Systolic Blood Pressure 2024-12-02 10:20:00.000 112 mm [Hg] Systolic Blood Pressure 2024-12-01 09:28:00.000 104 mm [Hg] Systolic Blood Pressure 2024-11-30 09:33:00.000 122 mm [Hg] Systolic Blood Pressure 2024-11-29 09:02:00.000 110 mm [...] 11:24:00.000 102 mm [Hg] Diastolic Blood Pressure 2024-12-17 10:16:00.000 80 mm [Hg] Diastolic Blood Pressure 2024-12-14 11:32:00.000 80 mm [Hg] Diastolic Blood Pressure 2024-12-13 11:28:00.000 80 mm [Hg] Diastolic Blood Pressure 2024-12-10 09:48:00.000 68 mm [Hg] Diastolic Blood Pressure 2024-12-09 10:29:00.000 50 mm [Hg] Diastolic Blood Pressure 2024-12-08 12:01:00.000 74 mm [Hg] Diastolic Blood Pressure 2024-12-02 10:20:00.000 70 mm [Hg] Diastolic Blood Pressure 2024-12-01 09:28:00.000 70 mm [Hg] Diastolic Blood Pressure 2024-11-30 09:33:00.000 62 mm [Hg] Diastolic Blood Pressure 2024-11-29 09:02:00.000 [...] AWARENESS FOR SAFETY AND WILL NOTIFY CLINICAL LOCAL DRIVER AND PHYSICIAN/PROVIDER WITH ANY CHANGE IN CONDITION. [code = SKILLED NURSE WILL MAINTAIN SITUATIONAL AWARENESS FOR SAFETY AND WILL NOTIFY CLINICAL LOCAL DRIVER AND PHYSICIAN/PROVIDER WITH ANY CHANGE IN CONDITION.] [...] Scheduled Test SKILLED NU RSE TO ASSESS PATIENT S PSYCHOSOCIAL STATUS TO IDENTIFY POTENTIAL ISSUES THAT MAY COMPLICATE THE PROVISION OF THE PLAN OF CARE INCLUDING THE PATIENT S ABILITY TO ACCESS COMMUNITY RESOURCES AND PSYCHOSOCIAL SUPPORT SERVICES. [code = SKILLED NURSE TO ASSESS PATIENT S PSYCHOSOCIAL STATUS TO IDENTIFY POTENTIAL ISSUES THAT MAY COMPLICATE THE PROVISION OF THE PLAN OF CARE INCLUDING THE PATIENT S ABILITY TO ACCESS COMMUNITY RESOURCES AND PSYCHOSOCIAL [...] GET BACK ON M Y FEET Goal 2024-05-03 Patient Goal - C ONTINUE LOSE WEIGHT, AVOID HOSPITALIZATION, DONT FALL Goal 2024-03-03 Patient Goal - C ONTINUE LOSE WEIGHT, AVOID HOSPITALIZATION, DONT FALL Goal 2024-01-05 Patient Goal - C ONTINUE LOSE WEIGHT, AVOID HOSPITALIZATION, DONT FALL Goal 2023-11-05 Patient Goal - L OSE WEIGHT AVOID HOSPITALIZATION, DONT FALL Goal 2023-09-04 Patient Goal - K EEP WALKING UP THE STAIRS, TAKE MY MEDICATIONS Goal Patient Goal - C ONTINUE LOSE [...] CARE WILL BE ESTABLISHED THAT MEETS PATIENT'S LONG TERM NEEDS AND INCLUDES PATIENT GOAL FOR HOME [...] End Date/Time Encounter Type Admission Type Attending [facility] Care Department Encounter ID Discharge Date Discharge Status Discharge Condition Discharge Reason Percent Goals Met 2024-11-02 00:00:00 2024-12-31 00:00:00 [facility]patient [facility] GONSALE[facility] [id number] 60.00
== END 2024-12-20 13:44 | disposition home or self-care (01) ==
PROVIDERS: Family Provider Internal Medicine; Visit Provider Internal Medicine
DX: I48.0 Paroxysmal atrial fibrillation (principal); I49.8 Other specified cardiac arrhythmias
CPT/HCPCS: 93010; 99214; G2211

== ENCOUNTER → 2024-12-20 13:02 | Outpatient (BNVA) | payer MEDICARE, MEDICAID, SELFPAY | PROVIDERS: Visit Provider Internal Medicine | DX: I49.8 Other specified cardiac arrhythmias (principal); I48.0 Paroxysmal atrial fibrillation | CPT/HCPCS: 93005; 99212 ==

== ENCOUNTER 2025-01-06 12:28 | Inpatient (IN) | payer MEDICARE, MEDICAID, SELFPAY ==
[2025-01-06] VITALS (10 sets, daily range): BP systolic 101–136; BP diastolic 58–88; PULSE 70–142; RESP 18–22; TEMP 35.6–36.8; O2SAT 94–97; BMI 49.0
--- NOTE | ~2025-01-06 | XR_ITS ---
EXAMINATION: XR CHEST CLINICAL INFORMATION: tachycardia COMPARISON: Chest x-ray 10/22/2024 TECHNIQUE: AP view of the chest was obtained. FINDINGS: The lungs are expanded with platelike atelectasis right middle lobe. Rest lungs are clear. The heart size and pulmonary vascularity is normal. There is mild spondylosis dorsal spine. XR/XR chest 1V IMPRESSION: Right middle lobe platelike atelectasis. Electronically signed by: Trever Fong MD 01/06/2025 03:03 PM EDT
--- NOTE | ~2025-01-06 | CT_ITS ---
CLINICAL HISTORY: Neck pain CT cervical spine without contrast Comparison: CT/SR - CT CERVICAL SPINE WITHOUT IV CONTRAST - 03/24/2023 11:04 AM EST Findings: Normal vertebral body alignment. There is multiple level degenerative disc, facet, and uncovertebral joint change. No acute fractures or dislocations. Visualized intracranial contents are unremarkable. Soft tissues of the neck are normal. No consolidation or effusion at the lung apices. IMPRESSION: No acute findings. This document has been electronically signed by: Tray Cobos MD on 01/08/2025 12:30:53
--- NOTE | 2025-01-06 13:53 | ECG_ITS ---
Test Reason : ARRYTHMIA Blood Pressure : */* mmHG Vent. Rate : 130 BPM Atrial Rate : * BPM P-R Int : * ms QRS Dur : 76 ms QT Int : 294 ms P-R-T Axes : * 6 32 degrees QTcB Int : 432 ms Atrial fibrillation with rapid ventricular response Low voltage QRS Cannot rule out Anteroseptal infarct (cited on or before 04-Oct-2015) Abnormal ECG When compared with ECG of 23-Oct-2024 05:12, Atrial fibrillation has replaced Sinus rhythm Vent. rate has increased by 50 bpm Questionable change in initial forces of Anterior leads Nonspecific T wave abnormality now evident in Inferior leads Referred By: Subha Sahnkar Electronically Signed By: WARREN GARCIA
--- NOTE | 2025-01-06 13:58 | ED_ITS ---
HPI - General Adult General Chief complaint: Arrhythmia/Palpitations Stated complaint: FAST HEART RATE PER EMS Time Seen by Provider: 01/06/25 13:56 Source: patient and EMS Mode of arrival: EMS Limitations: no limitations History of Present Illness ED Provider: Subha Shankar PA-C HPI narrative: This is a 69 year old female with a history of afib on eliquis and diltiazem, HTN, DM, COPD on home oxygen (2lpm), and nocturnal hypoxemia that presents for evaluation of rapid heart rate. She states that she was having no symptoms but the [facility]NA took her vitals at 10:30 this morning and recommended that she be seen due to tachycardia. She currently denies any symptoms including chest pain, palpitations, shortness of breath, new lower extremity edema or new rashes. She states she was diagnosed with atrial fibrillation one month ago and she is seeing a director of finance at [address] [place] [address] in [place] but she cannot recall their name. Related Data Home Medications ?Medication ?Instructions ?Recorded ?Confirmed albuterol sulfate 90 mcg/actuation 2 puff PO DAILY Yenifer rtness Of Breath 09/28/21 12/20/24 aerosol inhaler (Ventolin HFA) aripiprazole 20 mg tablet 20 mg PO DAILY 09/28/2112/06 furosemide 20 mg tablet 40 mg PO DAILY@0800 09/28/21 12/20/24 gabapentin 300 mg capsule 300 mg PO TID 09/28/2112/20 lamotrigine 100 mg tablet 100 mg PO BID 09/28/2112/20 lamotrigine 25 mg tablet 50 mg PO BEDTIME 09/28/21 metformin 1,000 mg tablet 1,000 mg PO BID 09/28/21 quetiapine 100 mg tablet 200 mg PO BEDTIME 09/28/21 0 12/20/24 simvastatin 40 mg tablet 40 mg PO BEDTIME 09/28/21 empagliflozin 10 mg tablet 10 mg PO DAILY 03/24/23 (Jardiance) lamotrigine 25 mg tablet 25 mg PO DAILY 04/15/2312/06 fluticasone propionate 230 2 puff inhalation DAILY 12/20/24 mcg-salmeterol 21 mcg/actuation HFA inhaler (Advair HFA) potassium chloride 20 mEq 20 meq PO DAILY 07/18/24 tablet,extended release spironolactone 25 mg tablet 25 mg PO DAILY 07/18/24 fluticasone propionate 50 2 spray intranasal DAILY PRN 10/22/24 12/20/24 mcg/actuation nasal Allergy Symptoms spray,suspension mirtazapine 7.5 mg tablet 7.5 mg PO BEDTIME 10/22/24 0 12/20/24 semaglutide 1 mg/dose (4 mg/3 mL) 1 mg subcut TU 10/2212/20/24 subcutaneous pen injector (Ozempic) Previous Rx's ?Medication ?Instructions ?Recorded walker #1 ea 09/28/21 diltiazem HCl 120 mg 120 mg PO DAILY #30 caps 03/01 capsule,extended release 24 hr (Cartia XT) apixaban 5 mg tablet (Eliquis) 5 mg PO BID #60 tabs Allergies Allergy/AdvReac Type Severity Reaction Status Date / Time haloperidol (From Haldol) Allergy Mild UNKNOWN Verified 01/06/25 12:40 Review of Systems 2 Constitutional: Constitutional: Reports as per HPI Eyes: Eyes: Reports as per HPI ENT: Reports as per HPI Cardiovascular: Cardiovascular: Reports as per HPI Respiratory: Respiratory: Reports as per HPI Gastrointestinal: Gastrointestinal: Reports as per HPI Genitourinary: Genitourinary: Reports as per HPI Musculoskeletal: Musculoskeletal: Reports as per HPI Integumentary/Breasts: Skin/Breast: Reports as per HPI Neurologic: Reports as per HPI Psychiatric: Psychiatric: Reports as per HPI Endocrine: Endocrine: Reports as per HPI Hematologic/Lymphatic: Hematologic/Lymphatic: Reports as per HPI Allergic/Immunologic: Allergic/Immunologic: Reports as per HPI [facility] Past Medical History Medical History Atrial fibrillation Restrictive lung disease COPD (chronic obstructive pulmonary disease) Nocturnal hypoxemia Obesity (BMI 35.0-39.9 without comorbidity) Weakness Fever Fall Unspecified diastolic heart failure Diabetes HTN (hypertension) Family History Family History Brother Heart disease Social History Social History Household Members: None Housing: Apartment Do you presently have visiting nurse or other home services: Yes Patient Tobacco Use Status: Former Tobacco user Smoked in Last 30 Days: No Use of substances other than those prescribed or required for medical reasons: No Advance Directives: Yes Advance Directives on File: Yes Advance Directives Date on File: 04/21/23 service: No Current occupational status: retired 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 Physical Exam ED Vital Signs: Vital Signs - 24 hr 01/06/25 12:33 01/06/25 15:42 Temperature 97.8 F 98.3 F Pulse Rate 137 H 142 H Respiratory Rate 18 22 H Blood Pressure 108/59 L 120/75 Pulse Oximetry 96 96 Oxygen Delivery Method Room Air Room Air BMI result Body Mass Index 49.0 Const General: alert and awake Medications Administered Discontinued Medications Generic Name Dose Route Start Last Admin Trade Name Freq PRN Reason Stop Dose Admin Metoprolol Tartrate 5 mg 01/06/25 15:05 01/06/25 15:48 Metoprolol Tartrate 5 Mg/5 Ml Vial IVPUSH 01/06/25 15:06 5 mg ONCE ONE Administration Protocol Medical Decision Making Medical Decision Making MDM Narrative: 69 year old female hx of afib on eliquis and diltiazem, HTN, DM, COPD on home oxygen (2lpm), and nocturnal hypoxemia that presents for evaluation of rapid heart rate. She was at home when VNA examined her and found her to bein atrial fib with RVR. While the patient states she has been medication compliant, I am concerned she has not been. EKG today showed atrial fib w/RVR in the 130s. Labs unremarkable. CXR unremarkable. Patient was given IV Lopressor which did not decrease her heart rate. I spoke with the director of finance railroad crossing protection maintainer who recommended IV cardizem and if unable to slow her, hospital admission. Patient was given IV cardizem which did not slow the patient's heart rate down. Cardizem drip started. I spoke with the hopsitalist team who agreed to admission. Patient agreed to admission. Differential Diagnosis Differential Diagnoses: The differential diagnosis associated with the presentation includes Atrial fib RVR Rapid heart rate Admission/Observation Consideration of admission/observation: Escalation of care including admission/observation considered Patient admitted as noted in the MDM Rationale portion of this note. Consult Healthcare Provider Management of the patient was discussed with: Hospitalist (agreed to admission as noted in the MDM Rationale portion of this note. ) and [employer] (spoke with the director of finance as noted in the MDM Rationale portion of this note. ) Lab Data [facility] Lab Attestation statement: I reviewed the patient's lab results. My interpretation of these results are in the MDM Rationale portion of this note. 01/06/25 14:31 01/06/25 14:31 Labs: Lab Results 01/06/25 01/06/25 Range/Units 14:31 15:55 WBC 9.2 (4.8-10.8) X10*3/uL RBC 4.36 (4.20-5.50) X10*6/uL Hgb 13.4 (12.0-16.0) g/dl Hct 40.8 (37.0-47.0) % MCV 93.6 (80.0-98.0) fL MCH 30.7 (27.0-33.0) pg MCHC 32.8 (31.0-35.0) g/dl RDW 14.4 (11.0-16.0) % Plt Count 267 (160-400) X10*3/uL MPV 9.3 L (9.4-12.3) fL Immature Gran % (Auto) 0.7 H (0.0-0.4) % Neut % (Auto) 67.5 (45-73) % Lymph % (Auto) 21.1 (20-40) % [place] % (Auto) 8.1 (2-11) % Eos % (Auto) 2.1 (0-4) % Baso % (Auto) 0.5 (0-2) % Lymph # (Auto) 1.9 (1.2-4.9) X10*3/uL [place] # (Auto) 0.7 (0.1-1.2) X10*3/uL Eos # (Auto) 0.2 (0.0-0.4) X10*3/uL Baso # (Auto) 0.1 (0.0-0.2) X10*3/uL Abs Immat Gran (auto) 0.06 H (0.00-0.03) X10*3/uL Absolute Neuts (auto) 6.2 (2.0-8.3) x10*3/uL Absolute Nucleated RBC 0.000 (0.0-0.012) X10*3/uL Nucleated RBC % (auto) 0.0 (0.0-0.2) /100WBC PT 14.5 H D (10.9-12.4) SEC INR 1.3 H (0.9-1.1) Sodium 141 (135-145) mmol/L Potassium 3.4 (3.3-5.1) mmol/L Chloride 103 (96-108) mmol/L Carbon Dioxide 29 (22-29) mmol/L Anion Gap 12 (12-20) BUN 12 (9-16) mg/dL Creatinine 0.78 (0.5-1.4) mg/dL Estim Creat Clear Calc 79.1 Estimated GFR > 60 Random Glucose 128 H (60-115) mg/dL Calcium 9.4 (8.4-10.2) mg/dL Magnesium 2.3 (1.6-2.6) mg/dL Total Bilirubin 0.5 (0.0-1.0) mg/dL AST 20 (5-31) U/L ALT 10 (0-31) U/L Alkaline Phosphatase 81 (39-117) U/L Troponin I High Sens < 2.7 (<3.5-17.0) ng/L NT-Pro-B Natriuret Pep 1084.2 H (<300) pg/mL Total Protein 7.1 (6.5-8.0) g/dL Albumin 4.7 (3.5-5.0) g/dL Independent Interpretation I performed an independent interpretation of an: EKG and Plain X-Ray Interpretation: My interpretation is in agreement with the radiologist's impression of this imaging study. L Reason for Exam: tachycardia EXAMINATION: XR CHEST CLINICAL INFORMATION: tachycardia COMPARISON: Chest x-ray 10/22/2024 TECHNIQUE: AP view of the chest was obtained. FINDINGS: The lungs are expanded with platelike atelectasis right middle lobe. Rest lungs are clear. The heart size and pulmonary vascularity is normal. There is mild spondylosis dorsal spine. XR/XR chest 1V IMPRESSION: Right middle lobe platelike atelectasis. Electronically signed by: Trever Fong MD 01/06/2025 03:03 PM EDT RP Dictated By: Trever Fong MD Signed By: Electronically signed by Trever Fong MD 01/06/25 1503 I independently interpreted this EKG and am in agreement with the below findings: Vent. Rate: 130 BPM Atrial Rate: * BPM P-R Int: * ms QRS Dur: 76 ms QT Int: 294 ms P-R-T Axes: * 6 32 degrees QTcB Int: 432 ms Atrial fibrillation with rapid ventricular response Low voltage QRS Cannot rule out Anteroseptal infarct (cited on or before 04-Oct-2015) When compared with ECG of 23-Oct-2024 05:12, Atrial fibrillation has replaced Sinus rhythm Vent. rate has increased by 50 bpm Questionable change in initial forces of Anterior leads Nonspecific T wave abnormality now evident in Inferior leads DD/ 1306 Radiology Impression Discussion of test interpretation with radiology: I have reviewed the radiologist's reading. Independent Historian Clinical information obtained from an independent historian. History obtained from or confirmed by: EMS (EMS provided additional history and confirmed the history provided by the patient. ) External Record Review External record reviewed: Inpatient record and Office record Critical Care Time Critical Care Time Critical Care Time: Yes Total Critical Care Time: 46 Attestation: I spent 46 minutes of Critical Care Time with this patient. This does not include time spent on separately reported billable procedures. Discharge Plan Discharge Clinical Impression: Atrial fibrillation with RVR Patient Disposition: Admitted As Inpatient
--- OUTSIDE RECORDS SUMMARY | 2025-01-06 14:21 | XMS_ITS | Encounter Summary ---
Author Organization [facility] Address [address] [place] [phone] Care Team Providers Care Tin Whiz Machine Operator Name Role Phone Braeden Hudson MD Primary Care Provider [phone] Encounter Details Date Type Department Care Team (Late st Contact Info) Description 07/21/2024 Lab Requisition [facility] - Main Lab [address] [place] [address] Braeden Hudson MD [address] [place] [address] 204 [facility] [phone] Essential (primary) hypertension; Anemia, [...] LAB CHEMISTRY METHOD 07/21/2024 1:[address] [facility] Potassium 3.5 3.5 - 5.5 mmol/L LAB CHEMISTRY METHOD 07/21/2024 1:[address] [facility] Comment:Hemolysis present Chloride 101 96 - 110 mmol/L LAB CHEMISTRY METHOD 07/21/2024 1:55 PM [facility] CO2 27 21 - 32 mmol/L LAB CHEMISTRY METHOD 07/21/2024 1:55 PM [facility] Anion Gap 10 3 - 11 LAB CHEMISTRY METHOD 07/21/2024 1:55 PM [facility] Glucose 113(H) 70 - 100 mg/dL LAB CHEMISTRY METHOD 07/21/2024 1:55 PM [facility] BUN 25 5 - 25 mg/dL LAB CHEMISTRY METHOD 07/21/2024 1:55 PM [facility] Creatinine 0.81 0.50 - 1.10 mg/dL LAB CHEMISTRY METHOD 07/21/2024 1:55 PM [facility] eGFR 78 >=60 mL/min/1. 73m2 LAB CHEMISTRY METHOD 07/21/2024 1:55 PM [facility] Comment:Calculation based on the Chronic Kidney Disease Epidemiology Collaboration (CKD-EPI) equation refit without adjustment for race. BUN/Creatinine Ratio 30.9 LAB CHEMISTRY METHOD 07/21/2024 1:55 PM [facility] Calcium 9.2 8.5 - 10.5 mg/dL LAB CHEMISTRY METHOD 07/21/2024 1:55 PM [facility] AST (SGOT) 92(H) 10 - 42 unit/L LAB CHEMISTRY METHOD 07/21/2024 1:55 PM [facility] Comment:Hemolysis present ALT (SGPT) 31 10 - 60 unit/L LAB CHEMISTRY METHOD 07/21/2024 1:55 PM [facility] Alkaline Phosphatase 88 42 - 121 unit/L LAB CHEMISTRY METHOD 07/21/2024 1:55 PM [facility] Total Protein 6.9 6.0 - 8.0 g/dL LAB CHEMISTRY METHOD 07/21/2024 1:[address] [facility] Albumin 4.0 3.2 - 5.0 g/dL LAB CHEMISTRY METHOD 07/21/2024 1:[address] [facility] Total Bilirubin 0.9 0.0 - 1.4 mg/dL LAB CHEMISTRY METHOD 07/21/2024 1:[address] [facility] Blood Venous blood specimen / Unknown Venipuncture / Unknown 07/21/2024 6:04 AM EDT 07/21/2024 11:24 AM EDT us Braeden Hudson MD LAB BLOOD ORDERABLES Final Resul t [facility] [address] [place] [address], [place] [phone] documented in this encounter Visit Diagnoses Diagnosis Essential (primary) hypertension Unspecified essential hypertension Anemia, unspecified documented in this encounter Care Teams Tin Whiz Machine Operator Relationship Specialty Start Date End Date Braeden Hudson MD [address] [place] [address] 204 [place], [phone] PCP - General Family Medicine 07/20/24 documented as of this encounter
--- OUTSIDE RECORDS SUMMARY | 2025-01-06 14:21 | XMS_ITS | Clinical Summary ---
Author Organization [address] Address [address] [place] [phone] Phone Care Team Providers Care Sheet Sewer Name Role Phone Braeden Hudson MD Primary Care Provider [phone] Allergies No known active allergies Medical History [...] Health Maintenance Due Date Last Done Comments Colorectal Cancer Screening: Colonoscopy 1955 Diabetes: Annual Foot Exam 10/27/1963 Diabetes: Annual Retina Eye Exam 10/27/1963 Zoster Vaccines (1 of 2) 10/27/2003 RSV Immunization Adult Patients (1 - Risk 60-74 years 1-dose series) 2013 Pneumococcal Vaccine: 50+ Years (2 of 2 - PCV) 04/20/2020 04/20/2019, 05/15/2016 Cholesterol Screening (Lipid Panel) 03/10/2022 Falls Risk Assessment 03/10/2022 Hepatitis C [...] mmol/L LAB CHEMISTRY METHOD 08/02/2024 12:12 AM [facility] Potassium 3.7 3.5 - 5.5 mmol/L LAB CHEMISTRY METHOD 08/02/2024 12:12 AM [facility] Chloride 101 96 - 110 mmol/L LAB CHEMISTRY METHOD 08/02/2024 12:12 AM [facility] CO2 27 21 - 32 mmol/L LAB CHEMISTRY METHOD 08/02/2024 12:12 AM [facility] Anion Gap 8 3 - 11 LAB CHEMISTRY METHOD 08/02/2024 12:12 AM [facility] Glucose 136(H) 70 - 100 mg/dL LAB CHEMISTRY METHOD 08/02/2024 12:12 AM [facility] BUN 8 5 - 25 mg/dL LAB CHEMISTRY METHOD 08/02/2024 12:12 AM [facility] Creatinine 0.75 0.50 - 1.10 mg/dL LAB CHEMISTRY METHOD 08/02/2024 12:12 AM [facility] eGFR 86 >=60 mL/min/1. 73m2 LAB CHEMISTRY METHOD 08/02/2024 12:12 AM [facility] Comment:Calculation based on the Chronic Kidney Disease Epidemiology Collaboration (CKD-EPI) equation refit without adjustment for race. BUN/Creatinine Ratio 10.7 LAB CHEMISTRY METHOD 08/02/2024 12:12 AM EDT [facility] Calcium 8.6 8.5 - 10.5 mg/dL LAB CHEMISTRY METHOD 08/02/2024 12:12 AM EDT [facility] Blood Venous blood specimen / Unknown Venipuncture / Unknown 08/01/2024 11:36 PM EDT 08/01/2024 11:43 PM EDT us Faye SANCHEZ LAB BLOOD ORDERABLES Final Result [facility] [address] [place] [address], * GISELE SCREENING DIGITAL (08/21/2022 4:49 PM EDT) Anatomical Region Laterality Modality Mammography 08/21/2022 10:2 9 AM EDT Narrative 08/21/2022 4:49 PM EDT Diagnostic Imaging Department [address] [place] [address] Patient: AUGUSTOJOHN /Age/Sex: 1955 - 66 - F Unit#: [id number] Location/Status: SPDIMAM/REG CLI Mnemonic/Ordering Site: [facility] Ordering Physician: TARYN PARKER MD Gisele Screening Digital - 08/21/22 - 1053 EXAM: [facility] Screening Digital EXAM DATE AND TIME: 08/21/2022 10:53 AM HISTORY: Screening. COMPARISON: 08/16/20, 07/08/18, 06/04/17, 05/30/16 TECHNIQUE: CC and MLO views of both breasts were obtained using full field digital mammography. Bilateral digital breast tomosynthesis was performed in the MLO projection. Computer aided detection with [employer] 7.2-H and [employer] 3D 3.1 was employed. TISSUE DENSITY: b. [...] Routine screening mammogram BILATERAL in 1 year. [address], [address]294 3342F, 7025F Dictating Physician: SHAUNA MAHARAJ MD Electronically Signed by: SHAUNA MAHARAJ MD Dic Date/Time: 08/21/221647 Sign date/Time: 08/21/221648 Procedure Note Shauna Maharaj MD - 05/09/2023 Diagnostic Imaging Department [address] [place] [address] Patient: JOHN CASAS D.O.B./Age/Sex: 1955 - 66 - F Unit#: [id number] Location/Status: SPDIMAM/REG CLI Mnemonic/Ordering Site: [facility] Ordering Physician: TARYN PARKER MD [facility] Screening Digital - 08/21/22 - 1052 EXAM: Gisele Screening Digital EXAM DATE AND TIME: 08/21/2022 10:53 AM HISTORY: Screening. COMPARISON: 08/16/20, 07/08/18, 06/04/17, 05/30/16 TECHNIQUE: CC and MLO views of both breasts were obtained using fullfield digital mammography. Bilateral digital breast tomosynthesis was performedin the MLO projection. Computer aided detection with Troodon 7.2-H and[employer] 3D 3.1 was employed. TISSUE DENSITY: b. [...] Routine screening mammogram BILATERAL in 1 year. [address], 86308 3342F, 7025F Dictating Physician: SHAUNA MAHARAJ MD Electronically Signed by: SHAUNA MAHARAJ MD Dic Date/Time: 08/21/221647 Sign date/Time: 08/21/221648 Taryn Parker MD IMG BI PROCEDURES Final Result from Last 3 Months or Most Recently Relevant to Health Maintenance Insurance MEDICARE MEDICAID - [place] Care Teams Sheet Sewer Relationship Specialty Start Date End Date Braeden Hudson MD [address], [phone] PCP - General Family Medicine 07/20/24
--- OUTSIDE RECORDS SUMMARY | 2025-01-06 14:21 | XMS_ITS | Encounter Summary ---
Author Organization [facility] Address [address] [place] [phone] Care Team Providers Care Fabric And Accessories Estimator Name Role Phone Braeden Hudson MD Primary Care Provider [phone] Encounter Details Date Type Department Care Team (Late st Contact Info) Description 07/30/2024 Lab Requisition [facility] - Main Lab [address] [place] [address] Braeden Hudson MD [address] [place] [address] 204 [facility] [phone] Chronic obstructive pulmonary disease, unspecified (CMS/HCC [...] LAB CHEMISTRY METHOD 07/30/2024 10:25 AM EDT [facility] Potassium 3.9 3.5 - 5.5 mmol/L LAB CHEMISTRY METHOD 07/30/2024 10:25 AM [facility] Chloride 104 96 - 110 mmol/L LAB CHEMISTRY METHOD 07/30/2024 10:25 AM [facility] CO2 30 21 - 32 mmol/L LAB CHEMISTRY METHOD 07/30/2024 10:25 AM [facility] Anion Gap 7 3 - 11 LAB CHEMISTRY METHOD 07/30/2024 10:25 AM [facility] Glucose 111(H) 70 - 100 mg/dL LAB CHEMISTRY METHOD 07/30/2024 10:25 AM [facility] BUN 8 5 - 25 mg/dL LAB CHEMISTRY METHOD 07/30/2024 10:25 AM [facility] Creatinine 0.65 0.50 - 1.10 mg/dL LAB CHEMISTRY METHOD 07/30/2024 10:25 AM [facility] eGFR 95 >=60 mL/min/1. 73m2 LAB CHEMISTRY METHOD 07/30/2024 10:25 AM [facility] Comment:Calculation based on the Chronic Kidney Disease Epidemiology Collaboration (CKD-EPI) equation refit without adjustment for race. BUN/Creatinine Ratio 12.3 LAB CHEMISTRY METHOD 07/30/2024 10:25 AM [facility] Calcium 8.8 8.5 - 10.5 mg/dL LAB CHEMISTRY METHOD 07/30/2024 10:25 AM [facility] AST (SGOT) 14 10 - 42 unit/L LAB CHEMISTRY METHOD 07/30/2024 10:25 AM [facility] ALT (SGPT) 16 10 - 60 unit/L LAB CHEMISTRY METHOD 07/30/2024 10:25 AM [facility] Alkaline Phosphatase 77 42 - 121 unit/L LAB CHEMISTRY METHOD 07/30/2024 10:25 AM [facility] Total Protein 6.1 6.0 - 8.0 g/dL LAB CHEMISTRY METHOD 07/30/2024 10:25 AM EDT [facility] Albumin 3.4 3.2 - 5.0 g/dL LAB CHEMISTRY METHOD 07/30/2024 10:25 AM EDT [facility] Total Bilirubin 0.7 0.0 - 1.4 mg/dL LAB CHEMISTRY METHOD 07/30/2024 10:25 AM EDT [facility] Blood Venous blood specimen / Unknown Venipuncture / Unknown 07/30/2024 7:20 AM EDT 07/30/2024 9:06 AM EDT us Braeden Hudson MD LAB BLOOD ORDERABLES Final Resul t [facility] [address] [place] [address], documented in this encounter Visit Diagnoses Diagnosis Chronic obstructive pulmonary disease, unspecified (CMS/HCC V24, CMS/HCC V28) documented in this encounter Care Teams Fabric And Accessories Estimator Relationship Specialty Start Date End Date Braeden Hudson MD [address] [place] [address], [phone] PCP - General Family Medicine 07/20/24 documented as of this encounter
--- OUTSIDE RECORDS SUMMARY | 2025-01-06 14:21 | XMS_ITS | Encounter Summary ---
Author Organization [facility] Address [address] [place] [phone] Care Team Providers Care Maintenance Operator Name Role Phone Braeden Hudson MD Primary Care Provider [phone] Encounter Details Date Type Department Care Team (Late st Contact Info) Description 07/22/2024 Lab Requisition [facility] - Main Lab [address] [place] [address] Braeden Hudson MD [address] [place] [address] 204 [facility] [phone] Essential (primary) hypertension; Anemia, [...] LAB CHEMISTRY METHOD 07/23/2024 10:48 AM EDT [facility] Potassium 3.2(L) 3.5 - 5.5 mmol/L LAB CHEMISTRY METHOD 07/23/2024 10:48 AM EDT [facility] Chloride 101 96 - 110 mmol/L LAB CHEMISTRY METHOD 07/23/2024 10:[address] [facility] CO2 29 21 - 32 mmol/L LAB CHEMISTRY METHOD 07/23/2024 10:[address] [facility] Anion Gap 11 3 - 11 LAB CHEMISTRY METHOD 07/23/2024 10:[address] [facility] Glucose 128(H) 70 - 100 mg/dL LAB CHEMISTRY METHOD 07/23/2024 10:[address] [facility] BUN 18 5 - 25 mg/dL LAB CHEMISTRY METHOD 07/23/2024 10:[address] [facility] Creatinine 0.71 0.50 - 1.10 mg/dL LAB CHEMISTRY METHOD 07/23/2024 10:[address] [facility] eGFR 92 >=60 mL/min/1. 73m2 LAB CHEMISTRY METHOD 07/23/2024 10:[address] [facility] Comment:Calculation based on the Chronic Kidney Disease Epidemiology Collaboration (CKD-EPI) equation refit without adjustment for race. BUN/Creatinine Ratio 25.4 LAB CHEMISTRY METHOD 07/23/2024 10:[address] [facility] Calcium 9.1 8.5 - 10.5 mg/dL LAB CHEMISTRY METHOD 07/23/2024 10:[address] [facility] Blood Venous blood specimen / Unknown Venipuncture / Unknown 07/23/2024 7:04 AM EDT 07/23/2024 9:05 AM EDT us Braeden Hudson MD LAB BLOOD ORDERABLES Final Resul t [facility] [address] [place] [address], documented in this encounter Visit Diagnoses Diagnosis Essential (primary) hypertension Unspecified essential hypertension Anemia, unspecified documented in this encounter Care Teams Maintenance Operator Relationship Specialty Start Date End Date Braeden Hudson MD [address], [phone] PCP - General Family Medicine 07/20/24 documented as of this encounter
--- OUTSIDE RECORDS SUMMARY | 2025-01-06 14:21 | XMS_ITS | Patient Health Record ---
Author Organization [facility] Address [address] [place] [address] Care Team Providers Care Calender Wind Up Tender Name Role Phone Keith FLANNERY, Taryn Primary Care Provider Jericho Espinoza Jr Unavailable [phone] Reason For Referral No Information Plan Of Treatment No Information Insurance Providers Payer Name Payer Address Payer Phone Subscriber Number Group Number Insured Name Patient Relationship to Insured Coverage Start Date Coverage End Date MEDICARE [place] [address] [place] [id number] [id number] JOHN CASAS Self - patient is the insured MEDICAID OF [facility] [address] [place] [address] [id number] JOHN CASAS Self - patient is the insured
--- OUTSIDE RECORDS SUMMARY | 2025-01-06 14:21 | XMS_ITS | Encounter Summary ---
Author Organization [facility] Address [address] [place] [phone] Care Team Providers Care Automatic Furnace Operator Name Role Phone Braeden Hudson MD Primary Care Provider [phone] Encounter Details Date Type Department Care Team (Late st Contact Info) Description 07/20/2024 Lab Requisition [facility] - Main Lab [address] [place] [address] Braeden Hudson MD [address] [place] [address] 204 [facility] [phone] Anemia, unspecified Social History Tobacco Use [...] AM EDT) WBC 11.2(H) 4.8 - 10.8 K/[facility] LAB HEMETOLOGY METHOD 07/20/2024 10:04 AM [facility] RBC 5.20(H) 3.80 - 4.80 M/mcL LAB HEMETOLOGY METHOD 07/20/2024 10:04 AM [facility] Hemoglobin 15.8 11.5 - 16.0 g/dL LAB HEMETOLOGY METHOD 07/20/2024 10:04 AM [facility] LAB Hematocrit 49.2(H) 35.0 - 47.0 % LAB HEMETOLOGY METHOD 07/20/2024 10:04 AM [facility] LAB MCV 95.5 79.0 - 98.0 FL LAB HEMETOLOGY METHOD 07/20/2024 10:04 AM [facility] LAB MCH 30.7 27.0 - 32.0 pcg LAB HEMETOLOGY METHOD 07/20/2024 10:04 AM [facility] LAB MCHC 32.1 32.0 - 37.0 g/dL LAB HEMETOLOGY METHOD 07/20/2024 10:04 AM [facility] LAB RDW 14.3 11.0 - 15.0 % LAB HEMETOLOGY METHOD 07/20/2024 10:04 AM [facility] Platelets 285 130 - 400 K/mcL LAB HEMETOLOGY METHOD 07/20/2024 10:04 AM [facility] LAB MPV 10.4 7.0 - 11.0 FL LAB HEMETOLOGY METHOD 07/20/2024 10:04 AM [facility] NRBC 0.0 <1.0 % LAB HEMETOLOGY METHOD 07/20/2024 10:04 AM [facility] LAB NRBC Absolute 0.00 <0.10 K/mcL LAB HEMETOLOGY METHOD 07/20/2024 10:04 AM [facility] Neutrophils Relative 77.7 % LAB HEMETOLOGY METHOD 07/20/2024 10:04 AM [facility] Lymphocytes Relative 12.0 % LAB HEMETOLOGY METHOD 07/20/2024 10:04 AM [facility] Monocytes Relative 9.4 % LAB HEMETOLOGY METHOD 07/20/2024 10:04 AM [facility] Eosinophils Relative 0.2 % LAB HEMETOLOGY METHOD 07/20/2024 10:04 AM [facility] Basophils Relative 0.4 % LAB HEMETOLOGY METHOD 07/20/2024 10:04 AM [facility] Immature Granulocytes Relative 0.3 % LAB HEMETOLOGY METHOD 07/20/2024 10:04 AM [facility] Neutrophils Absolute 8.73(H) 1.50 - 7.00 K/mcL LAB HEMETOLOGY METHOD 07/20/2024 10:04 AM [facility] Lymphocytes Absolute 1.34 1.00 - 5.00 K/mcL LAB HEMETOLOGY METHOD 07/20/2024 10:04 AM [facility] Monocytes Absolute 1.05(H) 0.20 - 1.00 K/mcL LAB HEMETOLOGY METHOD 07/20/2024 10:04 AM [facility] Eosinophils Absolute 0.02 0.00 - 0.50 K/mcL LAB HEMETOLOGY METHOD 07/20/2024 10:04 AM [facility] Basophils Absolute 0.04 0.00 - 0.20 K/mcL LAB HEMETOLOGY METHOD 07/20/2024 10:04 AM [facility] Immature Granulocytes Absolute 0.03 0.00 - 0.03 K/mcL LAB HEMETOLOGY METHOD 07/20/2024 10:04 AM [facility] Blood Venous blood specimen / Unknown Venipuncture / Unknown 07/20/2024 6:04 AM EDT 07/20/2024 9:29 AM EDT us Braeden Hudson MD LAB BLOOD ORDERABLES Final Resul t [facility] [address] [place] [address], [place] [phone] * (ABNORMAL) Comprehensive metabolic panel (07/20/2024 6:04 AM EDT) Sodium 139 133 - 145 mmol/L LAB CHEMISTRY METHOD 07/20/2024 10:27 AM [facility] Potassium 3.2(L) 3.5 - 5.5 mmol/L LAB CHEMISTRY METHOD 07/20/2024 10:27 AM [facility] Chloride 103 96 - 110 mmol/L LAB CHEMISTRY METHOD 07/20/2024 10:27 AM [facility] CO2 26 21 - 32 mmol/L LAB CHEMISTRY METHOD 07/20/2024 10:27 AM [facility] Anion Gap 10 3 - 11 LAB CHEMISTRY METHOD 07/20/2024 10:27 AM [facility] Glucose 119(H) 70 - 100 mg/dL LAB CHEMISTRY METHOD 07/20/2024 10:27 AM [facility] BUN 23 5 - 25 mg/dL LAB CHEMISTRY METHOD 07/20/2024 10:27 AM [facility] Creatinine 0.87 0.50 - 1.10 mg/dL LAB CHEMISTRY METHOD 07/20/2024 10:27 AM [facility] eGFR 72 >=60 mL/min/1. 73m2 LAB CHEMISTRY METHOD 07/20/2024 10:27 AM [facility] Comment:Calculation based on the Chronic Kidney Disease Epidemiology Collaboration (CKD-EPI) equation refit without adjustment for race. BUN/Creatinine Ratio 26.4 LAB CHEMISTRY METHOD 07/20/2024 10:27 AM [facility] Calcium 9.6 8.5 - 10.5 mg/dL LAB CHEMISTRY METHOD 07/20/2024 10:27 AM [facility] AST (SGOT) 148(H) 10 - 42 unit/L LAB CHEMISTRY METHOD 07/20/2024 10:27 AM [facility] ALT (SGPT) 37 10 - 60 unit/L LAB CHEMISTRY METHOD 07/20/2024 10:27 AM [facility] Alkaline Phosphatase 97 42 - 121 unit/L LAB CHEMISTRY METHOD 07/20/2024 10:27 AM [facility] Total Protein 7.4 6.0 - 8.0 g/dL LAB CHEMISTRY METHOD 07/20/2024 10:27 AM [facility] Albumin 4.3 3.2 - 5.0 g/dL LAB CHEMISTRY METHOD 07/20/2024 10:27 AM [facility] Total Bilirubin 1.0 0.0 - 1.4 mg/dL LAB CHEMISTRY METHOD 07/20/2024 10:27 AM [facility] Blood Venous blood specimen / Unknown Venipuncture / Unknown 07/20/2024 6:04 AM EDT 07/20/2024 9:29 AM EDT us Braeden Hudson MD LAB BLOOD ORDERABLES Final Resul t [facility] [address] [place] [address], documented in this encounter Visit Diagnoses Diagnosis Anemia, unspecified documented in this encounter Care Teams Automatic Furnace Operator Relationship Specialty Start Date End Date Braeden Hudson MD [address] [place] [address] [address] [place], [phone] PCP - General Family Medicine 07/20/24 documented as of this encounter
--- OUTSIDE RECORDS SUMMARY | 2025-01-06 14:21 | XMS_ITS | Encounter Summary ---
Author Organization [facility] Address [address] [place] [phone] Care Team Providers Care Giver Name Role Phone Braeden Hudson MD Primary Care Provider [phone] Encounter Details Date Type Department Care Team (Late st Contact Info) Description 08/03/2024 Lab Requisition [facility] - Main Lab [address] [facility] [place] [address] Braeden Hudson MD [address] [facility] [address] [place], [phone] Anemia, unspecified; Essential (primary) hypertension Social History [...] hypertension documented in this encounter Care Teams Giver Relationship Specialty Start Date End Date Braeden Hudson MD [address] [facility] [address] [place], [phone] PCP - General Family Medicine 07/20/24 documented as of this encounter
--- OUTSIDE RECORDS SUMMARY | 2025-01-06 14:21 | XMS_ITS | Encounter Summary ---
Author Organization [facility] Address [address] [place] [phone] Care Team Providers Care Wreath Machine Tender Name Role Phone Braeden Hudson MD Primary Care Provider [phone] Encounter Details Date Type Department Care Team (Late st Contact Info) Description 07/27/2024 Lab Requisition [facility] - Main Lab [address] [place] [address] Braeden Hudson MD [address] [place] [address] 204 [facility] [phone] Essential (primary) hypertension; Anemia, [...] AM EDT) WBC 7.8 4.8 - 10.8 K/[facility] LAB HEMETOLOGY METHOD 07/28/2024 12:11 PM EDT [facility] RBC 4.40 3.80 - 4.80 [...] MD LAB BLOOD ORDERABLES Final Resul t [facility] [address] [place] [address], * (ABNORMAL) Comprehensive metabolic panel (07/28/2024 7:04 AM EDT) Sodium 137 133 - 145 mmol/L LAB CHEMISTRY METHOD 07/28/2024 1:27 PM T [facility] Potassium 2.9(LL) 3.5 - 5.5 [...] LAB CHEMISTRY METHOD 07/28/2024 1:27 PM EDT [facility] AST (SGOT) 15 10 - 42 unit/L LAB CHEMISTRY METHOD 07/28/2024 1:27 PM T [facility] ALT (SGPT) 17 10 - 60 unit/L LAB CHEMISTRY METHOD 07/28/2024 1:27 PM EDT [facility] Alkaline Phosphatase 80 42 - 121 unit/L LAB CHEMISTRY METHOD 07/28/2024 1:27 PM EDT [facility] Total Protein 6.0 6.0 - 8.0 g/dL LAB CHEMISTRY METHOD 07/28/2024 1:27 PM EDT [facility] Albumin 3.6 3.2 - 5.0 g/dL LAB CHEMISTRY METHOD 07/28/2024 1:27 PM EDT [facility] Total Bilirubin 1.0 0.0 - 1.4 mg/dL LAB CHEMISTRY METHOD 07/28/2024 1:27 PM EDT [facility] Blood Venous blood specimen / Unknown Venipuncture / Unknown 07/28/2024 7:04 AM EDT 07/28/2024 11:23 AM EDT us Braeden Hudson MD LAB BLOOD ORDERABLES Final Resul t [facility] [address] [place] [address], documented in this encounter Visit Diagnoses Diagnosis Essential (primary) hypertension Unspecified essential hypertension Anemia, unspecified documented in this encounter Care Teams Wreath Machine Tender Relationship Specialty Start Date End Date Braeden Hudson MD [address] [place] [address], [phone] PCP - General Family Medicine 07/20/24 documented as of this encounter
[2025-01-06 14:41] LABS: MANUAL DIFF FLAG NO
[2025-01-06 14:44] LABS: Hematocrit 40.8 % (37.0-47.0); Hemoglobin 13.4 g/dl (12.0-16.0); Imm Gran Abs Auto 0.06 X10*3/uL (0.00-0.03); Imm Gran Pct Auto 0.7 % (0.0-0.4); Lymphocytes Absolute Auto 1.9 X10*3/uL (1.2-4.9); Mean Corpuscular HGB Conc 32.8 g/dl (31.0-35.0); Mean Corpuscular Hemoglobin 30.7 pg (27.0-33.0); Mean Corpuscular Volume 93.6 fL (80.0-98.0); NRBC Abs Auto 0.000 X10*3/uL (0.0-0.012); NRBC Pct Auto 0.0 /100WBC (0.0-0.2); Platelet Count 267 X10*3/uL (160-400); Red Blood Count 4.36 X10*6/uL (4.20-5.50); White Blood Count 9.2 X10*3/uL (4.8-10.8)
[2025-01-06 14:50] LABS: INTERNATIONAL NORM RATIO 1.3 (0.9-1.1); Prothrombin Time 14.5 SEC (10.9-12.4)
[2025-01-06 15:02] LABS: Alanine Aminotransferase 10 U/L (0-31); Albumin Level 4.7 g/dL (3.5-5.0); Alkaline Phosphatase 81 U/L (39-117); Anion Gap 12 (12-20); Aspartate Amino Transferase 20 U/L (5-31); Blood Urea Nitrogen 12 mg/dL (9-16); Calcium 9.4 mg/dL (8.4-10.2); Carbon Dioxide 29 mmol/L (22-29); Chloride 103 mmol/L (96-108); Creatinine Clr Calc Pharmacy 79.1; Estimated Glomerular Filt Rate > 60; Magnesium 2.3 mg/dL (1.6-2.6); Potassium 3.4 mmol/L (3.3-5.1); Sodium 141 mmol/L (135-145); Total Protein 7.1 g/dL (6.5-8.0)
[2025-01-06 15:14] LABS: Troponin-I High Sensitivity < 2.7 ng/L (<3.5-17.0)
--- NOTE | 2025-01-06 15:43 | PC.NURSE ---
Pt states I feel great . Refuses to undress and get in bed. Is sitting in black plastic chair. Axox3. skin pwd.
[2025-01-06 16:40] LABS: NT Pro B Type Natriuretic Pept 1084.2 pg/mL (<300)
--- NOTE | 2025-01-06 17:11 | PC.NURSE ---
[facility]D RN called to confirm admission, reported that pt had an outpt appt w psych tomorrow for worsening katy, RN denied any knowledge of this previously but the patient had told her that her katy gets worse w her depression. hospitalist notified.
--- NOTE | 2025-01-06 17:14 | PM.IMHP ---
History of Present Illness Date of Service: 01/06/25 Attending physician on admission: Tylor Hall Chief Complaint: elevated heart rate This is a 69-year-old female with history of atrial fibrillation on Eliquis who was sent to the emergency department today due to elevated heart rate. This morning patient states her heart rate was in the 80s, she was feeling well and so she did a little bit more activity around her house than normal. When her visiting nurse came to the house her pulse was in the 130s and she was sent to the emergency department for evaluation. The patient denies any shortness of breath, dizziness, chest pain, palpitations. In the emergency department she received a dose of IV Lopressor and IV Cardizem with no significant improvement in her heart rate. She was then started on a Cardizem drip in the decision was made to admit her to the hospital. Lab work was relatively unremarkable Review of Systems Review of Systems: Yes all other systems are reviewed and are negative Constitutional: Constitutional: Denies chills and Denies fever(s) Cardiovascular: Cardiovascular: Denies chest pain, Denies palpitations and Denies dyspnea Respiratory: Respiratory: Denies cough and Denies dyspnea Endocrine: Endocrine: Denies palpitations [facility] Medical History Atrial fibrillation Restrictive lung disease COPD (chronic obstructive pulmonary disease) Nocturnal hypoxemia Obesity (BMI 35.0-39.9 without comorbidity) Weakness Fever Fall Unspecified diastolic heart failure Diabetes HTN (hypertension) Family History Brother Heart disease Social History Household Members: Family Housing: Apartment Do you presently have visiting nurse or other home services: Yes Patient Tobacco Use Status: Former Tobacco user Smoked in Last 30 Days: No Patient Interested in Nicotine Replacement: No Patient Given Instructions on How to Stop Smoking: No Second Hand Smoke Exposure: No Use of substances other than those prescribed or required for medical reasons: No Have you been hit, kicked, punched, or otherwise hurt by someone within the past year? If so, by whom?: No Do you feel safe in your current relationship?: Yes Is there a partner from a previous relationship who is making you feel unsafe now?: No Are you made to feel afraid or neglected: No Jainism Healthcare Practices: muslim Advance Directives: Yes Advance Directives on File: Yes Advance Directives Date on File: 04/21/23 Do you have a plan to hurt others: No Plan Recently lost weight without trying: No How much weight loss: Not applicable Eating poorly because of decreased appetite: No Nutrition screen score: 0 Nutrition Risks: Dental problems Patient : No : No Poor oral hygiene: No service: No Current occupational status: retired 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 Meds Allergies Allergy/AdvReac Type Severity Reaction Status Date / Time haloperidol (From Haldol) Allergy Mild UNKNOWN Verified 01/06/25 12:40 Active Medications: Current Medications Acetaminophen (Acetaminophen 325 Mg Tablet) 650 mg PO Q6H PRN PRN Reason: Pain, Mild 1-3,fever,headache Calcium Carbonate (Calcium Carbonate 750 Mg Tab.Chew) 750 mg PO Q4H PRN PRN Reason: Heartburn Diltiazem HCl 125 mg/ Sodium (Chloride) 125 mls @ 0 mls/hr IVCONT .Q0M [facility]; Protocol Magnesium Hydroxide (Milk Of Magnesia 30 Ml Oral.Susp) 30 ml PO DAILY PRN PRN Reason: Constipation Melatonin (Melatonin 3 Mg Tablet) 6 mg PO BEDTIME PRN PRN Reason: Insomnia Sodium Chloride (0.9 % Sodium Chloride Flush 3 Ml Syringe) [facility] Medications ?Medication ?Instructions ?Recorded ?Confirmed ?Last Taken ?Type albuterol sulfate 90 mcg/actuation 2 puff PO DAILY Shortness Of Breath 09/28/21 12/20/24 10/22/24 History aerosol inhaler (Ventolin HFA) aripiprazole 20 mg tablet 20 mg PO DAILY 09/28/21 12/20/24 10/22/24 History furosemide 20 mg tablet 40 mg PO DAILY@0800 09/28/21 12/20/24 10/22/24 History gabapentin 300 mg capsule 300 mg PO TID 09/28/21 12/20/24 10/22/24 History lamotrigine 100 mg tablet 100 mg PO BID 09/28/21 12/20/24 10/22/24 History lamotrigine 25 mg tablet 50 mg PO BEDTIME 09/28/21 12/20/24 10/21/24 History metformin 1,000 mg tablet 1,000 mg PO BID 09/28/21 12/20/24 10/22/24 History quetiapine 100 mg tablet 200 mg PO BEDTIME 09/28/21 12/20/24 10/21/24 History simvastatin 40 mg tablet 40 mg PO BEDTIME 09/28/21 12/20/24 10/21/24 History empagliflozin 10 mg tablet 10 mg PO DAILY 03/24/23 12/20/24 10/22/24 History (Jardiance) lamotrigine 25 mg tablet 25 mg PO DAILY 04/15/23 12/20/24 10/22/24 History fluticasone propionate 230 2 puff inhalation DAILY 07/18/24 12/20/24 10/22/24 History mcg-salmeterol 21 mcg/actuation HFA inhaler (Advair HFA) potassium chloride 20 mEq 20 meq PO DAILY 07/18/24 12/20/24 10/22/24 History tablet,extended release spironolactone 25 mg tablet 25 mg PO DAILY 07/18/24 12/20/24 10/22/24 History fluticasone propionate 50 2 spray intranasal DAILY PRN 10/22/24 12/20/24 Unknown History mcg/actuation nasal Allergy Symptoms spray,suspension mirtazapine 7.5 mg tablet 7.5 mg PO BEDTIME 10/22/24 12/20/24 10/21/24 History semaglutide 1 mg/dose (4 mg/3 mL) 1 mg subcut TU 10/22/24 12/20/24 10/19/24 History subcutaneous pen injector (Ozempic) Physical Exam Vital Signs and Narrative: Vital Signs: Last Vital Signs Temp 98.3 F 01/06/25 15:42 Pulse 138 H 01/06/25 17:04 Resp 22 H 01/06/25 15:42 BP 101/69 01/06/25 17:04 Pulse Ox 96 01/06/25 15:42 O2 Del Method Room Air 01/06/25 15:42 BMI result Body Mass Index 49.0 Const: General: cooperative, no acute distress, alert and awake Nutritional Appearance: obese Orientation/consciousness: patient oriented x3 Resp: Effort & Inspection: normal respiratory effort, no respiratory distress and no use of accessory muscles Cardio: Rate: tachycardic GI: Inspection: No distended Palpation (GI): Soft to palpation Neuro: General: patient oriented x3, moves all extremities and CN's II-XI intact bilaterally Results Labs 01/06/25 14:31 01/07/25 06:35 Labs: Laboratory Results - last 24 hr 01/06/25 01/06/25 14:31 15:55 MCV 93.6 MCH 30.7 MCHC 32.8 RDW 14.4 Plt Count 267 MPV 9.3 L Immature Gran % (Auto) 0.7 H Neut % (Auto) 67.5 Lymph % (Auto) 21.1 Vernon % (Auto) 8.1 Eos % (Auto) 2.1 Baso % (Auto) 0.5 Lymph # (Auto) 1.9 Vernon # (Auto) 0.7 Eos # (Auto) 0.2 Baso # (Auto) 0.1 Abs Immat Gran (auto) 0.06 H Absolute Neuts (auto) 6.2 Absolute Nucleated RBC 0.000 Nucleated RBC % (auto) 0.0 PT 14.5 H D INR 1.3 H Anion Gap 12 Estim Creat Clear Calc 79.1 Estimated GFR > 60 Random Glucose 128 H Calcium 9.4 Magnesium 2.3 Total Bilirubin 0.5 AST 20 ALT 10 Alkaline Phosphatase 81 Troponin I High Sens < 2.7 NT-Pro-B Natriuret Pep 1084.2 H Total Protein 7.1 Albumin 4.7 Imaging Radiologist's Impressions: Impressions Chest X-Ray 01/06/25 14:50 IMPRESSION: Right middle lobe platelike atelectasis. Electronically signed by: Trever Fong MD 01/06/2025 03:03 PM EDT Assessment and Plan (1) Atrial fibrillation with RVR: Status: Acute Plan This is a 69-year-old female with a history of bipolar disorder, atrial fibrillation on Eliquis, hypertension, hyperlipidemia, type 2 diabetes, chronic respiratory failure, COPD who was sent to the emergency department for tachycardia found to be in atrial fibrillation with rapid ventricular response Atrial fibrillation with rapid ventricular response Reports compliance with medication received IV lopressor and cardizem without adequate response in HR Started on Cardizem drip monitor on telemetry consult to cardiology Chronic respiratory failure/COPD/nocturnal hypoxemic Continue 2 L of supplemental oxygen at night and as needed during the day no acute exacerbation of COPD DM SSI, POCs, ADA diet Mood Continue baseline medication Patient's [facility] nurse called the ED - due to increasing katy an outpt psych consult had been scheduled for tomorrow will place psych consult Morbid obesity BMI 40 Weight loss encouraged med rec is pending at the time of discharge DVT prophylaxis-Eliquis Code status-full code Patient will likely require 2 midnight stay in the hospital for management of atrial fibrillation with rapid ventricular response requiring multiple doses of IV rate control medications and continuous infusion of Cardene Quality Stroke Does the patient have a stroke diagnosis?: No VTE Prior VTE?: No VTE Risk Level:: Medical - moderate - high VTE Device Contraindication: Treatment Not Indicated VTE Drug Contraindication: N/A - Med Ordered
[2025-01-06 18:44] LABS: Glucose, Whole Blood 203 mg/dL (60-115)
[2025-01-06 21:08] LABS: Glucose, Whole Blood 119 mg/dL (60-115)
[2025-01-07] VITALS (18 sets, daily range): BP systolic 105–133; BP diastolic 54–77; PULSE 70–147; RESP 18–20; TEMP 35.7–36.4; O2SAT 92–98
--- NOTE | 2025-01-07 07:00 | CA_ITS ---
Transthoracic Echocardiogram Patient (Last, First, Middle): Elizabeth Ann A Gender: F Date of : 1955 Age: 69 Procedure Date: 01/07/2025 Procedure Type: Transthoracic Echocardiogram Location: [facility] Height: 154.94 cm Weight: 117.48 kg BSA: 2.11 m2 Heart Rate: bpm BP: 110 / 58 mmHg Alteration Worker: Referring MD: Teri Stark MD Symptoms: pericardial effusion Study Quality: Fair but adequate ECG Rhythm: Atrial Fibrillation Conclusions: - Very small pericardial effusion posterior to the left ventricle. - The visually estimated ejection fraction is between 50-55%. Findings Left Ventricle The left ventricular systolic function is low normal. The visually estimated ejection fraction is between 50-55%. Tricuspid Valve There is mild tricuspid valve regurgitation. Venous The inferior vena cava is normal in size and collapses greater than 50% with inspiration. Pericardium/Pleural Very small pericardial effusion posterior to the left ventricle. Prior Study Comparison No significant change compared to prior study dated: 11/25/2024. Measurements 2D Linear Measurements IVSd: 0.94 0.6-0.9/0.6-1.0 cm LVIDd: 5.04 3.9-5.3/4.2-5.9 cm LVIDd Index: 2.39 2.4-3.2/2.2-3.1 cm/m2 LVIDs: 3.67 2.0-3.6 cm LVPWd: 0.94 0.7-1.1 cm LV Mass: 210.89 67-162/88-224 g LV Mass Index: 99.95 43-95/49-115 g/m2 2D Systolic Function EF 4C: 63.20 >55% EF 2C: 49.20 >55% Tricuspid Valve TR Pk Tariq: 2.60 TR Pk Grad: 27.00 RA Press: 3.00 RVSP: 30.00 Updated in Other Vendor System with Status of Final Vishal Landers MD electronically signed on 01/07/2025 11:26:57 AM with status of Final
[2025-01-07 07:30] LABS: Anion Gap 12 (12-20); Blood Urea Nitrogen 16 mg/dL (9-16); Calcium 9.0 mg/dL (8.4-10.2); Carbon Dioxide 26 mmol/L (22-29); Chloride 103 mmol/L (96-108); Creatinine Clr Calc Pharmacy 79.1; Estimated Glomerular Filt Rate > 60; Potassium 3.4 mmol/L (3.3-5.1); Sodium 138 mmol/L (135-145)
[2025-01-07 07:36] LABS: Glucose, Whole Blood 122 mg/dL (60-115)
--- NOTE | 2025-01-07 08:15 | HO.PM.IMPN ---
Subjective Subjective Date of Service: 01/08/25 Interval History: AFib with RVR Review of Systems Heart rate still in 130s to 140s Denies any chest pain or shortness of breath Review of Systems: Yes all other systems are reviewed and are negative Physical Exam Exam: Exam: Appearance: Alert.? Oriented X3.? cvs: Regular rhythm, [id number] . res: clear to auscultation ,no rhonchii or wheezing abd: no rebound or guarding ,nt, bs present. ext pulses present , no cyanosis . neuro: axo3 , nonfocal. Vital Signs: Vital Signs: Last Vital Signs Temp 96.2 F L 01/07/25 07:11 Pulse 90 01/07/25 07:11 Resp 20 01/07/25 07:11 BP 119/61 01/07/25 07:11 Pulse Ox 97 01/07/25 07:11 O2 Del Method Room Air 01/07/25 07:11 BMI result Body Mass Index 49.0 Objective Data Active Medications Acetaminophen (Acetaminophen 325 Mg Tablet) 650 mg PO Q6H PRN PRN Reason: Pain, Mild 1-3,fever,headache Calcium Carbonate (Calcium Carbonate 750 Mg Tab.Chew) 750 mg PO Q4H PRN PRN Reason: Heartburn Dextrose (Dextrose 50 % 25 Gm/50 Ml Syringe) 25 gm IVPUSH Q15M PRN; Protocol PRN Reason: per Hypoglycemia Standing Ord. Glucose (Glucose Gel 15 Gm Gel..Gram.) 15 gm PO Q15M PRN; Protocol PRN Reason: per Hypoglycemia Standing Ord. Diltiazem HCl 125 mg/ Sodium (Chloride) 125 mls @ 0 mls/hr IVCONT .Q0M [facility]; Protocol Last Titration: 01/07/25 06:02 Dose: 10 mg/hr, 10 mls/hr Documented By: KATHERINE Insulin Human Lispro (Insulin Lispro 100 Unit/Ml 3 Ml Vial) 0 unit SUBCUT QIDACHS [facility]; Protocol Last Admin: 01/07/25 07:50 Dose: Not Given Documented By: XAVI Non-Admin Reason: No Insulin Coverage Magnesium Hydroxide (Milk Of Magnesia 30 Ml Oral.Susp) 30 ml PO DAILY PRN PRN Reason: Constipation Melatonin (Melatonin 3 Mg Tablet) 6 mg PO BEDTIME PRN PRN Reason: Insomnia Sodium Chloride (0.9 % Sodium Chloride Flush 3 Ml Syringe) 3 ml IVFLUSH QSHIFT ADOLFO Last Admin: 01/07/25 07:51 Dose: Not Given Documented By: XAVI Non-Admin Reason: IV Running Labs 01/06/25 14:31 01/07/25 06:35 Labs: Laboratory Results - last 24 hr 01/06/25 01/06/25 01/06/25 14:31 15:55 18:39 MCV 93.6 MCH 30.7 MCHC 32.8 RDW 14.4 Plt Count 267 MPV 9.3 L Immature Gran % (Auto) 0.7 H Neut % (Auto) 67.5 Lymph % (Auto) 21.1 [place] % (Auto) 8.1 Eos % (Auto) 2.1 Baso % (Auto) 0.5 Lymph # (Auto) 1.9 [place] # (Auto) 0.7 Eos # (Auto) 0.2 Baso # (Auto) 0.1 Abs Immat Gran (auto) 0.06 H Absolute Neuts (auto) 6.2 Absolute Nucleated RBC 0.000 Nucleated RBC % (auto) 0.0 Hold Purple Top PT 14.5 H D INR 1.3 H Anion Gap 12 Estim Creat Clear Calc 79.1 Estimated GFR > 60 POC Glucose 203 H Random Glucose 128 H Calcium 9.4 Magnesium 2.3 Total Bilirubin 0.5 AST 20 ALT 10 Alkaline Phosphatase 81 Troponin I High Sens < 2.7 NT-Pro-B Natriuret Pep 1084.2 H Total Protein 7.1 Albumin 4.7 01/06/25 01/07/25 01/07/25 21:04 06:35 07:15 MCV MCH MCHC RDW Plt Count MPV Immature Gran % (Auto) Neut % (Auto) Lymph % (Auto) [place] % (Auto) Eos % (Auto) Baso % (Auto) Lymph # (Auto) [place] # (Auto) Eos # (Auto) Baso # (Auto) Abs Immat Gran (auto) Absolute Neuts (auto) Absolute Nucleated RBC Nucleated RBC % (auto) Hold Purple Top SEE NOTE PT INR Anion Gap 12 Estim Creat Clear Calc 79.1 Estimated GFR > 60 POC Glucose 119 H 122 H Random Glucose 128 H Calcium 9.0 Magnesium Total Bilirubin AST ALT Alkaline Phosphatase Troponin I High Sens NT-Pro-B Natriuret Pep Total Protein Albumin Assessment and Plan (1) Atrial fibrillation with RVR: Status: Acute Plan 69-year-old female with a history of bipolar disorder, atrial fibrillation on Eliquis, hypertension, hyperlipidemia, type 2 diabetes, chronic respiratory failure, COPD who was sent to the emergency department for tachycardia found to be in atrial fibrillation with rapid ventricular response Atrial fibrillation with rapid ventricular response-hr still in 130-140 with any exersion Reports compliance with medication received IV lopressor and cardizem without adequate response in HR Started on Cardizem drip,added digoxin loading monitor on telemetry consult to cardiology Chronic respiratory failure/COPD/nocturnal hypoxemic Continue 2 L of supplemental oxygen at night and as needed during the day no acute exacerbation of COPD DM SSI, POCs, ADA diet Mood Continue baseline medication Patient's [facility] nurse called the ED - due to increasing katy an outpt psych consult had been scheduled for tomorrow psych consult Morbid obesity BMI 40 Weight loss encouraged med rec is pending at the time of discharge DVT prophylaxis-Eliquis ongoing need the hospital for management of atrial fibrillation with rapid ventricular response requiring multiple doses of IV rate control medications ( iv cardizem ,also added digoxin loading)and continuous infusion of Cardene Quality Stroke Does the patient have a stroke diagnosis?: No VTE Prior VTE?: No VTE Risk Level:: Medical - moderate - high VTE Device Contraindication: Treatment Not Indicated VTE Drug Contraindication: N/A - Med Ordered
[2025-01-07 08:59] LABS: Thyroid Stimulating Hormone 1.79 uIU/mL (0.32-4.0)
--- NOTE | 2025-01-07 09:20 | ECG_ITS ---
Test Reason : afib Blood Pressure : */* mmHG Vent. Rate : 107 BPM Atrial Rate : * BPM P-R Int : * ms QRS Dur : 66 ms QT Int : 324 ms P-R-T Axes : * -2 23 degrees QTcB Int : 432 ms Atrial fibrillation with rapid ventricular response Low voltage QRS Cannot rule out Anteroseptal infarct (cited on or before 04-Oct-2015) Abnormal ECG When compared with ECG of 06-Jan-2025 13:06, No significant changes seen Referred By: Warren Garcia Electronically Signed By: WARREN GARCIA
--- NOTE | 2025-01-07 09:20 | PHA.MEDREC ---
Pharmacy Consult ? Medication Reconciliation Pharmacy has completed the medication reconciliation. Spoke to visiting nurse Madiha [phone] via phone and she confirmed patient's med list. She confirmed lamotrigine 125 mg in the morning and 150 mg at bedtime, furosemide 40 mg daily in the morning, spironolactone dose was increased to 50 mg daily in the morning and ozempic is once a week on friday (last dose was 12/31/24). Last dose of meds was yesterday morning 01/06/25.
--- NOTE | 2025-01-07 10:28 | PM.CNCAR ---
History of Present Illness History of Present Illness Date of Service: 01/07/25 Chief complaint: rapid afib Narrative: This is a cardiology consultation regarding atrial fibrillation with rapid rate. Patient was recently seen in the clinic. To recall, she has a history of COPD on home oxygen. She had a recent visit to the ER where visiting nurse had noted high heart rates and she was found to be in atrial fibrillation rapid rate. Then she was given diltiazem, metoprolol and digoxin and converted back to normal sinus rhythm and she was put on oral diltiazem for discharge. She was seen in the clinic couple of weeks ago and she was doing okay. In the repeat visit is again for the same reason where she was found to be in rapid atrial fibrillation and sent again to the ER. She states she feels fine she has got no cardiac symptoms. She is currently on a Cardizem drip. She is insisting on going home. Review of Systems Review of Systems: Yes all other systems are reviewed and are negative Constitutional: Constitutional: Reports as per HPI and Reports no additional constitutional complaints Eyes: Eyes: Reports as per HPI and Denies no additional eye complaints ENT: Denies system reviewed and no additional complaints, except as documented and Reports as per HPI Cardiovascular: Cardiovascular: Reports as per HPI, Reports no additional cardiovascular complaints, Denies acrocyanosis, Denies cool extremities, Denies chest pain, Denies leg edema, Denies lightheadedness, Denies palpitations and Denies dyspnea Respiratory: Respiratory: Reports as per HPI, Denies no additional respiratory complaints and Denies dyspnea Gastrointestinal: Gastrointestinal: Reports as per HPI and Denies no additional gastrointestinal complaints Genitourinary: Genitourinary: Reports as per HPI Musculoskeletal: Musculoskeletal: Reports no additional musculoskeletal complaints and Reports as per HPI Integumentary/Breasts: Skin/Breast: Reports system reviewed and no additional complaints, except as docu Neurologic: Reports system reviewed and no additional complaints, except as documented and Reports as per HPI Psychiatric: Psychiatric: Reports no additional psychiatric complaints and Reports as per HPI Endocrine: Endocrine: Reports no additional endocrine complaints, Reports as per HPI and Denies palpitations Hematologic/Lymphatic: Hematologic/Lymphatic: Reports no additional hematologic/lymphatic complaints and Reports as per HPI Allergic/Immunologic: Allergic/Immunologic: Reports no additional allergic/immunologic complaints and Reports as per HPI [facility] Past Medical History Medical History Atrial fibrillation Restrictive lung disease COPD (chronic obstructive pulmonary disease) Nocturnal hypoxemia Obesity (BMI 35.0-39.9 without comorbidity) Weakness Fever Fall Unspecified diastolic heart failure Diabetes HTN (hypertension) Family History Family History Brother Heart disease Social History Social History Household Members: Family Housing: Apartment Do you presently have visiting nurse or other home services: Yes Patient Tobacco Use Status: Former Tobacco user Smoked in Last 30 Days: No Patient Interested in Nicotine Replacement: No Patient Given Instructions on How to Stop Smoking: No Second Hand Smoke Exposure: No Use of substances other than those prescribed or required for medical reasons: No Have you been hit, kicked, punched, or otherwise hurt by someone within the past year? If so, by whom?: No Do you feel safe in your current relationship?: Yes Is there a partner from a previous relationship who is making you feel unsafe now?: No Are you made to feel afraid or neglected: No [employer] Healthcare Practices: pentecostalism Advance Directives: Yes Advance Directives on File: Yes Advance Directives Date on File: 04/21/23 Do you have a plan to hurt others: No Plan Recently lost weight without trying: No How much weight loss: Not applicable Eating poorly because of decreased appetite: No Nutrition screen score: 0 Nutrition Risks: Dental problems Patient : No : No Poor oral hygiene: No service: No Current occupational status: retired 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 Meds Allergies Allergy/AdvReac Type Severity Reaction Status Date / Time haloperidol (From Haldol) Allergy Mild UNKNOWN Verified 01/06/25 12:40 Active Medications: Current Medications Acetaminophen (Acetaminophen 325 Mg Tablet) 650 mg PO Q6H PRN PRN Reason: Pain, Mild 1-3,fever,headache Albuterol Sulfate (Albuterol Sulfate 90 Mcg 8 Gm Inhaler) 2 puff INHALE DAILY PRN PRN Reason: Shortness of Breath Apixaban (Apixaban 5 Mg Tablet) 5 mg PO BID ADOLFO Aripiprazole (Aripiprazole 20 Mg Tablet) 20 mg PO DAILY ADOLFO Atorvastatin Calcium (Atorvastatin Calcium 20 Mg Tablet) 20 mg PO DAILY ADOLFO Calcium Carbonate (Calcium Carbonate 750 Mg Tab.Chew) 750 mg PO Q4H PRN PRN Reason: Heartburn Dextrose (Dextrose 50 % 25 Gm/50 Ml Syringe) 25 gm IVPUSH Q15M PRN; Protocol PRN Reason: per Hypoglycemia Standing Ord. Diltiazem HCl (Diltiazem Hcl Cd 120 Mg Cap.Er.Deg) 120 mg PO DAILY [facility]; Protocol Empagliflozin (Empagliflozin 10 Mg Tablet) 10 mg PO DAILY [facility] Fluticasone Propionate (Fluticasone Propionate Nasal 16 Gm [place]) 2 spray NOSTRIL-B DAILY PRN PRN Reason: Allergy Symptoms Fluticasone/Vilanterol (Fluticasone/Vilanterol 100/25 Blst.W.Dev) 1 puff INHALE RDAILY [facility] Furosemide (Furosemide 40 Mg Tablet) 40 mg PO DAILY@0800 [facility]; Protocol Gabapentin (Gabapentin 300 Mg Capsule) 300 mg PO TID [facility] Glucose (Glucose Gel 15 Gm Gel..Gram.) 15 gm PO Q15M PRN; Protocol PRN Reason: per Hypoglycemia Standing Ord. Diltiazem HCl 125 mg/ Sodium (Chloride) 125 mls @ 0 mls/hr IVCONT .Q0M [facility]; Protocol Last Titration: 01/07/25 10:23 Dose: Infused Insulin Human Lispro (Insulin Lispro 100 Unit/Ml 3 Ml Vial) 0 unit SUBCUT QIDACHS [facility]; Protocol Last Admin: 01/07/25 07:50 Dose: Not Given Lamotrigine (Lamotrigine 25 Mg Tablet) 25 mg PO DAILY [facility] Lamotrigine (Lamotrigine 25 Mg Tablet) 50 mg PO BEDTIME [facility] Lamotrigine (Lamotrigine 100 Mg Tablet) 100 mg PO BID [facility] Loratadine (Loratadine 10 Mg Tablet) 10 mg PO DAILY [facility] Magnesium Hydroxide (Milk Of Magnesia 30 Ml Oral.Susp) 30 ml PO DAILY PRN PRN Reason: Constipation Melatonin (Melatonin 3 Mg Tablet) 6 mg PO BEDTIME PRN PRN Reason: Insomnia Metformin HCl (Metformin Hcl 1,000 Mg Tablet) 1,000 mg PO BID [facility] Mirtazapine (Mirtazapine 7.5 Mg Tablet) 7.5 mg PO BEDTIME [facility] Non-Formulary Medication (Semaglutide [Ozempic]) 1 mg SUBCUT FR [facility] Potassium Chloride (Potassium Chloride Er 20 Meq Tab.Er.Prt) 20 meq PO DAILY ADOLFO Quetiapine Fumarate (Quetiapine Fumarate 200 Mg Tablet) 200 mg PO BEDTIME ADOLFO Sodium Chloride (0.9 % Sodium Chloride Flush 3 Ml Syringe) 3 ml IVFLUSH QSHIFT ADOLFO Last Admin: 01/07/25 07:51 Dose: Not Given Spironolactone (Spironolactone 25 Mg Tablet) 50 mg PO DAILY AD[facility]; Protocol Home Medications ?Medication ?Instructions ?Recorded ?Confirmed ?Last Taken ?Type albuterol sulfate 90 mcg/actuation 2 puff PO DAILY PRN Shortness Of 09/28/21 01/07/25 10/22/24 History aerosol inhaler (Ventolin HFA) Breath aripiprazole 20 mg tablet 20 mg PO DAILY 09/28/21 01/07/25 01/06/25 History furosemide 20 mg tablet 40 mg PO DAILY@0800 09/28/21 01/07/25 01/06/25 History gabapentin 300 mg capsule 300 mg PO TID 09/28/21 01/07/25 01/06/25 History lamotrigine 100 mg tablet 100 mg PO BID 09/28/21 01/07/25 01/06/25 History lamotrigine 25 mg tablet 50 mg PO BEDTIME 09/28/21 01/07/25 01/05/25 History metformin 1,000 mg tablet 1,000 mg PO BID 09/28/21 01/07/25 01/06/25 History quetiapine 100 mg tablet 200 mg PO BEDTIME 09/28/21 01/07/25 01/05/25 History simvastatin 40 mg tablet 40 mg PO BEDTIME 09/28/21 01/07/25 01/05/25 History empagliflozin 10 mg tablet 10 mg PO DAILY 03/24/23 01/07/25 01/06/25 History (Jardiance) lamotrigine 25 mg tablet 25 mg PO DAILY 04/15/23 01/07/25 01/06/25 History fluticasone propionate 230 2 puff inhalation DAILY 07/18/24 01/07/25 01/06/25 History mcg-salmeterol 21 mcg/actuation HFA inhaler (Advair HFA) potassium chloride 20 mEq 20 meq PO DAILY 07/18/24 01/07/25 01/06/25 History tablet,extended release spironolactone 25 mg tablet 50 mg PO DAILY 07/18/24 01/07/25 01/06/25 History fluticasone propionate 50 2 spray intranasal DAILY PRN 10/22/24 01/07/25 Unknown History mcg/actuation nasal Allergy Symptoms spray,suspension mirtazapine 7.5 mg tablet 7.5 mg PO BEDTIME 10/22/24 01/07/25 01/05/25 History semaglutide 1 mg/dose (4 mg/3 mL) 1 mg subcut FR 10/22/24 01/07/25 12/31/24 History subcutaneous pen injector (Ozempic) loratadine 10 mg tablet 10 mg PO DAILY 01/07/25 01/07/25 01/06/25 History Physical Exam Vital Signs: Vital Signs: Last Vital Signs Temp 96.2 F L 01/07/25 07:11 Pulse 89 01/07/25 10:23 Resp 20 01/07/25 07:11 BP 116/16 L 01/07/25 10:23 Pulse Ox 97 01/07/25 07:11 O2 Del Method Room Air 01/07/25 07:11 BMI result Body Mass Index 49.0 Const: General: comfortable and no acute distress Orientation/consciousness: patient oriented x3 HEENT: Other: Unremarkable Head: Yes normal to inspection Neck: Neck: Yes normal visual inspection Chest: Chest palpation & inspection: normal inspection of the chest Resp: Auscultation: clear to auscultation bilaterally Cardio: Palpation: normal PMI Heart sounds: S1 normal heart sound present, S2 normal heart sound present, no gallops, no murmurs and no rubs GI: Palpation (GI): Soft to palpation Back/Spine/Pelvis: Other: unremarkable Skin: General skin exam: no rashes or lesions noted Neuro: General: patient oriented x3 Extrem: General: Yes normal to inspection Psych: Mental Status: mental status grossly normal Objective Labs and Meds 01/06/25 14:31 01/07/25 06:35 Lab results: Laboratory Results - last 24 hr 01/06/25 01/06/25 01/06/25 14:31 15:55 18:39 WBC 9.2 RBC 4.36 Hgb 13.4 Hct 40.8 MCV 93.6 MCH 30.7 MCHC 32.8 RDW 14.4 Plt Count 267 MPV 9.3 L Immature Gran % (Auto) 0.7 H Neut % (Auto) 67.5 Lymph % (Auto) 21.1 [place] % (Auto) 8.1 Eos % (Auto) 2.1 Baso % (Auto) 0.5 Lymph # (Auto) 1.9 [place] # (Auto) 0.7 Eos # (Auto) 0.2 Baso # (Auto) 0.1 Abs Immat Gran (auto) 0.06 H Absolute Neuts (auto) 6.2 Absolute Nucleated RBC 0.000 Nucleated RBC % (auto) 0.0 Hold Purple Top PT 14.5 H D INR 1.3 H Sodium 141 Potassium 3.4 Chloride 103 Carbon Dioxide 29 Anion Gap 12 BUN 12 Creatinine 0.78 Estim Creat Clear Calc 79.1 Estimated GFR > 60 POC Glucose 203 H Random Glucose 128 H Calcium 9.4 Magnesium 2.3 Total Bilirubin 0.5 AST 20 ALT 10 Alkaline Phosphatase 81 Troponin I High Sens < 2.7 NT-Pro-B Natriuret Pep 1084.2 H Total Protein 7.1 Albumin 4.7 TSH 01/06/25 01/07/25 01/07/25 21:04 06:35 07:15 WBC RBC Hgb Hct MCV MCH MCHC RDW Plt Count MPV Immature Gran % (Auto) Neut % (Auto) Lymph % (Auto) [place] % (Auto) Eos % (Auto) Baso % (Auto) Lymph # (Auto) [place] # (Auto) Eos # (Auto) Baso # (Auto) Abs Immat Gran (auto) Absolute Neuts (auto) Absolute Nucleated RBC Nucleated RBC % (auto) Hold Purple Top SEE NOTE PT INR Sodium 138 Potassium 3.4 Chloride 103 Carbon Dioxide 26 Anion Gap 12 BUN 16 Creatinine 0.78 Estim Creat Clear Calc 79.1 Estimated GFR > 60 POC Glucose 119 H 122 H Random Glucose 128 H Calcium 9.0 Magnesium Total Bilirubin AST ALT Alkaline Phosphatase Troponin I High Sens NT-Pro-B Natriuret Pep Total Protein Albumin TSH 1.79 Imaging Radiologist's impression: Impressions Chest X-Ray 01/06/25 14:50 IMPRESSION: Right middle lobe platelike atelectasis. Electronically signed by: Trever Fong MD 01/06/2025 03:03 PM EDT Assessment and Plan (1) Atrial fibrillation with RVR: Status: Acute Plan EKGs show atrial fibrillation with rapid ventricular response. cannot exclude old anteroseptal infarct. Currently, on telemetry ventricular rate is about 100/Min. Discussed about changing medications extra but patient states that she just wants to go home and is willing to sign against medical advice. We discussed about the fact that her heart rate is going too fast and she may have to stay in for med adjustments but she states she does not want to do that. She is aware of the risks. Discussed that with Dr. Hall. In this setting, change the IV diltiazem to oral diltiazem and add digoxin for rate control. Continue anticoagulation. Also discussed with RN. Procedures Date of Service Date of Service: 01/07/25
--- NOTE | 2025-01-07 11:30 | MHC.CM.PN ---
IMM 01/07/25, EMR REVIEWED, PT W/BRENT GRIFFIN, CM MET W/PT'S WHO IS A&O, PT REPORTS SHE LIVES ALONE, USES A CANE , HAS A WALKER AND HOME O2 W/[facility], PT HAS DAILY VNA W/[facility] AND HOME HEALTH AID 2HRS/DAILY M-F AND 3HRS SAT/SUN. PT REPORTS HER GOAL FOR DC IS JASMYN. PT VERIFIES PCP/HCP ON FILE ARE CORRECT.
[2025-01-07 11:35] LABS: Glucose, Whole Blood 105 mg/dL (60-115)
--- NOTE | 2025-01-07 16:26 | P.CNPS_ITS ---
History of Present Illness Date of Service: 01/07/25 Chief Complaint: rapid afib Reason for Consult: [facility] nurse reported increasing katy, plan for outpt psych consult tomorrow Requesting physician: Edda Dawn Sources of Information: patient interviewed and chart reviewed HPI Narrative: Patient is a 69-year-old female with a hx of bipolar disorder, atrial fibrillation on Eliquis, hypertension, hyperlipidemia, type 2 diabetes, chronic respiratory failure, COPD, who was sent to ER for tachycardia found to be in atrial fibrillation with rapid ventricular response and admitted medically. Psychiatric consult placed for: [facility] nurse reported increasing katy, plan for outpt psych consult tomorrow During assessment, pt presents alert and oriented x3. calm and cooperative. Patient was able to discuss her reasoning for hospitalization. She reports hx of bipolar d/o and multiple inpatient psychiatric hospitalizations. Patient reports having psychiatric providers through [facility] and having a VNA from [facility]. hx of crack use; pt reports last used few months ago ; denies any other substance use. Patient stated, I feel fine. The [facility] staff came to my place to visit me and she thought I was manic because I was tired of looking at empty wall and was going through boxes. I moved last year and I still had things in boxes. They always tell me to get motivated, so I did . Patient reports she got into an argument with her sister this morning d/t her sister treating me like a kid and tries to control my life . Patient denies SI/HI/VH/AH. She reports being medication compliant. Past Psychiatric History: multiple inpatient psychiatric hospitalizations. psychiatric providers through [facility] and having a VNA from [facility]. denies hx of SIB. hx of SA 2x (last attempt she reports over 30 years ago) Medical Evaluation Reviewed: Yes [facility] Medical History Atrial fibrillation Restrictive lung disease COPD (chronic obstructive pulmonary disease) Nocturnal hypoxemia Obesity (BMI 35.0-39.9 without comorbidity) Weakness Fever Fall Unspecified diastolic heart failure Diabetes HTN (hypertension) Social History: Lives alone. Single. No kids. disability. Substance History: patient reports hx of crack use. She reports last used 3 months ago. Diagnostics Vital Signs (24Hr): Vital Signs - 24 hr 01/06/25 17:04 01/06/25 17:16 01/06/25 17:21 Temperature Pulse Rate 138 H 138 H 134 H Respiratory Rate 18 Blood Pressure 101/69 101/69 126/60 Pulse Oximetry 94 Oxygen Delivery Method Room Air 01/06/25 18:44 01/06/25 19:31 01/06/25 19:34 Temperature 96.1 F L Pulse Rate 139 H 110 H Respiratory Rate 18 Blood Pressure 104/82 125/58 L 125/58 L Pulse Oximetry 96 Oxygen Delivery Method Room Air 01/06/25 23:08 01/07/25 01:14 01/07/25 01:14 Temperature 96.8 F Pulse Rate 70 95 95 Respiratory Rate 18 Blood Pressure 122/59 L 119/75 119/75 Pulse Oximetry 96 Oxygen Delivery Method Room Air 01/07/25 03:10 01/07/25 06:02 01/07/25 07:11 Temperature 96.8 F 96.2 F L Pulse Rate 94 85 90 Respiratory Rate 18 20 Blood Pressure 105/55 L 110/58 L 119/61 Pulse Oximetry 92 97 Oxygen Delivery Method Room Air Room Air 01/07/25 08:17 01/07/25 10:23 01/07/25 10:27 Temperature Pulse Rate 147 H 89 89 Respiratory Rate Blood Pressure 116/61 116/61 116/61 Pulse Oximetry Oxygen Delivery Method 01/07/25 10:51 01/07/25 11:06 01/07/25 12:03 Temperature 97.1 F Pulse Rate 95 94 139 H Respiratory Rate 20 Blood Pressure 116/61 113/72 113/72 Pulse Oximetry 96 Oxygen Delivery Method Room Air 01/07/25 15:20 Temperature 97.5 F Pulse Rate 70 Respiratory Rate 20 Blood Pressure 115/54 L Pulse Oximetry 96 Oxygen Delivery Method Room Air BMI result Body Mass Index 49.0 Labs 01/06/25 14:31 01/07/25 06:35 Labs: Laboratory Results - last 48 hr 01/06/25 01/06/25 01/06/25 14:31 15:55 18:39 WBC 9.2 RBC 4.36 Hgb 13.4 Hct 40.8 MCV 93.6 MCH 30.7 MCHC 32.8 RDW 14.4 Plt Count 267 MPV 9.3 L Immature Gran % (Auto) 0.7 H Neut % (Auto) 67.5 Lymph % (Auto) 21.1 [place] % (Auto) 8.1 Eos % (Auto) 2.1 Baso % (Auto) 0.5 Lymph # (Auto) 1.9 [place] # (Auto) 0.7 Eos # (Auto) 0.2 Baso # (Auto) 0.1 Abs Immat Gran (auto) 0.06 H Absolute Neuts (auto) 6.2 Absolute Nucleated RBC 0.000 Nucleated RBC % (auto) 0.0 Hold Purple Top PT 14.5 H D INR 1.3 H Sodium 141 Potassium 3.4 Chloride 103 Carbon Dioxide 29 Anion Gap 12 BUN 12 Creatinine 0.78 Estim Creat Clear Calc 79.1 Estimated GFR > 60 POC Glucose 203 H Random Glucose 128 H Calcium 9.4 Magnesium 2.3 Total Bilirubin 0.5 AST 20 ALT 10 Alkaline Phosphatase 81 Troponin I High Sens < 2.7 NT-Pro-B Natriuret Pep 1084.2 H Total Protein 7.1 Albumin 4.7 TSH 01/06/25 01/07/25 01/07/25 21:04 06:35 07:15 WBC RBC Hgb Hct MCV MCH MCHC RDW Plt Count MPV Immature Gran % (Auto) Neut % (Auto) Lymph % (Auto) [place] % (Auto) Eos % (Auto) Baso % (Auto) Lymph # (Auto) [place] # (Auto) Eos # (Auto) Baso # (Auto) Abs Immat Gran (auto) Absolute Neuts (auto) Absolute Nucleated RBC Nucleated RBC % (auto) Hold Purple Top SEE NOTE PT INR Sodium 138 Potassium 3.4 Chloride 103 Carbon Dioxide 26 Anion Gap 12 BUN 16 Creatinine 0.78 Estim Creat Clear Calc 79.1 Estimated GFR > 60 POC Glucose 119 H 122 H Random Glucose 128 H Calcium 9.0 Magnesium Total Bilirubin AST ALT Alkaline Phosphatase Troponin I High Sens NT-Pro-B Natriuret Pep Total Protein Albumin TSH 1.79 01/07/25 11:17 WBC RBC Hgb Hct MCV MCH MCHC RDW Plt Count MPV Immature Gran % (Auto) Neut % (Auto) Lymph % (Auto) [place] % (Auto) Eos % (Auto) Baso % (Auto) Lymph # (Auto) [place] # (Auto) Eos # (Auto) Baso # (Auto) Abs Immat Gran (auto) Absolute Neuts (auto) Absolute Nucleated RBC Nucleated RBC % (auto) Hold Purple Top PT INR Sodium Potassium Chloride Carbon Dioxide Anion Gap BUN Creatinine Estim Creat Clear Calc Estimated GFR POC Glucose 105 Random Glucose Calcium Magnesium Total Bilirubin AST ALT Alkaline Phosphatase Troponin I High Sens NT-Pro-B Natriuret Pep Total Protein Albumin TSH Imaging Radiology Impressions: ITS Impressions Chest X-Ray 01/06/25 14:50 IMPRESSION: Right middle lobe platelike atelectasis. Electronically signed by: Trever Fong MD 01/06/2025 03:03 PM EDT RP Mental Status Exam Mental Status Exam Patient Appearance: Appropriate Patient Orientation: Person, Place, Time and Situation Level of Consciousness: Awake and Alert Patient Behavior: Appropriate, Cooperative and Good Eye Contact Mood Description: Calm Affect Description: Calm Ability to Follow Directions: Good Speech Pattern: Clear and Includes Profanity Memory Description: Intact Hallucinations: None Delusions: Not Present Thought Process: Intact Thought Content: positive for Intact Medications Medications Current Medications Acetaminophen (Acetaminophen 325 Mg Tablet) 650 mg PO Q6H PRN PRN Reason: Pain, Mild 1-3,fever,headache Albuterol Sulfate (Albuterol Sulfate 90 Mcg 8 Gm Inhaler) 2 puff INHALE DAILY PRN PRN Reason: Shortness of Breath Apixaban (Apixaban 5 Mg Tablet) 5 mg PO BID [facility] Aripiprazole (Aripiprazole 20 Mg Tablet) 20 mg PO DAILY [facility] Atorvastatin Calcium (Atorvastatin Calcium 20 Mg Tablet) 20 mg PO DAILY [facility] Calcium Carbonate (Calcium Carbonate 750 Mg Tab.Chew) 750 mg PO Q4H PRN PRN Reason: Heartburn Dextrose (Dextrose 50 % 25 Gm/50 Ml Syringe) 25 gm IVPUSH Q15M PRN; Protocol PRN Reason: per Hypoglycemia Standing Ord. Diltiazem HCl (Diltiazem Hcl Cd 180 Mg Cap.Er.24h) 180 mg PO DAILY [facility]; Protocol Empagliflozin (Empagliflozin 10 Mg Tablet) 10 mg PO DAILY [facility] Fluticasone Propionate (Fluticasone Propionate Nasal 16 Gm [place]) 2 spray NOSTRIL-B DAILY PRN PRN Reason: Allergy Symptoms Fluticasone/Vilanterol (Fluticasone/Vilanterol 100/25 Blst.W.Dev) 1 puff INHALE RDAILY [facility] Furosemide (Furosemide 40 Mg Tablet) 40 mg PO DAILY@0800 [facility]; Protocol Gabapentin (Gabapentin 300 Mg Capsule) 300 mg PO TID [facility] Last Admin: 01/07/25 16:12 Dose: 300 mg Glucose (Glucose Gel 15 Gm Gel..Gram.) 15 gm PO Q15M PRN; Protocol PRN Reason: per Hypoglycemia Standing Ord. Diltiazem HCl 125 mg/ Sodium (Chloride) 125 mls @ 0 mls/hr IVCONT .Q0M [facility]; Protocol Last Titration: 01/07/25 12:03 Dose: 10 mg/hr, 10 mls/hr Insulin Human Lispro (Insulin Lispro 100 Unit/Ml 3 Ml Vial) 0 unit SUBCUT QIDACHS [facility]; Protocol Last Admin: 01/07/25 11:36 Dose: Not Given Lamotrigine (Lamotrigine 25 Mg Tablet) 25 mg PO DAILY [facility] Lamotrigine (Lamotrigine 25 Mg Tablet) 50 mg PO BEDTIME ADOLFO Lamotrigine (Lamotrigine 100 Mg Tablet) 100 mg PO BID [facility] Loratadine (Loratadine 10 Mg Tablet) 10 mg PO DAILY [facility] Magnesium Hydroxide (Milk Of Magnesia 30 Ml Oral.Susp) 30 ml PO DAILY PRN PRN Reason: Constipation Melatonin (Melatonin 3 Mg Tablet) 6 mg PO BEDTIME PRN PRN Reason: Insomnia Metformin HCl (Metformin Hcl 1,000 Mg Tablet) 1,000 mg PO BID [facility] Mirtazapine (Mirtazapine 7.5 Mg Tablet) 7.5 mg PO BEDTIME ADOLFO Non-Formulary Medication (Semaglutide [Ozempic]) 1 mg SUBCUT FR [facility] Potassium Chloride (Potassium Chloride Er 20 Meq Tab.Er.Prt) 20 meq PO DAILY [facility] Quetiapine Fumarate (Quetiapine Fumarate 200 Mg Tablet) 200 mg PO BEDTIME [facility] Sodium Chloride (0.9 % Sodium Chloride Flush 3 Ml Syringe) 3 ml IVFLUSH QSHIFT [facility] Last Admin: 01/07/25 07:51 Dose: Not Given Spironolactone (Spironolactone 25 Mg Tablet) 50 mg PO DAILY [facility]; Protocol Allergies Allergies Allergy/AdvReac Type Severity Reaction Status Date / Time haloperidol (From Haldol) Allergy Mild UNKNOWN Verified 01/06/25 12:40 Assessment & Plan Assessment & Plan (1) Bipolar disorder: Status: Acute Code(s): F31.9 - Bipolar disorder, unspecified Plan Recommendations: -Obtain utox d/t hx of crack use. -Add Klonopin 0.5mg PO BID PRN anxiety -Continue home psychiatric medications Total time managing care of this patient today _30___ minutes. Patient educated on: diagnosis and medication risk/benefits
[2025-01-07 16:36] LABS: Glucose, Whole Blood 130 mg/dL (60-115)
--- NOTE | 2025-01-07 19:07 | PC.NURSE ---
Patient stated she wants to signed AMA, advised that provider needed to be notified. While waiting for provider patient constantly stands up setting alarms, when asked about her behavior she stated it's fun messing with the abel (about V[facility] personnel). Patient was educated on the importance of using call montero and waiting for assistance from hospital staff. Patient continues to stand up and taunt [facility] personnel. Msg sent to Dr. Hall letting him know patient want to leave. Provider Edda Dawn at bedside. After speaking with provider patient agrees to stay, PRN anxiety medication administered per patient's request, simba drip continues, HR fluctuating between 90-120.
[2025-01-07 20:32] LABS: Glucose, Whole Blood 113 mg/dL (60-115)
[2025-01-08] VITALS (8 sets, daily range): BP systolic 98–132; BP diastolic 58–69; PULSE 84–125; RESP 19–20; TEMP 35.4–36.4; O2SAT 95–98
--- NOTE | 2025-01-08 | ECG_ITS ---
Test Reason : Normal rhythm conversion Blood Pressure : */* mmHG Vent. Rate : 82 BPM Atrial Rate : 82 BPM P-R Int : 172 ms QRS Dur : 76 ms QT Int : 360 ms P-R-T Axes : 123 198 168 degrees QTcB Int : 420 ms Normal sinus rhythm Premature atrial complexes Low voltage QRS cannot exclude old anterior or inferior infarct, but could be from body habitus Abnormal ECG When compared with ECG of 07-Jan-2025 09:34, Rhythm change Referred By: Teri Stark Electronically Signed By: WARREN GARCIA
--- NOTE | 2025-01-08 01:21 | PC.NURSE ---
01/07/252229 Pt OOB in chair eating sandwich and conversing on phone with her sister. Pt presently cooperative with care and found to have her HR elevated 110-130 Afib, asymptomatic. Patient IV site is red and swollen and appears to be infiltrated. Cardizem drip disconnected and IV attempt was permitted by the patient but unsuccessful as unable to advance needle. Ultrasound guide IV trained nurse notified and awaiting for when they can attempt ultrasound guided IV. Patient assisted back to bed, repositioned and report given to oncoming TANG Sams who reports will follow up with Dr. Hernandez regarding Afib management and obtaining IV.
--- NOTE | 2025-01-08 05:25 | PM.EVENT ---
Event Note Date of Service: 01/08/25 Event Note: Contacted to notify that patient persistent with rapid AFib and that she lost her IV access. She was given digoxin 0.25 mg IV and Cardizem 60 mg p.o.. Subsequently, her heart rate converted to normal sinus rhythm. We will continue digoxin 0.125 mg p.o. daily and restart Cardizem extended release 120 mg p.o. daily (this is her home dose). Will obtain ECG. Time Spent With Patient Time: Total time managing care of this patient today ____ minutes.
[2025-01-08] MEDS: dilTIAZem HCL CD 120 MG CAP.ER.DEG PO (05:43)
--- NOTE | 2025-01-08 07:28 | PC.NURSE ---
Assumed care of pt. at 2300. Patient on cardizem gtt initially however IV access lost, MD made aware and order for PO cardizem and PO digoxin given. Pt. converted to SR around 0430, EKG obtained. Still no IV access in the AM, patient is hard stick and may need ultrasound guided IV. made aware. Nursing news production supervisor made aware. Oncoming RN made aware.
[2025-01-08 07:47] LABS: Glucose, Whole Blood 121 mg/dL (60-115)
[2025-01-08] MEDS: Potassium Chloride ER 20 MEQ TAB.ER.PRT PO (08:12)
[2025-01-08] MEDS: 0.9 % Sodium Chloride Flush 3 ML SYRINGE IVFLUSH (08:23)
--- NOTE | 2025-01-08 08:23 | PM.DS ---
DS: Providers Provider Date of Service: 01/08/25 Date of admission: 01/06/25 16:42 Date of discharge: 01/08/25 Primary care physician: Taryn Parker MD Consults: 01/06/25 17:21 Consult to Psychiatry Routine Consulting Provider: [facility] Psych Covering Reason for consultation: [facility] nurse reported increasing katy, plan for outpt psych consult tomorrow Has provider been notified: No 01/06/25 17:26 Consult to Cardiology Routine Consulting Provider: [facility] Specialists Reason for consultation: afib rvr Has provider been notified: No Attending physician on discharge: Tylor Hall Discharging clinician: Tylor Hall DS: Diagnosis Discharge Diagnosis (1) Atrial fibrillation with RVR: Status: Acute DS: Summary Hospital Course Hospital Course: HPI:69-year-old female with history of atrial fibrillation on Eliquis who was sent to the emergency department today due to elevated heart rate. This morning patient states her heart rate was in the 80s, she was feeling well and so she did a little bit more activity around her house than normal. When her visiting nurse came to the house her pulse was in the 130s and she was sent to the emergency department for evaluation. The patient denies any shortness of breath, dizziness, chest pain, palpitations. In the emergency department she received a dose of IV Lopressor and IV Cardizem with no significant improvement in her heart rate. She was then started on a Cardizem drip in the decision was made to admit her to the hospital. Lab work was relatively unremarkable Hospital course: Patient was admitted to the hospital because of AFib with RVR: Started on IV Cardizem, in addition required digoxin loading, seems improved. Patient seems much better going home-with p.o. Cardizem and digoxin. Monitor BMP and digoxin level in 1 week outpatient. she says some neck discomfort ,rom -intact ,ct neck seems fine . Denies any trauma. Will add lidocaine patch for home. Follow up with PCP. Patient seen by psych-drug screen negative, recommended to add p.r.n. Klonopin to current regimen. Limited supply given, follow-up out patiently with PCP. continue incentive spriometry for atelactasis . plan: Monitor BMP and digoxin level in 1 week outpatient. Continue digoxin and Cardizem. p.r.n. Klonopin to current regimen. Follow-up with PCP and outpatient psych . Above management discussed with the patient in detail length she understand and in agreement with the above plan, time spent 45 minutes, all questions answered. Time Attestation Total time managing care of this patient today: 45 mintues. Discharge Coordination Time (in mins): 45 min Quality: Safe Use of Opioids Does Pt have an Active Cancer Diagnosis on the Problem List?: No Quality: Stroke Does the patient have a stroke diagnosis?: No Physical Exam Exam: Exam: Appearance: Alert.? Oriented X3.? cvs: Regular rhythm, [id number] . res: clear to auscultation ,no rhonchii or wheezing abd: no rebound or guarding ,nt, bs present. ext pulses present , no cyanosis . neuro: axo3 , nonfocal. Vital Signs: Vital Signs: Last Vital Signs Temp 95.7 F L 01/08/25 07:21 Pulse 88 01/08/25 07:21 Resp 20 01/08/25 07:21 BP 114/68 01/08/25 08:12 Pulse Ox 95 01/08/25 07:21 O2 Del Method Room Air 01/08/25 07:21 BMI result Body Mass Index 49.0 DS: Data Data Completed and Pending Labs on day of discharge: Laboratory Results - last 24 hr 01/07/25 01/07/25 01/07/25 06:35 11:17 16:33 POC Glucose 105 130 H TSH 1.79 01/07/25 01/08/25 20:28 07:30 POC Glucose 113 121 H TSH Imaging Chest x-ray: Radiologist's impression: ITS Impressions Chest X-Ray 01/06/25 14:50 IMPRESSION: Right middle lobe platelike atelectasis. Discharge Plan Discharge Anticipated Discharge Date/Time: 01/08/25 08:24 Patient Disposition: Home, Self-Care Discharge Diagnosis: afib rvr Referrals: Taryn Parker MD [Primary Care Provider, Internal Medicine] - 1 Week Discharge Medications: New digoxin 125 mcg (0.125 mg) Tablet 0.125 mg PO DAILY Qty: 90 0RF Protocol: Hold for HR <: HOLD for HR < : 60 lidocaine 4 % adhesive patch,medicated 1 patch topical DAILY PRN (Reason: pain) Qty: 10 0RF clonazepam 0.5 mg Tablet 0.5 mg PO BID PRN (Reason: Anxiety/Restlessness) Qty: 20 0RF Continued diltiazem HCl [Cartia XT] 120 mg capsule,extended release 24hr 120 mg PO DAILY Qty: 30 3RF Eliquis 5 mg tablet 5 mg PO BID Qty: 60 5RF Jardiance 10 mg tablet 10 mg PO DAILY lamotrigine 25 mg tablet 25 mg PO DAILY loratadine 10 mg Tablet 10 mg PO DAILY spironolactone 25 mg tablet 50 mg PO DAILY fluticasone propion-salmeterol [Advair HFA] 230-21 mcg/actuation HFA aerosol inhaler 2 puff INHALATION DAILY potassium chloride 20 mEq tablet extended release 20 meq PO DAILY fluticasone propionate 50 mcg/actuation spray,suspension 2 spray intranasal DAILY PRN (Reason: Allergy Symptoms) mirtazapine 7.5 mg tablet 7.5 mg PO BEDTIME Ozempic 1 mg/dose (4 mg/3 mL) pen injector 1 mg subcut FR quetiapine 100 mg tablet 200 mg PO BEDTIME metformin 1,000 mg tablet 1,000 mg PO BID lamotrigine 100 mg tablet 100 mg PO BID lamotrigine 25 mg tablet 50 mg PO BEDTIME aripiprazole 20 mg tablet 20 mg PO DAILY simvastatin 40 mg tablet 40 mg PO BEDTIME furosemide 20 mg tablet 40 mg PO DAILY@0800 Rx Instructions: 40 mg AM 20 mg PM as directed; gabapentin 300 mg capsule 300 mg PO TID albuterol sulfate [Ventolin HFA] 90 mcg/actuation HFA aerosol inhaler 2 puff PO DAILY PRN (Reason: Shortness Of Breath) (DME) [facility] See Rx Instructions .Route Qty: 1 0RF Rx Instructions: As directed Discharge Orders: Discharge Order (Routine); Ordered 01/08/25 Ordered By: Tylor Hall Diet: Advance to usual diet Activity on Discharge: As tolerated Stand Alone Forms: Patient Portal Discharge page Print Language: Croatian Other Ambulatory Orders: Basic Metabolic Panel (Routine) Timeframe: 1 Week Facility: [facility] - Location: Laboratory Ordered By: Tylor Hall Digoxin (Routine) Timeframe: 1 Week Facility: [facility] - Location: Laboratory Ordered By: Tylor Hall Care Plan Goals: Patient was admitted to the hospital because of AFib with RVR: Started on IV Cardizem, in addition required digoxin loading, seems improved. Patient seems much better going home-with p.o. Cardizem and digoxin. Monitor BMP and digoxin level in 1 week outpatient. patient says has some neck discomfort -ct neck done -negtaive. Patient seen by psych-drug screen negative, recommended to add p.r.n. Klonopin to current regimen. Limited supply given, follow-up out patiently with pcp and consider outpatient psych follow up. Health Concerns: As above. Plan of Treatment: Monitor BMP and digoxin level in 1 week outpatient.continue incentive spriometry for atelactasis . Continue digoxin and Cardizem. p.r.n. Klonopin to current regimen. lidodaine patch prn Follow-up with PCP and outpatient psych . Assessment: As above. Discharge Date/Time: 01/08/25 13:52
[2025-01-08 09:43] LABS: Cannabinoid Screen Urine Not Detected (Not Detect)
--- NOTE | 2025-01-08 11:23 | MHC.CM.PN ---
Pt. has been medically cleared to [place], she will go home via family transport, plan is self care, resume previous home care services.
[2025-01-08] MEDS: Fluticasone/Vilanterol 100/25 BLST.W.DEV 1 PUFF INHALE (11:32)
[2025-01-08 11:39] LABS: Glucose, Whole Blood 109 mg/dL (60-115)
--- OUTSIDE RECORDS SUMMARY | 2025-02-28 20:00 | XMS_ITS | Clinical Summary ---
Author Organization Unknown Care Team Providers Care Wellness Coach Name Role Phone NICK COUNTER SERVER, ANGELLA Unavailable Unavailable SHAYNA BECKWITH, VERAna Unavailable Unavailable RUDY BECKWITH, LAURA Unavailable Unavailable KERWIN BECKWITH, CURT Unavailable Unavailabl e Payers Payer Name Policy Type Policy Number Effective Date Expira tion Date [place] [id number] ON [place]AND MEDIC[place] - [place] [id number] Problems Condition Name Condition Details Condition Category [...] 20 mg tablet 06-05 00:00: 00 Yes [id number] 1 tablet QAM 1 tablet QAM (route: oral) Alternate Route: PO. Med Classific ation: Central Nervous System Agents gabapentin 300 mg capsule 1- 00:00: 00 Yes [id number] 1 capsule TID 1 capsule TID (route: oral) Alternate Route: PO. Med Classific ation: Central Nervous System Agents glimepiride 2 mg tablet 2017-04 00:00: 00 03-10 23:59 :00 No [id number] 1 tablet QD 1 tablet QD (route: oral) Alternate Route: PO. Med Classific ation: Endocrine lamotrigine 100 mg tablet 1- 00:00: 00 Yes [id number] 1 tablet BID UTD 1 tablet BID UTD (route: oral) Alternate Route: PO. Med Classific ation: Central Nervous System Agents lamotrigine 25 mg tablet 05-12 00:00: 00 Yes [id number] 2 tablet DIRECTED 2 tablet DIRECTED (route: oral) Alternate Route: PO. Med Classific ation: Central Nervous System Agents Lasix 20 mg tablet 06-16 00:00: 00 07-09 23:59 :00 No [id number] 2 tablet EVERY AM 2 tablet EVERY AM (route: oral) Med Classific ation: Cardiovas cular Therapy Agents Lasix 20 mg tablet 06-16 00:00: 00 06-15 23:59 :00 No [id number] 1 tablet IN THE AFTERNOON 1 tablet IN THE AFTERNOON (route: oral) Med Classific ation: Cardiovas cular Therapy Agents metformin 1,000 mg tablet 2017-04 00:00: 00 Yes [id number] 1 tablet BID 1 tablet BID (route: oral) Alternate Route: PO. Med Classific ation: Endocrine O2 - OXYGEN - 00:00: 00 Yes [id number] 2 Liter O2 - PRN 2 Liter O 2 - PRN (route: Oxygen) Med Classific ation: Medical Oxygen potassium chloride ER 20 mEq tablet,exte nded release 05-12 00:00: 00 07-16 23:59 :00 No [id number] 2 tablet DAILY 2 tablet DAILY (route: oral) Med Classific ation: Electroly te Balance-N utritiona l Products Seroquel 100 mg tablet 2-05 00:00: 00 02-06 23:59 :00 No [id number] 1 tablet Every day 1 tablet Every day (route: oral) Med Classific ation: Central Nervous System Agents simvastatin 40 mg tablet 2019-0 1-20 00:00: 00 Yes [id number] 1 tablet QD 1 tablet QD (route: oral) Alternate Route: PO. Med Classific ation: Cardiovas cular Therapy Agents spironolact one 25 mg tablet 3- 00:00: 00 03-07 23:59 :00 No [id number] 1 tablet QD 1 tablet QD (route: oral) Alternate Route: PO. Med Classific ation: Cardiovas cular Therapy Agents Seroquel 100 mg tablet 2019-04 0-15 00:00: 00 06-01 23:59 :00 No [id number] 1.5 tablet BEDTIME 1.5 tablet BEDTIME (route: oral) Med Classific ation: Central Nervous System Agents glipizide ER 5 mg tablet, extended release 24 hr 2019-04 2-04 00:00: 00 02-25 23:59 :00 No [id number] 1 tablet DAILY 1 tablet DAILY (route: oral) Med Classific ation: Endocrine Seroquel 100 mg tablet 2- 00:00: 00 Yes [id number] 2 tablet BEDTIME 2 tablet BEDTIME (route: oral) Med Classific ation: Central Nervous System Agents pioglitazon e 30 mg tablet 6-17 00:00: 00 03-07 23:59 :00 No [id number] 1 tablet DAILY 1 tablet DAILY (route: oral) Med Classific ation: Endocrine Lasix 20 mg tablet 3- 00:00: 00 07-09 23:59 :00 No [id number] 2 tablet DIRECTED 2 tablet DIRECTED (route: oral) Med Classific ation: Cardiovas cular Therapy Agents Lasix 20 mg tablet 2-05 00:00: 00 Yes [id number] 2 tablet DAILY 2 tablet DAILY (route: oral) Med Classific ation: Cardiovas cular Therapy Agents Lasix 20 mg tablet 4-04 00:00: 00 05-12 23:59 :00 No [id number] 2 tablet DAILY 2 tablet DAILY (route: oral) Med Classific ation: Cardiovas cular Therapy Agents doxycycline monohydrate 100 mg tablet 5-26 00:00: 00 09-07 23:59 :00 No [id number] 1 tablet 2 TIMES DAILY 1 tablet 2 TIMES DAILY (route: oral) Med Classific ation: Anti-Infe ctive Agents Jardiance 10 mg tablet 2022-04 2- 00:00: 00 02-01 23:59 :00 No [id number] 1 tablet DAILY 1 tablet DAILY (route: oral) Med Classific ation: Endocrine spironolact one 50 mg tablet 2022-04 2- 00:00: 00 Yes [id number] 1 tablet DAILY 1 tablet DAILY (route: oral) Med Classific ation: Cardiovas cular Therapy Agents ciprofloxac in 250 mg tablet 2022-04 2 00:00: 00 03-16 23:59 :00 No [id number] 1 tablet EVERY 12 HOURS 1 tablet EVERY 12 HOURS (route: oral) Med Classific ation: Anti-Infe ctive Agents prednisone 20 mg tablet 2-05 00:00: 00 05-14 23:59 :00 No [id number] 1 tablet DAILY 1 tablet DAILY (route: oral) Med Classific ation: Endocrine Lasix 20 mg tablet 2- 00:00: 00 07-30 23:59 :00 No [id number] 1 tablet NOON 1 tablet NOON (route: oral) Med Classific ation: Cardiovas cular Therapy Agents potassium chloride ER 20 mEq tablet,exte nded release 4-11 00:00: 00 07-30 23:59 :00 No [id number] 1 tablet DAILY 1 tablet DAILY (route: oral) Med Classific ation: Electroly te Balance-N utritiona l Products Advair HFA 230 mcg-21 mcg/actuati on aerosol inhaler 09-08 00:00: 00 Yes [id number] 2 puff 2 TIMES DAILY 2 puff 2 TIMES DAILY (route: inhalation ) Med Classific ation: Respirato ry Therapy Agents Airsupra 90 mcg-80 mcg/actuati on HFA aerosol inhaler 09-08 00:00: 00 Yes [id number] 2 puff NEEDED 2 puff NEEDED (route: inhalation ) Med Classific ation: Respirato ry Therapy Agents pioglitazon e 30 mg tablet 8-03 00:00: 00 02-01 23:59 :00 No [id number] 1 tablet DAILY 1 tablet DAILY (route: oral) Med Classific ation: Endocrine Jardiance 25 mg tablet 2023-04 0- 00:00: 00 06-24 23:59 :00 No [id number] 1 tablet DAILY 1 tablet DAILY (route: oral) Med Classific ation: Endocrine Jardiance 10 mg tablet 3- 00:00: 00 Yes [id number] 1 tablet EVERY AM 1 tablet EVERY AM (route: oral) Med Classific ation: Endocrine Ozempic 0.25 mg or 0.5 mg (2 mg/3 mL) subcutaneou s pen injector 4-11 00:00: 00 09-21 23:59 :00 No [id number] 0.5 mg WEEKLY 0.5 mg WEEKLY (route: subcutaneo us) Med Classific ation: Endocrine potassium chloride ER 20 mEq tablet,exte nded release 07-30 00:00: 00 08-05 23:59 :00 No [id number] 1 tablet 2 TIMES DAILY 1 tablet 2 TIMES DAILY (route: oral) Med Classific ation: Electroly te Balance-N utritiona l Products fluticasone propionate 50 mcg/actuati on nasal spray,suspe nsion 08-05 00:00: 00 Yes [id number] 2 spray DAILY 2 spray DAILY (route: nasal) Med Classific ation: Respirato ry Therapy Agents loratadine 10 mg tablet - 00:00: 00 Yes [id number] 1 tablet DAILY 1 tablet DAILY (route: oral) Med Classific ation: Respirato ry Therapy Agents potassium chloride ER 20 mEq tablet,exte nded release - 00:00: 00 Yes [id number] 1 tablet EVERY AM 1 tablet EVERY AM (route: oral) Med Classific ation: Electroly te Balance-N utritiona l Products mirtazapine 7.5 mg tablet 5-14 00:00: 00 Yes [id number] 1 tablet BEDTIME 1 tablet BEDTIME (route: oral) Med Classific ation: Central Nervous System Agents Ozempic 1 mg/dose (4 mg/3 mL) subcutaneou s pen injector 6-13 00:00: 00 Yes [id number] 1 mg WEEKLY 1 mg WEEKLY (route: subcutaneo us) Med Classific ation: Endocrine Cartia XT 120 mg capsule,ext ended release 10-31 00:00: 00 Yes [id number] 1 capsule EVERY AM 1 capsule EVERY AM (route: oral) Med Classific ation: Cardiovas cular Therapy Agents Eliquis 5 mg tablet 10-24 00:00: 00 Yes [id number] 1 tablet 2 TIMES DAILY 1 tablet 2 TIMES DAILY (route: oral) Med Classific ation: Hematolog ical Agents prednisone 20 mg tablet 10-24 00:00: 00 10-27 23:59 :00 No [id number] 2 tablet DAILY 2 tablet DAILY (route: oral) Med Classific ation: Endocrine Vital Signs Vital Name Observation Time Observation Value Commen ts Temperature 2025-01-05 10:35:00.000 97.3 [degF] Temperature 2025-01-04 12:20:00.000 97.6 [degF] Temperature 2025-01-03 10:25:00.000 97.9 [degF] Pulse 2025-01-05 10:35:00.000 94 /min Pulse 2025-01-04 12:20:00.000 78 /min Pulse 2025-01-03 10:25:00.000 83 /min O2 Saturation (%) 2025-01-05 10:41:00.000 96 % O2 Saturation (%) 2025-01-04 12:16:00.000 93 % O2 Saturation (%) 2025-01-03 10:25:00.000 92 % Respirations 2025-01-05 10:35:00.000 20 /min Respirations 2025-01-04 12:15:00.000 20 /min Respirations 2025-01-03 10:23:00.000 20 /min Systolic Blood Pressure 2025-01-05 10:35:00.000 100 mm [Hg] Systolic Blood Pressure 2025-01-04 12:20:00.000 112 mm [Hg] Systolic Blood Pressure 2025-01-03 10:23:00.000 120 mm [Hg] Diastolic Blood Pressure 2025-01-05 10:35:00.000 [...] AM FOR FOLLOWING A.M. PP MEDS ON S .] Future Scheduled Test PATIENT MA Y [...] AWARENESS FOR SAFETY AND WILL NOTIFY CLINICAL MANAGER AGRICULTURE AND PHYSICIAN/PROVIDER WITH ANY CHANGE IN CONDITION. [code = SKILLED NURSE WILL MAINTAIN SITUATIONAL AWARENESS FOR SAFETY AND WILL NOTIFY CLINICAL MANAGER AGRICULTURE AND PHYSICIAN/PROVIDER WITH ANY CHANGE IN CONDITION.] [...] End Date/Time Encounter Type Admission Type Attending [facility] Care Facility Care Department Encounter ID Discharge Date Discharge Status Discharge Condition Discharge Reason Percent Goals Met 2025-01-01 00:00:00 2025-03-01 00:00:00 Outpatient MIL[facility]RTCURT [facility] [id number] 40.00
== END 2025-01-08 13:52 | disposition home or self-care (01) | DRG 309 ==
LOC: HO.ED 16:46 → HO.EDOVER 16:50 → HO.IMC 17:17
PROVIDERS: Physician Assistant Medical; Admitting Provider Physician Assistant Medical; Emergency Provider Emergency Medicine Emergency Medical Services; PCP Internal Medicine; Visit Provider Internal Medicine
DX: I48.91 Unspecified atrial fibrillation (principal); J96.11 Chronic respiratory failure with hypoxia; Z68.42 Body mass index [BMI] 45.0-49.9, adult; J44.9 Chronic obstructive pulmonary disease, unspecified; E11.9 Type 2 diabetes mellitus without complications; E66.01 Morbid (severe) obesity due to excess calories; I10 Essential (primary) hypertension; F31.9 Bipolar disorder, unspecified; Z87.891 Personal history of nicotine dependence; Z79.01 Long term (current) use of anticoagulants; Z79.51 Long term (current) use of inhaled steroids; Z79.84 Long term (current) use of oral hypoglycemic drugs; Z79.899 Other long term (current) drug therapy
CPT/HCPCS: 36415; 71045; 72125; 80048; 80053; 80307; 82947; 83735; 83880; 84443; 84484; 85025; 85610; 93005; 93308; 99285; J0616; J1163

== ENCOUNTER → 2025-01-06 13:53 | Outpatient (BNV) | payer MEDICARE, MEDICAID, SELFPAY | PROVIDERS: Admitting Provider Physician Assistant Medical; Emergency Provider Emergency Medicine Emergency Medical Services; PCP Internal Medicine; Visit Provider Internal Medicine | DX: I48.91 Unspecified atrial fibrillation (principal) | CPT/HCPCS: 93010 ==

== ENCOUNTER → 2025-01-06 13:58 | Outpatient (BNV) | payer MEDICARE, MEDICAID, SELFPAY | PROVIDERS: PCP Internal Medicine; Visit Provider Radiology Diagnostic Radiology | DX: J98.11 Atelectasis (principal) | CPT/HCPCS: 71045 ==

== ENCOUNTER 2025-01-06 16:42 | Outpatient (BNV) | payer MEDICARE, MEDICAID, SELFPAY | END 2025-01-08 05:33 | PROVIDERS: Admitting Provider Physician Assistant Medical; Emergency Provider Emergency Medicine Emergency Medical Services; PCP Internal Medicine; Visit Provider Internal Medicine | DX: I49.1 Atrial premature depolarization (principal) | CPT/HCPCS: 93010 ==

== ENCOUNTER 2025-01-06 16:42 | Outpatient (BNV) | payer MEDICARE, MEDICAID, SELFPAY | END 2025-01-08 10:32 | PROVIDERS: Admitting Provider Physician Assistant Medical; Emergency Provider Emergency Medicine Emergency Medical Services; PCP Internal Medicine; Visit Provider Specialist | DX: M54.2 Cervicalgia (principal) | CPT/HCPCS: 72125 ==

== ENCOUNTER 2025-01-06 16:42 | Outpatient (BNV) | payer MEDICARE, MEDICAID, SELFPAY | END 2025-01-07 07:00 | PROVIDERS: Admitting Provider Physician Assistant Medical; Emergency Provider Emergency Medicine Emergency Medical Services; PCP Internal Medicine; Visit Provider Internal Medicine | DX: I31.39 Other pericardial effusion (noninflammatory) (principal); I36.1 Nonrheumatic tricuspid (valve) insufficiency | CPT/HCPCS: 93308 ==

== ENCOUNTER → 2025-01-06 16:42 | Outpatient (BNV) | payer MEDICARE, MEDICAID, SELFPAY | PROVIDERS: Admitting Provider Physician Assistant Medical; Emergency Provider Emergency Medicine Emergency Medical Services; PCP Internal Medicine; Visit Provider Registered Nurse | DX: F31.13 Bipolar disorder, current episode manic without psychotic features, severe (principal) | CPT/HCPCS: 99222 ==

== ENCOUNTER → 2025-01-06 16:42 | Outpatient (BNV) | payer MEDICARE, MEDICAID, SELFPAY | PROVIDERS: Admitting Provider Physician Assistant Medical; Emergency Provider Emergency Medicine Emergency Medical Services; PCP Internal Medicine; Visit Provider Internal Medicine | DX: I48.91 Unspecified atrial fibrillation (principal) | CPT/HCPCS: 99223 ==

== ENCOUNTER → 2025-01-06 16:42 | Outpatient (BNV) | payer MEDICARE, MEDICAID, SELFPAY | PROVIDERS: Admitting Provider Physician Assistant Medical; Emergency Provider Emergency Medicine Emergency Medical Services; PCP Internal Medicine; Visit Provider Physician Assistant Medical | DX: I48.91 Unspecified atrial fibrillation (principal) | CPT/HCPCS: 99223 ==

== ENCOUNTER 2025-02-03 11:24 | Outpatient (AMB) | payer MEDICARE, MEDICAID, SELFPAY ==
[2025-02-03 11:40] VITALS: BP 120/60; PULSE 80; O2SAT 94; BMI 46.9
--- NOTE | 2025-02-03 11:40 | A.OFFVIS_ITS ---
Vital Signs 02/03/25 11:40 Height 5 ft 1 in Weight 248 lb 0.321 oz BMI 46.9 BP 120/60 Blood Pressure Location Lt brachial Position Sitting Pulse 80 Pulse Source Pulse Oximeter Pulse Oximetry (%) 94 Oxygen Delivery Method Room Air Intake Visit Reasons: COPD Intake Note: pt is here for follow up and states she feels good. has oxygen at home and using it daytime and nightime prn on2 liters. Account Contact Associate Required: No Shift Engineer: Shift Engineer offered & declined Allergies haloperidol (From Haldol) Allergy (Mild, Verified 02/03/25 11:54) UNKNOWN Medication List - Last Reconciled 02/03/25 by Jean Haider MD albuterol sulfate 90 mcg/actuation (Ventolin HFA) 2 puffs PO DAILY PRN apixaban (Eliquis) 5 mg PO BID aripiprazole 20 mg PO DAILY clonazepam 0.5 mg PO BID PRN digoxin 0.125 mg See Protocol PO DAILY diltiazem HCl CD (Cartia XT) 120 mg PO DAILY empagliflozin (Jardiance) 10 mg PO DAILY fluticasone propion-salmeterol 230-21 mcg/actuation (Advair HFA) 2 puffs inhalation DAILY fluticasone propionate 50 mcg/actuation 2 sprays intranasal DAILY PRN furosemide 40 mg PO DAILY@0800 gabapentin 300 mg PO TID lamotrigine 25 mg PO DAILY lamotrigine 100 mg PO BID lamotrigine 50 mg PO BEDTIME lidocaine 4% 1 patch topical DAILY PRN loratadine 10 mg PO DAILY metformin 1,000 mg PO BID mirtazapine 7.5 mg PO BEDTIME potassium chloride ER 20 mEq PO DAILY quetiapine 200 mg PO BEDTIME semaglutide (Ozempic) 1 mg subcut FR simvastatin 40 mg PO BEDTIME spironolactone 50 mg PO DAILY walker As directed Do you need a note to return to daycare/school/sports/work: No HPI HPI COPD: Details: JOHN IS 69 YEARS OLD FEMALE WITH MORBID OBESITY CURRENT BMI 47, SHE IS BEING FOLLOWED FOR COPD WELL OBSTRUCTIVE SLEEP APNEA. HAS NOT BEEN ABLE TO USE THE CPAP, BUT DOES USE O2 2 L/MINUTE AT NIGHT. SHE OFFERS NO COMPLAINTS AT THIS TIME. SHE TELLS ME HAPPILY THAT SHE HAS LOST 10 LB OF WEIGHT. I SEE THAT SHE IS ON OZEMPIC INJECTIONS, 1 MG SUBQ Q 1 WEEK. SHE USES HER INHALER TWICE A DAY AND RESCUE INHALER ONLY ONCE IN A WHILE. [facility] Medical History Atrial fibrillation Restrictive lung disease COPD (chronic obstructive pulmonary disease) Nocturnal hypoxemia Obesity (BMI 35.0-39.9 without comorbidity) Weakness Fever Fall Unspecified diastolic heart failure Diabetes HTN (hypertension) Family History Brother Heart disease Social History Household Members: Family Housing: Apartment Do you presently have visiting nurse or other home services: Yes Patient Tobacco Use Status: Former Tobacco user Second Hand Smoke Exposure: No Advance Directives Date on File: 04/21/23 service: No Current occupational status: retired 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 Review of Systems Const All systems reviewed & are unremarkable except as noted in HPI and below Eyes Reports no additional complaints ENT Reports no additional complaints Card Denies chest pain, Denies irregular heart rhythm, Reports leg edema and Reports dyspnea on exertion Resp Reports as per HPI and Reports dyspnea on exertion GI Reports no additional complaints Reports no additional complaints Musc Reports no additional complaints Skin/Breast Reports system reviewed and no additional complaints, except as documented Neuro Reports no additional complaints Endo Reports other (Diabetes mellitus patient is on Ozempic injections Q 1 week ) Kailash/Lymph Reports no additional complaints Aller/Immun Reports no additional complaints Physical Exam Vital Signs: Last Vital Signs Pulse 80 02/03/25 11:40 BP 120/60 02/03/25 11:40 Pulse Ox 94 02/03/25 11:40 Oxygen Delivery Method Room Air 02/03/25 11:40 BMI result Body Mass Index 46.9 Const Other: She appears grossly obese but is comfortable General: comfortable, no acute distress, alert and awake Orientation/consciousness: patient oriented x3 HEENT Head: Yes normal to inspection General nose exam: No nasal polyps present and No nasal discharge present Face and sinus: Yes sinuses nontender Mouth: oropharynx normal Throat: Yes posterior oropharynx normal Eyes General: appearance normal, both eyes and all related structures Neck Neck: Yes normal visual inspection, Yes no lymphadenopathy, Yes trachea midline and Yes no JVD Thyroid: Thyroid normal Chest Chest palpation & inspection: normal inspection of the chest, normal palpation of entire chest wall and tenderness Resp Other: Percussion note is not perceptible over the lower lobes because of thick chest wall. Breath sounds are distant with slight prolongation. Of the expiratory phase No wheezes crepitations or. Rhonchi are heard Cardio Palpation: PMI not normal (Not palpable) Rate: regular rate Rhythm: regular rhythm Heart sounds: no gallops and no murmurs GI Palpation (GI): Soft to palpation, nontender, No hepatosplenomegaly present and no masses Auscultation: normal bowel sounds Back/Spine/Pelvis Thoracic/Lumbar Spine: thoracic and lumbar spine normal to inspection and thoraco-lumbar ROM limited Skin General skin exam: no rashes or lesions noted Neuro General: patient oriented x3, No gait normal (Has slight gait impairment uses a cane) and no focal motor deficits Cranial nerves: Yes CN's II-XII intact bilaterally Extrem General: Yes normal to inspection, Yes no clubbing, cyanosis or edema, Yes no calf tenderness and Yes venous stasis dermatitis (As chronic stasis dermatitis around the ankles and lower parts of both legs) Psych Appearance: grossly normal and well kempt Speech and movement: Normal speech and movement present (Slightly slow in answering questions) Assessment & Plan Assessment & Plan (1) Obesity (BMI 35.0-39.9 without comorbidity): Comment: Patient is grossly obese. It has been unchanged in the last 5-6 years. She is trying to control her diet, not able to do much exercise Recently started on Ozempic injections and she has lost about 10 lb of weight. Code(s): E66.9 - Obesity, unspecified Category: Medical Plan: Continue to watch diet and continue on the Ozempic injections . (2) COPD (chronic obstructive pulmonary disease): Comment: Patient has been treated for chronic obstructive pulmonary disease for past 6-7 years. She does have previous history of smoking . Currently on Advair HFA 230-21 2 puffs b.i.d. and albuterol only p.r.n. And her COPD has remained well controlled. Code(s): J44.9 - Chronic obstructive pulmonary disease, unspecified Category: Medical Plan: Advised to continue Advair HFA 230-212 puffs b.i.d. and use albuterol HFA 2 puffs Q 6 hours only p.r.n. (3) Restrictive lung disease: Comment: Because because of gross obesity she is a good candidate for restrictive lung disease. Clinically on auscultation she does have decreased breath sounds over the lower. Lobes No pulmonary function test has been done to confirm that. Code(s): J98.4 - Other disorders of lung Category: Medical Plan: Encouraged to keep on losing weight and also do deep breathing exercises 2 to 3 times a day (4) Nocturnal hypoxemia: Comment: She is known to have nocturnal hypoxemia since about 6 years ago. This may actually be part of obstructive sleep apnea. Anyway the use of oxygen 2 L/minute at night has helped her. Code(s): G47.34 - Idiopathic sleep related nonobstructive alveolar hypoventilation Category: Medical Plan: Continue using O2 2 L/minute at night. May also use O2 2 L/minute for short intervals during the daytime as needed. Coding Level of Care Code Est Pt Level 3 (40452) Diagnoses Obesity (BMI 35.0-39.9 without comorbidity) E66.9 COPD (chronic obstructive pulmonary disease) J44.9 Restrictive lung disease J98.4 Nocturnal hypoxemia G47.34
--- OUTSIDE RECORDS SUMMARY | 2025-02-03 14:19 | XMS_ITS | Patient Health Record ---
Author Organization [facility] Address [address] [place] [address] Care Team Providers Care Head Waiter Name Role Phone Keith FLANNERY, Taryn Primary Care Provider Jericho Espinoza Jr Unavailable Reason For Referral No Information Plan Of Treatment No Information Insurance Providers Payer Name Payer Address Payer Phone Subscriber Number Group Number Insured Name Patient Relationship to Insured Coverage Start Date Coverage End Date MEDICARE OF [place] [address] [place] [address] [phone] [id number] JOHN CASAS Self - patient is the insured MEDICAID OF [facility] [address] [place] [address] [id number] JOHN CASAS Self - patient is the insured
--- OUTSIDE RECORDS SUMMARY | 2025-02-03 14:20 | XMS_ITS | Data Portability ---
Author Organization [facility] Move In History [facility], Main Office Address [address], [address] [place] [address] Care Team Providers Care Surfacing Technician Name Role Phone KENZIE CHRISTIAN - 2ND FLOOR OTHER TALIA RANDALL Primary Care Provider Assessment Encounter Date Assessment Date Assessment LastModified by Organization Details LastModified Time 07/28/2024 07/28/2024 Labs 07/28/24. Na 137, K 2.9, Bun 9, Cr 0.64. Wbc 7.8, Hgb 13.5, Plt 236 Not available 07/28/2024 14:31:00 07/29/2024 07/29/2024 Spend 45 min for coordinating of discharge. Labs 07/28/24. Na 137, K 2.9, Bun 9, Cr 0.64. Wbc 7.8, Hgb 13.5, Plt 236 Not available 07/29/2024 13:58:35 Plan of Treatment Reminders Order Date Submit Date Provider Last Modified By Organization Details Last Modified Time Details Appointments None record ed. Lab None record ed. Referral None record ed. Procedures None record ed. Surgeries None record ed. Imaging None record ed. Medication Orders None record ed. Patient TargetsNo targets recorded. Patient InstructionsNo instructions recorded. Reason for Referral None Reported. Problems Name Problem SNOMED Code Status Onset Date Resolution Date Notes Provider Name and Address Organization Details Recorded Time Acute exacerbatio n of chronic obstructive pulmonary disease 421431736 Active 2024 JOSE ANTONIO ODELL NP [address], [address], [place], [address], [facility] 11:57:56 Asthenia 95717503 Active 2024 JOSE ANTONIO ODELL NP [address], [address], [place], [address], [facility] 5 11:58:05 Chronic diastolic heart failure 036197562 Active 2024 JOSE ANTONIO ODELL NP [address], [address], [place], [address], [facility] 5 12:01:34 Essential hypertensio n 55413991 Active 2024 JOSE ANTONIO ODELL NP [address], [address], [place], [address], [facility] 5 12:01:52 Peripheral neuropathy due to type 2 diabetes mellitus 3779555347198 Active 2024 JOSE ANTONIO ODELL NP [address], [address], [place], [address], [facility] 5 12:03:03 Bipolar disorder 03411612 Active 2024 JOSE ANTONIO ODELL NP [address], [address], [place], [address], [facility] 5 12:06:03 Mixed hyperlipide josué 893756180 Active 2024 JOSE ANTONIO ODELL NP [address], [address], [place], [address], [employer] [facility] 5 12:24:53 Problem Notes None recorded. Medical Equipment None Reported. Allergies Allergen ID Allergen Name Allergen Category Reaction Reaction Severity Criticality Documentation Date Start Date Code Code System Note Provider Name and Address Organization Details Recorded Time 16336 Haldol medicatio n Not available Not available Not available 07/20/2024 34001 9 RxNorm JOSE ANTONIO ODELL NP [address], [address], [place], [address], [facility] 5 12:05:46 Medications Not known to be on any medication Vitals Date Recorded Heart rate Respiratory rate Body temperature Oxygen saturation Oxygen saturation in Arterial blood by Pulse oximetry Systolic And Diastolic Provider Name and Address Organization Details Last Updated DateTime 5 80 /min 18 /min 97.7 [degF] 92 % 92 % 115/64 mm[Hg] JOSE ANTONIO ODELL NP [address], [address], [place], [address], [facility] 11:36:14 Date Recorded Body weight Heart rate Respiratory rate Systolic And Diastolic Provider Name and Address Organization Details Last Updated DateTime 07/26/2024 466477.68 g 70 /min 18 /min 136/74 mm[Hg] Braeden Hudson MD [address], [address], [place], [address] , [facility] 07/26/2024 10:37:57 Social History Question Answer Notes LastModified by Organizat ion Details LastModified Time Tobacco Smoking Status Former Smoker quit yrs ago, relapsed recently but stopped again months ago JOSE ANTONIO ODELL NP [address], [address], [place], [address], [employer] [facility] 07/20/2024 12:10:37 What Is Your Code Status? Full Code No Dialysis, No G Tube [email or web address] Information not available 07/20/2024 Where Do You Live? 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 07/20/2024 [email or web address] Information not available 07/20/2024 Do You Have An Out Of Hospital DNR? Yes MOLST Completed 07/20/24 [email or web address] Information not available 07/20/2024 Has Tobacco Cessation Counseling Been Provided? No [email or web address] Information not available 07/20/2024 Sex: Unknown Functional Status Question Answer Note LastModified by Organizat ion Details LastModified Time Do you use any illicit or recreational drugs? Yes reports using crack a few months ago [email or web address] Information not available 07/20/2024 Do you or have you ever used any other forms of tobacco or nicotine? No [email or web address] Information not available 07/20/2024 What is your level of alcohol consumption? None Information not available 07/20/2024 Mental Status None recorded. Family History Relationship Description Onset Age of this Age Resolved Age Notes LastModified by Organization Details LastModified Time Father Malignant neoplastic disease [email or web address] Not available 2024 12:14:20 Mother Malignant neoplastic disease [email or web address] Not available 2024 12:14:20 Brother Malignant neoplastic disease [email or web address] Not available 2024 12:14:20 Medical History No medical history recorded. Gynecological HistoryNo gynecological history recorded. Obstetrics History GPAL:G 0 P 0 0 0 0 Immunizations Vaccine Type Date Status Note Provider Nam e and Address Organization Details Recorded Time Tdap 4 completed [facility] [address] 07/21/2024 15:43:01 pneumococcal polysaccharide PPV23 7 completed [facility] [address] 07/21/2024 15:43:20 pneumococcal polysaccharide PPV23 0 completed [facility] [address] 07/21/2024 15:43:28 influenza, unspecified formulation 4 completed [facility] [address] 07/21/2024 15:43:44 SARS-COV-2 (COVID-19) vaccine, UNSPECIFIED 1 completed [facility] [address] 07/21/2024 15:44:10 SARS-COV-2 (COVID-19) vaccine, UNSPECIFIED 1 completed [facility] [address] 07/21/2024 15:44:17 SARS-COV-2 (COVID-19) vaccine, UNSPECIFIED 1 [facility] 07/21/2024 15:44:26 Past Encounters Encounter ID Performer Location Encounter Start Date Encounter Closed Date Diagnosis/Indication Diagnosis SNOMED-CT Code Diagnosis ICD10 Code Diagnosis IMO Codes Diagnosis Note [id number] JOSE ANTONIO ODELL NP [address] [address] 07/20/2024 11:35:25 07/26/2024 08:58:57 Acute exacerbation of chronic obstructive pulmonary disease 370561109 J44.1 834882 Continue:z pakprednis one 40 mg qd x 3dadvair HFA 230-21 2 inh BIDventoli n HFA 2 inh q4h prnO2 prn to keep sats >90% (uses prn at home)Monit or resp. status Peripheral neuropathy due to type 2 diabetes mellitus 9603864075 107 E11.42 8323368 Continue home meds:jardi ance 10 mg qdozempic 0.5 mg sq q frimetform in 1000 mg bidgabapen tin 300 mg tid, ? neuropathy Add BS BID x 5 days to assess BS, expect elevation to prednisone use. Chronic di astolic heart failure 067691375 I50.32 266592 Continue:l asix 20 mg qdaldacton e 50 mg qdKCl 20 meq qdMonitor VS, weights, fluid balanceLow salt diet Essential hypertension 85004587 I10 98655 lasix 40 mg q 8 a, 20 mg q noonaldact one 25 mg qdKCl 20 meq qd Bipolar disorder 3598472 4 F31.9 5843500 lamotrigin e 125 mg q amlamotrig ine 150 mg q pmaripipra zole 20 mg qdseroquel 200 mg q hsgabapent in 300 mg tid Asthenia 30139267 R53.1 58599 Deconditio alejandrina in generalPT OT eval and tx.Goal is to return home. Mixed hyperlipidemia 267 553932 E78.2 89995 ?Continue atorvastat in 40 mg qd [id number] Braeden Hudson MD [address] [address] 07/26/2024 10:37:18 07/28/2024 15:49:29 Acute exacerbation of chronic obstructive pulmonary disease 524086296 J44.1 635464 see HPIcomplet ed prednisone burstconti nued on advairmoni tor respirator y status and albuterol utilizatio npulmonary eval prnwean O2 as toleratedh as O2 at home however states rarely needs to utilizedoe s monitor O2 sats at home at baseline Asthenia 14623494 R53.1 68842 PT OT Eval and treatmonit or need for increased support in community Peripheral neuropathy due to type 2 diabetes mellitus 9552600969 107 E11.42 4214067 continue out patient medication smaintaine d onozempic, jardiance and metformina ppears on gabapentin 300 mg tid for neuropathy Chronic di astolic heart failure 311871768 I50.32 380045 lasix 40 mg qam, 20 mg q afternoons pironolact one 50 mg qdmonitor respirator y and fluid status Essential hypertension 32947318 I10 75971 lasix 40 mg qam, 20 mg q afternoons pironolact one 50 mg qdmonitor bp and need to titrate Bipolar disorder 6741114 4 F31.9 8126209 carrying dxmaintain ed on abilify, seroquel, lamictalps ych to evalmonito r for sx Mixed hyperlipidemia 267 438697 E78.2 42620 simvastati n 40 mg qdcontinue d Body mass index 40+ - severely obese 652662324 E66.01 24640410 dietary to eval [id number] ALYSSIA BASS CNP [address] [address] 07/28/2024 13:38:05 08/04/2024 12:28:07 Acute exacerbation of chronic obstructive pulmonary disease 572264826 J44.1 763481 see HPIstablec ompleted prednisone burstconti nued on advairmoni tor respirator y status and albuterol utilizatio npulmonary eval prnwean O2 as toleratedh as O2 at home however states rarely needs to utilizeO2 sat stable in RA, 97%.does monitor O2 sats at home at baseline Asthenia 83596739 R53.1 98373 PT OT Eval and treatmonit or need for increased support in community Bipolar disorder 7468627 4 F31.9 4630809 carrying dxmaintain ed on abilify, seroquel, lamictalps ych to evalmonito r for sx Peripheral neuropathy due to type 2 diabetes mellitus 2012174340 107 E11.42 3372615 BGL has been stable, mainly <150.masha nue out patient medication smaintaine d onozempic, jardiance and metformina ppears on gabapentin 300 mg tid for neuropathy Chronic di astolic heart failure 160131314 I50.32 238008 lasix 40 mg qam, 20 mg q afternoons pironolact one 50 mg qdmonitor respirator y and fluid status Essential hypertension 29074457 I10 05231 lasix 40 mg qam, 20 mg q afternoons pironolact one 50 mg qdmonitor bp and need to titrate Mixed hyperlipidemia 267 167586 E78.2 80216 simvastati n 40 mg qdcontinue d Body mass index 40+ - severely obese 661184562 E66.01 41764292 dietary to eval Hyponatremia 36930151 E8 7.1 72273 2.9 on 07/28.lasix 40 mg qam, 20 mg q afternoons pironolact one 50 mg qdwith KCL 20 meq BID.Will replace with kcl 40 meq BID for 2 days then resume 20 meq BID.will repeat cmp on Friday. [id number] ALYSSIA BASS, [facility] [address] [place] [address] 07/29/2024 13:47:48 08/04/2024 12:42:11 Acute exacerbation of chronic obstructive pulmonary disease 646185856 J44.1 721795 resolved and back to her baseline.h as O2 at home however states rarely needs to utilizecom pleted prednisone burstconti nued on advairalbu terol, PRNO2 sat stable in RA, 97%.follow up with PCPpulmona ry eval prn Asthenia 59134679 R53.1 81775 improved with PT and OT Bipolar disorder 6924130 4 F31.9 5721809 carrying dxmood stablecont inue her home medsabilif y, seroquel, lamictalf/ u with PCP and psych PRN Peripheral neuropathy due to type 2 diabetes mellitus 9704942940 107 E11.42 9329824 BGL has been stable, mainly <150.masha nue out patient medication smaintaine d onozempic, jardiance and metforming abapentin 300 mg tid for neuropathy Chronic di astolic heart failure 960855041 I50.32 697046 lasix 40 mg qam, 20 mg q afternoons pironolact one 50 mg qdrespirat ory status stablefoll ow up with PCP and cardiology PRN Hyponatremia 05383869 E8 7.1 16217 2.9 on 07/28.lasix 40 mg qam, 20 mg q afternoons pironolact one 50 mg qdfinish kcl 40 meq BID, the last dose ton. en resume 20 meq BID.stat BMP tomorrow AM (07/30)-sylvia l result to MD/ENGINE DESIGNER in order to obtain D/C to home. BMP on 08/02, or 08/03 by [facility] with result to PCP to trend hypokalemi a.Order will send upon discharge Essential hypertension 78358955 I10 74835 BP stablecont inuelasix 40 mg qam, 20 mg q afternoons pironolact one 50 mg qdf/u with PCP Mixed hyperlipidemia 267 608017 E78.2 51686 cotinuesim vastatin 40 mg qd Health Concerns Section Related Observation LastModified by Organization Detai ls LastModified Time None Recorded Concern Status LastModified by Organization Details LastModified Time None Recorded Advance Directives Directive None Recorded Payers Insurance Date Sequence Insurance Name Policy Number Policy Rizvi Covered Member ID Rizvi Member ID Guarantor Name 07/26/2024 1 [place] Elizabeth Garrison [id number] Elizabeth Garrison 07/20/2024 2 [place] [facility] Elizabeth Garrison [id number] Elizabeth Garrison Notes Date Note Type Note Provider Name and Address Organization Details Recorded Time 5 text/html Elizabeth is seen today for initial intake. She is a 68 yo lady admitted to [facility] 07/19/24 from [facility] for continued care and rehab due to COPD exac.Went to ER 07/18 with SOB x 3 days, got nervous, though she was going to . Work up largely negative, CXR NAD, afebrile, WBC, metabolic panel, D Dimer WNR. No evidence of CHF, infection, or acute cardiac process. Suspecting COPD exacerbation, started z pk and prednisone burst. Upon exam, Elizabeth is up in a w/c, alert, NAD. Feels better in general. No specific complaints other than feeling a little dizzy. She says she hasn't eaten this am, but lunch is arriving shortly. DARNELL: mod. fall risk PMH: COPD, bipolar, CHF, HTN, DM2, obeseMOLST: full code, no dialysis, no g tube Addendum - family brought in med list from home - meds in EMR updated - advair is BID, ventolin is prn, and aldactone is 50 mg qd JOSE ANTONIO ODELL NP [address], [address], [place], [address], [facility] 07/20/2024 14:37:38 5 text/html Patient is a 68 yo female admit from ED after presenting with increasing shortness of breath. Concern for COPD exacerbation started on prednisone burst and covered with zithromax. Not felt safe to return home at that time PMH is significant forbipolar dxcopdchfhtndm with neuropathyobesitygait instability admit to facility for continued care and therapy eval and treat Braeden Hudson MD [address], [address], [place], [address], [facility] 07/26/2024 10:55:52 5 text/html Elizabeth is seen today for acute rounding visit. She is a 68 yo lady admitted to [facility] 07/19/24 from [facility] for continued care and rehab due to COPD exac.Went to ER 07/18 with SOB x 3 days, got nervous, though she was going to . Work up largely negative, CXR NAD, afebrile, WBC, metabolic panel, D Dimer WNR. No evidence of CHF, infection, or acute cardiac process. Suspecting COPD exacerbation, started z pk and prednisone burst. Upon exam, Elizabeth is up in a WC, having snack with her sister. She is alert, NAD. Feels ok. No specific complaints today. Lab result reviewed, noted critically low K level, 2.9. She currently is on lasix 60 mg total daily, spironolactone 50 mg qd with KCL 20 meq BID. Denies chest pain, sob, or palpiation. DARNELL: mod. fall risk PMH: COPD, bipolar, CHF, HTN, DM2, obeseMOLST: full code, no dialysis, no g tube ALYSSIA BASS, ELSA [address], [address], [place], [address], [facility] 07/28/2024 14:40:53 5 text/html Elizabeth is seen today for discharge visit. She is a 68 yo lady admitted to [facility] 07/19/24 from [facility] for continued care and rehab due to COPD exac.Went to ER 07/18 with SOB x 3 days, got nervous, though she was going to . Work up largely negative, CXR NAD, afebrile, WBC, metabolic panel, D Dimer WNR. No evidence of CHF, infection, or acute cardiac process. Suspecting COPD exacerbation, started z pk and prednisone burst. She completed rehab, and the stay was uneventful, except low potassium level.She currently is on lasix 60 mg total daily, spironolactone 50 mg qd with supplemental KCL. Yesterday, lab result was noted low K level 2.9, and replace with KCL to 40 meq BID for 2 days, then go back to KCL 20 meq BID. Upon exam, Elizabeth is up in a WC, talking with her sister. She is alert, NAD. Feels ok. No specific complaints today. Pt denies n/v/d, chest pain, sob, or palpitation.Pt will returning home tomorrow with services and her current medications. PMH: COPD, bipolar, CHF, HTN, DM2, obese ALYSSIA BASS, QUALITY ASSURANCE MANAGER [address], [address], [place], [address], [facility] 07/29/2024 14:11:37 OBGyn Episode No OBEpisode recorded.
--- OUTSIDE RECORDS SUMMARY | 2025-02-28 20:00 | XMS_ITS | Clinical Summary ---
Author Organization Unknown Care Team Providers Care Serials Librarian Name Role Phone NICK ARTILLERY SPECIALIST, ANGELLA Unavailable Unavailable SHAYNA BECKWITH, VERAna Unavailable Unavailable RUDY BECKWITH, LAURA Unavailable Unavailable KERWIN BECKWITH, CURT Unavailable Unavailabl e Payers Payer Name Policy Type Policy Number Effective Date Expira tion Date [place] [id number] ON DEMAND MEDICARE - [place] - [place] [id number] Problems Condition Name Condition Details Condition Category [...] 20 mg tablet 06-05 00:00: 00 Yes [id number] 1 tablet QAM 1 tablet QAM (route: oral) Alternate Route: PO. Med Classific ation: Central Nervous System Agents gabapentin 300 mg capsule 1- 00:00: 00 Yes [id number] 1 capsule TID 1 capsule TID (route: oral) Alternate Route: PO. Med Classific ation: Central Nervous System Agents glimepiride 2 mg tablet 2017-04 00:00: 00 03-10 23:59 :00 No [id number] 1 tablet QD 1 tablet QD (route: oral) Alternate Route: PO. Med Classific ation: Endocrine lamotrigine 100 mg tablet 1- 00:00: 00 Yes [id number] 1 tablet BID UTD 1 tablet BID UTD (route: oral) Alternate Route: PO. Med Classific ation: Central Nervous System Agents lamotrigine 25 mg tablet 05-12 00:00: 00 Yes [id number] 2 tablet DIRECTED 2 tablet DIRECTED (route: oral) Alternate Route: PO. Med Classific ation: Central Nervous System Agents Lasix 20 mg tablet 06-16 00:00: 00 07-09 23:59 :00 No [id number] 2 tablet EVERY AM 2 tablet EVERY AM (route: oral) Med Classific ation: Cardiovas cular Therapy Agents Lasix 20 mg tablet 06-16 00:00: 00 06-15 23:59 :00 No [id number] 1 tablet IN THE AFTERNOON 1 tablet IN THE AFTERNOON (route: oral) Med Classific ation: Cardiovas cular Therapy Agents metformin 1,000 mg tablet 2017-04 00:00: 00 Yes [id number] 1 tablet BID 1 tablet BID (route: oral) Alternate Route: PO. Med Classific ation: Endocrine O2 - OXYGEN - 00:00: 00 Yes [id number] 2 Liter O2 - PRN 2 Liter O 2 - PRN (route: Oxygen) Med Classific ation: Medical Oxygen potassium chloride ER 20 mEq tablet,exte nded release 05-12 00:00: 00 07-16 23:59 :00 No [id number] 2 tablet DAILY 2 tablet DAILY (route: oral) Med Classific ation: Electroly te Balance-N utritiona l Products Seroquel 100 mg tablet 2-05 00:00: 00 02-06 23:59 :00 No [id number] 1 tablet Every day 1 tablet Every day (route: oral) Med Classific ation: Central Nervous System Agents simvastatin 40 mg tablet 2019-0 1-20 00:00: 00 Yes [id number] 1 tablet QD 1 tablet QD (route: oral) Alternate Route: PO. Med Classific ation: Cardiovas cular Therapy Agents spironolact one 25 mg tablet 3- 00:00: 00 03-07 23:59 :00 No [id number] 1 tablet QD 1 tablet QD (route: oral) Alternate Route: PO. Med Classific ation: Cardiovas cular Therapy Agents Seroquel 100 mg tablet 2019-04 0-15 00:00: 00 06-01 23:59 :00 No [id number] 1.5 tablet BEDTIME 1.5 tablet BEDTIME (route: oral) Med Classific ation: Central Nervous System Agents glipizide ER 5 mg tablet, extended release 24 hr 2019-04 2-04 00:00: 00 02-25 23:59 :00 No [id number] 1 tablet DAILY 1 tablet DAILY (route: oral) Med Classific ation: Endocrine Seroquel 100 mg tablet 2- 00:00: 00 Yes [id number] 2 tablet BEDTIME 2 tablet BEDTIME (route: oral) Med Classific ation: Central Nervous System Agents pioglitazon e 30 mg tablet 6-17 00:00: 00 03-07 23:59 :00 No [id number] 1 tablet DAILY 1 tablet DAILY (route: oral) Med Classific ation: Endocrine Lasix 20 mg tablet 3- 00:00: 00 07-09 23:59 :00 No [id number] 2 tablet DIRECTED 2 tablet DIRECTED (route: oral) Med Classific ation: Cardiovas cular Therapy Agents Lasix 20 mg tablet 2-05 00:00: 00 Yes [id number] 2 tablet DAILY 2 tablet DAILY (route: oral) Med Classific ation: Cardiovas cular Therapy Agents Lasix 20 mg tablet 4-04 00:00: 00 05-12 23:59 :00 No [id number] 2 tablet DAILY 2 tablet DAILY (route: oral) Med Classific ation: Cardiovas cular Therapy Agents doxycycline monohydrate 100 mg tablet 5-26 00:00: 00 09-07 23:59 :00 No [id number] 1 tablet 2 TIMES DAILY 1 tablet 2 TIMES DAILY (route: oral) Med Classific ation: Anti-Infe ctive Agents Jardiance 10 mg tablet 2022-04 2- 00:00: 00 02-01 23:59 :00 No [id number] 1 tablet DAILY 1 tablet DAILY (route: oral) Med Classific ation: Endocrine spironolact one 50 mg tablet 2022-04 2- 00:00: 00 Yes [id number] 1 tablet DAILY 1 tablet DAILY (route: oral) Med Classific ation: Cardiovas cular Therapy Agents ciprofloxac in 250 mg tablet 2022-04 2 00:00: 00 03-16 23:59 :00 No [id number] 1 tablet EVERY 12 HOURS 1 tablet EVERY 12 HOURS (route: oral) Med Classific ation: Anti-Infe ctive Agents prednisone 20 mg tablet 2-05 00:00: 00 05-14 23:59 :00 No [id number] 1 tablet DAILY 1 tablet DAILY (route: oral) Med Classific ation: Endocrine Lasix 20 mg tablet 2- 00:00: 00 07-30 23:59 :00 No [id number] 1 tablet NOON 1 tablet NOON (route: oral) Med Classific ation: Cardiovas cular Therapy Agents potassium chloride ER 20 mEq tablet,exte nded release 4-11 00:00: 00 07-30 23:59 :00 No [id number] 1 tablet DAILY 1 tablet DAILY (route: oral) Med Classific ation: Electroly te Balance-N utritiona l Products Advair HFA 230 mcg-21 mcg/actuati on aerosol inhaler 09-08 00:00: 00 Yes [id number] 2 puff 2 TIMES DAILY 2 puff 2 TIMES DAILY (route: inhalation ) Med Classific ation: Respirato ry Therapy Agents Airsupra 90 mcg-80 mcg/actuati on HFA aerosol inhaler 09-08 00:00: 00 Yes [id number] 2 puff NEEDED 2 puff NEEDED (route: inhalation ) Med Classific ation: Respirato ry Therapy Agents pioglitazon e 30 mg tablet 8-03 00:00: 00 02-01 23:59 :00 No [id number] 1 tablet DAILY 1 tablet DAILY (route: oral) Med Classific ation: Endocrine Jardiance 25 mg tablet 2023-04 0- 00:00: 00 06-24 23:59 :00 No [id number] 1 tablet DAILY 1 tablet DAILY (route: oral) Med Classific ation: Endocrine Jardiance 10 mg tablet 3- 00:00: 00 Yes [id number] 1 tablet EVERY AM 1 tablet EVERY AM (route: oral) Med Classific ation: Endocrine Ozempic 0.25 mg or 0.5 mg (2 mg/3 mL) subcutaneou s pen injector 4-11 00:00: 00 09-21 23:59 :00 No [id number] 0.5 mg WEEKLY 0.5 mg WEEKLY (route: subcutaneo us) Med Classific ation: Endocrine potassium chloride ER 20 mEq tablet,exte nded release 07-30 00:00: 00 08-05 23:59 :00 No [id number] 1 tablet 2 TIMES DAILY 1 tablet 2 TIMES DAILY (route: oral) Med Classific ation: Electroly te Balance-N utritiona l Products fluticasone propionate 50 mcg/actuati on nasal spray,suspe nsion 08-05 00:00: 00 Yes [id number] 2 spray DAILY 2 spray DAILY (route: nasal) Med Classific ation: Respirato ry Therapy Agents loratadine 10 mg tablet - 00:00: 00 Yes [id number] 1 tablet DAILY 1 tablet DAILY (route: oral) Med Classific ation: Respirato ry Therapy Agents potassium chloride ER 20 mEq tablet,exte nded release - 00:00: 00 Yes [id number] 1 tablet EVERY AM 1 tablet EVERY AM (route: oral) Med Classific ation: Electroly te Balance-N utritiona l Products mirtazapine 7.5 mg tablet 14 00:00: 00 Yes [id number] 1 tablet BEDTIME 1 tablet BEDTIME (route: oral) Med Classific ation: Central Nervous System Agents Ozempic 1 mg/dose (4 mg/3 mL) subcutaneou s pen injector 6-13 00:00: 00 Yes [id number] 1 mg WEEKLY 1 mg WEEKLY (route: subcutaneo us) Med Classific ation: Endocrine Cartia XT 120 mg capsule,ext ended release 10-31 00:00: 00 Yes [id number] 1 capsule EVERY AM 1 capsule EVERY AM (route: oral) Med Classific ation: Cardiovas cular Therapy Agents Eliquis 5 mg tablet 10-24 00:00: 00 Yes [id number] 1 tablet 2 TIMES DAILY 1 tablet 2 TIMES DAILY (route: oral) Med Classific ation: Hematolog ical Agents prednisone 20 mg tablet 10-24 00:00: 00 10-27 23:59 :00 No [id number] 2 tablet DAILY 2 tablet DAILY (route: oral) Med Classific ation: Endocrine clonazepam 0.5 mg tablet 2024-04 0-06 00:00: 00 Yes [id number] 1 tablet 2 TIMES DAILY 1 tablet 2 TIMES DAILY (route: oral) Med Classific ation: Central Nervous System Agents digoxin 125 mcg (0.125 mg) tablet 2024-04 006 00:00: 00 Yes [id number] 1 tablet EVERY AM 1 tablet EVERY AM (route: oral) Med Classific ation: Cardiovas cular Therapy Agents Vital Signs Vital Name Observation Time Observation Value Commen ts Temperature 2025-02-02 11:01:00.000 98.3 [degF] Temperature 2025-02-01 [...] [degF] Temperature 2025-01-03 10:25:00.000 97.9 [degF] Pulse 2025-02-02 11:01:00.000 75 /min Pulse 2025-02-01 [...] 2025-01-03 10:25:00.000 83 /min O2 Saturation (%) 2025-02-02 11:01:00.000 95 % [...] Saturation (%) 2025-01-03 10:25:00.000 92 % Respirations 2025-02-02 11:01:00.000 22 /min Respirations 2025-02-01 [...] Respirations 2025-01-03 10:23:00.000 20 /min Weight (lbs) 2025-01-28 11:59:00.000 251.6 [lb_av] Weight (lbs) 2025-01-21 11:06:00.000 251.8 [lb_av] Weight (lbs) 2025-01-14 11:40:00.000 256.8 [lb_av] Systolic Blood Pressure 2025-02-02 11:01:00.000 100 mm [...] 10:23:00.000 120 mm [Hg] Diastolic Blood Pressure 2025-02-02 11:01:00.000 [...] AWARENESS FOR SAFETY AND WILL NOTIFY CLINICAL DUMPER MOLD CLEANER AND PHYSICIAN/PROVIDER WITH ANY CHANGE IN CONDITION. [code = SKILLED NURSE WILL MAINTAIN SITUATIONAL AWARENESS FOR SAFETY AND WILL NOTIFY CLINICAL DUMPER MOLD CLEANER AND PHYSICIAN/PROVIDER WITH ANY CHANGE IN CONDITION.] [...] FALL Goal 2024-07-01 Patient Goal - C SHRAVAN LOSE WEIGHT, AVOID HOSPITALIZATION, DONT FALL Goal Provider Goal - A PLAN OF CARE WILL BE ESTABLISHED THAT MEETS PATIENT'S INTERMEDIATE NEEDS AND INCLUDES PATIENT GOAL FOR HOME [...] USE IN THE HOME THROUGHOUT THE EPISODE. Encounters Start Date/Time End Date/Time Encounter Type Admission Type Attending [facility] Care Facility Care Department Encounter ID Discharge Date Discharge Status Discharge Condition Discharge Reason Percent Goals Met 2025-01-01 00:00:00 2025-03-01 00:00:00 Outpatient MILTONRTCURT [facility] [id number] 53.85
== END 2025-02-03 11:55 | disposition home or self-care (01) ==
LOC: HO.HPS 11:24
PROVIDERS: PCP Internal Medicine; Visit Provider Internal Medicine
DX: E66.9 Obesity, unspecified (principal); J44.9 Chronic obstructive pulmonary disease, unspecified; J98.4 Other disorders of lung; G47.34 Idiopathic sleep related nonobstructive alveolar hypoventilation
CPT/HCPCS: 99213

== ENCOUNTER → 2025-02-03 11:24 | Outpatient (BNVA) | payer MEDICARE, MEDICAID, SELFPAY | PROVIDERS: PCP Internal Medicine; Visit Provider Internal Medicine | DX: G47.33 Obstructive sleep apnea (adult) (pediatric) (principal); G47.34 Idiopathic sleep related nonobstructive alveolar hypoventilation; J44.9 Chronic obstructive pulmonary disease, unspecified; J98.4 Other disorders of lung; E66.01 Morbid (severe) obesity due to excess calories; Z68.42 Body mass index [BMI] 45.0-49.9, adult; Z99.81 Dependence on supplemental oxygen; Z87.891 Personal history of nicotine dependence | CPT/HCPCS: 99212 ==

== ENCOUNTER 2025-02-16 14:12 | Outpatient (AMB) | payer MEDICARE, MEDICAID, SELFPAY ==
[2025-02-16 14:16] VITALS: BP 122/64; PULSE 73; O2SAT 93; BMI 46.9
--- NOTE | 2025-02-16 14:16 | MHC.OFFVIS ---
Vital Signs 02/16/25 14:16 Height 5 ft 1 in Weight 248 lb BMI 46.9 BP 122/64 Blood Pressure Location Lt brachial Position Sitting Pulse 73 Pulse Source Pulse Oximeter Pulse Oximetry (%) 93 Oxygen Delivery Method Room Air Intake Visit Reasons: COPD Intake Note: pt is here for sick visit and she states she feels fine but VNA heard some crackles and wanted her to be checked. Distribution Systems Superintendent Required: No Correction Worker: Correction Worker offered & declined Allergies haloperidol (From Haldol) Allergy (Mild, Verified 02/16/25 14:36) UNKNOWN Medication List - Last Reconciled 02/16/25 by Jean Haider MD albuterol sulfate 90 mcg/actuation (Ventolin HFA) 2 puffs PO DAILY PRN albuterol-budesonide 90-80 mcg/actuation (Airsupra) 2 inhalations inhalation QID PRN apixaban (Eliquis) 5 mg PO BID aripiprazole 20 mg PO DAILY clonazepam 0.5 mg PO BID PRN digoxin 0.125 mg See Protocol PO DAILY diltiazem HCl CD (Cartia XT) 120 mg PO DAILY empagliflozin (Jardiance) 10 mg PO DAILY fluticasone propion-salmeterol 230-21 mcg/actuation (Advair HFA) 2 puffs inhalation DAILY furosemide 40 mg PO DAILY@0800 gabapentin 300 mg PO TID lamotrigine 25 mg PO DAILY lamotrigine 100 mg PO BID lamotrigine 50 mg PO BEDTIME lidocaine 4% 1 patch topical DAILY PRN loratadine 10 mg PO DAILY metformin 1,000 mg PO BID mirtazapine 7.5 mg PO BEDTIME potassium chloride ER 20 mEq PO DAILY quetiapine 200 mg PO BEDTIME semaglutide (Ozempic) 1 mg subcut FR simvastatin 40 mg PO BEDTIME spironolactone 50 mg PO DAILY walker As directed Do you need a note to return to daycare/school/sports/work: No HPI HPI COPD: Details: THIS 69 YEARS OLD FEMALE IS BROUGHT IN TODAY BY THE PHARMACY TECHNICIAN INSTRUCTOR, BECAUSE SHE HAS HAD COUGH WITH CONGESTED FEELING FOR THE LAST FEW DAYS. THE VISITING NURSE WHO CAME TO HER HOUSE OBSERVED THAT SHE HAD MORE COUGH AND WANTED HER TO BE CHECKED. SHE DENIES ANY FEVER OR CHILLS. THE COUGH HIS ALMOST GONE AND SHE STATES THAT SHE FEELS OKAY. SHE WALKED IN WITH THE WALKER AND THERE WAS NO RESPIRATORY DISTRESS NOTED. [facility] Medical History Atrial fibrillation Restrictive lung disease COPD (chronic obstructive pulmonary disease) Nocturnal hypoxemia Obesity (BMI 35.0-39.9 without comorbidity) Weakness Fever Fall Unspecified diastolic heart failure Diabetes HTN (hypertension) Family History Brother Heart disease Social History Household Members: Family Housing: Apartment Do you presently have visiting nurse or other home services: Yes Patient Tobacco Use Status: Former Tobacco user Second Hand Smoke Exposure: No Advance Directives Date on File: 04/21/23 service: No Current occupational status: retired 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 Review of Systems Const All systems reviewed & are unremarkable except as noted in HPI and below Eyes Reports no additional complaints ENT Reports no additional complaints Card Denies chest pain, Denies irregular heart rhythm, Reports leg edema and Reports dyspnea on exertion Resp Reports as per HPI and Reports dyspnea on exertion GI Reports no additional complaints Reports no additional complaints Musc Reports no additional complaints Skin/Breast Reports system reviewed and no additional complaints, except as documented Neuro Reports no additional complaints Endo Reports other (Diabetes mellitus patient is on Ozempic injections Q 1 week ) Kailash/Lymph Reports no additional complaints Aller/Immun Reports no additional complaints Physical Exam Vital Signs: Last Vital Signs Pulse 73 02/16/25 14:16 BP 122/64 02/16/25 14:16 Pulse Ox 93 02/16/25 14:16 Oxygen Delivery Method Room Air 02/16/25 14:16 BMI result Body Mass Index 46.9 Const Other: She appears grossly obese but is comfortable General: comfortable, no acute distress, alert and awake Orientation/consciousness: patient oriented x3 HEENT Head: Yes normal to inspection General nose exam: No nasal polyps present and No nasal discharge present Face and sinus: Yes sinuses nontender Mouth: oropharynx normal Throat: Yes posterior oropharynx normal Eyes General: appearance normal, both eyes and all related structures Neck Neck: Yes normal visual inspection, Yes no lymphadenopathy, Yes trachea midline and Yes no JVD Thyroid: Thyroid normal Chest Chest palpation & inspection: normal inspection of the chest, normal palpation of entire chest wall and tenderness Resp Other: Percussion note is not perceptible over the lower lobes because of thick chest wall. Breath sounds are distant with slight prolongation of the expiratory phase No wheezes crepitations or. Rhonchi are heard Cardio Palpation: PMI not normal (Not palpable) Rate: regular rate Rhythm: regular rhythm Heart sounds: no gallops and no murmurs GI Palpation (GI): Soft to palpation, nontender, No hepatosplenomegaly present and no masses Auscultation: normal bowel sounds Back/Spine/Pelvis Thoracic/Lumbar Spine: thoracic and lumbar spine normal to inspection and thoraco-lumbar ROM limited Skin General skin exam: no rashes or lesions noted Neuro General: patient oriented x3, No gait normal (Has slight gait impairment uses a cane) and no focal motor deficits Cranial nerves: Yes CN's II-XII intact bilaterally Extrem General: Yes normal to inspection, Yes no clubbing, cyanosis or edema, Yes no calf tenderness and Yes venous stasis dermatitis (As chronic stasis dermatitis around the ankles and lower parts of both legs) Psych Appearance: grossly normal and well kempt Speech and movement: Normal speech and movement present (Slightly slow in answering questions) Assessment & Plan Assessment & Plan (1) COPD (chronic obstructive pulmonary disease): Comment: Patient has been treated for chronic obstructive pulmonary disease for past 6-7 years. She does have previous history of smoking . Currently on Advair HFA 230-21 2 puffs b.i.d. and albuterol only p.r.n. And her COPD has remained well controlled. She also has air supra inhaler on hand, and her primary care physician must have told her to use it as a rescue inhaler, She say she is not using it much, Code(s): J44.9 - Chronic obstructive pulmonary disease, unspecified Category: Medical Plan: Patient was sent to be evaluated for acute bronchitis and possibility of treating her with some antibiotics. However she looks very comfortable and has only mild congestion. I explained to her that there is no need of using any antibiotic or prednisone. She needs to continue using her regular meds including Advair HFA 230-212 puffs b.i.d. and for rescue inhaler instead of albuterol she may use air supra 2 puffs Q 6 hours p.r.n.. (2) Chronic hypoxic respiratory failure: Comment: PATIENT IS KNOWN TO HAVE NOCTURNAL HYPOXEMIA, and uses O2 2 L/minute at night. Code(s): J96.11 - Chronic respiratory failure with hypoxia Category: Medical Plan: OK to continue using the O2 2 L/minute at night (3) Restrictive lung disease: Comment: Because because of gross obesity she is a good candidate for restrictive lung disease. Clinically on auscultation she does have decreased breath sounds over the lower. Lobes No pulmonary function test has been done to confirm that. Code(s): J98.4 - Other disorders of lung Category: Medical Plan: Advised to do deep breathing exercises at least 3 times a day Coding Level of Care Code Est Pt Level 3 (71760) Diagnoses COPD (chronic obstructive pulmonary disease) J44.9 Chronic hypoxic respiratory failure J96.11 Restrictive lung disease J98.4
== END 2025-02-16 14:36 | disposition home or self-care (01) ==
LOC: HO.HPS 14:13
PROVIDERS: PCP Internal Medicine; Visit Provider Internal Medicine
DX: J44.9 Chronic obstructive pulmonary disease, unspecified (principal); J96.11 Chronic respiratory failure with hypoxia; J98.4 Other disorders of lung
CPT/HCPCS: 99213

== ENCOUNTER → 2025-02-16 14:12 | Outpatient (BNVA) | payer MEDICARE, MEDICAID, SELFPAY | PROVIDERS: PCP Internal Medicine; Visit Provider Internal Medicine | DX: J44.9 Chronic obstructive pulmonary disease, unspecified (principal); Z87.891 Personal history of nicotine dependence; J96.11 Chronic respiratory failure with hypoxia; J98.4 Other disorders of lung; Z99.81 Dependence on supplemental oxygen; E66.9 Obesity, unspecified; Z68.42 Body mass index [BMI] 45.0-49.9, adult; Z79.01 Long term (current) use of anticoagulants | CPT/HCPCS: 99212 ==

== ENCOUNTER 2025-02-22 09:02 | Outpatient (REF) | payer MEDICARE, MEDICAID, SELFPAY ==
--- NOTE | ~2025-02-22 | XR_ITS ---
EXAMINATION: XR CHEST CLINICAL INFORMATION: J44.1 - Chronic obstructive pulmonary disease with (acute) exacerbation COMPARISON: 01/06/2025, 10/22/2024. TECHNIQUE: 2 views of the chest were obtained. FINDINGS: There is mild cardiac enlargement. Mediastinal and hilar contours appear normal. Aortic mural calcifications. Lungs are mildly hyperaerated bilaterally keeping with COPD. There is similar linear scarring in the right middle lobe. Lungs otherwise clear. There is no pneumothorax or pleural effusion. There is no focal osseous or soft tissue abnormality. There are degenerative changes throughout the spine. Old left AC joint separation noted. XR/XR chest 2V IMPRESSION: 1. COPD. No active superimposed pulmonary disease. 2. Mild cardiac enlargement. Electronically signed by: Tima Sepulveda MD 02/22/2025 09:44 AM SERJIO
== END 2025-02-22 09:03 | disposition home or self-care (01) ==
LOC: HO.XRAY 09:02
PROVIDERS: PCP Internal Medicine; Visit Provider Internal Medicine
DX: J44.1 Chronic obstructive pulmonary disease with (acute) exacerbation (principal); J96.11 Chronic respiratory failure with hypoxia
CPT/HCPCS: 71046

== ENCOUNTER → 2025-02-22 09:08 | Outpatient (BNV) | payer MEDICARE, MEDICAID, SELFPAY | PROVIDERS: PCP Internal Medicine; Visit Provider Radiology Diagnostic Radiology | DX: J44.1 Chronic obstructive pulmonary disease with (acute) exacerbation (principal); I51.7 Cardiomegaly | CPT/HCPCS: 71046 ==

== ENCOUNTER 2025-02-28 05:31 | Emergency (ER) | payer MEDICARE, MEDICAID, SELFPAY ==
--- OUTSIDE RECORDS SUMMARY | 2009-09-13 03:35 | XMS_ITS | Continuity of Care Document ---
Author Organization [facility] Address [address] [place] [address] Phone Care Team Providers Care Museum Service Scheduler Name Role Phone No Information Unavailable Unavailable Allergies, Adverse Reactions, Alerts Substance Reaction Status Criticality CEPHALEXIN MONOHYDRATE hives Active No In formation Medications Medication Instructions Dosage Effective Dates (start - stop) Status Comments Flaxseed Oil 1,000 mg Cap - Acti ve [place]-3 Fatty Acids-Fish Oil 300 mg-1,000 mg Cap - Active Hxcqxql-Yipkwgqrmk-NOT-Ca ffeine 30 mg-50 mg-325 mg-40 mg Cap - Active Lisinopril 10 mg Tab - Active Atenolol 100 mg Tab - Active Advance Directives Directive Yes / No Effective Date File Name No Information Encounters Encounter Description Practice Location Reason(s) For Visit Diagnoses Date Provider [facility], [facility] [place], [place], [id number], tel:[phone] No Information No Information [facility], [facility] [address] [place], [id number], tel:[phone] No Information No Information Family History Family Member Type Diagnosis Age At Onset Father Problem (finding) degenerative disorder o f [place] Payers Payer name Insurance type Covered democrat ID Authoriza tion(s) No Information Social History Type Description Quantity Date Captured Comments Sex Female Smoking Status No Information Chief Complaint And Reason For Visit No Information History Of Present Illness Encounter Date Complaint History Of Prese nt Illness No Information Instructions Date Instruction Additional Infor mation No Information Assessments Type Assessment Date No Information
--- OUTSIDE RECORDS SUMMARY | 2022-08-29 02:45 | XMS_ITS | Continuity of Care Document ---
Author Organization [facility] Address [address] [place] [address] Phone Care Team Providers Care Stator Tester Name Role Phone No Information Unavailable Unavailable Allergies, Adverse Reactions, Alerts Substance Reaction Status Criticality trimethoprim Anxiety Active Unable to Asses s sulfamethoxazole Anxiety Active Unable to A ssess CEPHALEXIN MONOHYDRATE Trouble Breathing Active No Information Medications Medication Instructions Dosage Effective Dates (start - stop) Status Comments lisinopril 30 mg tablet - Active atenolol 25 mg tablet - Active rosuvastatin 10 mg tablet - Acti ve Procedures Procedure Date Offic/outpt E&m [facility] 3 Services provided in an urgent care [facility] Ua Dip Stik/tablet; Wo Micro A 18 Handl/convey Specmn-offic To L 18 Offic/outpt E&m [facility] 8 Services provided in an urgent care [facility] er Offic/outpt E&m [facility] 3 Service(s) provided in the office during regularly Services provided in an urgent care [facility] er Ua Dip Stik/tablet; Wo Micro A 13 Handl/convey Specmn-offic To L 13 Advance Directives Directive Yes / No Effective Date File Name No Information Encounters Encounter Description Practice Location Reason(s) For Visit Diagnoses Date Provider Providers Copied on Encounter [facility], [address], [place], [place], [id number], [place] tel:[phone] [facility] No Information 3 No Information Offic/outpt E&m [facility], [address], [place], [place], [id number], tel:[phone] [facility] Foot pain/injury (chief complaint) Toe pain, leftElevated blood pressure reading 3 No Information Offic/outpt E&m [facility], [address], [place], [place], [id number], [place] tel:[phone] [facility] urinary problems (chief complaint) DysuriaAcute cystitis with hematuria 8 Herve Shah. [address], [address], [place], [address], [place]. tel:[phone] Offic/outpt E&m [facility], [address], [place], [place], [id number], tel:[phone] [facility] UTI (chief complaint) URIN TRACT INFECTION NOS 0 3 Herve Shah. [address], [address], [place], [address], [place]. tel:[phone] Family History Family Member Type Diagnosis Age At Onset Father Problem Cancer Sister Problem Cancer Father Problem Hypertension Brother Problem Hypertension Mother Problem Hypertension Sister Problem Hypertension Payers Payer name Insurance type Covered democrat ID Jabarilyla ectoropal(s) [employer] [facility] BL [id number] Social History Type Description Quantity Date Captured Comments Sex Female Smoking Status No Information Chief Complaint And Reason For Visit No Information Reason For Referral Reason For Referral No Information Plan Of Treatment Date Type Action Status Referral Ordered: Referrals: Diagnostic Radiology. Diagnostic testing. Order: X-ray left foot, 3+ views ordered History Of Present Illness Encounter Date Complaint History Of Prese nt Illness Foot pain/injury Onset: 1 day ag o. Location: left PINKY TOE. There is no radiation. The pain is aching and throbbing. Context: there is an injury. Trauma type: STUBBED TOE, occurred at home, 1 Day ago. The pain is aggravated by bending and walking. There are no relieving factors. Associated symptoms include bruising, joint tenderness and swelling. Pertinent negatives include decreased mobility, joint instability, numbness, popping, tingling in the legs and weakness. Comments: AMINTA Ashton LEFT PINKY TOE ON BATHROOM SCALE LAST NIGHT. PAIN AND SWELLING IN LEFT PINKY TOE Functional Status Date Functional Assessmen t No Information Instructions Date Instruction Additional Infor onel YOUR BLOOD PRESSURE WAS OUTSIDE THE EXPECTED RANGE ON AT LEAST ONE READING DURING TODAY'S VISIT. PLEASE MAKE AN APPOINTMENT TO FOLLOW UP WITH YOUR PRIMARY CARE DOCTOR REGARDING YOUR BLOOD PRESSURE. Related to Elevated blood pressure reading Keep injured part el evated (above heart) for 2-3 days, whenever you are sitting or lying down. Do this a minimum of 30 minutes several times daily for the next 2-3 days. Cold packs (bagged frozen peas or corn work well) for pain and/or swelling. If you use ice, always place a towel between the ice and your skin (to avoid frostbite) or use an ice bag. Apply ice for 20-30 minutes at a time, with at least 20 minutes between applications.If you were placed in a splint/brace, wear your splint/brace until you are seen by a doctor. Move the joints that are not splinted often to avoid stiffness and swelling. Keep splint dry. Return IMMEDIATELY or go directly to the ER for numbness, coldness, pale skin, or severe persistent pain. Also, return as soon as possible for evaluation if you develop sore or red areas from the splint. Related to Toe pain, left Assessments Type Assessment Date No Information Patient Care Teams Name Effective Dates (start - stop) Status Members No Information
--- NOTE | ~2025-02-28 | CT_ITS ---
CLINICAL HISTORY: trauma CT head without contrast Comparison: CT/SR - CT CERVICAL SPINE WO IV CON - 01/08/25 10:[address]/SR - CT HEAD WITHOUT IV CONTRAST - 03/24/23 11:04 EST Findings: No acute intracranial hemorrhage, acute major vascular distribution infarct, intracranial mass, midline shift or hydrocephalus. No extra-axial fluid collection. Stable mild periventricular and subcortical white matter hypoattenuation, nonspecific, most frequently ascribed to chronic small vessel ischemic disease. Age-appropriate global atrophy. Intracranial vascular calcifications present. Visualized orbits are within normal range. Mucoperiosteal thickening of the ethmoid sinuses, other visualized paranasal sinuses and mastoid air cells clear. No acute fracture. Unchanged old displaced fracture of the left orbital floor with intraorbital fat herniating into the maxillary sinus. Soft tissue contusion anterior left frontal scalp. Impression: 1. No acute intracranial finding. 2. Left frontal scalp contusion. 3. Stable chronic findings as detailed above. This document has been electronically signed by: Anahi Escoto MD on 02/28/2025 08:27:26
--- NOTE | ~2025-02-28 | CT_ITS ---
CLINICAL HISTORY: trauma CT cervical spine without IV contrast Comparison: CT/SR - CT CERVICAL SPINE WO IV CON - 01/08/25 10:32 EDT Findings: Mild levoconvex curvature of the cervical spine, could be positional or related to muscle spasm. No spondylolisthesis. Atlantoaxial relationship is normal. No acute fracture or traumatic malalignment. Stable multilevel degenerative spondylosis of the cervical spine, worst at C5-6. At C5-6, circumferential vertebral osteophyte is more conspicuous in the right posterior central to foraminal region, mild disc height loss, bilateral facet arthrosis, there is moderate to severe central canal stenosis and foraminal narrowing bilaterally. Unremarkable prevertebral soft tissue. Lung apices clear. Stable left thyroid hypodense nodule 1.5 cm. Otherwise unremarkable imaged neck soft tissue. Please refer to separate CT head report. Impression: 1. No acute finding. 2. Stable multilevel degenerative spondylosis of the cervical spine, worst at C5-6. 3. Stable left thyroid nodule. This document has been electronically signed by: Anahi Escoto MD on 02/28/2025 08:30:20
[2025-02-28 05:37] VITALS: BP 101/53; BP 130/70; PULSE 74; RESP 16; TEMP 36.4; O2SAT 90; O2SAT 92; BMI 49.9
--- NOTE | 2025-02-28 06:16 | ECG_ITS ---
Test Reason : fall Blood Pressure : */* mmHG Vent. Rate : 70 BPM Atrial Rate : 70 BPM P-R Int : 180 ms QRS Dur : 76 ms QT Int : 378 ms P-R-T Axes : 15 0 -11 degrees QTcB Int : 408 ms Normal sinus rhythm Anteroseptal infarct (cited on or before 04-Oct-2015) Abnormal ECG When compared with ECG of 08-Jan-2025 05:33, Sinus rhythm has replaced Ectopic atrial rhythm Criteria for Inferior infarct are no longer Present T wave inversion no longer evident in Lateral leads Referred By: Sonu Saleh Electronically Signed By: Vin Hugo
--- NOTE | 2025-02-28 06:22 | ED.FALL ---
HPI - Fall General Chief Complaint: Fall Stated Complaint: Fall +HS +Thinners, -LOC Time Seen by Provider: 02/28/25 06:09 Source: patient Mode of arrival: EMS Limitations: no limitations History of Present Illness HPI Narrative: This is a 69 years old patient with a history of COPD on home oxygen presented to the emergency department after a fall patient stated that she fell from the recliner. Patient is anticoagulated with a apixaban for atrial fibrillation. Denies any chest pain shortness of breath abdominal pain extremity pain. She has an abrasion in the forehead and skin tear of the right hand MD complaint: fall Onset (ago): hour(s) (1) Fall from: chair (recliner) Fall witnessed: no and yes, by family Place fall occurred: home Loss of consciousness: none Prolonged down time: no Context: tripped/slipped Location of injury: head Location of injury - extremities: right: hand (skin tear) Severity: moderate Associated symptoms (after fall): headache Related Data Home Medications ?Medication ?Instructions ?Recorded ?Confirmed albuterol sulfate 90 mcg/actuation 2 puff PO DAILY PRN Shortness Of 09/28/21 02/03/25 aerosol inhaler (Ventolin HFA) Breath aripiprazole 20 mg tablet 20 mg PO DAILY 09/28/21 02/16/25 furosemide 20 mg tablet 40 mg PO DAILY@0800 09/28/21 02/16/25 gabapentin 300 mg capsule 300 mg PO TID 09/28/21 02/16/25 lamotrigine 100 mg tablet 100 mg PO BID 09/28/21 02/03/25 lamotrigine 25 mg tablet 50 mg PO BEDTIME 09/28/21 02/16/25 metformin 1,000 mg tablet 1,000 mg PO BID 09/28/21 02/16/25 quetiapine 100 mg tablet 200 mg PO BEDTIME 09/28/21 02/16/25 simvastatin 40 mg tablet 40 mg PO BEDTIME 09/28/21 02/16/25 empagliflozin 10 mg tablet 10 mg PO DAILY 03/24/23 02/16/25 (Jardiance) lamotrigine 25 mg tablet 25 mg PO DAILY 04/15/23 02/16/25 fluticasone propionate 230 2 puff inhalation DAILY 07/18/24 02/16/25 mcg-salmeterol 21 mcg/actuation HFA inhaler (Advair HFA) potassium chloride 20 mEq 20 meq PO DAILY 07/18/24 02/16/25 tablet,extended release spironolactone 25 mg tablet 50 mg PO DAILY 07/18/24 02/16/25 mirtazapine 7.5 mg tablet 7.5 mg PO BEDTIME 10/22/24 02/16/25 semaglutide 1 mg/dose (4 mg/3 mL) 1 mg subcut FR 10/22/24 02/16/25 subcutaneous pen injector (Ozempic) loratadine 10 mg tablet 10 mg PO DAILY 01/07/25 02/16/25 albuterol 90 mcg-budesonide 80 2 inh inhalation QID PRN 02/16/25 02/16/25 mcg/actuation HFA aerosol inhaler (Airsupra) Previous Rx's ?Medication ?Instructions ?Recorded walker #1 ea 09/28/21 diltiazem HCl 120 mg 120 mg PO DAILY #30 caps 11/15/24 capsule,extended release 24 hr (Cartia XT) apixaban 5 mg tablet (Eliquis) 5 mg PO BID #60 tabs 12/13/24 clonazepam 0.5 mg tablet 0.5 mg PO BID PRN 01/08/25 Anxiety/Restlessness #20 tabs digoxin 125 mcg (0.125 mg) tablet 0.125 mg PO DAILY #90 tabs 01/08/25 lidocaine 4 % topical patch 1 patch topical DAILY PRN pain #10 01/08/25 ea Allergies Allergy/AdvReac Type Severity Reaction Status Date / Time haloperidol (From Haldol) Allergy Mild UNKNOWN Verified 02/28/25 05:40 Review of Systems Constitutional: Constitutional: Reports no additional constitutional complaints Cardiovascular: Cardiovascular: Reports no additional cardiovascular complaints [facility] Past Medical History Attestation statement: The following information was validated with the patient. [facility] Narrative: COPD O2 dependent, atrial fibrillation anticoagulated, Medical History Atrial fibrillation Restrictive lung disease COPD (chronic obstructive pulmonary disease) Nocturnal hypoxemia Obesity (BMI 35.0-39.9 without comorbidity) Weakness Fever Fall Unspecified diastolic heart failure Diabetes HTN (hypertension) Family History Family History Brother Heart disease Social History Social History Household Members: Family Housing: Apartment Do you presently have visiting nurse or other home services: Yes Patient Tobacco Use Status: Former Tobacco user Smoked in Last 30 Days: No Second Hand Smoke Exposure: No Use of substances other than those prescribed or required for medical reasons: No Advance Directives: Yes Advance Directives on File: Yes Advance Directives Date on File: 04/21/23 Do you have a plan to hurt others: No Plan service: No Current occupational status: retired 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 Physical Exam Exam: Exam: No acute distress Vital Signs: Vital Signs: Last Vital Signs Temp 97.8 F 02/28/25 08:00 Pulse 66 02/28/25 08:00 Resp 14 02/28/25 08:00 BP 104/56 L 02/28/25 08:00 Pulse Ox 94 02/28/25 08:00 O2 Del Method Nasal Cannula 02/28/25 08:00 O2 Flow Rate 2 02/28/25 08:00 Oxygen Flow Rate 2 02/28/25 05:37 BMI result Body Mass Index 49.9 Const: General: cooperative Nutritional Appearance: well nourished Orientation/consciousness: patient oriented x3 Limitations: no limitations HEENT: Other: Abrasion left forehead General nose exam: Normal external nose present Face and sinus: Yes normal facial exam Neck: Other: C-collar on Chest: Chest palpation & inspection: normal inspection of the chest Resp: Effort & Inspection: normal respiratory effort Auscultation: clear to auscultation bilaterally Cardio: Jugular venous distension: no JVD Rhythm: abnormal rhythm GI: Inspection: Yes normal to inspection Palpation (GI): Soft to palpation, not firm and nontender Auscultation: normal bowel sounds Neuro: General: patient oriented x3 Cranial nerves: Yes CN's II-XII intact bilaterally Extrem: Other: Examination of the right hand shows a skin tear normal 4 cm flap-like dorsal aspect of the hand Course Reevaluation(s) Reevaluation #1: Head CT and C-spine negative we will get PT adriana and egg caser adriana Time: 09:02 Reevaluation #2: Patient was seen by the egg caser Cheryl, the patient does not want to go to rehab she wants to go back home at this time we will discharge the patient home Time: 11:10 Procedures Laceration Laceration 1: Site: hand (skin tear 4 cm) Side (If applicable): right Description: flap Skin layer closed with: skin adhesive Medical Decision Making Medical Decision Making [facility] Narrative: Patient is here after a fall she is anticoagulated with the Eliquis it is reasonable to obtain a CT of head Differential Diagnosis Differential Diagnoses: The differential diagnosis associated with the presentation includes Subdural hematoma/epidural hematoma/concussion Admission/Observation Consideration of admission/observation: Escalation of care including admission/observation considered Consult Healthcare Provider Management of the patient was discussed with: Hospitalist Lab Data [facility] Lab Attestation statement: I reviewed the patient's lab results. 02/28/25 06:28 02/28/25 08:05 Labs: Lab Results 02/28/25 02/28/25 02/28/25 Range/Units 06:28 08:05 09:14 WBC 8.0 (4.8-10.8) X10*3/uL RBC 4.33 (4.20-5.50) X10*6/uL Hgb 13.1 (12.0-16.0) g/dl Hct 39.8 (37.0-47.0) % MCV 91.9 (80.0-98.0) fL MCH 30.3 (27.0-33.0) pg MCHC 32.9 (31.0-35.0) g/dl RDW 14.7 (11.0-16.0) % Plt Count 257 (160-400) X10*3/uL MPV 9.3 L (9.4-12.3) fL Immature Gran % (Auto) 0.6 H (0.0-0.4) % Neut % (Auto) 71.2 (45-73) % Lymph % (Auto) 17.9 L (20-40) % Stafford % (Auto) 6.8 (2-11) % Eos % (Auto) 2.9 (0-4) % Baso % (Auto) 0.6 (0-2) % Lymph # (Auto) 1.4 (1.2-4.9) X10*3/uL Stafford # (Auto) 0.6 (0.1-1.2) X10*3/uL Eos # (Auto) 0.2 (0.0-0.4) X10*3/uL Baso # (Auto) 0.1 (0.0-0.2) X10*3/uL Abs Immat Gran (auto) 0.05 H (0.00-0.03) X10*3/uL Absolute Neuts (auto) 5.7 (2.0-8.3) x10*3/uL Absolute Nucleated RBC 0.000 (0.0-0.012) X10*3/uL Nucleated RBC % (auto) 0.0 (0.0-0.2) /100WBC Sodium 141 (135-145) mmol/L Potassium 3.5 (3.3-5.1) mmol/L Chloride 102 (96-108) mmol/L Carbon Dioxide 28 (22-29) mmol/L Anion Gap 15 (12-20) BUN 10 (9-16) mg/dL Creatinine 0.76 (0.5-1.4) mg/dL Estim Creat Clear Calc 82.1 Estimated GFR > 60 Random Glucose 121 H (60-115) mg/dL Calcium 8.3 L D (8.4-10.2) mg/dL Total Bilirubin 0.5 (0.0-1.0) mg/dL AST 19 (5-31) U/L ALT < 6 (0-31) U/L Alkaline Phosphatase 78 (39-117) U/L Total Protein 6.2 L (6.5-8.0) g/dL Albumin 4.0 (3.5-5.0) g/dL COVID-19 (BELINDA) Negative (Negative) COVID-19 Clin Com See Note Independent Interpretation I performed an independent interpretation of an: EKG and CT Scan (no fx ) Interpretation: EKG was reviewed interpreted by me as normal sinus rhythm rate [address]-T changes no ischemic chnages Radiology Impression Discussion of test interpretation with radiology: I have reviewed the radiologist's reading. Independent Historian Clinical information obtained from an independent historian. History obtained from or confirmed by: EMS Chronic Conditions Patient?s care impacted by: Other (COPD on 02) A. Fib on eliquis Discharge Plan Discharge Clinical Impression: Head injury Qualifiers: Encounter type: initial encounter Qualified Code(s): S09.90XA - Unspecified injury of head, initial encounter Skin tear of hand without complication Qualifiers: Encounter type: initial encounter Laterality: right Qualified Code(s): S61.411A - Laceration without foreign body of right hand, initial encounter Prescriptions: No Action diltiazem HCl [Cartia XT] 120 mg capsule,extended release 24hr 120 mg PO DAILY Qty: 30 3RF Eliquis 5 mg tablet 5 mg PO BID Qty: 60 5RF Jardiance 10 mg tablet 10 mg PO DAILY lamotrigine 25 mg tablet 25 mg PO DAILY loratadine 10 mg Tablet 10 mg PO DAILY digoxin 125 mcg (0.125 mg) Tablet 0.125 mg PO DAILY Qty: 90 0RF Protocol: Hold for HR <: HOLD for HR < : 60 lidocaine 4 % adhesive patch,medicated 1 patch topical DAILY PRN (Reason: pain) Qty: 10 0RF clonazepam 0.5 mg Tablet 0.5 mg PO BID PRN (Reason: Anxiety/Restlessness) Qty: 20 0RF spironolactone 25 mg tablet 50 mg PO DAILY fluticasone propion-salmeterol [Advair HFA] 230-21 mcg/actuation HFA aerosol inhaler 2 puff INHALATION DAILY potassium chloride 20 mEq tablet extended release 20 meq PO DAILY mirtazapine 7.5 mg tablet 7.5 mg PO BEDTIME Ozempic 1 mg/dose (4 mg/3 mL) pen injector 1 mg subcut FR quetiapine 100 mg tablet 200 mg PO BEDTIME metformin 1,000 mg tablet 1,000 mg PO BID lamotrigine 100 mg tablet 100 mg PO BID lamotrigine 25 mg tablet 50 mg PO BEDTIME aripiprazole 20 mg tablet 20 mg PO DAILY simvastatin 40 mg tablet 40 mg PO BEDTIME furosemide 20 mg tablet 40 mg PO DAILY@0800 Rx Instructions: 40 mg AM 20 mg PM as directed; gabapentin 300 mg capsule 300 mg PO TID albuterol sulfate [Ventolin HFA] 90 mcg/actuation HFA aerosol inhaler 2 puff PO DAILY PRN (Reason: Shortness Of Breath) (DME) petey Mcclain See Rx Instructions .Route Qty: 1 0RF Rx Instructions: As directed Airsupra 90-80 mcg/actuation HFA aerosol inhaler 2 inh inhalation QID PRN Referrals: [facility] [Outside] Print Language: Bangladeshi
[2025-02-28 06:33] LABS: MANUAL DIFF FLAG NO
[2025-02-28 06:34] LABS: Hematocrit 39.8 % (37.0-47.0); Hemoglobin 13.1 g/dl (12.0-16.0); Imm Gran Abs Auto 0.05 X10*3/uL (0.00-0.03); Imm Gran Pct Auto 0.6 % (0.0-0.4); Lymphocytes Absolute Auto 1.4 X10*3/uL (1.2-4.9); Mean Corpuscular HGB Conc 32.9 g/dl (31.0-35.0); Mean Corpuscular Hemoglobin 30.3 pg (27.0-33.0); Mean Corpuscular Volume 91.9 fL (80.0-98.0); NRBC Abs Auto 0.000 X10*3/uL (0.0-0.012); NRBC Pct Auto 0.0 /100WBC (0.0-0.2); Platelet Count 257 X10*3/uL (160-400); Red Blood Count 4.33 X10*6/uL (4.20-5.50); White Blood Count 8.0 X10*3/uL (4.8-10.8)
--- OUTSIDE RECORDS SUMMARY | 2025-02-28 07:05 | XMS_ITS | Encounter Summary ---
Author Organization [facility] Address [address] [place] [id number] Care Team Providers Care Supervisor Welding Equipment Repairer Name Role Phone Braeden Hudson MD Primary Care Provider [phone] Encounter Details Date Type Department Care Team (Late st Contact Info) Description 07/30/2024 Lab Requisition [facility] - Main Lab [address] [place] [address] Braeden Hudson MD [address] [place] [address] [address] [facility] [phone] Chronic obstructive pulmonary disease, unspecified (CMS/HCC [...] LAB CHEMISTRY METHOD 07/30/2024 10:25 AM EDT [facility] Potassium 3.9 3.5 - 5.5 mmol/L LAB CHEMISTRY METHOD 07/30/2024 10:25 AM [facility] Chloride 104 96 - 110 mmol/L LAB CHEMISTRY METHOD 07/30/2024 10:25 AM [facility] CO2 30 21 - 32 mmol/L LAB CHEMISTRY METHOD 07/30/2024 10:25 AM [facility] Anion Gap 7 3 - 11 LAB CHEMISTRY METHOD 07/30/2024 10:25 AM [facility] Glucose 111(H) 70 - 100 mg/dL LAB CHEMISTRY METHOD 07/30/2024 10:25 AM [facility] BUN 8 5 - 25 mg/dL LAB CHEMISTRY METHOD 07/30/2024 10:25 AM [facility] Creatinine 0.65 0.50 - 1.10 mg/dL LAB CHEMISTRY METHOD 07/30/2024 10:25 AM [facility] eGFR 95 >=60 mL/min/1. 73m2 LAB CHEMISTRY METHOD 07/30/2024 10:25 AM [facility] Comment:Calculation based on the Chronic Kidney Disease Epidemiology Collaboration (CKD-EPI) equation refit without adjustment for race. BUN/Creatinine Ratio 12.3 LAB CHEMISTRY METHOD 07/30/2024 10:25 AM [facility] Calcium 8.8 8.5 - 10.5 mg/dL LAB CHEMISTRY METHOD 07/30/2024 10:25 AM [facility] AST (SGOT) 14 10 - 42 unit/L LAB CHEMISTRY METHOD 07/30/2024 10:25 AM [facility] ALT (SGPT) 16 10 - 60 unit/L LAB CHEMISTRY METHOD 07/30/2024 10:25 AM [facility] Alkaline Phosphatase 77 42 - 121 unit/L LAB CHEMISTRY METHOD 07/30/2024 10:25 AM [facility] Total Protein 6.1 6.0 - 8.0 g/dL LAB CHEMISTRY METHOD 07/30/2024 10:25 AM EDT [facility] Albumin 3.4 3.2 - 5.0 g/dL LAB CHEMISTRY METHOD 07/30/2024 10:25 AM EDT [facility] Total Bilirubin 0.7 0.0 - 1.4 mg/dL LAB CHEMISTRY METHOD 07/30/2024 10:25 AM EDT [facility] Blood Venous blood specimen / Unknown Venipuncture / Unknown 07/30/2024 7:20 AM EDT 07/30/2024 9:06 AM EDT us Braeden Hudson MD LAB BLOOD ORDERABLES Final Resul t [facility] [address] [place] [address], documented in this encounter Visit Diagnoses Diagnosis Chronic obstructive pulmonary disease, unspecified (CMS/HCC V24, CMS/HCC V28) documented in this encounter Care Teams Supervisor Welding Equipment Repairer Relationship Specialty Start Date End Date Braeden Hudson MD [address] [place] [address], [phone] PCP - General Family Medicine 07/20/24 documented as of this encounter
--- OUTSIDE RECORDS SUMMARY | 2025-02-28 07:05 | XMS_ITS | Encounter Summary ---
Author Organization [facility] Address [id number] [place] [phone] Care Team Providers Care Director Of Market Intelligence Name Role Phone Braeden Hudson MD Primary Care Provider [phone] Encounter Details Date Type Department Care Team (Late st Contact Info) Description 07/21/2024 Lab Requisition [facility] - Main Lab [address] [place] [address] Braeden Hudson MD [address] [place] [address] 204 [facility] [phone] Essential (primary) hypertension; Anemia, unspecified [...] LAB CHEMISTRY METHOD 07/21/2024 1:55 PM EDT [facility] Potassium 3.5 3.5 - 5.5 mmol/L LAB CHEMISTRY METHOD 07/21/2024 1:55 PM EDT [facility] Comment:Hemolysis present Chloride 101 96 - 110 mmol/L LAB CHEMISTRY METHOD 07/21/2024 1:55 PM [facility] CO2 27 21 - 32 mmol/L LAB CHEMISTRY METHOD 07/21/2024 1:55 PM [facility] Anion Gap 10 3 - 11 LAB CHEMISTRY METHOD 07/21/2024 1:55 PM [facility] Glucose 113(H) 70 - 100 mg/dL LAB CHEMISTRY METHOD 07/21/2024 1:55 PM [facility] BUN 25 5 - 25 mg/dL LAB CHEMISTRY METHOD 07/21/2024 1:55 PM [facility] Creatinine 0.81 0.50 - 1.10 mg/dL LAB CHEMISTRY METHOD 07/21/2024 1:55 PM [facility] eGFR 78 >=60 mL/min/1. 73m2 LAB CHEMISTRY METHOD 07/21/2024 1:55 PM [facility] Comment:Calculation based on the Chronic Kidney Disease Epidemiology Collaboration (CKD-EPI) equation refit without adjustment for race. BUN/Creatinine Ratio 30.9 LAB CHEMISTRY METHOD 07/21/2024 1:55 PM [facility] Calcium 9.2 8.5 - 10.5 mg/dL LAB CHEMISTRY METHOD 07/21/2024 1:55 PM [facility] AST (SGOT) 92(H) 10 - 42 unit/L LAB CHEMISTRY METHOD 07/21/2024 1:55 PM [facility] Comment:Hemolysis present ALT (SGPT) 31 10 - 60 unit/L LAB CHEMISTRY METHOD 07/21/2024 1:55 PM [facility] Alkaline Phosphatase 88 42 - 121 unit/L LAB CHEMISTRY METHOD 07/21/2024 1:55 PM [facility] Total Protein 6.9 6.0 - 8.0 g/dL LAB CHEMISTRY METHOD 07/21/2024 1:55 PM EDT [facility] Albumin 4.0 3.2 - 5.0 g/dL LAB CHEMISTRY METHOD 07/21/2024 1:55 PM EDT [facility] Total Bilirubin 0.9 0.0 - 1.4 mg/dL LAB CHEMISTRY METHOD 07/21/2024 1:55 PM EDT [facility] Blood Venous blood specimen / Unknown Venipuncture / Unknown 07/21/2024 6:04 AM EDT 07/21/2024 11:24 AM EDT us Braeden Hudson MD LAB BLOOD ORDERABLES Final Resul t [facility] [address] [place] [address], [place] [phone] documented in this encounter Visit Diagnoses Diagnosis Essential (primary) hypertension Unspecified essential hypertension Anemia, unspecified documented in this encounter Care Teams Director Of Market Intelligence Relationship Specialty Start Date End Date Braeden Hudson MD [address] [place] [address] 204 [place], [phone] PCP - General Family Medicine 07/20/24 documented as of this encounter
--- OUTSIDE RECORDS SUMMARY | 2025-02-28 07:05 | XMS_ITS | Encounter Summary ---
Author Organization [facility] Address [id number] [place] [phone] Care Team Providers Care Grader Meat Name Role Phone Braeden Hudson MD Primary Care Provider [phone] Encounter Details Date Type Department Care Team (Late st Contact Info) Description 07/27/2024 Lab Requisition [facility] - Main Lab [address] [place] [address] Braeden Hudson MD [address] [place] [address] [facility] [phone] Essential (primary) hypertension; Anemia, unspecified [...] AM EDT) WBC 7.8 4.8 - 10.8 K/[facility] LAB HEMETOLOGY METHOD 07/28/2024 12:11 PM EDT [facility] RBC 4.40 3.80 - 4.80 M/mcL LAB HEMETOLOGY METHOD 07/28/2024 12:11 PM [facility] Hemoglobin 13.5 11.5 - 16.0 g/dL LAB HEMETOLOGY METHOD 07/28/2024 12:11 PM [facility] Hematocrit 41.8 35.0 - 47.0 % LAB HEMETOLOGY METHOD 07/28/2024 12:11 PM [facility] MCV 95.2 79.0 - 98.0 FL LAB HEMETOLOGY METHOD 07/28/2024 12:11 PM [facility] MCH 30.8 27.0 - 32.0 pcg LAB HEMETOLOGY METHOD 07/28/2024 12:11 PM [facility] MCHC 32.3 32.0 - 37.0 g/dL LAB HEMETOLOGY METHOD 07/28/2024 12:11 PM [facility] RDW 13.8 11.0 - 15.0 % LAB HEMETOLOGY METHOD 07/28/2024 12:11 PM [facility] Platelets 236 130 - 400 K/mcL LAB HEMETOLOGY METHOD 07/28/2024 12:11 PM [facility] MPV 10.4 7.0 - 11.0 FL LAB HEMETOLOGY METHOD 07/28/2024 12:11 PM [facility] NRBC 0.0 <1.0 % LAB HEMETOLOGY METHOD 07/28/2024 12:11 PM [facility] NRBC Absolute 0.00 <0.10 K/mcL LAB HEMETOLOGY METHOD 07/28/2024 12:11 PM [facility] Blood Venous blood specimen / Unknown Venipuncture / Unknown 07/28/2024 7:04 AM EDT 07/28/2024 11:23 AM EDT us Braeden Hudson MD LAB BLOOD ORDERABLES Final Resul t [facility] [address] [place] [address], * (ABNORMAL) Comprehensive metabolic panel (07/28/2024 7:04 AM EDT) Sodium 137 133 - 145 mmol/L LAB CHEMISTRY METHOD 07/28/2024 1:27 PM T [facility] Potassium 2.9(LL) 3.5 - 5.5 mmol/L LAB CHEMISTRY METHOD 07/28/2024 1:27 PM [facility] Chloride 100 96 - 110 mmol/L LAB CHEMISTRY METHOD 07/28/2024 1:27 PM [facility] CO2 30 21 - 32 mmol/L LAB CHEMISTRY METHOD 07/28/2024 1:27 PM [facility] Anion Gap 7 3 - 11 LAB CHEMISTRY METHOD 07/28/2024 1:27 PM [facility] Glucose 112(H) 70 - 100 mg/dL LAB CHEMISTRY METHOD 07/28/2024 1:27 PM [facility] BUN 9 5 - 25 mg/dL LAB CHEMISTRY METHOD 07/28/2024 1:27 PM [facility] Creatinine 0.64 0.50 - 1.10 mg/dL LAB CHEMISTRY METHOD 07/28/2024 1:27 PM [facility] eGFR 95 >=60 mL/min/1. 73m2 LAB CHEMISTRY METHOD 07/28/2024 1:27 PM [facility] Comment:Calculation based on the Chronic Kidney Disease Epidemiology Collaboration (CKD-EPI) equation refit without adjustment for race. BUN/Creatinine Ratio 14.1 LAB CHEMISTRY METHOD 07/28/2024 1:27 PM [facility] Calcium 8.6 8.5 - 10.5 mg/dL LAB CHEMISTRY METHOD 07/28/2024 1:27 PM EDT [facility] AST (SGOT) 15 10 - 42 unit/L LAB CHEMISTRY METHOD 07/28/2024 1:27 PM T [facility] ALT (SGPT) 17 10 - 60 unit/L LAB CHEMISTRY METHOD 07/28/2024 1:27 PM EDT [facility] Alkaline Phosphatase 80 42 - 121 unit/L LAB CHEMISTRY METHOD 07/28/2024 1:27 PM EDT [facility] Total Protein 6.0 6.0 - 8.0 g/dL LAB CHEMISTRY METHOD 07/28/2024 1:27 PM EDT [facility] Albumin 3.6 3.2 - 5.0 g/dL LAB CHEMISTRY METHOD 07/28/2024 1:27 PM EDT [facility] Total Bilirubin 1.0 0.0 - 1.4 mg/dL LAB CHEMISTRY METHOD 07/28/2024 1:27 PM EDT [facility] Blood Venous blood specimen / Unknown Venipuncture / Unknown 07/28/2024 7:04 AM EDT 07/28/2024 11:23 AM EDT us Braeden Hudson MD LAB BLOOD ORDERABLES Final Resul t [facility] [address] [place] [address], documented in this encounter Visit Diagnoses Diagnosis Essential (primary) hypertension Unspecified essential hypertension Anemia, unspecified documented in this encounter Care Teams Grader Meat Relationship Specialty Start Date End Date Braeden Hudson MD [address] [place] [address], [phone] PCP - General Family Medicine 07/20/24 documented as of this encounter
--- OUTSIDE RECORDS SUMMARY | 2025-02-28 07:05 | XMS_ITS | Clinical Summary ---
Author Organization [address] Address [address] [place] [phone] Phone Care Team Providers Care Ciso Name Role Phone Braeden Hudson MD Primary [...] 10/27/1963 Diabetes: Annual Retina Eye Exam 10/27/1963 RSV Immunization Adult Patients (1 - Risk 50-74 years 1-dose series) 10/27/2003 Zoster Vaccines (1 of 2) 10/27/2003 Pneumococcal Vaccine: 50+ Years (2 of 2 [...] mmol/L LAB CHEMISTRY METHOD 08/02/2024 12:12 AM [facility] Potassium 3.7 3.5 - 5.5 mmol/L LAB CHEMISTRY METHOD 08/02/2024 12:12 AM [facility] Chloride 101 96 - 110 mmol/L LAB CHEMISTRY METHOD 08/02/2024 12:12 AM [facility] CO2 27 21 - 32 mmol/L LAB CHEMISTRY METHOD 08/02/2024 12:12 AM [facility] Anion Gap 8 3 - 11 LAB CHEMISTRY METHOD 08/02/2024 12:12 AM [facility] Glucose 136(H) 70 - 100 mg/dL LAB CHEMISTRY METHOD 08/02/2024 12:12 AM [facility] BUN 8 5 - 25 mg/dL LAB CHEMISTRY METHOD 08/02/2024 12:12 AM [facility] Creatinine 0.75 0.50 - 1.10 mg/dL LAB CHEMISTRY METHOD 08/02/2024 12:12 AM [facility] eGFR 86 >=60 mL/min/1. 73m2 LAB CHEMISTRY METHOD 08/02/2024 12:12 AM [facility] Comment:Calculation based on the Chronic Kidney Disease Epidemiology Collaboration (CKD-EPI) equation refit without adjustment for race. BUN/Creatinine Ratio 10.7 LAB CHEMISTRY METHOD 08/02/2024 12:12 AM EDT [facility] Calcium 8.6 8.5 - 10.5 mg/dL LAB CHEMISTRY METHOD 08/02/2024 12:12 AM EDT [facility] Blood Venous blood specimen / Unknown Venipuncture / Unknown 08/01/2024 11:36 PM EDT 08/01/2024 11:43 PM EDT us Faye SANCHEZ LAB BLOOD ORDERABLES Final Result [facility] [address] [place] [address], * GISELE SCREENING DIGITAL (08/21/2022 4:49 PM EDT) Anatomical Region Laterality Modality Mammography 08/21/2022 10:2 9 AM EDT Narrative 08/21/2022 4:49 PM EDT [facility] Diagnostic Imaging Department [address] [place] [address] Patient: AUGUSTOJOHN /Age/Sex: 1955 - 66 - F Unit#: [id number] Location/Status: SPDIMAM/REG CLI Mnemonic/Ordering Site: [facility] Ordering Physician: TARYN PARKER MD Gisele Screening Digital - 08/21/22 - 1053 EXAM: [facility] Screening Digital EXAM DATE AND TIME: 08/21/2022 10:53 AM HISTORY: Screening. COMPARISON: 08/16/20, 07/08/18, 06/04/17, 05/30/16 TECHNIQUE: CC and MLO views of both breasts were obtained using full field digital mammography. Bilateral digital breast tomosynthesis was performed in the MLO projection. Computer aided detection with [employer] 7.2-H and [employer] 3D 3.1 was employed. TISSUE DENSITY: b. [...] Routine screening mammogram BILATERAL in 1 year. [address], [address] 3342F, 7025F Dictating Physician: SHAUNA MAHARAJ MD Electronically Signed by: SHAUNA MAHARAJ MD Dic Date/Time: 08/21/221647 Sign date/Time: 08/21/221648 Procedure Note Shauna Maharaj MD - 05/09/2023 [facility] Diagnostic Imaging Department [address] [place] [address] Patient: JOHN CASAS D.O.B./Age/Sex: 1955 - 66 - F Unit#: [id number] Location/Status: SPDIMAM/REG CLI Mnemonic/Ordering Site: [facility] Ordering Physician: TARYN PARKER MD [facility] Screening Digital - 08/21/22 - 1052 EXAM: Gisele Screening Digital EXAM DATE AND TIME: 08/21/2022 10:53 AM HISTORY: Screening. COMPARISON: 08/16/20, 07/08/18, 06/04/17, 05/30/16 TECHNIQUE: CC and MLO views of both breasts were obtained using fullfield digital mammography. Bilateral digital breast tomosynthesis was performedin the MLO projection. Computer aided detection with [employer] 7.2-H and[employer] 3D 3.1 was employed. TISSUE DENSITY: b. [...] Routine screening mammogram BILATERAL in 1 year. [address], [address] 3342F, 7025F Dictating Physician: SHAUNA MAHARAJ MD Electronically Signed by: SHAUNA MAHARAJ MD Dic Date/Time: 08/21/221647 Sign date/Time: 08/21/221648 Taryn Parker MD IMG BI PROCEDURES Final Result from Last 3 Months or Most Recently Relevant to Health Maintenance Insurance MEDICARE MEDICAID - [place] Care Teams Ciso Relationship Specialty Start Date End Date Braeden Hudson MD [address], [phone] PCP - General Family Medicine 07/20/24
--- OUTSIDE RECORDS SUMMARY | 2025-02-28 07:05 | XMS_ITS | Encounter Summary ---
Author Organization [facility] Address [address] [place] [phone] Care Team Providers Care Piece Cutter Name Role Phone Braeden Hudson MD Primary Care Provider Encounter Details Date Type Department Care Team (Late st Contact Info) Description 08/03/2024 Lab Requisition [facility] - Main Lab 299 [facility] [place] [address] Braeden Hudson MD [address] [facility] [address] [place], [phone] Anemia, unspecified; Essential (primary) hypertension Social History [...] hypertension documented in this encounter Care Teams Piece Cutter Relationship Specialty Start Date End Date Braeden Hudson MD [address] [facility] [address] [place], [phone] PCP - General Family Medicine 07/20/24 documented as of this encounter
--- OUTSIDE RECORDS SUMMARY | 2025-02-28 07:05 | XMS_ITS | Data Portability ---
Author Organization [facility], Main Office Address [address] [facility], [address] [place] [address] Care Team Providers Care Cellular Equipment Repairer Name Role Phone KENZEI CHRISTIAN - 2ND FLOOR OTHER TALIA RANDALL [...] exacerbatio n of chronic obstructive pulmonary disease 940687694 Active 2024 JOSE ANTONIO ODELL NP [address] [facility], [address], [place], [address], [facility] Authentic8 11:57:56 Asthenia 84234023 Active 2024 JOSE ANTONIO ODELL NP [address] [facility], [address], [place], [address], [facility] 5 11:58:05 Chronic diastolic heart failure 808524217 Active 2024 JOSE ANTONIO ODELL NP [address] [facility], [address], [place], [address], [facility] 5 12:01:34 Essential hypertensio n 35608833 Active 2024 JOSE ANTONIO ODELL NP [address] [facility], [address], [place], [address], [facility] 5 12:01:52 Peripheral neuropathy due to type 2 diabetes mellitus 3481478935016 Active 2024 JOSE ANTONIO ODELL NP [address] [facility], [address], [place], [address], [facility] 5 12:03:03 Bipolar disorder 38301012 Active 2024 JOSE ANTONIO ODELL NP [address] [facility], [address], [place], [address], [facility] 5 12:06:03 Mixed hyperlipide josué 077313086 Active 2024 JOSE ANTONIO ODELL NP [address] [facility], [address], [place], [address], [facility] 5 12:24:53 Problem Notes None recorded. Medical Equipment None Reported. Allergies Allergen ID Allergen Name Allergen Category Reaction Reaction Severity Criticality Documentation Date Start Date Code Code System Note Provider Name and Address Organization Details Recorded Time 87195 Haldol medicatio n Not available Not available Not available 07/20/2024 09013 9 RxNorm JOSE ANTONIO ODELL NP [address] [facility], [address], [place], [address], [facility] 5 12:05:46 Medications Not known to be on any medication Vitals Date Recorded Heart rate Respiratory rate Body temperature Oxygen saturation Systolic And Diastolic Provider Name and Address Organization Details Last Updated DateTime 5 80 /min 18 /min 97.7 [degF] 92 % 115/64 mm[Hg] JOSE ANTONIO ODELL NP [address] [facility], [address], [place], [address], [facility] 11:36:14 Date Recorded Body weight Heart rate Respiratory rate Systolic And Diastolic Provider Name and Address Organization Details Last Updated DateTime 07/26/2024 381594.68 g 70 /min 18 /min 136/74 mm[Hg] Braeden Hudson MD [address], [address], [place], [address] , [facility] 07/26/2024 10:37:57 Social History Question Answer Notes LastModified by AT Internet Details LastModified Time Tobacco Smoking Status Former Smoker quit yrs ago, relapsed recently but stopped again months ago JOSE ANTONIO ODELL NP [address], [place], [address], [facility] 07/20/2024 12:10:37 What Is Your Code Status? Full Code No Dialysis, No G Tube [email or web address] Information not available 07/20/2024 Where Do You Live? Apartment Lives With Cat In Apt[address] Has PPCAs And Sister Lives Nearby [email or web address] Information not available 07/20/2024 Do You Have A Medical Power Of Ruby On Rails Developer? Yes Has HCP [email or web address] Information not available 07/20/2024 What Was The Date Of Your Most Recent Tobacco Screening? 07/20/2024 Information not available 07/20/2024 Do You Have An Out Of Hospital DNR? Yes MOLST Completed 07/20/24 Information not available 07/20/2024 Has Tobacco Cessation Counseling Been Provided? No [email or web address] Information not available 07/20/2024 Sex: Unknown Functional Status Question Answer Note LastModified by Organizat [employer] Details LastModified Time Do you use any illicit or recreational drugs? Yes reports using crack a few months ago [email or web address] Information not available 07/20/2024 Do you or have you ever used any other forms of tobacco or nicotine? No [email or web address] Information not available 07/20/2024 What is your level of alcohol consumption? None Information not available 07/20/2024 Mental Status None recorded. Family History Relationship Description Onset Age of this Age Resolved Age Notes LastModified by Organization Details LastModified Time Father Malignant neoplastic disease [email or web address] Not available 2024 12:14:20 Mother Malignant neoplastic disease [email or web address] Not available 2024 12:14:20 Brother Malignant neoplastic disease [email or web address] Not available 2024 12:14:20 Medical History No medical history recorded. Gynecological HistoryNo gynecological history recorded. Obstetrics History GPAL:G 0 P 0 0 0 0 Immunizations Vaccine Type Date Status Note Provider Nam e and Address Organization Details Recorded Time Tdap 4 completed [facility] 07/21/2024 15:43:01 pneumococcal polysaccharide PPV23 7 completed [facility] 07/21/2024 15:43:20 pneumococcal polysaccharide PPV23 0 completed [facility] 07/21/2024 15:43:28 influenza, unspecified formulation 4 completed [facility] 07/21/2024 15:43:44 SARS-COV-2 (COVID-19) vaccine, UNSPECIFIED 1 completed [facility] 07/21/2024 15:44:10 SARS-COV-2 (COVID-19) vaccine, UNSPECIFIED 1 completed [facility] 07/21/2024 15:44:17 SARS-COV-2 (COVID-19) vaccine, UNSPECIFIED 1 [facility] 07/21/2024 15:44:26 Past Encounters Encounter ID Performer Location Encounter Start Date Encounter Closed Date Diagnosis/Indication Diagnosis SNOMED-CT Code Diagnosis ICD10 Code Diagnosis IMO Codes Diagnosis Note [id number] JOSE ANTONIO ODELL NP [facility] [address] [place] [address] 07/20/2024 11:35:25 07/26/2024 08:58:57 Acute exacerbation of chronic obstructive pulmonary disease 164641716 J44.1 863125 Continue:z pakprednis one 40 mg qd x 3dadvair HFA 230-21 2 inh BIDventoli n HFA 2 inh q4h prnO2 prn to keep sats >90% (uses prn at home)Monit or resp. status Peripheral neuropathy due to type 2 diabetes mellitus 0187292130 107 E11.42 2786641 Continue home meds:jardi ance 10 mg qdozempic 0.5 mg sq q frimetform in 1000 mg bidgabapen tin 300 mg tid, ? neuropathy Add BS BID x 5 days to assess BS, expect elevation to prednisone use. Chronic di astolic heart failure 202025635 I50.32 075425 Continue:l asix 20 mg qdaldacton e 50 mg qdKCl 20 meq qdMonitor VS, weights, fluid balanceLow salt diet Essential hypertension 66645120 I10 36756 lasix 40 mg q 8 a, 20 mg q noonaldact one 25 mg qdKCl 20 meq qd Bipolar disorder 1095389 4 F31.9 3560866 lamotrigin e 125 mg q amlamotrig ine 150 mg q pmaripipra zole 20 mg qdseroquel 200 mg q hsgabapent in 300 mg tid Asthenia 40664640 R53.1 75318 Deconditio alejandrina in generalPT OT eval and tx.Goal is to return home. Mixed hyperlipidemia 267 419734 E78.2 31971 ?Continue atorvastat in 40 mg qd [id number] Braeden Hudson MD [address] [address] 07/26/2024 10:37:18 07/28/2024 15:49:29 Acute exacerbation of chronic obstructive pulmonary disease 703285424 J44.1 792597 see HPIcomplet ed prednisone burstconti nued on advairmoni tor respirator y status and albuterol utilizatio npulmonary eval prnwean O2 as toleratedh as O2 at home however states rarely needs to utilizedoe s monitor O2 sats at home at baseline Asthenia 54067226 R53.1 14260 PT OT Eval and treatmonit or need for increased support in community Peripheral neuropathy due to type 2 diabetes mellitus 5703418314 107 E11.42 0137728 continue out patient medication smaintaine d onozempic, jardiance and metformina ppears on gabapentin 300 mg tid for neuropathy Chronic di astolic heart failure 283434163 I50.32 277960 lasix 40 mg qam, 20 mg q afternoons pironolact one 50 mg qdmonitor respirator y and fluid status Essential hypertension 82663207 I10 20521 lasix 40 mg qam, 20 mg q afternoons pironolact one 50 mg qdmonitor bp and need to titrate Bipolar disorder 4907086 4 F31.9 6393406 carrying dxmaintain ed on abilify, seroquel, lamictalps ych to evalmonito r for sx Mixed hyperlipidemia 267 837701 E78.2 41240 simvastati n 40 mg qdcontinue d Body mass index 40+ - severely obese 040599874 E66.01 03426616 dietary to eval [id number] ALYSSIA BASS, ELSA [address] [address] 07/28/2024 13:38:05 08/04/2024 12:28:07 Acute exacerbation of chronic obstructive pulmonary disease 431174511 J44.1 895864 see HPIstablec ompleted prednisone burstconti nued on advairmoni tor respirator y status and albuterol utilizatio npulmonary eval prnwean O2 as toleratedh as O2 at home however states rarely needs to utilizeO2 sat stable in RA, 97%.does monitor O2 sats at home at baseline Asthenia 89610147 R53.1 21823 PT OT Eval and treatmonit or need for increased support in community Bipolar disorder 2372745 4 F31.9 0281152 carrying dxmaintain ed on abilify, seroquel, lamictalps ych to evalmonito r for sx Peripheral neuropathy due to type 2 diabetes mellitus 5777871116 107 E11.42 9865803 BGL has been stable, mainly <150.masha nue out patient medication smaintaine d onozempic, jardiance and metformina ppears on gabapentin 300 mg tid for neuropathy Chronic di astolic heart failure 606762121 I50.32 625926 lasix 40 mg qam, 20 mg q afternoons pironolact one 50 mg qdmonitor respirator y and fluid status Essential hypertension 87740365 I10 55605 lasix 40 mg qam, 20 mg q afternoons pironolact one 50 mg qdmonitor bp and need to titrate Mixed hyperlipidemia 267 424054 E78.2 09230 simvastati n 40 mg qdcontinue d Body mass index 40+ - severely obese 878677479 E66.01 25071380 dietary to eval Hyponatremia 42843492 E8 7.1 11507 2.9 on 07/28.lasix 40 mg qam, 20 mg q afternoons pironolact one 50 mg qdwith KCL 20 meq BID.Will replace with kcl 40 meq BID for 2 days then resume 20 meq BID.will repeat cmp on Friday. [id number] ALYSSIA BASS, ELSA [facility] [address] [place] [address] 07/29/2024 13:47:48 08/04/2024 12:42:11 Acute exacerbation of chronic obstructive pulmonary disease 534711041 J44.1 053349 resolved and back to her baseline.h as O2 at home however states rarely needs to utilizecom pleted prednisone burstconti nued on advairalbu terol, PRNO2 sat stable in RA, 97%.follow up with PCPpulmona ry eval prn Asthenia 58997415 R53.1 02673 improved with PT and OT Bipolar disorder 7835268 4 F31.9 8642913 carrying dxmood stablecont inue her home medsabilif y, seroquel, lamictalf/ u with PCP and psych PRN Peripheral neuropathy due to type 2 diabetes mellitus 4331171651 107 E11.42 6171346 BGL has been stable, mainly <150.masha nue out patient medication smaintaine d onozempic, jardiance and metforming abapentin 300 mg tid for neuropathy Chronic di astolic heart failure 598928429 I50.32 733193 lasix 40 mg qam, 20 mg q afternoons pironolact one 50 mg qdrespirat ory status stablefoll ow up with PCP and cardiology PRN Hyponatremia 58517194 E8 7.1 66000 2.9 on 07/28.lasix 40 mg qam, 20 mg q afternoons pironolact one 50 mg qdfinish kcl 40 meq BID, the last dose tonight.th en resume 20 meq BID.stat BMP tomorrow AM (07/30)-sylvia l result to MD/MEDICAL UNDERWRITER in order to obtain D/C to home. BMP on 08/02, or 08/03 by [facility] with result to PCP to trend hypokalemi a.Order will send upon discharge Essential hypertension 49829187 I10 61316 BP stablecont inuelasix 40 mg qam, 20 mg q afternoons pironolact one 50 mg qdf/u with PCP Mixed hyperlipidemia 267 287939 E78.2 24292 cotinuesim vastatin 40 mg qd Health Concerns Section Related Observation LastModified by Organization Detai ls LastModified Time None Recorded Concern Status LastModified by Organization Details LastModified Time None Recorded Advance Directives Directive None Recorded Payers Insurance Date Sequence Insurance Name Policy Number Policy Rizvi Covered Member ID Rizvi Member ID Guarantor Name 07/26/2024 1 [place] B[place] [employer] Elizabeth Garrison [id number] Elizabeth Garrison 07/20/2024 2 [place] [facility] Elizabeth Garrison [id number] Elizabeth Garrison Notes Date Note Type Note Provider Name and Address Organization Details Recorded Time 5 text/html Elizabeth is seen today for initial intake. She is a 68 yo lady admitted to [facility] 07/19/24 from [facility] for continued care and rehab due [...] mg qd JOSE ANTONIO ODELL NP [address] [facility], [address], [place], [address], [place] [facility] 07/20/2024 14:37:38 5 text/html Patient is a [...] eval and treat Braeden Hudson MD [address] [facility], [address], [place], [address], [facility] 07/26/2024 10:55:52 5 text/html Elizabeth is seen today for acute rounding visit. She is a 68 yo lady admitted to [facility] 07/19/24 from [facility] for continued care and rehab due [...] no g tube ALYSSIA BASS, ELSA [address] [facility], [address], [place], [address], [facility] 07/28/2024 14:40:53 5 text/html Elizabeth is seen today for discharge visit. She is a 68 yo lady admitted to [facility] 07/19/24 from [facility] for continued care and rehab due [...] bipolar, CHF, HTN, DM2, obese ALYSSIA BASS, LEAF CONDITIONER HELPER [address] [facility], [address], [place], [address], [facility] [employer] 07/29/2024 14:11:37 OBGyn Episode No OBEpisode recorded.
--- OUTSIDE RECORDS SUMMARY | 2025-02-28 07:05 | XMS_ITS | Patient Health Record ---
Author Organization [facility] Address [address] [place] [address] Care Team Providers Care 4Th Grade Math Teacher Name Role Phone Keith FLANNERY, Taryn Primary Care Provider Jericho Espinoza Jr Unavailable [phone] Reason For Referral No Information Plan Of Treatment No Information Insurance Providers Payer Name Payer Address Payer Phone Subscriber Number Group Number Insured Name Patient Relationship to Insured Coverage Start Date Coverage End Date MEDICARE [place] [address] [place] [address] [phone] [id number] JOHN CASAS Self - patient is the insured MEDICAID OF [facility] [address] [place] [address] [id number] JOHN CASAS Self - patient is the insured
--- OUTSIDE RECORDS SUMMARY | 2025-02-28 07:05 | XMS_ITS | Encounter Summary ---
Author Organization [facility] Address [address] [place] [address] Care Team Providers Care Plastics Fabrication Supervisor Name Role Phone Braeden Hudson MD Primary Care Provider [phone] Encounter Details Date Type Department Care Team (Late st Contact Info) Description 07/22/2024 Lab Requisition [facility] - Main Lab [address] [place] [address] Braeden Hudson MD [address] [place] [address] [address] [facility] [address] Essential (primary) hypertension; Anemia, unspecified [...] mmol/L LAB CHEMISTRY METHOD 07/23/2024 10:[address] [facility] CO2 29 21 - 32 mmol/L LAB CHEMISTRY METHOD 07/23/2024 10:[address] [facility] Anion Gap 11 3 - 11 LAB CHEMISTRY METHOD 07/23/2024 10:[address] [facility] Glucose 128(H) 70 - 100 mg/dL LAB CHEMISTRY METHOD 07/23/2024 10:[address] [facility] BUN 18 5 - 25 mg/dL LAB CHEMISTRY METHOD 07/23/2024 10:[address] [facility] Creatinine 0.71 0.50 - 1.10 mg/dL LAB CHEMISTRY METHOD 07/23/2024 10:[address] [facility] eGFR 92 >=60 mL/min/1. 73m2 LAB CHEMISTRY METHOD 07/23/2024 10:[address] [facility] Comment:Calculation based on the Chronic Kidney Disease Epidemiology Collaboration (CKD-EPI) equation refit without adjustment for race. BUN/Creatinine Ratio 25.4 LAB CHEMISTRY METHOD 07/23/2024 10:[address] [facility] Calcium 9.1 8.5 - 10.5 mg/dL LAB CHEMISTRY METHOD 07/23/2024 10:[address] [facility] Blood Venous blood specimen / Unknown Venipuncture / Unknown 07/23/2024 7:04 AM EDT 07/23/2024 9:05 AM EDT us Braeden Hudson MD LAB BLOOD ORDERABLES Final Resul t [facility] [address] [place] [address], documented in this encounter Visit Diagnoses Diagnosis Essential (primary) hypertension Unspecified essential hypertension Anemia, unspecified documented in this encounter Care Teams Plastics Fabrication Supervisor Relationship Specialty Start Date End Date Braeden Hudson MD [address], [id number] PCP - General Family Medicine 07/20/24 documented as of this encounter
--- OUTSIDE RECORDS SUMMARY | 2025-02-28 07:05 | XMS_ITS | Encounter Summary ---
Author Organization [facility] Address [address] [place] [address] Care Team Providers Care Preparation Supervisor Name Role Phone Braeden Hudson MD Primary Care Provider [phone] Encounter Details Date Type Department Care Team (Late st Contact Info) Description 07/20/2024 Lab Requisition [facility] - Main Lab [address] [place] [address] Braeden Hudson MD [address] [place] [address] 204 [facility] [address] Anemia, unspecified Social History Tobacco Use [...] AM EDT) WBC 11.2(H) 4.8 - 10.8 K/[facility] LAB HEMETOLOGY METHOD 07/20/2024 10:04 AM [facility] RBC 5.20(H) 3.80 - 4.80 M/mcL LAB HEMETOLOGY METHOD 07/20/2024 10:04 AM [facility] Hemoglobin 15.8 11.5 - 16.0 g/dL LAB HEMETOLOGY METHOD 07/20/2024 10:04 AM [facility] Hematocrit 49.2(H) 35.0 - 47.0 % LAB HEMETOLOGY METHOD 07/20/2024 10:04 AM [facility] MCV 95.5 79.0 - 98.0 FL LAB HEMETOLOGY METHOD 07/20/2024 10:04 AM [facility] MCH 30.7 27.0 - 32.0 pcg LAB HEMETOLOGY METHOD 07/20/2024 10:04 AM [facility] MCHC 32.1 32.0 - 37.0 g/dL LAB HEMETOLOGY METHOD 07/20/2024 10:04 AM [facility] RDW 14.3 11.0 - 15.0 % LAB HEMETOLOGY METHOD 07/20/2024 10:04 AM [facility] Platelets 285 130 - 400 K/mcL LAB HEMETOLOGY METHOD 07/20/2024 10:04 AM [facility] MPV 10.4 7.0 - 11.0 FL LAB HEMETOLOGY METHOD 07/20/2024 10:04 AM [facility] NRBC 0.0 <1.0 % LAB HEMETOLOGY METHOD 07/20/2024 10:04 AM [facility] NRBC Absolute 0.00 <0.10 K/mcL LAB HEMETOLOGY METHOD 07/20/2024 10:04 AM [facility] Neutrophils Relative 77.7 % LAB HEMETOLOGY METHOD 07/20/2024 10:04 AM [facility] Lymphocytes Relative 12.0 % LAB HEMETOLOGY METHOD 07/20/2024 10:04 AM [facility] Monocytes Relative 9.4 % LAB HEMETOLOGY METHOD 07/20/2024 10:04 AM [facility] Eosinophils Relative 0.2 % LAB HEMETOLOGY METHOD 07/20/2024 10:04 AM [facility] Basophils Relative 0.4 % LAB HEMETOLOGY METHOD 07/20/2024 10:04 AM [facility] Immature Granulocytes Relative 0.3 % LAB HEMETOLOGY METHOD 07/20/2024 10:04 AM [facility] Neutrophils Absolute 8.73(H) 1.50 - 7.00 K/mcL LAB HEMETOLOGY METHOD 07/20/2024 10:04 AM [facility] Lymphocytes Absolute 1.34 1.00 - 5.00 K/mcL LAB HEMETOLOGY METHOD 07/20/2024 10:04 AM [facility] Monocytes Absolute 1.05(H) 0.20 - 1.00 K/mcL LAB HEMETOLOGY METHOD 07/20/2024 10:04 AM [facility] Eosinophils Absolute 0.02 0.00 - 0.50 K/mcL LAB HEMETOLOGY METHOD 07/20/2024 10:04 AM [facility] Basophils Absolute 0.04 0.00 - 0.20 K/mcL LAB HEMETOLOGY METHOD 07/20/2024 10:04 AM [facility] Immature Granulocytes Absolute 0.03 0.00 - 0.03 K/mcL LAB HEMETOLOGY METHOD 07/20/2024 10:04 AM [facility] Blood Venous blood specimen / Unknown Venipuncture / Unknown 07/20/2024 6:04 AM EDT 07/20/2024 9:29 AM EDT us Braeden Hudson MD LAB BLOOD ORDERABLES Final Resul t [facility] [address] [place] [address], [place] [phone] * (ABNORMAL) Comprehensive metabolic panel (07/20/2024 6:04 AM EDT) Sodium 139 133 - 145 mmol/L LAB CHEMISTRY METHOD 07/20/2024 10:27 AM [facility] Potassium 3.2(L) 3.5 - 5.5 mmol/L LAB CHEMISTRY METHOD 07/20/2024 10:27 AM [facility] Chloride 103 96 - 110 mmol/L LAB CHEMISTRY METHOD 07/20/2024 10:27 AM [facility] CO2 26 21 - 32 mmol/L LAB CHEMISTRY METHOD 07/20/2024 10:27 AM [facility] Anion Gap 10 3 - 11 LAB CHEMISTRY METHOD 07/20/2024 10:27 AM [facility] Glucose 119(H) 70 - 100 mg/dL LAB CHEMISTRY METHOD 07/20/2024 10:27 AM [facility] BUN 23 5 - 25 mg/dL LAB CHEMISTRY METHOD 07/20/2024 10:27 AM [facility] Creatinine 0.87 0.50 - 1.10 mg/dL LAB CHEMISTRY METHOD 07/20/2024 10:27 AM [facility] eGFR 72 >=60 mL/min/1. 73m2 LAB CHEMISTRY METHOD 07/20/2024 10:27 AM [facility] Comment:Calculation based on the Chronic Kidney Disease Epidemiology Collaboration (CKD-EPI) equation refit without adjustment for race. BUN/Creatinine Ratio 26.4 LAB CHEMISTRY METHOD 07/20/2024 10:27 AM [facility] Calcium 9.6 8.5 - 10.5 mg/dL LAB CHEMISTRY METHOD 07/20/2024 10:27 AM [facility] AST (SGOT) 148(H) 10 - 42 unit/L LAB CHEMISTRY METHOD 07/20/2024 10:27 AM [facility] ALT (SGPT) 37 10 - 60 unit/L LAB CHEMISTRY METHOD 07/20/2024 10:27 AM [facility] Alkaline Phosphatase 97 42 - 121 unit/L LAB CHEMISTRY METHOD 07/20/2024 10:27 AM [facility] Total Protein 7.4 6.0 - 8.0 g/dL LAB CHEMISTRY METHOD 07/20/2024 10:27 AM [facility] Albumin 4.3 3.2 - 5.0 g/dL LAB CHEMISTRY METHOD 07/20/2024 10:27 AM [facility] Total Bilirubin 1.0 0.0 - 1.4 mg/dL LAB CHEMISTRY METHOD 07/20/2024 10:27 AM [facility] Blood Venous blood specimen / Unknown Venipuncture / Unknown 07/20/2024 6:04 AM EDT 07/20/2024 9:29 AM EDT us Braeden Hudson MD LAB BLOOD ORDERABLES Final Resul t [facility] [address] [place] [address], documented in this encounter Visit Diagnoses Diagnosis Anemia, unspecified documented in this encounter Care Teams Preparation Supervisor Relationship Specialty Start Date End Date Braeden Hudson MD [address] [place] [address] 204 [place], [address] PCP - General Family Medicine 07/20/24 documented as of this encounter
[2025-02-28 08:00] VITALS: BP 104/56; PULSE 66; RESP 14; TEMP 36.6; O2SAT 94
[2025-02-28 08:29] LABS: Alanine Aminotransferase < 6 U/L (0-31); Albumin Level 4.0 g/dL (3.5-5.0); Alkaline Phosphatase 78 U/L (39-117); Anion Gap 15 (12-20); Aspartate Amino Transferase 19 U/L (5-31); Blood Urea Nitrogen 10 mg/dL (9-16); Calcium 8.3 mg/dL (8.4-10.2); Carbon Dioxide 28 mmol/L (22-29); Chloride 102 mmol/L (96-108); Creatinine Clr Calc Pharmacy 82.1; Estimated Glomerular Filt Rate > 60; Potassium 3.5 mmol/L (3.3-5.1); Sodium 141 mmol/L (135-145); Total Protein 6.2 g/dL (6.5-8.0)
[2025-02-28 09:34] LABS: COVID-19 Test Negative (Negative); IDNOW Serial# 6674DD1D
--- NOTE | 2025-02-28 09:39 | MHC.CM.ED ---
Addendum entered by Tangela Wright 02/28/25 09:48: Jona LOPEZS booked for 12pm Original Note: Received case management consult from Dr Saleh. Patient came to the ER after a fall. Work up essentially negative. Physical therapy eval ordered and pending. Met with patient in regards to discharge planning. Patient lives alone, ambulates with a walker, has oxygen through [employer], FREELANCE DIRECTOR services and is active with [facility]. PCP verified. Copy of HCP verified to be on file. Patient is declining STR at this time and would like to return home with resumption of services. Will need BLS transport. Dr Saleh aware. Continue to monitor for d/c needs.
[2025-02-28 11:17] VITALS: O2SAT 97
[2025-02-28 12:50] VITALS: BP 110/56; PULSE 74; RESP 18; TEMP 36.4; O2SAT 95
--- OUTSIDE RECORDS SUMMARY | 2025-02-28 19:00 | XMS_ITS | Clinical Summary ---
Author Organization Unknown Care Team Providers Care Parking Supervisor Name Role Phone NICK ELECTRICIAN DECK, ANGELLA Unavailable Unavailable SHAYNA BECKWITH, VERAna Unavailable Unavailable RUDY BECKWITH, LAURA Unavailable Unavailable KERWIN BECKWITH, CURT Unavailable Unavailabl e Payers Payer Name Policy Type Policy Number Effective Date Expira tion Date [place] [id number] [place] DEMAND MEDIC[place] - [place] - AB[place] [id number] Problems Condition Name Condition Details Condition Category [...] 20 mg tablet 06-05 00:00: 00 Yes [id number] 1 tablet QAM 1 tablet QAM (route: oral) Alternate Route: PO. Med Classific ation: Central Nervous System Agents gabapentin 300 mg capsule 1- 00:00: 00 Yes [id number] 1 capsule TID 1 capsule TID (route: oral) Alternate Route: PO. Med Classific ation: Central Nervous System Agents glimepiride 2 mg tablet 2017-04 00:00: 00 03-10 23:59 :00 No [id number] 1 tablet QD 1 tablet QD (route: oral) Alternate Route: PO. Med Classific ation: Endocrine lamotrigine 100 mg tablet 1- 00:00: 00 Yes [id number] 1 tablet BID UTD 1 tablet BID UTD (route: oral) Alternate Route: PO. Med Classific ation: Central Nervous System Agents lamotrigine 25 mg tablet 05-12 00:00: 00 Yes [id number] 2 tablet DIRECTED 2 tablet DIRECTED (route: oral) Alternate Route: PO. Med Classific ation: Central Nervous System Agents Lasix 20 mg tablet 06-16 00:00: 00 07-09 23:59 :00 No [id number] 2 tablet EVERY AM 2 tablet EVERY AM (route: oral) Med Classific ation: Cardiovas cular Therapy Agents Lasix 20 mg tablet 06-16 00:00: 00 06-15 23:59 :00 No [id number] 1 tablet IN THE AFTERNOON 1 tablet IN THE AFTERNOON (route: oral) Med Classific ation: Cardiovas cular Therapy Agents metformin 1,000 mg tablet 2017-04 00:00: 00 Yes [id number] 1 tablet BID 1 tablet BID (route: oral) Alternate Route: PO. Med Classific ation: Endocrine O2 - OXYGEN - 00:00: 00 Yes [id number] 2 Liter O2 - PRN 2 Liter O 2 - PRN (route: Oxygen) Med Classific ation: Medical Oxygen potassium chloride ER 20 mEq tablet,exte nded release 05-12 00:00: 00 07-16 23:59 :00 No [id number] 2 tablet DAILY 2 tablet DAILY (route: oral) Med Classific ation: Electroly te Balance-N utritiona l Products Seroquel 100 mg tablet 2-05 00:00: 00 02-06 23:59 :00 No [id number] 1 tablet Every day 1 tablet Every day (route: oral) Med Classific ation: Central Nervous System Agents simvastatin 40 mg tablet 2019-0 1-20 00:00: 00 Yes [id number] 1 tablet QD 1 tablet QD (route: oral) Alternate Route: PO. Med Classific ation: Cardiovas cular Therapy Agents spironolact one 25 mg tablet 3- 00:00: 00 03-07 23:59 :00 No [id number] 1 tablet QD 1 tablet QD (route: oral) Alternate Route: PO. Med Classific ation: Cardiovas cular Therapy Agents Seroquel 100 mg tablet 2019-04 0-15 00:00: 00 06-01 23:59 :00 No [id number] 1.5 tablet BEDTIME 1.5 tablet BEDTIME (route: oral) Med Classific ation: Central Nervous System Agents glipizide ER 5 mg tablet, extended release 24 hr 2019-04 2-04 00:00: 00 02-25 23:59 :00 No [id number] 1 tablet DAILY 1 tablet DAILY (route: oral) Med Classific ation: Endocrine Seroquel 100 mg tablet 2- 00:00: 00 Yes [id number] 2 tablet BEDTIME 2 tablet BEDTIME (route: oral) Med Classific ation: Central Nervous System Agents pioglitazon e 30 mg tablet 6-17 00:00: 00 03-07 23:59 :00 No [id number] 1 tablet DAILY 1 tablet DAILY (route: oral) Med Classific ation: Endocrine Lasix 20 mg tablet 3- 00:00: 00 07-09 23:59 :00 No [id number] 2 tablet DIRECTED 2 tablet DIRECTED (route: oral) Med Classific ation: Cardiovas cular Therapy Agents Lasix 20 mg tablet 2-05 00:00: 00 Yes [id number] 2 tablet DAILY 2 tablet DAILY (route: oral) Med Classific ation: Cardiovas cular Therapy Agents Lasix 20 mg tablet 4-04 00:00: 00 05-12 23:59 :00 No [id number] 2 tablet DAILY 2 tablet DAILY (route: oral) Med Classific ation: Cardiovas cular Therapy Agents doxycycline monohydrate 100 mg tablet 5-26 00:00: 00 09-07 23:59 :00 No [id number] 1 tablet 2 TIMES DAILY 1 tablet 2 TIMES DAILY (route: oral) Med Classific ation: Anti-Infe ctive Agents Jardiance 10 mg tablet 2022-04 2- 00:00: 00 02-01 23:59 :00 No [id number] 1 tablet DAILY 1 tablet DAILY (route: oral) Med Classific ation: Endocrine spironolact one 50 mg tablet 2022-04 2- 00:00: 00 Yes [id number] 1 tablet DAILY 1 tablet DAILY (route: oral) Med Classific ation: Cardiovas cular Therapy Agents ciprofloxac in 250 mg tablet 2022-04 2 00:00: 00 03-16 23:59 :00 No [id number] 1 tablet EVERY 12 HOURS 1 tablet EVERY 12 HOURS (route: oral) Med Classific ation: Anti-Infe ctive Agents prednisone 20 mg tablet 2-05 00:00: 00 05-14 23:59 :00 No [id number] 1 tablet DAILY 1 tablet DAILY (route: oral) Med Classific ation: Endocrine Lasix 20 mg tablet 2- 00:00: 00 07-30 23:59 :00 No [id number] 1 tablet NOON 1 tablet NOON (route: oral) Med Classific ation: Cardiovas cular Therapy Agents potassium chloride ER 20 mEq tablet,exte nded release 4-11 00:00: 00 07-30 23:59 :00 No [id number] 1 tablet DAILY 1 tablet DAILY (route: oral) Med Classific ation: Electroly te Balance-N utritiona l Products Advair HFA 230 mcg-21 mcg/actuati on aerosol inhaler 09-08 00:00: 00 Yes [id number] 2 puff 2 TIMES DAILY 2 puff 2 TIMES DAILY (route: inhalation ) Med Classific ation: Respirato ry Therapy Agents Airsupra 90 mcg-80 mcg/actuati on HFA aerosol inhaler 09-08 00:00: 00 Yes [id number] 2 puff NEEDED 2 puff NEEDED (route: inhalation ) Med Classific ation: Respirato ry Therapy Agents pioglitazon e 30 mg tablet 8-03 00:00: 00 02-01 23:59 :00 No [id number] 1 tablet DAILY 1 tablet DAILY (route: oral) Med Classific ation: Endocrine Jardiance 25 mg tablet 2023-04 0- 00:00: 00 06-24 23:59 :00 No [id number] 1 tablet DAILY 1 tablet DAILY (route: oral) Med Classific ation: Endocrine Jardiance 10 mg tablet 3- 00:00: 00 Yes [id number] 1 tablet EVERY AM 1 tablet EVERY AM (route: oral) Med Classific ation: Endocrine Ozempic 0.25 mg or 0.5 mg (2 mg/3 mL) subcutaneou s pen injector 4-11 00:00: 00 09-21 23:59 :00 No [id number] 0.5 mg WEEKLY 0.5 mg WEEKLY (route: subcutaneo us) Med Classific ation: Endocrine potassium chloride ER 20 mEq tablet,exte nded release 07-30 00:00: 00 08-05 23:59 :00 No [id number] 1 tablet 2 TIMES DAILY 1 tablet 2 TIMES DAILY (route: oral) Med Classific ation: Electroly te Balance-N utritiona l Products fluticasone propionate 50 mcg/actuati on nasal spray,suspe nsion 08-05 00:00: 00 Yes [id number] 2 spray DAILY 2 spray DAILY (route: nasal) Med Classific ation: Respirato ry Therapy Agents loratadine 10 mg tablet - 00:00: 00 Yes [id number] 1 tablet DAILY 1 tablet DAILY (route: oral) Med Classific ation: Respirato ry Therapy Agents potassium chloride ER 20 mEq tablet,exte nded release - 00:00: 00 Yes [id number] 1 tablet EVERY AM 1 tablet EVERY AM (route: oral) Med Classific ation: Electroly te Balance-N utritiona l Products mirtazapine 7.5 mg tablet 08-18 00:00: 00 Yes [id number] 1 tablet BEDTIME 1 tablet BEDTIME (route: oral) Med Classific ation: Central Nervous System Agents Ozempic 1 mg/dose (4 mg/3 mL) subcutaneou s pen injector 6-13 00:00: 00 Yes [id number] 1 mg WEEKLY 1 mg WEEKLY (route: subcutaneo us) Med Classific ation: Endocrine Cartia XT 120 mg capsule,ext ended release 10-31 00:00: 00 Yes [id number] 1 capsule EVERY AM 1 capsule EVERY AM (route: oral) Med Classific ation: Cardiovas cular Therapy Agents Eliquis 5 mg tablet 10-24 00:00: 00 Yes [id number] 1 tablet 2 TIMES DAILY 1 tablet 2 TIMES DAILY (route: oral) Med Classific ation: Hematolog ical Agents prednisone 20 mg tablet 10-24 00:00: 00 10-27 23:59 :00 No [id number] 2 tablet DAILY 2 tablet DAILY (route: oral) Med Classific ation: Endocrine clonazepam 0.5 mg tablet 2024-04 0-06 00:00: 00 Yes [id number] 1 tablet 2 TIMES DAILY 1 tablet 2 TIMES DAILY (route: oral) Med Classific ation: Central Nervous System Agents digoxin 125 mcg (0.125 mg) tablet 2024-04 006 00:00: 00 Yes [id number] 1 tablet EVERY AM 1 tablet EVERY AM (route: oral) Med Classific ation: Cardiovas cular Therapy Agents Vital Signs Vital Name Observation Time Observation Value Commen ts Temperature 2025-02-25 10:38:00.000 97.8 [degF] Temperature 2025-02-24 11:17:00.000 97.7 [degF] Temperature 2025-02-23 11:30:00.000 97.6 [degF] Temperature 2025-02-22 11:07:00.000 97.4 [degF] Temperature 2025-02-21 09:54:00.000 97.4 [degF] Temperature 2025-02-18 11:14:00.000 97.4 [degF] Temperature 2025-02-17 10:22:00.000 97.5 [degF] Temperature 2025-02-16 12:45:00.000 98.1 [degF] Temperature 2025-02-15 12:44:00.000 96.7 [degF] Temperature 2025-02-14 10:24:00.000 98 [degF] Temperature 2025-02-11 11:17:00.000 97.3 [degF] Temperature 2025-02-10 12:25:00.000 98.2 [degF] Temperature 2025-02-09 12:25:00.000 97.4 [degF] Temperature 2025-02-08 10:54:00.000 98.3 [degF] Temperature 2025-02-07 10:56:00.000 97.6 [degF] Temperature 2025-02-04 10:14:00.000 98.3 [degF] Temperature 2025-02-03 10:11:00.000 97.9 [degF] Temperature 2025-02-02 11:01:00.000 98.3 [degF] Temperature 2025-02-01 11:11:00.000 97.6 [degF] Temperature 2025-01-26 12:14:00.000 97.5 [degF] Temperature 2025-01-24 10:52:00.000 96.8 [degF] Temperature 2025-01-21 10:53:00.000 96.8 [degF] Temperature 2025-01-20 11:35:00.000 97.6 [degF] Temperature 2025-01-19 12:20:00.000 97.3 [degF] Temperature 2025-01-18 11:18:00.000 96.8 [degF] Temperature 2025-01-17 11:01:00.000 96.8 [degF] Temperature 2025-01-14 11:14:00.000 97.3 [degF] Temperature 2025-01-13 11:36:00.000 98.1 [degF] Temperature 2025-01-12 11:40:00.000 98 [degF] Temperature 2025-01-11 11:07:00.000 97.3 [degF] Temperature 2025-01-10 10:52:00.000 97.5 [degF] Temperature 2025-01-06 23:56:00.000 98.1 [degF] Temperature 2025-01-05 10:35:00.000 97.3 [degF] Temperature 2025-01-04 12:20:00.000 97.6 [degF] Temperature 2025-01-03 10:25:00.000 97.9 [degF] Pulse 2025-02-25 10:38:00.000 77 /min Pulse 2025-02-24 11:16:00.000 74 /min Pulse 2025-02-23 11:30:00.000 94 /min Pulse 2025-02-22 11:07:00.000 81 /min Pulse 2025-02-21 09:54:00.000 80 /min Pulse 2025-02-18 11:14:00.000 71 /min Pulse 2025-02-17 10:22:00.000 79 /min Pulse 2025-02-16 12:45:00.000 78 /min Pulse 2025-02-15 12:44:00.000 92 /min Pulse 2025-02-14 10:24:00.000 77 /min Pulse 2025-02-11 11:17:00.000 66 /min Pulse 2025-02-10 12:25:00.000 74 /min Pulse 2025-02-09 12:25:00.000 74 /min Pulse 2025-02-08 10:54:00.000 72 /min Pulse 2025-02-07 10:56:00.000 81 /min Pulse 2025-02-04 10:14:00.000 73 /min Pulse 2025-02-03 10:20:00.000 88 /min Pulse 2025-02-02 11:01:00.000 75 /min Pulse 2025-02-01 11:11:00.000 84 /min Pulse 2025-01-31 11:09:00.000 94 /min Pulse 2025-01-28 11:58:00.000 83 /min Pulse 2025-01-27 12:31:00.000 89 /min Pulse 2025-01-26 12:14:00.000 88 /min Pulse 2025-01-25 11:09:00.000 73 /min Pulse 2025-01-24 10:52:00.000 84 /min Pulse 2025-01-21 10:53:00.000 56 /min Pulse 2025-01-20 11:35:00.000 73 /min Pulse 2025-01-19 12:20:00.000 71 /min Pulse 2025-01-18 11:18:00.000 68 /min Pulse 2025-01-17 11:01:00.000 78 /min Pulse 2025-01-14 11:21:00.000 88 /min Pulse 2025-01-13 11:36:00.000 71 /min Pulse 2025-01-12 11:40:00.000 75 /min Pulse 2025-01-11 11:07:00.000 88 /min Pulse 2025-01-10 10:47:00.000 93 /min Pulse 2025-01-06 23:56:00.000 136 /min Pulse 2025-01-05 10:35:00.000 94 /min Pulse 2025-01-04 12:20:00.000 78 /min Pulse 2025-01-03 10:25:00.000 83 /min O2 Saturation (%) 2025-02-25 10:39:00.000 94 % O2 Saturation (%) 2025-02-24 11:17:00.000 93 % O2 Saturation (%) 2025-02-23 11:45:00.000 94 % O2 Saturation (%) 2025-02-22 11:08:00.000 95 % O2 Saturation (%) 2025-02-21 09:54:00.000 94 % O2 Saturation (%) 2025-02-18 11:14:00.000 97 % O2 Saturation (%) 2025-02-17 10:31:00.000 90 % O2 Saturation (%) 2025-02-16 12:56:00.000 95 % O2 Saturation (%) 2025-02-15 12:44:00.000 92 % O2 Saturation (%) 2025-02-14 10:20:00.000 91 % O2 Saturation (%) 2025-02-11 11:17:00.000 91 % O2 Saturation (%) 2025-02-10 12:26:00.000 93 % O2 Saturation (%) 2025-02-09 12:25:00.000 93 % O2 Saturation (%) 2025-02-08 10:56:00.000 92 % O2 Saturation (%) 2025-02-07 10:57:00.000 93 % O2 Saturation (%) 2025-02-04 10:18:00.000 93 % O2 Saturation (%) 2025-02-03 10:17:00.000 93 % O2 Saturation (%) 2025-02-02 11:01:00.000 95 % O2 Saturation (%) 2025-02-01 11:14:00.000 99 % O2 Saturation (%) 2025-01-31 11:10:00.000 96 % O2 Saturation (%) 2025-01-28 11:59:00.000 95 % O2 Saturation (%) 2025-01-27 12:31:00.000 96 % O2 Saturation (%) 2025-01-26 12:14:00.000 96 % O2 Saturation (%) 2025-01-25 11:13:00.000 97 % O2 Saturation (%) 2025-01-24 10:52:00.000 96 % O2 Saturation (%) 2025-01-21 11:01:00.000 96 % O2 Saturation (%) 2025-01-20 11:36:00.000 96 % O2 Saturation (%) 2025-01-19 12:20:00.000 98 % O2 Saturation (%) 2025-01-18 11:18:00.000 96 % O2 Saturation (%) 2025-01-17 11:01:00.000 96 % O2 Saturation (%) 2025-01-14 11:17:00.000 99 % O2 Saturation (%) 2025-01-13 11:37:00.000 100 % O2 Saturation (%) 2025-01-12 11:40:00.000 100 % O2 Saturation (%) 2025-01-11 11:12:00.000 96 % O2 Saturation (%) 2025-01-10 10:47:00.000 95 % O2 Saturation (%) 2025-01-06 11:44:00.000 93 % O2 Saturation (%) 2025-01-05 10:41:00.000 96 % O2 Saturation (%) 2025-01-04 12:16:00.000 93 % O2 Saturation (%) 2025-01-03 10:25:00.000 92 % Respirations 2025-02-25 10:38:00.000 22 /min Respirations 2025-02-24 11:17:00.000 22 /min Respirations 2025-02-23 11:30:00.000 22 /min Respirations 2025-02-22 11:23:00.000 24 /min Respirations 2025-02-21 09:54:00.000 22 /min Respirations 2025-02-18 11:14:00.000 20 /min Respirations 2025-02-17 10:22:00.000 20 /min Respirations 2025-02-16 12:45:00.000 22 /min Respirations 2025-02-15 12:44:00.000 20 /min Respirations 2025-02-14 10:17:00.000 22 /min Respirations 2025-02-11 11:17:00.000 20 /min Respirations 2025-02-10 12:25:00.000 20 /min Respirations 2025-02-09 12:25:00.000 22 /min Respirations 2025-02-08 10:54:00.000 20 /min Respirations 2025-02-07 10:56:00.000 22 /min Respirations 2025-02-04 10:14:00.000 20 /min Respirations 2025-02-03 10:11:00.000 18 /min Respirations 2025-02-02 11:01:00.000 22 /min Respirations 2025-02-01 11:11:00.000 20 /min Respirations 2025-01-31 11:09:00.000 22 /min Respirations 2025-01-28 11:58:00.000 20 /min Respirations 2025-01-27 12:31:00.000 22 /min Respirations 2025-01-26 12:10:00.000 20 /min Respirations 2025-01-25 11:09:00.000 20 /min Respirations 2025-01-24 10:52:00.000 22 /min Respirations 2025-01-21 10:53:00.000 20 /min Respirations 2025-01-20 11:35:00.000 22 /min Respirations 2025-01-19 12:20:00.000 22 /min Respirations 2025-01-18 11:18:00.000 22 /min Respirations 2025-01-17 11:01:00.000 22 /min Respirations 2025-01-14 11:14:00.000 20 /min Respirations 2025-01-13 11:36:00.000 20 /min Respirations 2025-01-12 11:40:00.000 20 /min Respirations 2025-01-11 11:07:00.000 20 /min Respirations 2025-01-10 10:47:00.000 20 /min Respirations 2025-01-06 23:56:00.000 20 /min Respirations 2025-01-05 10:35:00.000 20 /min Respirations 2025-01-04 12:15:00.000 20 /min Respirations 2025-01-03 10:23:00.000 20 /min Weight (lbs) 2025-02-21 10:03:00.000 247 [lb_av] Weight (lbs) 2025-02-15 13:00:00.000 244 [lb_av] Weight (lbs) 2025-02-11 11:17:00.000 244 [lb_av] Weight (lbs) 2025-02-04 10:27:00.000 247 [lb_av] Weight (lbs) 2025-01-28 11:59:00.000 251.6 [lb_av] Weight (lbs) 2025-01-21 11:06:00.000 251.8 [lb_av] Weight (lbs) 2025-01-14 11:40:00.000 256.8 [lb_av] Systolic Blood Pressure 2025-02-25 10:38:00.000 100 mm [Hg] Systolic Blood Pressure 2025-02-24 11:18:00.000 110 mm [Hg] Systolic Blood Pressure 2025-02-23 11:30:00.000 122 mm [Hg] Systolic Blood Pressure 2025-02-22 11:23:00.000 104 mm [Hg] Systolic Blood Pressure 2025-02-21 10:00:00.000 102 mm [Hg] Systolic Blood Pressure 2025-02-18 11:14:00.000 104 mm [Hg] Systolic Blood Pressure 2025-02-17 10:22:00.000 92 mm[ Hg] Systolic Blood Pressure 2025-02-16 12:45:00.000 110 mm [Hg] Systolic Blood Pressure 2025-02-15 12:47:00.000 92 mm[ Hg] Systolic Blood Pressure 2025-02-14 10:24:00.000 110 mm [Hg] Systolic Blood Pressure 2025-02-11 11:17:00.000 100 mm [Hg] Systolic Blood Pressure 2025-02-10 12:25:00.000 94 mm[ Hg] Systolic Blood Pressure 2025-02-09 12:25:00.000 100 mm [Hg] Systolic Blood Pressure 2025-02-08 10:58:00.000 106 mm [Hg] Systolic Blood Pressure 2025-02-07 10:56:00.000 102 mm [Hg] Systolic Blood Pressure 2025-02-03 10:20:00.000 106 mm [Hg] Systolic Blood Pressure 2025-02-02 11:01:00.000 100 mm [Hg] Systolic Blood Pressure 2025-02-01 11:11:00.000 100 mm [Hg] Systolic Blood Pressure 2025-01-31 11:10:00.000 130 mm [Hg] Systolic Blood Pressure 2025-01-28 11:58:00.000 100 mm [Hg] Systolic Blood Pressure 2025-01-27 12:31:00.000 100 mm [Hg] Systolic Blood Pressure 2025-01-26 12:14:00.000 118 mm [Hg] Systolic Blood Pressure 2025-01-25 11:13:00.000 110 mm [Hg] Systolic Blood Pressure 2025-01-24 10:52:00.000 108 mm [Hg] Systolic Blood Pressure 2025-01-21 10:53:00.000 100 mm [Hg] Systolic Blood Pressure 2025-01-20 11:40:00.000 98 mm[ Hg] Systolic Blood Pressure 2025-01-19 12:20:00.000 106 mm [Hg] Systolic Blood Pressure 2025-01-18 11:18:00.000 106 mm [Hg] Systolic Blood Pressure 2025-01-17 11:01:00.000 110 mm [Hg] Systolic Blood Pressure 2025-01-14 11:20:00.000 112 mm [Hg] Systolic Blood Pressure 2025-01-13 11:36:00.000 102 mm [Hg] Systolic Blood Pressure 2025-01-12 11:40:00.000 120 mm [Hg] Systolic Blood Pressure 2025-01-11 11:07:00.000 100 mm [Hg] Systolic Blood Pressure 2025-01-10 10:47:00.000 118 mm [Hg] Systolic Blood Pressure 2025-01-06 23:56:00.000 102 mm [Hg] Systolic Blood Pressure 2025-01-05 10:35:00.000 100 mm [Hg] Systolic Blood Pressure 2025-01-04 12:20:00.000 112 mm [Hg] Systolic Blood Pressure 2025-01-03 10:23:00.000 120 mm [Hg] Diastolic Blood Pressure 2025-02-25 10:38:00.000 56 mm [Hg] Diastolic Blood Pressure 2025-02-24 11:18:00.000 60 mm [Hg] Diastolic Blood Pressure 2025-02-23 11:30:00.000 66 mm [Hg] Diastolic Blood Pressure 2025-02-22 11:23:00.000 50 mm [Hg] Diastolic Blood Pressure 2025-02-21 10:00:00.000 64 mm [Hg] Diastolic Blood Pressure 2025-02-18 11:14:00.000 52 mm [Hg] Diastolic Blood Pressure 2025-02-17 10:22:00.000 50 mm [Hg] Diastolic Blood Pressure 2025-02-16 12:45:00.000 54 mm [Hg] Diastolic Blood Pressure 2025-02-15 12:47:00.000 50 mm [Hg] Diastolic Blood Pressure 2025-02-14 10:24:00.000 70 mm [Hg] Diastolic Blood Pressure 2025-02-11 11:17:00.000 60 mm [Hg] Diastolic Blood Pressure 2025-02-10 12:25:00.000 60 mm [Hg] Diastolic Blood Pressure 2025-02-09 12:25:00.000 60 mm [Hg] Diastolic Blood Pressure 2025-02-08 10:58:00.000 62 mm [Hg] Diastolic Blood Pressure 2025-02-07 10:56:00.000 70 mm [Hg] Diastolic Blood Pressure 2025-02-03 10:20:00.000 60 mm [Hg] Diastolic Blood Pressure 2025-02-02 11:01:00.000 60 mm [Hg] Diastolic Blood Pressure 2025-02-01 11:11:00.000 60 mm [Hg] Diastolic Blood Pressure 2025-01-31 11:10:00.000 70 mm [Hg] Diastolic Blood Pressure 2025-01-28 11:58:00.000 53 mm [Hg] Diastolic Blood Pressure 2025-01-27 12:31:00.000 60 mm [Hg] Diastolic Blood Pressure 2025-01-26 12:14:00.000 64 mm [Hg] Diastolic Blood Pressure 2025-01-25 11:13:00.000 70 mm [Hg] Diastolic Blood Pressure 2025-01-24 10:52:00.000 60 mm [Hg] Diastolic Blood Pressure 2025-01-21 10:53:00.000 64 mm [Hg] Diastolic Blood Pressure 2025-01-20 11:40:00.000 60 mm [Hg] Diastolic Blood Pressure 2025-01-19 12:20:00.000 64 mm [Hg] Diastolic Blood Pressure 2025-01-18 11:18:00.000 64 mm [Hg] Diastolic Blood Pressure 2025-01-17 11:01:00.000 68 mm [Hg] Diastolic Blood Pressure 2025-01-14 11:20:00.000 60 mm [Hg] Diastolic Blood Pressure 2025-01-13 11:36:00.000 70 mm [Hg] Diastolic Blood Pressure 2025-01-12 11:40:00.000 62 mm [Hg] Diastolic Blood Pressure 2025-01-11 11:07:00.000 60 mm [Hg] Diastolic Blood Pressure 2025-01-10 10:47:00.000 64 mm [Hg] Diastolic Blood Pressure 2025-01-06 23:56:00.000 66 mm [Hg] Diastolic Blood Pressure 2025-01-05 10:35:00.000 64 mm [Hg] Diastolic Blood Pressure 2025-01-04 12:20:00.000 60 mm [Hg] Diastolic Blood Pressure 2025-01-03 10:23:00.000 70 mm [Hg] Plan of Treatment Planned Activity [...] RSE TO PRE-POUR MEDICATION PER MEDICATION LIST M-F. PP PM HS MEDS AND AM FOR FOLLOWING A.M. PP MEDS ON WEEKENDS . [code = SKILLED NURSE TO PRE-POUR MEDICATION PER MEDICATION LIST M-F. PP PM HS MEDS AND AM FOR FOLLOWING A.M. PP MEDS ON WEEKENDS .] Future Scheduled Test PATIENT MA Y HAVE ONE SET OF EMERGENCY MEDICATION NOT TO BE PRE-POURED ANY SOONER THAN 24 HOURS BEFORE SEVERE INCLEMENT WEATHER OR EMERGENT EVENT AND FOLLOWING SKILLED NURSE EVALUATION OF PATIENT SAFETY. [code = PATIENT MAY HAVE ONE SET OF EMERGENCY MEDICATION NOT TO BE PRE-POURED ANY SOONER THAN 24 HOURS BEFORE SEVERE INCLEMENT WEATHER OR EMERGENT EVENT AND FOLLOWING SKILLED NURSE EVALUATION OF PATIENT SAFETY.] Future Scheduled Test SKILLED NU RSE TO O/A OF PATIENTS MENTAL/BEHAVIORAL STATUS, ASSESS VITAL SIGNS ,Q VISIT. ALLOW 2 PRNS FOR MEDICATION MANAGEMENT. [code = SKILLED NURSE TO O/A OF PATIENTS MENTAL/BEHAVIORAL STATUS, ASSESS VITAL SIGNS ,Q VISIT. ALLOW 2 PRNS FOR MEDICATION MANAGEMENT.] Future Scheduled Test SKILLED NU RSE FOR O/A OF ALTERED MOOD [code = SKILLED NURSE FOR O/A OF ALTERED MOOD] Future Scheduled Test SKILLED NU RSE MAY PICKUP AND TRANSPORT MEDICATIONS [code = SKILLED NURSE MAY PICKUP AND TRANSPORT MEDICATIONS] Future Scheduled Test MEDICATION S WILL BE [...] VISIT] Future Scheduled Test SKILLED NU RSE FOR [...] Future Scheduled Test SKILLED NU RSE TO OBTAIN BLOOD SUGAR PRN FOR SIGNS AND SYMPTOMS OF HYPO/HYPERGLYCEMIA. IF OBTAINED BY PATIENT/CAREGIVER PRIOR TO VISIT AND PATIENT IS NOT SYMPTOMATIC, SKILLED NURSE TO RECORD READING FROM PATIENT LOG. [code = SKILLED NURSE TO OBTAIN BLOOD SUGAR PRN FOR SIGNS AND SYMPTOMS OF HYPO/HYPERGLYCEMIA. IF OBTAINED BY PATIENT/CAREGIVER PRIOR TO VISIT AND PATIENT IS NOT SYMPTOMATIC, SKILLED NURSE TO RECORD READING FROM PATIENT LOG.] Future Scheduled Test SKILLED NU RSE FOR O/A, TEACHING AND SELF-MANAGEMENT RELATED TO HEART FAILURE. INSTRUCT PATIENT/CAREGIVER ON SIGNS AND SYMPTOMS OF EXACERBATION TO REPORT. WEIGHT TO BE OBTAINED WEEKLY, ONLY WHAT PT ALLOWS, AND WEIGHT GAIN OF 2 LBS OR 5 LBS IN 1 WEEK TO BE REPORTED TO PHYSICIAN. [code = SKILLED NURSE FOR O/A, TEACHING AND SELF-MANAGEMENT RELATED TO HEART FAILURE. INSTRUCT PATIENT/CAREGIVER ON SIGNS AND SYMPTOMS OF EXACERBATION TO REPORT. WEIGHT TO BE OBTAINED WEEKLY, ONLY WHAT PT ALLOWS, AND WEIGHT GAIN OF 2 LBS OR 5 LBS IN 1 WEEK TO BE REPORTED TO PHYSICIAN.] Future Scheduled Test INSTRUCTED PATIENT/CAREGIVER ON SIGNS AND SYMPTOMS, RISK FACTORS, COMPLICATIONS, AND MANAGEMENT OF ATRIAL FIBRILLATION. [code = INSTRUCTED PATIENT/CAREGIVER ON SIGNS AND SYMPTOMS, RISK FACTORS, COMPLICATIONS, AND MANAGEMENT OF ATRIAL FIBRILLATION.] Future Scheduled Test SKILLED NU RSE TO [...] PROBLEMS.] Future Scheduled Test SKILLED NU RSE FOR ADMINISTRATION AND TEACHING OF PRESCRIBED INJECTION THERAPY FOR OZEMPIC SC [code = SKILLED NURSE FOR ADMINISTRATION AND TEACHING OF PRESCRIBED INJECTION THERAPY FOR OZEMPIC SC] Future Scheduled Test SKILLED NU RSE TO [...] AWARENESS FOR SAFETY AND WILL NOTIFY CLINICAL CAPITAL CAMPAIGN FUNDRAISER AND PHYSICIAN/PROVIDER WITH ANY CHANGE IN CONDITION. [code = SKILLED NURSE WILL MAINTAIN SITUATIONAL AWARENESS FOR SAFETY AND WILL NOTIFY CLINICAL CAPITAL CAMPAIGN FUNDRAISER AND PHYSICIAN/PROVIDER WITH ANY CHANGE IN CONDITION.] Future Scheduled Test OXYGEN VIA 2L VIA NC PRN . SKILLED NURSE FOR O/A AND SKILLED TEACHING OF SAFE OXYGEN USE IN THE HOME. [code = OXYGEN VIA 2L VIA NC PRN . SKILLED NURSE FOR O/A AND SKILLED TEACHING OF SAFE OXYGEN USE IN THE HOME.] Goal Patient Goal - C ONTINUE LOSE WEIGHT, AVOID HOSPITALIZATION, DONT FALL Goal 2023-07-07 Patient Goal - GET BACK [...] LOSE WEIGHT, AVOID HOSPITALIZATION, DONT FALL Goal 2024-12-28 Patient Goal - C ONTINUE LOSE WEIGHT, AVOID HOSPITALIZATION, DONT FALL Goal 2025-02-25 Patient Goal - C ONTINUE LOSE WEIGHT, AVOID HOSPITALIZATION, DONT FALL Goal Provider Goal - A PLAN OF CARE WILL BE ESTABLISHED THAT MEETS PATIENT'S [facility] NEEDS AND INCLUDES PATIENT GOAL FOR HOME HEALTH. Goal Provider Goal - PATIENT WILL COMPLY WITH MEDICATION WHEN SKILLED NURSE PRE-POURS MEDICATION THROUGHOUT CERTIFICATION PERIOD. Goal Provider Goal - MEDICATION WILL BE AVAILABLE DURING INCLEMENT WEATHER OR EMERGENT EVENT THROUGHOUT CERTIFICATION PERIOD. Goal Provider Goal - ALTERED MENTAL/BEHAVIORAL STATUS WILL BE IDENTIFIED PROMPTLY AND INTERVENTION INITIATED QUICKLY TO MINIMIZE ASSOCIATED RISKS THROUGHOUT CERTIFICATION PERIOD. Goal Provider Goal - PATIENT WILL BE ABLE TO PERFORM DAILY FUNCTIONS AND HAVE OPTIMAL IMPROVEMENT IN MOOD STABILITY THROUGHOUT CERTIFICATION PERIOD. Goal Provider Goal - SKILLED NURSE PICKED UP AND TRANSPORTED MEDICATIONS FOR SAFETY. Goal Provider Goal - MEDICATION WILL BE [...] WILL BE OBTAINED ORDERED THROUGHOUT CERTIFICATION PERIOD. Goal Provider Goal - [...] THE CERTIFICATION PERIOD. Goal Provider Goal - PATIENT WILL RECEIVE OZEMPIC SC ORDERED. PATIENT/CAREGIVER WILL VERBALIZE/DEMONSTRATE KNOWLEDGE OF INJECTION THERAPY BY THE END OF THE CERTIFICATION PERIOD. [...] <paragraph>[Visit Date: 2024 by CURT SURESH RN]:</paragraph><paragraph>SNV RECERTIFICATION NOTE 11 : PATIENT WITH LONG HISTORY OF BIPOLAR DISORDER COPD ACUTE AND CHRONIC RESPIRATORY FAILURE WITH HYPOXIA TYPE 2 DIABETES WITHOUT COMPLICATIONS UNSPECIFIED MOOD DISORDER POLYNEUROPATHY AND NEWER ONSET ATRIAL FIBRILLATION. PATIENT ALSO OXYGEN DEPENDENT WEARS OXYGEN AT 2 L VIA NASAL CANNULA P.R.N. PATIENT LIVES ALONE IN A FIRST-FLOOR APARTMENT DOES HAVE ASSISTANCE OF SOCIAL SECURITY SPECIALIST 4-5 TIMES WEEKLY AND DOES HAVE A SISTER WHO LIVES NEARBY 45 MINUTES AWAY WHO DOES VISIT AT LEAST ONCE WEEKLY AND INTERMITTENTLY. PATIENT DOES AMBULATE WITH A WALKER AND BECOMES SHORT OF BREATH WITH MINIMAL EXERTION AND AT TIMES WITH TALKING. PATIENT DOES SPEND MAJORITY OF DAY SITTING WATCHING TV OR AT COMPUTER. PATIENT WITH LONG HISTORY OF PSYCHIATRIC ILLNESS IS COOPERATIVE AND ANSWERS APPROPRIATELY PATIENT CAN BE APATHETIC REGARDING MEDICATION AND DISEASE MANAGEMENT DOES REQUIRING ONGOING . SUPERVISION. PATIENT CAN NOT RECITE OR IDENTIFY GREATER THAN 70% OF HER MEDICATIONS. PATIENT FREQUENTLY NEEDS EDUCATION REGARDING IMPORTANCE OF USE OF COMPRESSION HOSE FOR CHRONIC EDEMA IN LOWER EXTREMITIES ELEVATING LEGS WHILE SITTING AND IMPORTANCE OF ADHERENCE WITH BOTH DIABETIC AND HEART HEALTHY DIET GUIDELINES WHICH SHE REMAINS NONCOMPLIANT WITH. ... PATIENT MOST RECENTLY WITHIN THE LAST 2 WEEKS WITH CONGESTED COUGH COUGHING UP GREEN SPUTUM DECREASED SATURATION LEVELS , IS NOT CONSISTENT WITH USE OF OXYGEN. BAKERY WORKER CONVEYOR LINE DR. CASTELLON WAS NOTIFIED CHEST X-RAY WAS DONE OUTPATIENT SHOWED NO EVIDENCE OF PNEUMONIA OR CHF. PATIENT ACCORDING TO MD HAS HAVING CHANGES WITH HER COPD IN RELATION TO SEASONAL CHANGES. RECOMMENDATION WAS FOR PATIENT TO OBTAIN [id number] COUGH MEDICINE TO ASSIST WITH CONGESTION AND COUGH. THIS NURSE DID ASSIST PATIENT WITH OBTAINING [id number] COUGH MEDICINE PATIENT HAS BEEN USING FOR THE PAST 2-3 DAYS WITH IMPROVEMENT LESS CONGESTION NOTED AND COUGHING UP MORE SPUTUM PER PATIENT. PATIENT ALSO HAD RECENT FALL WITHIN THE LAST WEEK WITH COLDS SIGNS AND SYMPTOMS DUE TO INCREASED FATIGUE . NO INJURIES SUSTAINED. PATIENT NEEDS ENCOURAGEMENT REGARDING INCREASING ACTIVITY DOES HAVE A SOCIAL SECURITY SPECIALIST WHO DOES ASSIST PATIENT AT THIS TIME WITH WALKING IN HALLWAYS WITH ASSISTANCE OR IN HOME WITH WALKER. ... COMPLIANT WITH ALL PSYCHIATRY AND MEDICAL DOCTOR APPOINTMENTS. PATIENT TOLERATING NEWER MEDS FOR ATRIAL FIB ,CARDIZEM AND ELIQUIS, THERE HAVE BEEN NO BLEEDING COMPLICATIONS. PATIENT'S SAFETY MAINTAINED . PATIENT CONTINUES TO CHECK BLOOD SUGAR INDEPENDENTLY RANGE HAS BEEN ANYWHERE IN THE 100S TO 150 RANGE. O2 SATURATION LEVELS ON ROOM AIR HAVE BEEN ANYWHERE FROM 90-95%. PATIENT NEEDS CONSTANT REINFORCEMENT REGARDING OXYGEN USE PCP HAS RECOMMENDED TO USE EVERY NIGHT PATIENT HAS BEEN DOING WITH CONTINUED NURSE TEACHING AND REINFORCEMENT. ... PATIENT HAS BEEN COMPLIANT WITH MEDICATIONS WITH CONTINUED NURSING ASSISTANCE 5 TIMES WEEKLY ALSO WITH OZEMPIC WEEKLY. PATIENT NEEDS ONGOING ASSISTANCE WITH DIETARY GUIDELINES TO ASSIST WITH WEIGHT LOSS. PATIENT RECENTLY HAD ECHOCARDIOGRAM WHICH WAS WITHIN NORMAL LIMITS. ... PATIENT'S VITAL SIGNS HAVE BEEN STABLE. ENCOURAGED PATIENT WITH COUGHING AND DEEP BREATHING EXERCISES WITH HISTORY OF COPD AND SPENDING MAJORITY OF DAY SITTING.</paragraph> Encounters Start Date/Time End Date/Time Encounter Type Admission Type Attending Clinicians Care Facility Care Department Encounter ID Discharge Date Discharge Status Discharge Condition Discharge Reason Percent Goals Met 2025-01-01 00:00:00 2025-03-01 00:00:00 Outpatient RECERTIFIC CURT GONSALEZ [facility] [id number] 58.97
== END 2025-02-28 12:54 | disposition home or self-care (01) ==
PROVIDERS: Emergency Provider Emergency Medicine; PCP Internal Medicine
DX: S09.90XA Unspecified injury of head, initial encounter (principal); S61.411A Laceration without foreign body of right hand, initial encounter; W07.XXXA Fall from chair, initial encounter; Y93.9 Activity, unspecified; Y92.9 Unspecified place or not applicable; R07.9 Chest pain, unspecified; Z03.818 Encounter for observation for suspected exposure to other biological agents ruled out; I10 Essential (primary) hypertension; E11.9 Type 2 diabetes mellitus without complications; J44.9 Chronic obstructive pulmonary disease, unspecified; Z99.81 Dependence on supplemental oxygen; Z87.891 Personal history of nicotine dependence
CPT/HCPCS: 12002; 36415; 70450; 72125; 80053; 85025; 87635; 93005; 97162; 99284

== ENCOUNTER → 2025-02-28 06:15 | Outpatient (BNV) | payer MEDICARE, MEDICAID, SELFPAY | PROVIDERS: Emergency Provider Emergency Medicine; PCP Internal Medicine; Visit Provider Radiology Diagnostic Radiology | DX: Z04.3 Encounter for examination and observation following other accident (principal); E04.1 Nontoxic single thyroid nodule; M47.812 Spondylosis without myelopathy or radiculopathy, cervical region; S00.03XA Contusion of scalp, initial encounter | CPT/HCPCS: 70450; 72125 ==

== ENCOUNTER → 2025-02-28 06:16 | Outpatient (BNV) | payer MEDICARE, MEDICAID, SELFPAY | PROVIDERS: Emergency Provider Emergency Medicine; PCP Internal Medicine; Visit Provider Internal Medicine Cardiovascular Disease | DX: I25.2 Old myocardial infarction (principal) | CPT/HCPCS: 93010 ==

== ENCOUNTER 2025-03-10 12:22 | Outpatient (AMB) | payer MEDICARE, MEDICAID, SELFPAY ==
[2025-03-10 12:32] VITALS: BP 110/62; PULSE 73; BMI 46.6
--- NOTE | 2025-03-10 12:32 | A.OFFVIS_ITS ---
Vital Signs 03/10/25 12:32 Height 5 ft 1 in Weight 246 lb 14.684 oz BMI 46.6 BP 110/62 Blood Pressure Location Rt brachial Position Sitting Pulse 73 Pulse Source Pulse Oximeter Intake Visit Reasons: sob Allergies haloperidol (From Haldol) Allergy (Mild, Verified 02/28/25 05:40) UNKNOWN Medication List - Last Reconciled 03/10/25 by Vishal Landers MD albuterol sulfate 90 mcg/actuation (Ventolin HFA) 2 puffs PO DAILY PRN albuterol-budesonide 90-80 mcg/actuation (Airsupra) 2 inhalations inhalation QID PRN apixaban (Eliquis) 5 mg PO BID aripiprazole 20 mg PO DAILY clonazepam 0.5 mg PO BID PRN digoxin 0.125 mg See Protocol PO DAILY diltiazem HCl CD (Cartia XT) 120 mg PO DAILY empagliflozin (Jardiance) 10 mg PO DAILY fluticasone propion-salmeterol 230-21 mcg/actuation (Advair HFA) 2 puffs inhalation DAILY furosemide 40 mg PO DAILY@0800 gabapentin 300 mg PO TID lamotrigine 25 mg PO DAILY lamotrigine 100 mg PO BID lamotrigine 50 mg PO BEDTIME lidocaine 4% 1 patch topical DAILY PRN loratadine 10 mg PO DAILY metformin 1,000 mg PO BID mirtazapine 7.5 mg PO BEDTIME potassium chloride ER 20 mEq PO DAILY quetiapine 200 mg PO BEDTIME semaglutide (Ozempic) 1 mg subcut FR simvastatin 40 mg PO BEDTIME spironolactone 50 mg PO DAILY walker As directed HPI Comments Details: Elizabeth returns for follow-up regarding atrial fibrillation. She has a history of COPD on home oxygen. Visiting nurse had noted a high heart rate and that led to ER visit. She was found to be in atrial fibrillation rapid rate. She had received various medications including diltiazem, metoprolol, digoxin and then she converted back to normal sinus rhythm. She was doing well on follow-up but had another admission for similar reasons. Again discharged back home. Today, she states she is feeling good. No new concerns. She remains on diltiazem, digoxin and Eliquis. [facility] Medical History Atrial fibrillation Restrictive lung disease COPD (chronic obstructive pulmonary disease) Nocturnal hypoxemia Obesity (BMI 35.0-39.9 without comorbidity) Weakness Fever Fall Unspecified diastolic heart failure Diabetes HTN (hypertension) Family History Brother Heart disease Social History Household Members: Family Housing: Apartment Do you presently have visiting nurse or other home services: Yes Patient Tobacco Use Status: Former Tobacco user Second Hand Smoke Exposure: No Advance Directives Date on File: 04/21/23 service: No Current occupational status: retired 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 Review of Systems Const Denies weakness ENT Denies dizziness Card Denies chest pain, Denies chest pain with activity, Denies syncope, Denies rapid heart rate, Denies pedal edema, Denies edema, Denies leg edema, Denies lightheadedness, Denies palpitations, Reports dyspnea, Reports dyspnea on exertion and Reports orthopnea Resp Denies cough, Reports dyspnea and Reports dyspnea on exertion GI Denies hematochezia and Denies change in stool character Musc Denies abnormal gait, Denies muscle cramps, Denies muscle weakness, Denies numbness, Denies radiating pain into limb and Denies tingling Neuro Denies abnormal gait, Denies dizziness, Denies syncope, Denies numbness, Denies tingling and Denies weakness Endo Denies palpitations Physical Exam Vital Signs: Last Vital Signs Pulse 73 03/10/25 12:32 BP 110/62 03/10/25 12:32 BMI result Body Mass Index 46.6 Const General: comfortable and no acute distress Orientation/consciousness: patient oriented x3 HEENT Other: Unremarkable Head: Yes normal to inspection Neck Neck: Yes normal visual inspection Chest Chest palpation & inspection: normal inspection of the chest Resp Auscultation: clear to auscultation bilaterally Cardio Palpation: normal PMI Heart sounds: S1 normal heart sound present, S2 normal heart sound present, no gallops, no murmurs and no rubs GI Palpation (GI): Soft to palpation Back/Spine/Pelvis Other: unremarkable Skin General skin exam: no rashes or lesions noted Neuro General: patient oriented x3 Extrem General: Yes normal to inspection Psych Mental Status: mental status grossly normal Assessment & Plan Assessment & Plan (1) PAF (paroxysmal atrial fibrillation): Code(s): I48.0 - Paroxysmal atrial fibrillation Category: Medical (2) Atrial arrhythmia: Code(s): I49.8 - Other specified cardiac arrhythmias Category: Medical Plan Today, she is in sinus rhythm by auscultation. Echocardiogram with LVEF of 55-60%. No significant valvular findings. Small pe ricardial effusion near the left ventricle. In the Holter monitor, underlying rhythm is sinus at 79/Min. Rare supraventricular ectopy. Ventricular ectopy with a burden of 1.4%. Overall, stable paroxysmal atrial fibrillation. She can continue diltiazem but may stop the digoxin. Due to obesity, there is increased risk of atrial fibrillation in the future and in that case may need an antiarrhythmic agent like Multaq. Discussion Notes I informed the patient that we will be discontinuing her Digoxin, which she takes for her atrial fibrillation. She consented to stopping the medication. I will inform her visiting nurse of this change. I advised her to keep her scheduled follow-up appointment in June. Patient was informed and verbally consented to the use of an ambient scribe for clinic note documentation during this visit. Total time spent including review of data, counseling, documentation, coordination of care-31 minutes. Medications: Discontinued digoxin Discontinued Reason: Doctor's Order 0.125 mg See Protocol PO DAILY 90 tabs 0RF Coding Level of Care Code Est Pt Level 4 (38226) Complex visit Add On G2211 Diagnoses PAF (paroxysmal atrial fibrillation) I48.0 Atrial arrhythmia I49.8
== END 2025-03-10 12:49 | disposition home or self-care (01) ==
LOC: HO.HCS 12:23
PROVIDERS: PCP Internal Medicine; Visit Provider Internal Medicine
DX: I48.0 Paroxysmal atrial fibrillation (principal); I49.8 Other specified cardiac arrhythmias
CPT/HCPCS: 99214; G2211

== ENCOUNTER → 2025-03-10 12:22 | Outpatient (BNVA) | payer MEDICARE, MEDICAID, SELFPAY | PROVIDERS: PCP Internal Medicine; Visit Provider Internal Medicine | DX: I48.0 Paroxysmal atrial fibrillation (principal); I49.8 Other specified cardiac arrhythmias; J44.9 Chronic obstructive pulmonary disease, unspecified; Z99.81 Dependence on supplemental oxygen | CPT/HCPCS: 99212 ==